=== PATIENT | male | born 1935 | race Caucasian/White ===

== ENCOUNTER → 2017-07-20 | Outpatient (CLI) | payer MEDICARE, BC ==
--- NOTE | 2017-07-20 10:59 | XR ---
EXAMINATION TYPE: XR abdomen 1V DATE OF EXAM: 07/20/2017 COMPARISON: NONE HISTORY: Abdominal pain TECHNIQUE: One view abdominal series FINDINGS: The osseous structures are intact. The bowel gas pattern is nonspecific. Curvature of the spine with degenerative changes noted. Postsurgical change bilateral hip. Calcifications the pelvis likely vasc ular. IMPRESSION: 1. Nonspecific abdomen. Air is seen throughout the colon to level the rectum with retained fecal delmar ris throughout the colon. Correlate for constipation.
== END | disposition home or self-care (01) ==
LOC: RADXRMAIN 09:14
PROVIDERS: ATTEND Family Medicine
DX: R10.9 Unspecified abdominal pain (principal)
CPT/HCPCS: 74000

== ENCOUNTER → 2018-09-10 | Outpatient (CLI) | payer MEDICARE, BC ==
--- NOTE | 2018-09-10 15:53 | NM ---
EXAMINATION TYPE: NM DatScan Brain SPECT DATE OF EXAM: 09/10/2018 COMPARISON: NONE HISTORY: Tremors TECHNIQUE: 10 drops of Lugol's solution was administered 1 hour prior to injection as a thyroid bloc lillian agent. After the administration of 4.81 mCi I-123 Ioflupane DaTscan. Images obtained 3 hours p ost injection. SPECT images of the brain were acquired with axial and coronal reconstructions. FINDINGS: The axial SPECT images demonstrate increased background activity and reduced activity withi n the bilateral striata. IMPRESSION: Abnormal appearance highly suggestive of idiopathic Parkinson's disease or Parkinsonian s yndrome.
== END | disposition home or self-care (01) ==
LOC: RADNMMAIN 10:13
PROVIDERS: ATTEND Nurse Practitioner Acute Care
DX: R94.02 Abnormal brain scan (principal); G25.0 Essential tremor
CPT/HCPCS: 78607; A9584

== ENCOUNTER → 2019-04-04 | Outpatient (CLI) | payer MEDICARE, BC ==
--- NOTE | 2019-04-04 08:08 | US ---
EXAMINATION TYPE: US abd limited kidneys/bladder DATE OF EXAM: 04/04/2019 COMPARISON: CT & US 2011 CLINICAL HISTORY: Q44.6 Cystic Lesions; E27.9 Mass. Liver cysts EXAM MEASUREMENTS: Liver Length: 15.2 cm Gallbladder Wall: 0.2 cm CBD: 1.0 cm Right Kidney: 9.3 x 5.0 x 4.2 cm Left Kidney: 9.9 x 5.5 x 5.0 cm Pancreas: obscured by overlying midline bowel gas Liver: multiple cysts throughout with largest septated cyst measuring 6.1 x 6.1 x 7.1cm Gallbladder: wnl CBD: dilated Right Kidney: 1.2cm cystic area medial mid pole Left Kidney: visualized portions wnl, limited by overlying bowel gas Bladder: irregular posterior wall Bilateral Jets Seen yes IMPRESSION: 1. Multiple large hepatic cysts. No distinct solid mass appreciated. 2. Right renal cystic changes identified. 3. Dilated common bile duct likely on the basis of senescent change.
== END | disposition home or self-care (01) ==
LOC: RADUSWWP 07:04
PROVIDERS: ATTEND Family Medicine
DX: K76.89 Other specified diseases of liver (principal); N28.1 Cyst of kidney, acquired
CPT/HCPCS: 76705; 76770

== ENCOUNTER 2019-11-13 12:40 | Inpatient (IN) | payer MEDICARE, BC ==
[2019-11-13] MEDS ORDERED: SODIUM CHLORIDE 0.9% 500 ML 500 ML IV STA (13:09)
[2019-11-13 13:23] LABS: Basophils % (A) 0 %; Eosinophils # (A) 0.1 k/uL (0-0.7); Eosinophils % (A) 1 %; HCT 42.6 % (39.0-53.0); HGB 14.2 gm/dL (13.0-17.5); Lymphocytes # (A) 0.9 k/uL (1.0-4.8); Lymphocytes % (A) 10 %; MCH 31.2 pg (25.0-35.0); MCHC 33.5 g/dL (31.0-37.0); MCV 93.2 fL (80.0-100.0); Mean Platelet Volume 7.9; Monocytes # (A) 0.4 k/uL (0-1.0); Monocytes % (A) 4 %; Neutrophils # (A) 7.4 k/uL (1.3-7.7); Neutrophils % (A) 83 %; Platelet Count 128 k/uL (150-450); RBC 4.57 m/uL (4.30-5.90); RDW 13.5 % (11.5-15.5); WBC 8.9 k/uL (3.8-10.6)
--- NOTE | 2019-11-13 13:26 | ED ---
General Adult HPI - General Stated complaint: cough/CATARINO Time Seen by Provider: 11/13/19 12:50 Source: EMS, RN notes reviewed, old records reviewed Limitations: altered mental status - History of Present Illness Initial comments: 84-year-old male with history of dementia presenting with cough dyspnea and fever. History is very limited only from EMS and review of medical record. Patient has had cough and dyspnea for the past 24 hours. No known exposure to coronavirus. - Related Data Home Medications Medication Instructions Recorded Confirmed Acetaminophen Tab [Tylenol] 325 mg PO Q4H PRN 11/13/19 11/13/19 Aspirin EC [Ecotrin Low Dose] 81 mg PO DAILY 11/13/19 11/13/19 Carbidopa-Levodopa 25-100 mg 1 tab PO QID@08,12,,11/13/19 11/13/19 [Sinemet 25-100] Cholecalciferol [Vitamin D3 (25 1,000 unit PO DAILY 11/13/19 11/13/19 Mcg = 1000 Iu)] LORazepam [Ativan] 0.5 mg PO DAILY PRN 11/13/19 11/13/19 LORazepam [Ativan] 1 mg PO HS@199911/13/19 11/13/19 Losartan [Cozaar] 25 mg PO DAILY@0800 11/13/19 11/13/19 Melatonin 5 mg PO HS 11/13/19 11/13/19 Menthol [Biofreeze] 1 applic TOPICAL Q8H PRN 11/13/19 11/13/19 Metoprolol Tartrate [Lopressor] 12.5 mg PO BID@0800,1800 11/13/19 11/13/19 Polyethylene Glycol 3350 [Miralax] 17 gm PO DAILY 11/13/19 11/13/19 Polyvinyl Alcohol/Povidone [Clear 1 drop BOTH EYES Q2H PRN 11/13/19 11/13/19 Eyes Natural Tears Drop] Rivastigmine 4.6MG/24Hr Patch 1 patch TRANSDERM DAILY@0800 11/13/19 11/13/19 [Exelon 4.6MG/24Hr Patch] Sennosides [Senna] 8.6 mg PO BID@0800,1800 11/13/19 11/13/19 Tamsulosin [Flomax] 0.4 mg PO DAILY 11/13/19 11/13/19 Vortioxetine Hydrobromide 10 mg PO DAILY 11/13/19 11/13/19 [Trintellix] cloNIDine HCL [Catapres] 0.1 mg PO BID@0800,1800 11/13/19 11/13/19 rOPINIRole HCL [Requip] 0.5 mg PO BID@0800,1800 11/13/19 11/13/19 Allergies Allergy/AdvReac Type Severity Reaction Status Date / Time No Known Allergies Allergy Unverified 11/13/19 13:00 Review of Systems ROS Statement: Those systems with pertinent positive or pertinent negative responses have been documented in the HPI. ROS Other: All systems not noted in ROS Statement are negative. Limitations: ROS unobtainable due to patients medical condition General Exam Limitations: altered mental status, physical limitation General appearance: in no apparent distress, lethargic Head exam: Present: atraumatic, normocephalic Eye exam: Present: normal appearance, PERRL ENT exam: Present: mucous membranes dry Neck exam: Present: normal inspection. Absent: tenderness, meningismus Respiratory exam: Present: respiratory distress (Mild tachypnea), rhonchi, accessory muscle use, decreased breath sounds Cardiovascular Exam: Present: normal rhythm, tachycardia GI/Abdominal exam: Present: soft. Absent: distended, tenderness, guarding Extremities exam: Present: normal inspection, normal capillary refill. Absent: pedal edema, calf tenderness Neurological exam: Present: alert. Absent: oriented X3, motor sensory deficit Skin exam: Present: warm, dry, intact. Absent: cyanosis, diaphoretic Course Vital Signs 11/13/19 11/13/19 11/13/19 13:00 13:50 14:18 Temperature 100.8 F H 103.7 F H Pulse Rate 91 Respiratory 22 14 Rate Blood Pressure 127/82 169/76 O2 Sat by Pulse 91 L 97 Oximetry EKG Findings - EKG Comments: EKG Findings:: EKG: Sinus tachycardia, PVC, rate of 101, TX interval 126, QRS duration 86, QTC 414, no ST segment elevation. Medical Decision Making - Medical Decision Making 84-year-old male presenting with cough dyspnea and fever. Patient currently resides in a retirement. History of dementia unable to contribute to history. He does sound rhonchorous bilaterally with mild respiratory distress. Patient's has a normal CBC, no leukocytosis, mild lactic acidosis of 2.9, his normal electrolytes. Chest x-ray is negative for focal pneumonia, no bilateral interstitial infiltrates. Patient is treated for suspected developing pneumonia with ceftriaxone and azithromycin. Influenza testing is negative. Given the patient's negative flu, and concern for coronavirus this test will be sent. He will be kept in isolation awaiting test results. Case is discussed with Dr. Haider who will admit. - Lab Data Result diagrams: 11/13/19 13:04 11/13/19 13:04 Lab Results 11/13/19 11/13/19 11/13/19 Range/Units 13:04 13:04 13:04 WBC 8.9 (3.8-10.6) k/uL RBC 4.57 (4.30-5.90) m/uL Hgb 14.2 (13.0-17.5) gm/dL Hct 42.6 (39.0-53.0) % MCV 93.2 (80.0-100.0) fL MCH 31.2 (25.0-35.0) pg MCHC 33.5 (31.0-37.0) g/dL RDW 13.5 (11.5-15.5) % Plt Count 128 L (150-450) k/uL Neutrophils % 83 % Lymphocytes % 10 % Monocytes % 4 % Eosinophils % 1 % Basophils % 0 % Neutrophils # 7.4 (1.3-7.7) k/uL Lymphocytes # 0.9 L (1.0-4.8) k/uL Monocytes # 0.4 (0-1.0) k/uL Eosinophils # 0.1 (0-0.7) k/uL Basophils # 0.0 (0-0.2) k/uL PT 10.5 (9.0-12.0) sec INR 1.0 (<1.2) APTT 23.8 (22.0-30.0) sec Sodium 135 L (137-145) mmol/L Potassium 4.2 (3.5-5.1) mmol/L Chloride 100 (98-107) mmol/L Carbon Dioxide 27 (22-30) mmol/L Anion Gap 8 mmol/L BUN 33 H (9-20) mg/dL Creatinine 0.87 (0.66-1.25) mg/dL Est GFR (CKD-EPI)AfAm >90 (>60 ml/min/1.73 sqM) Est GFR (CKD-EPI)NonAf 80 (>60 ml/min/1.73 sqM) Glucose 112 H (74-99) mg/dL Plasma Lactic Acid Gaston (0.7-2.0) mmol/L Calcium 8.9 (8.4-10.2) mg/dL Magnesium 1.8 (1.6-2.3) mg/dL Total Bilirubin 0.7 (0.2-1.3) mg/dL AST 28 (17-59) U/L ALT 14 (4-49) U/L Alkaline Phosphatase 85 (38-126) U/L Total Protein 6.5 (6.3-8.2) g/dL Albumin 4.1 (3.5-5.0) g/dL Urine Color Urine Appearance (Clear) Urine pH (5.0-8.0) Ur Specific Polaris (1.001-1.035) Urine Protein (Negative) Urine Glucose (UA) (Negative) Urine Ketones (Negative) Urine Blood (Negative) Urine Nitrite (Negative) Urine Bilirubin (Negative) Urine Urobilinogen (<2.0) mg/dL Ur Leukocyte Esterase (Negative) Urine RBC (0-5) /hpf Urine WBC (0-5) /hpf Hyaline Casts (0-2) /lpf Urine Mucus (None) /hpf Influenza Type A RNA (Not Detectd) Influenza Type B (PCR) (Not Detectd) 11/13/19 11/13/19 11/13/19 Range/Units 13:04 13:35 13:40 WBC (3.8-10.6) k/uL RBC (4.30-5.90) m/uL Hgb (13.0-17.5) gm/dL Hct (39.0-53.0) % MCV (80.0-100.0) fL MCH (25.0-35.0) pg MCHC (31.0-37.0) g/dL RDW (11.5-15.5) % Plt Count (150-450) k/uL Neutrophils % % Lymphocytes % % Monocytes % % Eosinophils % % Basophils % % Neutrophils # (1.3-7.7) k/uL Lymphocytes # (1.0-4.8) k/uL Monocytes # (0-1.0) k/uL Eosinophils # (0-0.7) k/uL Basophils # (0-0.2) k/uL PT (9.0-12.0) sec INR (<1.2) APTT (22.0-30.0) sec Sodium (137-145) mmol/L Potassium (3.5-5.1) mmol/L Chloride (98-107) mmol/L Carbon Dioxide (22-30) mmol/L Anion Gap mmol/L BUN (9-20) mg/dL Creatinine (0.66-1.25) mg/dL Est GFR (CKD-EPI)AfAm (>60 ml/min/1.73 sqM) Est GFR (CKD-EPI)NonAf (>60 ml/min/1.73 sqM) Glucose (74-99) mg/dL Plasma Lactic Acid Gaston 2.9 H* (0.7-2.0) mmol/L Calcium (8.4-10.2) mg/dL Magnesium (1.6-2.3) mg/dL Total Bilirubin (0.2-1.3) mg/dL AST (17-59) U/L ALT (4-49) U/L Alkaline Phosphatase (38-126) U/L Total Protein (6.3-8.2) g/dL Albumin (3.5-5.0) g/dL Urine Color Yellow Urine Appearance Clear (Clear) Urine pH 5.5 (5.0-8.0) Ur Specific Polaris 1.021 (1.001-1.035) Urine Protein Trace H (Negative) Urine Glucose (UA) Negative (Negative) Urine Ketones 1+ H (Negative) Urine Blood Small H (Negative) Urine Nitrite Negative (Negative) Urine Bilirubin Negative (Negative) Urine Urobilinogen <2.0 (<2.0) mg/dL Ur Leukocyte Esterase Negative (Negative) Urine RBC 5 (0-5) /hpf Urine WBC 4 (0-5) /hpf Hyaline Casts 6 H (0-2) /lpf Urine Mucus Rare H (None) /hpf Influenza Type A RNA Not Detected (Not Detectd) Influenza Type B (PCR) Not Detected (Not Detectd) Disposition Clinical Impression: Pneumonia Disposition: ADMITTED IP TO THIS HOSP Condition: Stable Is patient prescribed a controlled substance at d/c from ED?: No Referrals: Mark Anderson DO [Primary Care Provider] - 1-2 days Decision to Admit Reason: Admit from EC Decision Date: 11/13/19 Decision Time: 14:36
[2019-11-13] MEDS ORDERED: ACETAMINOPHEN SUPPOSITORY 650 MG SUPP RECTAL STA (13:29)
[2019-11-13 13:32] LABS: Partial Thromboplastin Time 23.8 sec (22.0-30.0); Prothrombin Time 10.5 sec (9.0-12.0)
[2019-11-13 13:38] LABS: ALT 14 U/L (4-49); AST 28 U/L (17-59); African American GFR (CKD) >90 (>60 ml/min/1.73 sqM); Albumin 4.1 g/dL (3.5-5.0); Alkaline Phosphatase 85 U/L (38-126); Anion Gap 8 mmol/L; Blood Urea Nitrogen 33 mg/dL (9-20); Calcium 8.9 mg/dL (8.4-10.2); Carbon Dioxide 27 mmol/L (22-30); Chloride 100 mmol/L (98-107); Glucose 112 mg/dL (74-99); Magnesium 1.8 mg/dL (1.6-2.3); Non-African American GFR(CKD) 80 (>60 ml/min/1.73 sqM); Potassium 4.2 mmol/L (3.5-5.1); Sodium 135 mmol/L (137-145); Total Bilirubin 0.7 mg/dL (0.2-1.3); Total Protein 6.5 g/dL (6.3-8.2)
[2019-11-13] MEDS ORDERED: ONDANSETRON 4 MG/2 ML VIAL IVP STA (13:39)
[2019-11-13 14:20] LABS: Appearance,Urine Clear (Clear); Bilirubin,Urine Negative (Negative); Blood,Urine Small (Negative); Color,Urine Yellow; Glucose,Urine (UA) Negative (Negative); Hyaline Casts,Urine 6 /lpf (0-2); Ketones,Urine 1+ (Negative); Leukocyte Esterase,Urine Negative (Negative); Mucus,Urine Rare /hpf; Nitrite,Urine Negative (Negative); PH, Urine 5.5 (5.0-8.0); Protein,Urine Trace (Negative); RBC,Urine 5 /hpf (0-5); Specific Gravity,Urine 1.021 (1.001-1.035); Urobilinogen,Urine <2.0 mg/dL (<2.0); WBC,Urine 4 /hpf (0-5)
--- NOTE | 2019-11-13 14:24 | XR ---
EXAMINATION TYPE: XR chest 1V portable DATE OF EXAM: 11/13/2019 COMPARISON: NONE HISTORY: Fever and cough TECHNIQUE: FINDINGS: Heart is normal. There is mild coarsening of pulmonary interstitial markings. There is poor inspiration. There is no heart failure. There are chest leads. Thoracic aorta is atheromatous. IMPRESSION: Mild pulmonary fibrotic changes. No definite acute lung disease. No heart failure.
[2019-11-13] MEDS ORDERED: AZITHROMYCIN 500 MG in SODIUM CHLORIDE 0.9% 250 ML IVPB STA (14:31)
[2019-11-13] MEDS ORDERED: NALOXONE 0.4 MG/ML 1 ML VIAL IV PRN (14:32)
[2019-11-13] MEDS ORDERED: ACETAMINOPHEN TAB 325 MG TAB PO PRN ×2 (14:32→17:51)
[2019-11-13] MEDS: SODIUM CHLORIDE 0.9% 1,000 ML IV SCH (15:21)
[2019-11-13] MEDS ORDERED: SODIUM CHLORIDE 0.9% 500 ML 500 ML IV ONE (15:28)
[2019-11-13] MEDS ORDERED: NON FORMULARY DRUG (Menthol [Biofreeze] 1 APPLIC) TOPICAL PRN (17:51)
[2019-11-13] MEDS ORDERED: LORazepam 0.5 MG TAB PO PRN (17:51)
[2019-11-13] MEDS ORDERED: ARTIFICIAL TEARS-HYPROMELLOSE DROPS 15 ML BTL BOTH EYES PRN (17:51)
[2019-11-13] MEDS: cloNIDine HCL 0.1 MG TAB PO SCH (18:38)
[2019-11-13] MEDS: METOPROLOL TARTRATE 12.5 MG TAB PO SCH (18:40)
[2019-11-13] MEDS: SENNOSIDES 8.6 MG TAB PO SCH (18:40)
[2019-11-13] MEDS: CARBIDOPA-LEVODOPA 25-100 MG 1 EACH TAB PO SCH ×2 (18:40→20:03)
[2019-11-13] MEDS: LORazepam 1 MG TAB PO SCH (20:03)
[2019-11-13] MEDS: MELATONIN 5 MG TABLET PO SCH (20:03)
[2019-11-14] MEDS: SODIUM CHLORIDE 0.9% 1,000 ML IV SCH ×2 (04:29→16:04)
[2019-11-14] MEDS: CARBIDOPA-LEVODOPA 25-100 MG 1 EACH TAB PO SCH ×4 (08:52→21:24)
[2019-11-14] MEDS: LOSARTAN 25 MG TAB PO SCH (08:52)
[2019-11-14] MEDS: METOPROLOL TARTRATE 12.5 MG TAB PO SCH ×2 (08:52→17:42)
[2019-11-14] MEDS: cloNIDine HCL 0.1 MG TAB PO SCH ×2 (08:52→17:42)
[2019-11-14] MEDS: RIVASTIGMINE 4.6MG/24HR PATCH TRANSDERM SCH (08:52)
[2019-11-14] MEDS: VORTIOXETINE HYDROBROMIDE 10 MG TABLET PO SCH (08:53)
[2019-11-14] MEDS: SENNOSIDES 8.6 MG TAB PO SCH ×2 (08:53→17:44)
[2019-11-14] MEDS: ASPIRIN 81 MG PO SCH (08:53)
[2019-11-14] MEDS: CHOLECALCIFEROL 1,000 UNIT TAB PO SCH (08:53)
[2019-11-14] MEDS: TAMSULOSIN 0.4 MG CAP.ER.24H PO SCH (08:53)
[2019-11-14] MEDS: POLYETHYLENE GLYCOL 3350 17 GM POWD.PACK PO SCH (08:53)
--- NOTE | 2019-11-14 10:56 | P.HPIM ---
History of Present Illness H&P Date: 11/13/19 Chief Complaint: severe dyspnea and shortness of breath, high fever, bilateral pneumonia w 84-year-old male one of Dr. Mendiola's patient with advanced dementia, history of Parkinson disease, chronic depression, BPH and hypertension who [facility] 11[facility]2019 with severe shortness of breath hypoxia and high temperature of 103. Patient apparently has been having symptom for the last 3 days become much worse early t his morning. Symptomatically for bilateral pneumonia with negative chest x-ray at the time. His lactic acid is mildly elevated temperature was 103 at the time and subtle down shortly after his treatment was started. Patient was diagnosed with bilateral pneumonia, COVID 19 testing was order and pending at this point. Patient was started on Rocephin and azithromycin along with updraft treatment and O2 and admitted to the hospital shortly after for the above diagnosis. Review of Systems CONSTITUTIONAL: Well-developed no acute respiratory distress. Looks older than his age. EYES: No icterus sclerae, no conjunctivitis. EARS, NOSE, MOUTH, THROAT, and FACE: No sore throat, lymphadenopathy, carotid bruits or deformity. RESPIRATORY: Positive shortness of breath cough wheezes. CARDIOVASCULAR: No CP, positive Palpitation and PND, positive Orthopnea, no angina. GASTROINTESTINAL: Positive abdominal discomfort nausea no vomiting positive diarrhea no GI bleed. GENITOURINARY: Negative for Hematuria or UTI, no kidney stones. INTEGUMENT/BREAST: Negative for any muscular injury with mild osteoarthritis.. HEMATOLOGIC/LYMPHATIC: Negative for bleed or purpura. MUSCULOSKELTAL: Negative for Myalgia or arthralgia. NEURLOGICAL: Advanced dementia with no focal deficit. BEHAVIORAL/PSYCH: Negative. ENDOCRINE: Negative. Past Medical History Past Medical History: Dementia, Hyperlipidemia, Hypertension Additional Past Medical History / Comment(s): metabolic encephalopathy, parkinsons disease, chronic pain, cerebral infarction, BPH, insomnia History of Any Multi-Drug Resistant Organisms: Unobtainable Past Surgical History: Orthopedic Surgery Past Anesthesia/Blood Transfusion Reactions: Unable to Obtain Past Psychological History: Anxiety, Depression Smoking Status: Former smoker Past Alcohol Use History: None Reported Past Drug Use History: None Reported Medications and Allergies Home Medications Medication Instructions Recorded Confirmed Type Acetaminophen Tab [Tylenol] 325 mg PO Q4H PRN 11/13/19 11/13/19 History Aspirin EC [Ecotrin Low Dose] 81 mg PO DAILY 11/13/19 11/13/19 History Carbidopa-Levodopa 25-100 mg 1 tab PO QID@08,12,,11/13/19 11/13/19 History [Sinemet 25-100] Cholecalciferol [Vitamin D3 (25 1,000 unit PO DAILY 11/13/19 11/13/19 History Mcg = 1000 Iu)] LORazepam [Ativan] 0.5 mg PO DAILY PRN 11/13/19 11/13/19 History LORazepam [Ativan] 1 mg PO HS@199911/13/19 11/13/19 History Losartan [Cozaar] 25 mg PO DAILY@0800 11/13/19 11/13/19 History Melatonin 5 mg PO HS 11/13/19 11/13/19 History Menthol [Biofreeze] 1 applic TOPICAL Q8H PRN 11/13/19 11/13/19 History Metoprolol Tartrate [Lopressor] 12.5 mg PO BID@0800,1800 11/13/19 11/13/19 History Polyethylene Glycol 3350 [Miralax] 17 gm PO DAILY 11/13/19 11/13/19 History Polyvinyl Alcohol/Povidone [Clear 1 drop BOTH EYES Q2H PRN 11/13/19 11/13/19 History Eyes Natural Tears Drop] Rivastigmine 4.6MG/24Hr Patch 1 patch TRANSDERM DAILY@0800 11/13/19 11/13/19 History [Exelon 4.6MG/24Hr Patch] Sennosides [Senna] 8.6 mg PO BID@0800,1800 11/13/19 11/13/19 History Tamsulosin [Flomax] 0.4 mg PO DAILY 11/13/19 11/13/19 History Vortioxetine Hydrobromide 10 mg PO DAILY 11/13/19 11/13/19 History [Trintellix] cloNIDine HCL [Catapres] 0.1 mg PO BID@0800,1800 11/13/19 11/13/19 History rOPINIRole HCL [Requip] 0.5 mg PO BID@0800,1800 11/13/19 11/13/19 History Allergies Allergy/AdvReac Type Severity Reaction Status Date / Time No Known Allergies Allergy Unverified 11/13/19 13:00 Physical Exam Vitals: Vital Signs Temp Pulse Resp BP Pulse Ox 11/13/19 15:31 101.3 F H 85 16 124/93 95 11/13/19 15:15 99.3 F 20 11/13/19 14:18 14 169/76 97 11/13/19 13:50 103.7 F H 11/13/19 13:00 100.8 F H 91 22 127/82 91 L Intake and Output 11/13/19 11/13/19 11/13/19 06:59 14:59 22:59 Other: Voiding Method Diaper Weight 63.503 kg 68.431 kg General Appearance: Alert, cooperative, no distress, appears older than his age. Neck HEENT: Supple, no lymphadenopathy, no thyroid enlargement, no carotid bruits. Mild congestion in the nasopharyngeal area. Lungs: Decrease breast some bilateral fine rhonchi positive crackles in the bases positive mild respiratory expiratory wheezes. Chest Wall: Decrease expansion with deep inspiration no tenderness and no deformity was found on exam, no costochondral pain or discomfort. Heart: Regular rate and rhythm, S1, S2 normal, no murmur, rub or gallop. Back: Symmetric, no curvature, ROM normal, no CVA tenderness. Abdomen: Soft, non-tender, bowel sounds active all four quadrants, no masses, no organomegaly. Extremities: No edema positive mild osteoarthritis with slight discoloration of the lower extremity. Pulses: 2+ and symmetric. Skin: Skin color, texture, tugor normal, no rashes or lesions. Neurologic: Alert oriented with severe confusion moving all his for some to generalized weakness. Positive advanced dementia. Results CBC & Chem 7: 11/13/19 13:04 11/13/19 13:04 Labs: Abnormal Lab Results - Last 24 Hours (Table) 11/13/19 11/13/19 11/13/19 Range/Units 13:04 13:04 13:04 Plt Count 128 L (150-450) k/uL Lymphocytes # 0.9 L (1.0-4.8) k/uL Sodium 135 L (137-145) mmol/L BUN 33 H (9-20) mg/dL Glucose 112 H (74-99) mg/dL Plasma Lactic Acid Gaston 2.9 H* (0.7-2.0) mmol/L Urine Protein (Negative) Urine Ketones (Negative) Urine Blood (Negative) Hyaline Casts (0-2) /lpf Urine Mucus (None) /hpf 11/13/19 Range/Units 13:40 Plt Count (150-450) k/uL Lymphocytes # (1.0-4.8) k/uL Sodium (137-145) mmol/L BUN (9-20) mg/dL Glucose (74-99) mg/dL Plasma Lactic Acid Gaston (0.7-2.0) mmol/L Urine Protein Trace H (Negative) Urine Ketones 1+ H (Negative) Urine Blood Small H (Negative) Hyaline Casts 6 H (0-2) /lpf Urine Mucus Rare H (None) /hpf Thrombosis Risk Factor Assmnt - DVT/VTE Prophylaxis DVT/VTE Prophylaxis: Pharmacologic Prophylaxis ordered, Mechanical Prophylaxis ordered - Choose All That Apply Any of the Below Risk Factors Present?: Yes Each Factor Represents 1 point: Heart failure (<1month) Other Risk Factors: Yes Each Risk Factor Represents 2 Points: Patient confined to bed Each Risk Factor Represents 3 Points: Age 75 years or older Thrombosis Risk Factor Assessment Total Risk Factor Score: 6 Thrombosis Risk Factor Assessment Level: High Risk Assessment and Plan Plan: 1 severe dyspnea and shortness of breath: Combination off bilateral pneumonia along with COPD exacerbation, hypoxia and possible worsening viral infection including not limited to COVID-19. Continue current treatment management continue supportive care isolation and percussion at this point. 2 bilateral pneumonia with severe bronchitis who continue patient on Rocephin and azithromycin pulmonary consultation be done. 3 COPD with mild exacerbation: Patient will continue DuoNeb along with Pulmicort O2 along with pulmonary consultation and if needed smaller dose of steroid can be use. 4 worsening dementia: Has been on Exelon patch daily continue medication. 5 Parkinson disease: Patient has been on Sinemet along with Requip. 6 hypertension: Remain on losartan 25 g a day along with Lopressor 12.5 mg twice a day, and continue clonidine 0.1 mg twice a day. 7 mildly elevated lactic acid: With the severity of infection and fever blood culture to be done repeat lactic acid the next 12 hours. Continue hydration and supportive care as well. 8 thrombocytopenia: Platelet count of 1 28,000 can be secondary to infection to treat underlying and repeat CBC tomorrow. 9 GI prophylaxis: Patient will be on Pepcid 20 mg daily. 10 DVT prophylaxis: With his thrombocytopenia cannot do heparin subcutaneous will be due knee-high RADHA hose and Venodyne boots. CODE STATUS: Full code. Admit patient to inpatient status for more than 2 nights stay.
[2019-11-14] MEDS ORDERED: AZITHROMYCIN 500 MG in SODIUM CHLORIDE 0.9% 250 ML IVPB SCH (11:00)
[2019-11-14] MEDS ORDERED: methylPREDNISolone SOD SUCCI 40 MG/ML 1 ML VIAL IV SCH (11:00)
[2019-11-14] MEDS: FAMOTIDINE 20 MG TAB PO SCH (11:11)
[2019-11-14 11:25] LABS: Glucose,Whole Blood 93 mg/dL (75-99)
[2019-11-14] MEDS ORDERED: INSULIN ASPART (NovoLOG) 100 UNIT/ML VIAL SQ SCH (12:30)
--- NOTE | 2019-11-14 13:31 | P.CNPUL ---
History of Present Illness Consult date: 11/14/19 Reason for consult: dyspnea, cough Chief complaint: Dyspnea, cough and fever History of present illness: 84-year-old male patient of Dr. Anderson with past medical history of advanced dementia, history of Parkinson's disease, chronic depression, BPH, and hypertension, was brought in to the emergency department on 11/13/2019 for evaluation of severe dyspnea, hypoxia, and fever of 103.7F. Patient had onset of symptoms 3 days prior to presentation. Chest x-ray was completed showing mild coarsening of pulmonary interstitial markings, poor inspiratory effort, no definite acute lung disease. Lab work showed white blood cell count of 8.9, hemoglobin of 14.2, platelet count of 128, coagulation profile is within normal limits, sodium of 135, potassium is 4.2, chloride is 100, CO2 27, BUN at 33, creatinine of 0.87, plasma lactic acid was mildly elevated at 2.9 on admission, LFTs were within normal limits, urinalysis showed small amount of blood, but no signs of infection. Patient was hypotensive in the emergency department with the blood pressure of 79/42, patient was given a liter bolus in the emergency d epartment, and currently IV fluids are infusing at a rate of 75 ML per hour. Empiric antibiotics were started in the form of azithromycin and Rocephin. Influenza screen was negative, and patient was swabbed for COVID 19, blood cultures have been sent. Patient is a poor historian, he is lethargic, but arousable, does not appear to be in any distress, is currently on 3 L of oxygen, pulse increased 100%, hemodynamically patient is stable, blood pressures 133/71, fever pattern has improved, temp is 97.4. Review of Systems All systems: negative Constitutional: Denies chills, Denies fever Eyes: denies blurred vision, denies pain Ears, nose, mouth and throat: Denies headache, Denies sore throat Cardiovascular: Denies chest pain, Denies shortness of breath Respiratory: Reports cough, Reports dyspnea Gastrointestinal: Denies abdominal pain, Denies diarrhea, Denies nausea, Denies vomiting Musculoskeletal: Denies myalgias Integumentary: Denies pruritus, Denies rash Neurological: Reports change in mentation, Denies numbness, Denies weakness Psychiatric: Denies anxiety, Denies depression Endocrine: Denies fatigue, Denies weight change Past Medical History Past Medical History: Dementia, Hyperlipidemia, Hypertension Additional Past Medical History / Comment(s): metabolic encephalopathy, parkinsons disease, chronic pain, cerebral infarction, BPH, insomnia History of Any Multi-Drug Resistant Organisms: Unobtainable Past Surgical History: Orthopedic Surgery Past Anesthesia/Blood Transfusion Reactions: Unable to Obtain Past Psychological History: Anxiety, Depression Smoking Status: Former smoker Past Alcohol Use History: None Reported Past Drug Use History: None Reported Medications and Allergies Home Medications Medication Instructions Recorded Confirmed Type Acetaminophen Tab [Tylenol] 325 mg PO Q4H PRN 11/13/19 11/13/19 History Aspirin EC [Ecotrin Low Dose] 81 mg PO DAILY 11/13/19 11/13/19 History Carbidopa-Levodopa 25-100 mg 1 tab PO QID@08,12,,20 11/13/19 11/13/19 History [Sinemet 25-100] Cholecalciferol [Vitamin D3 (25 1,000 unit PO DAILY 11/13/19 11/13/19 History Mcg = 1000 Iu)] LORazepam [Ativan] 0.5 mg PO DAILY PRN 11/13/19 11/13/19 History LORazepam [Ativan] 1 mg PO HS@199911/13/19 11/13/19 History Losartan [Cozaar] 25 mg PO DAILY@0800 11/13/19 11/13/19 History Melatonin 5 mg PO HS 11/13/19 11/13/19 History Menthol [Biofreeze] 1 applic TOPICAL Q8H PRN 11/13/19 11/13/19 History Metoprolol Tartrate [Lopressor] 12.5 mg PO BID@0800,1800 11/13/19 11/13/19 History Polyethylene Glycol 3350 [Miralax] 17 gm PO DAILY 11/13/19 11/13/19 History Polyvinyl Alcohol/Povidone [Clear 1 drop BOTH EYES Q2H PRN 11/13/19 11/13/19 History Eyes Natural Tears Drop] Rivastigmine 4.6MG/24Hr Patch 1 patch TRANSDERM DAILY@0800 11/13/19 11/13/19 History [Exelon 4.6MG/24Hr Patch] Sennosides [Senna] 8.6 mg PO BID@0800,1800 11/13/19 11/13/19 History Tamsulosin [Flomax] 0.4 mg PO DAILY 11/13/19 11/13/19 History Vortioxetine Hydrobromide 10 mg PO DAILY 11/13/19 11/13/19 History [Trintellix] cloNIDine HCL [Catapres] 0.1 mg PO BID@0800,1800 11/13/19 11/13/19 History rOPINIRole HCL [Requip] 0.5 mg PO BID@0800,1800 11/13/19 11/13/19 History Allergies Allergy/AdvReac Type Severity Reaction Status Date / Time No Known Allergies Allergy Unverified 11/13/19 13:00 Physical Exam Vitals: Vital Signs Temp Pulse Pulse Resp BP BP Pulse Ox 11/14/19 11:29 57 L 18 11/14/19 11:25 97.4 F L 57 L 18 133/71 100 11/14/19 08:00 97.4 F L 70 18 153/76 96 11/14/19 04:00 98.4 F 67 18 116/63 97 11/14/19 00:00 98.4 F 67 16 91/53 97 11/13/19 20:00 101.2 F H 97 18 79/42 97 11/13/19 18:31 99.3 F 100 20 108/78 98 11/13/19 15:31 101.3 F H 85 16 124/93 95 11/13/19 15:15 99.3 F 20 11/13/19 14:18 14 169/76 97 11/13/19 13:50 103.7 F H Intake and Output 11/13/19 11/14/19 11/14/19 22:59 06:59 14:59 Intake Total 615 Output Total 300 Balance 615 -300 Intake: Intake, IV Titration 175 Amount Sodium Chloride 0.9% 1, 175 000 ml @ 75 mls/hr IV . [id number] [facility] Rx#:[id number] Oral 440 Output: Urine 300 Other: Voiding Method Diaper Diaper Incontinent Incontinent # Voids 1 # Bowel Movements 1 Weight 68.431 kg 41 kg 41 kg GENERAL EXAM: Lethargic, but arousable, 84-year-old white male on 3 L of oxygen the process of 100%, comfortable in no apparent distress. HEAD: Normocephalic/atraumatic. EYES: Normal reaction of pupils, equal size. Conjunctiva pink, sclera white. NOSE: Clear with pink turbinates. THROAT: No erythema or exudates. NECK: No masses, no JVD, no thyroid enlargement, no adenopathy. CHEST: No chest wall deformity. Symmetrical expansion. LUNGS: Equal air entry with basilar crackles CVS: Regular rate and rhythm, normal S1 and S2, no gallops, no murmurs, no rubs ABDOMEN: Soft, nontender. No hepatosplenomegaly, normal bowel sounds, no guarding or rigidity. EXTREMITIES: No clubbing, no edema, no cyanosis, 2+ pulses and upper and lower extremities. MUSCULOSKELETAL: Muscle strength and tone normal. SPINE: No scoliosis or deformity SKIN: No rashes CENTRAL NERVOUS SYSTEM: Lethargic, but arousable, confused, 84-year-old white male 3 L of oxygen No focal deficits, tone is normal in all 4 extremities. Results - Laboratory Findings CBC and BMP: 11/13/19 13:04 11/13/19 13:04 PT/INR, D-dimer PT 10.5 sec (9.0-12.0) 11/13/19 13:04 INR 1.0 (<1.2) 11/13/19 13:04 Abnormal lab findings: Abnormal Labs 11/13/19 11/13/19 11/13/19 13:04 13:04 13:04 Plt Count 128 L Lymphocytes # 0.9 L Sodium 135 L BUN 33 H Glucose 112 H Plasma Lactic Acid Gaston 2.9 H* Urine Protein Urine Ketones Urine Blood Hyaline Casts Urine Mucus 11/13/19 13:40 Plt Count Lymphocytes # Sodium BUN Glucose Plasma Lactic Acid Gaston Urine Protein Trace H Urine Ketones 1+ H Urine Blood Small H Hyaline Casts 6 H Urine Mucus Rare H - Diagnostic Findings Chest x-ray: report reviewed, image reviewed Assessment and Plan Plan: Assessment: #1. Acute hypoxic respiratory failure related possibility of mild bronchitis, no clear evidence of pneumonia seen on the chest x-ray #2. Acute febrile illness, of unknown etiology, influenza screen was negative, COVID 19 testing was negative #3. Hypotension, tachycardia, rule out infectious etiology, versus dehydration, patient has been fluid resuscitated, and improved #3. Lactic acidosis proved with hydration, blood cultures pending, urinalysis is negative for any sign of infection, chest x-ray negative for any pneumonia, LFTs within normal limits, no abdominal pain #4. History of advanced dementia #5. Parkinson's disorder #6. BPH #7. Hypertention #8. Hyperlipidemia #9. History of CVA #10. Former smoker Plan: No clear evidence of pneumonia seen on the chest x-ray, switched IV antibiotics to empiric oral antibiotic, continue current medical treatment awaiting results of the COVID 19 testing. Lactic acid has improved with hydration. Blood pressure has improved. We'll send a pro-calcitonin. Breathing treatment only as needed, no significant rhonchi or wheezing. We'll continue to follow I performed a history & physical examination of the patient and discussed their management with my nurse practitioner, Gayatri Barnes. I reviewed the nurse practitioner's note and agree with the documented findings and plan of care. Lung sounds are positive for diminished breath sounds with bibasilar crackles The findings and the impression was discussed with the patient. I attest to the documentation by the nurse practitioner. Time with Patient: Greater than 30
--- NOTE | 2019-11-14 13:42 | P.PN ---
Subjective Progress Note Date: 11/14/19 84-year-old male one of Dr. Mendiola's patient with advanced dementia, history of Parkinson disease, chronic depression, BPH and hypertension who brought to demurs department from the skilled nursing by EMS on 11/13/2019 with severe shortness of breath hypoxia and high temperature of 103. Patient alex arently has been having symptom for the last 3 days become much worse early this morning. Symptomatically for bilateral pneumonia with negative chest x-ray at the time. His lactic acid is mildly elevated temperature was 103 at the time and subtle down shortly after his treatment was started. Patient was diagnosed with bilateral pneumonia, COVID 19 testing was order and pending at this point. Patient was started on Rocephin and azithromycin along with updraft treatment and O2 and admitted to the hospital shortly after for the above diagnosis. 11/13: Patient is seen today on the cardiac stepdown unit. Patient continues to have a congested cough, nonproductive with generalized weakness. playground monitor has been a sinus rhythm. Patient is afebrile, heart rate 70, blood pressure 153/76, pulse ox 96% on 3 L. Lactic acid has normalized to 1.5. Patient has been followed by pulmonary medicine and do not see clear evidence of pneumonia. Antibiotics were switched to Augmentin. Covid 19 remains pending and patient is in droplet isolation. A PT and OT in place. Patient will not be able to return home if he is unable to ambulate which she has had previous rehab at [facility]. Objective - Vital Signs Vital signs: Vital Signs Temp 97.4 F L 11/14/19 08:00 Pulse 70 11/14/19 08:00 Resp 18 11/14/19 08:00 BP 153/76 11/14/19 08:00 Pulse Ox 96 11/14/19 08:00 Intake & Output 11/13/19 11/14/19 11/14/19 18:59 06:59 18:59 Intake Total 615 Output Total 300 Balance 615 -300 Weight 68.431 kg 41 kg 41 kg Intake: Intake, IV Titration 175 Amount Sodium Chloride 0.9% 1, 175 000 ml @ 75 mls/hr IV . [id number] [facility] Rx#:[id number] Oral 440 Output: Urine 300 Other: Voiding Method Diaper Diaper Diaper Incontinent Incontinent # Voids 1 # Bowel Movements 1 - Exam Review of Systems CONSTITUTIONAL: Well-developed no acute respiratory distress. Looks older than his age. Frequent congested cough noted. EYES: No icterus sclerae, no conjunctivitis. EARS, NOSE, MOUTH, THROAT, and FACE: No sore throat, lymphadenopathy, carotid bruits or deformity. RESPIRATORY: Positive shortness of breath cough wheezes. CARDIOVASCULAR: No CP, positive Palpitation and PND, positive Orthopnea, no angina. GASTROINTESTINAL: Positive abdominal discomfort nausea no vomiting positive diarrhea no GI bleed. GENITOURINARY: Negative for Hematuria or UTI, no kidney stones. INTEGUMENT/BREAST: Negative for any muscular injury with mild osteoarthritis.. HEMATOLOGIC/LYMPHATIC: Negative for bleed or purpura. MUSCULOSKELTAL: Negative for Myalgia or arthralgia. NEURLOGICAL: Advanced dementia with no focal deficit. BEHAVIORAL/PSYCH: Negative. ENDOCRINE: Negative. Physical examination General Appearance: Alert, cooperative, no distress, appears older than his age. Neck HEENT: Supple, no lymphadenopathy, no thyroid enlargement, no carotid bruits. Mild congestion in the nasopharyngeal area. Lungs: Decrease breath some bilateral, no accessory muscle usage. Chest Wall: Decrease expansion with deep inspiration no tenderness and no deformity was found on exam, no costochondral pain or discomfort. Heart: Regular rate and rhythm, S1, S2 normal, no murmur, rub or gallop. Back: Symmetric, no curvature, ROM normal, no CVA tenderness. Abdomen: Soft, non-tender, bowel sounds active all four quadrants, no masses, no organomegaly. Extremities: No edema positive mild osteoarthritis with slight discoloration of the lower extremity. Pulses: 2+ and symmetric. Skin: Skin color, texture, tugor normal, no rashes or lesions. Neurologic: Alert oriented with severe confusion moving all his for some to generalized weakness. Positive advanced dementia. - Labs CBC & Chem 7: 11/13/19 13:04 11/13/19 13:04 Labs: Abnormal Lab Results - Last 24 Hours (Table) 11/13/19 11/13/19 11/13/19 Range/Units 13:04 13:04 13:04 Plt Count 128 L (150-450) k/uL Lymphocytes # 0.9 L (1.0-4.8) k/uL Sodium 135 L (137-145) mmol/L BUN 33 H (9-20) mg/dL Glucose 112 H (74-99) mg/dL Plasma Lactic Acid Gaston 2.9 H* (0.7-2.0) mmol/L Urine Protein (Negative) Urine Ketones (Negative) Urine Blood (Negative) Hyaline Casts (0-2) /lpf Urine Mucus (None) /hpf 11/13/19 Range/Units 13:40 Plt Count (150-450) k/uL Lymphocytes # (1.0-4.8) k/uL Sodium (137-145) mmol/L BUN (9-20) mg/dL Glucose (74-99) mg/dL Plasma Lactic Acid Gaston (0.7-2.0) mmol/L Urine Protein Trace H (Negative) Urine Ketones 1+ H (Negative) Urine Blood Small H (Negative) Hyaline Casts 6 H (0-2) /lpf Urine Mucus Rare H (None) /hpf Assessment and Plan Plan: 1. Acute hypoxic respiratory failure secondary to bronchitis. No clear pneumonia per pulmonary medicine. Antibiotics changed to Augmentin. 2. Acute febrile illness, rule out COVID-19. 3. COPD with mild exacerbation: Patient will continue DuoNeb along with Pulmicort O2 along with pulmonary consultation and if needed smaller dose of steroid can be use. 4. Worsening dementia: Has been on Exelon patch daily continue medication. 5. Parkinson disease: Patient has been on Sinemet along with Requip. 6. Hypertension: Remain on losartan 25 g a day along with Lopressor 12.5 mg twice a day, and continue clonidine 0.1 mg twice a day. 7. Lactic acidosis, resolved with hydration. 8. Thrombocytopenia: Platelet count of 1 28,000 can be secondary to infection to treat underlying and repeat CBC tomorrow. 9. GI prophylaxis: Patient will be on Pepcid 20 mg daily. 10. DVT prophylaxis: With his thrombocytopenia cannot do heparin subcutaneous will be due knee-high RADHA hose and Venodyne boots. CODE STATUS: Full code. Discharge plan: [facility] in 48 hours Impression and plan of care have been directed as dictated by the signing physician. Aisha Rausch nurse practitioner acting as scribe for signing physician.
[2019-11-14] MEDS: IPRATROPIUM-ALBUTEROL 3 ML NEB INHALATION PRN ×2 (15:27→20:09)
[2019-11-14] MEDS ORDERED: FUROSEMIDE 10 MG/ML 2 ML VIAL IV ONE (15:53)
[2019-11-14] MEDS: BUDESONIDE 0.5 MG/2 ML NEBU INHALATION SCH (20:09)
[2019-11-14] MEDS: MELATONIN 5 MG TABLET PO SCH (21:24)
[2019-11-14] MEDS: LORazepam 1 MG TAB PO SCH (21:24)
[2019-11-14] MEDS: AMOXIC-POT CLAV 875-125MG 1 EACH TAB PO SCH (21:24)
[2019-11-15 06:01] LABS: Basophils % (A) 0 %; Eosinophils # (A) 0.1 k/uL (0-0.7); Eosinophils % (A) 2 %; HCT 35.6 % (39.0-53.0); HGB 11.5 gm/dL (13.0-17.5); Lymphocytes # (A) 0.5 k/uL (1.0-4.8); Lymphocytes % (A) 10 %; MCH 30.5 pg (25.0-35.0); MCHC 32.3 g/dL (31.0-37.0); MCV 94.6 fL (80.0-100.0); Mean Platelet Volume 8.2; Monocytes # (A) 0.3 k/uL (0-1.0); Monocytes % (A) 6 %; Neutrophils # (A) 4.2 k/uL (1.3-7.7); Neutrophils % (A) 81 %; Platelet Count 118 k/uL (150-450); RBC 3.77 m/uL (4.30-5.90); RDW 13.5 % (11.5-15.5); WBC 5.3 k/uL (3.8-10.6)
[2019-11-15 06:10] LABS: ALT <6 U/L (4-49); AST 23 U/L (17-59); African American GFR (CKD) >90 (>60 ml/min/1.73 sqM); Albumin 2.7 g/dL (3.5-5.0); Alkaline Phosphatase 59 U/L (38-126); Anion Gap 3 mmol/L; Blood Urea Nitrogen 28 mg/dL (9-20); Calcium 8.3 mg/dL (8.4-10.2); Carbon Dioxide 32 mmol/L (22-30); Chloride 101 mmol/L (98-107); Glucose 85 mg/dL (74-99); Non-African American GFR(CKD) 83 (>60 ml/min/1.73 sqM); Potassium 3.6 mmol/L (3.5-5.1); Sodium 136 mmol/L (137-145); Total Bilirubin 0.5 mg/dL (0.2-1.3)
[2019-11-15] MEDS: IPRATROPIUM-ALBUTEROL 3 ML NEB INHALATION PRN (07:25)
[2019-11-15] MEDS: BUDESONIDE 0.5 MG/2 ML NEBU INHALATION SCH (07:25)
[2019-11-15] MEDS ORDERED: ALBUTEROL INHALER 60 PUFF/8 GM INHALER (MHU) INHALATION PRN (08:22)
[2019-11-15] MEDS: cloNIDine HCL 0.1 MG TAB PO SCH ×2 (08:54→17:37)
[2019-11-15] MEDS: AMOXIC-POT CLAV 875-125MG 1 EACH TAB PO SCH (08:54)
[2019-11-15] MEDS: FAMOTIDINE 20 MG TAB PO SCH (08:54)
[2019-11-15] MEDS: METOPROLOL TARTRATE 12.5 MG TAB PO SCH ×2 (08:54→17:37)
[2019-11-15] MEDS: CHOLECALCIFEROL 1,000 UNIT TAB PO SCH (08:55)
[2019-11-15] MEDS: TAMSULOSIN 0.4 MG CAP.ER.24H PO SCH (08:55)
[2019-11-15] MEDS: LOSARTAN 25 MG TAB PO SCH (08:55)
[2019-11-15] MEDS: SENNOSIDES 8.6 MG TAB PO SCH ×2 (08:55→17:37)
[2019-11-15] MEDS: CARBIDOPA-LEVODOPA 25-100 MG 1 EACH TAB PO SCH ×4 (08:55→21:08)
[2019-11-15] MEDS: POLYETHYLENE GLYCOL 3350 17 GM POWD.PACK PO SCH (08:55)
[2019-11-15] MEDS: ASPIRIN 81 MG PO SCH (08:55)
[2019-11-15] MEDS: VORTIOXETINE HYDROBROMIDE 10 MG TABLET PO SCH (08:55)
[2019-11-15] MEDS: RIVASTIGMINE 4.6MG/24HR PATCH TRANSDERM SCH (09:00)
--- NOTE | 2019-11-15 10:40 | P.PN ---
Subjective Progress Note Date: 11/15/19 Principal diagnosis: Acute hypoxic respiratory failure related to possibly mild bronchitis no clear evidence of pneumonia 84-year-old male patient of Dr. Anderson with past medical history of advanced dementia, history of Parkinson's disease, chronic depression, BPH, and hyper tension, was brought in to the emergency department on 11/13/2019 for evaluation of severe dyspnea, hypoxia, and fever of 103.7F. Patient had onset of symptoms 3 days prior to presentation. Chest x-ray was completed showing mild coarsening of pulmonary interstitial markings, poor inspiratory effort, no definite acute lung disease. Lab work showed white blood cell count of 8.9, hemoglobin of 14 .2, platelet count of 128, coagulation profile is within normal limits, sodium of 135, potassium is 4.2, chloride is 100, CO2 27, BUN at 33, creatinine of 0.87, plasma lactic acid was mildly elevated at 2.9 on admission, LFTs were within normal limits, urinalysis showed small amount of blood, but no signs of infection. Patient was hypotensive in the emergency department with the blood pressure of 79/42, patient was given a liter bolus in the emergency department, and currently IV fluids are infusing at a rate of 75 ML per hour. Empiric antibiotics were started in the form of azithromycin and Rocephin. Influenza screen was negative, and patient was swabbed for COVID 19, blood cultures have been sent. Patient is a poor historian, he is lethargic, but arousable, does not appear to be in any distress, is currently on 3 L of oxygen, pulse increased 100%, hemodynamically patient is stable, blood pressures 133/71, fever pattern has improved, temp is 97.4. On 11/15/2019 patient seen in follow-up on selective care unit, he is lethargic, he wakes up briefly, but respect to sleep, if left unstimulated, he is currently on 4 L of oxygen with a pulse ox of 96%, he is afebrile, does not appear to be in any respiratory distress, lung sounds are clear, diminished, no rhonchi or wheezing heard on today's physical exam. Today's labs have been reviewed showing white blood cell count of 5.3, hemoglobin of 11.5, platelet is 118, sodium is 136, potassium 3.6, CO2 32, B1 is 28, creatinine 0.79. Vital signs are stable, patient has been afebrile, blood culture showed no growth. Antibiotics were switched to oral Augmentin, breathing treatments as needed, bronchospastic or congested, no crackles auscultated. No complaints of chest pain. Objective - Vital Signs Vital signs: Vital Signs Temp 98.0 F 11/15/19 08:00 Pulse 68 11/15/19 08:00 Resp 22 11/15/19 08:00 BP 166/75 11/15/19 08:00 Pulse Ox 96 11/15/19 08:00 Intake & Output 11/14/19 11/15/19 11/15/19 18:59 06:59 18:59 Intake Total 370 Output Total 300 Balance 70 Weight 41 kg 37.6 kg Intake: Intake, IV Titration 250 Amount Sodium Chloride 0.9% 1, 250 000 ml @ 20 mls/hr IV . Q24H [facility] Rx#:[id number] Oral 120 Output: Urine 300 Other: Voiding Method Diaper Diaper Diaper Incontinent Incontinent Incontinent # Voids 1 - Exam GENERAL EXAM: Lethargic, but arousable, 84-year-old white male on 3 L of oxygen the process of 100%, comfortable in no apparent distress. HEAD: Normocephalic/atraumatic. EYES: Normal reaction of pupils, equal size. Conjunctiva pink, sclera white. NOSE: Clear with pink turbinates. THROAT: No erythema or exudates. NECK: No masses, no JVD, no thyroid enlargement, no adenopathy. CHEST: No chest wall deformity. Symmetrical expansion. LUNGS: Equal air entry with basilar crackles CVS: Regular rate and rhythm, normal S1 and S2, no gallops, no murmurs, no rubs ABDOMEN: Soft, nontender. No hepatosplenomegaly, normal bowel sounds, no guarding or rigidity. EXTREMITIES: No clubbing, no edema, no cyanosis, 2+ pulses and upper and lower extremities. MUSCULOSKELETAL: Muscle strength and tone normal. SPINE: No scoliosis or deformity SKIN: No rashes CENTRAL NERVOUS SYSTEM: Lethargic, but arousable, confused, 84-year-old white male 3 L of oxygen No focal deficits, tone is normal in all 4 extremities. - Labs CBC & Chem 7: 11/15/19 05:40 11/15/19 05:40 Labs: Abnormal Lab Results - Last 24 Hours (Table) 11/15/19 11/15/19 Range/Units 05:40 05:40 RBC 3.77 L (4.30-5.90) m/uL Hgb 11.5 L (13.0-17.5) gm/dL Hct 35.6 L (39.0-53.0) % Plt Count 118 L (150-450) k/uL Lymphocytes # 0.5 L (1.0-4.8) k/uL Sodium 136 L (137-145) mmol/L Carbon Dioxide 32 H (22-30) mmol/L BUN 28 H (9-20) mg/dL Calcium 8.3 L (8.4-10.2) mg/dL Total Protein 5.0 L (6.3-8.2) g/dL Albumin 2.7 L (3.5-5.0) g/dL Microbiology - Last 24 Hours (Table) 11/13/19 13:04 Blood Culture - Preliminary Blood No Growth after 24 hours Assessment and Plan Plan: Assessment: #1. Acute hypoxic respiratory failure related possibility of mild bronchitis, no clear evidence of pneumonia seen on the chest x-ray #2. Acute febrile illness, of unknown etiology, influenza screen was negative, COVID 19 testing was negative #3. Hypotension, tachycardia, rule out infectious etiology, versus dehydration, patient has been fluid resuscitated, and improved #3. Lactic acidosis proved with hydration, blood cultures pending, urinalysis is negative for any sign of infection, chest x-ray negative for any pneumonia, LFTs within normal limits, no abdominal pain #4. History of advanced dementia #5. Parkinson's disorder #6. BPH #7. Hypertention #8. Hyperlipidemia #9. History of CVA #10. Former smoker Plan: Procalcitonin level is negative, we'll stop antibiotics, no significant cough congestion or wheezing, yesterday we stopped the IV steroids. Continue aspiration precautions, patient remains lethargic, but arousable, no acute distress. Increase activity as tolerated. Maintain safety precautions. May need sedation doses adjusted. Code status has been addressed, and patient is DO NOT RESUSCITATE, we will continue supportive treatment. I performed a history & physical examination of the patient and discussed their management with my nurse practitioner, Gayatri Barnes. I reviewed the nurse practitioner's note and agree with the documented findings and plan of care. Lung sounds are positive for diminished breath sounds with bibasilar crackles The findings and the impression was discussed with the patient. I attest to the documentation by the nurse practitioner. Time with Patient: Less than 30
[2019-11-15] MEDS ORDERED: ALBUTEROL INHALER 60 PUFF/8 GM INHALER (MHU) INHALATION SCH (12:00)
--- NOTE | 2019-11-15 13:30 | P.PN ---
Subjective Progress Note Date: 11/15/19 84-year-old male one of Dr. Mendiola's patient with advanced dementia, history of Parkinson disease, chronic depression, BPH and hypertension who brought [facility] on 11/13/2019 with severe shortness of breath hypoxia and high temperature of 103. Patient alex arently has been having symptom for the last 3 days become much worse early this morning. Symptomatically for bilateral pneumonia with negative chest x-ray at the time. His lactic acid is mildly elevated temperature was 103 at the time and subtle down shortly after his treatment was started. Patient was diagnosed with bilateral pneumonia, COVID 19 testing was order and pending at this point. Patient was started on Rocephin and azithromycin along with updraft treatment and O2 and admitted to the hospital shortly after for the above diagnosis. 11/13: Patient is seen today on the cardiac stepdown unit. Patient continues to have a congested cough, nonproductive with generalized weakness. 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 Patient is afebrile, heart rate 70, blood pressure 153/76, pulse ox 96% on 3 L. Lactic acid has normalized to 1.5. Patient has been followed by pulmonary medicine and do not see clear evidence of pneumonia. Antibiotics were switched to Augmentin. Covid 19 remains pending and patient is in droplet isolation. A PT and OT in place. Patient will not be able to return home if he is unable to ambulate which she has had previous rehab at [facility]. 11/14: Covid 19 is negative. Patient has had coughing episodes with taking medication. We have asked for speech therapy to evaluate and will at this time and the patient nothing by mouth and reevaluate tomorrow and provide safest oral option. We will avoid additional testing at this time to maintain patient in his own room. Patient has been afebrile, heart rate 68, blood pressure 166/75, pulse ox 96% on 4 L nasal cannula. Repeat lab work reveals W BC 5.3, hemoglobin 11.5, platelet count 118. Sodium 136, CO2 32, BUN 20 and creatinine 0.79. Pro- calcitonin 0.09. Blood culture no growth at 24 hours. Objective - Vital Signs Vital signs: Vital Signs Temp 98.0 F 11/15/19 08:00 Pulse 68 11/15/19 08:00 Resp 22 11/15/19 08:00 BP 166/75 11/15/19 08:00 Pulse Ox 96 11/15/19 08:00 Intake & Output 11/14/19 11/15/19 11/15/19 18:59 06:59 18:59 Intake Total 370 Output Total 300 Balance 70 Weight 41 kg 37.6 kg Intake: Intake, IV Titration 250 Amount Sodium Chloride 0.9% 1, 250 000 ml @ 20 mls/hr IV . Q24H [facility] Rx#:[id number] Oral 120 Output: Urine 300 Other: Voiding Method Diaper Diaper Diaper Incontinent Incontinent Incontinent # Voids 1 - Exam Review of Systems CONSTITUTIONAL: Well-developed no acute respiratory distress. Denies fever, denies chills Frequent congested cough noted. EYES: No icterus sclerae, no conjunctivitis. EARS, NOSE, MOUTH, THROAT, and FACE: No sore throat, lymphadenopathy, carotid bruits or deformity. RESPIRATORY: Positive shortness of breath cough wheezes. CARDIOVASCULAR: No CP, positive Palpitation and PND, positive Orthopnea, no angina. GASTROINTESTINAL: Positive abdominal discomfort nausea no vomiting positive diarrhea no GI bleed. GENITOURINARY: Negative for Hematuria or UTI, no kidney stones. INTEGUMENT/BREAST: Negative for any muscular injury with mild osteoarthritis.. HEMATOLOGIC/LYMPHATIC: Negative for bleed or purpura. MUSCULOSKELTAL: Negative for Myalgia or arthralgia. NEURLOGICAL: Advanced dementia with no focal deficit. BEHAVIORAL/PSYCH: Negative. ENDOCRINE: Negative. Physical examination General Appearance: Alert, cooperative, no distress, appears older than his age. Thin appearing 84-year-old male. Neck HEENT: Supple, no lymphadenopathy, no thyroid enlargement, no carotid bruits. Mild congestion in the nasopharyngeal area. Lungs: Decrease breath some bilateral, no accessory muscle usage. Chest Wall: Decrease expansion with deep inspiration no tenderness and no deformity was found on exam, no costochondral pain or discomfort. Heart: Regular rate and rhythm, S1, S2 normal, no murmur, rub or gallop. Back: Symmetric, no curvature, ROM normal, no CVA tenderness. Abdomen: Soft, non-tender, bowel sounds active all four quadrants, no masses, no organomegaly. Extremities: No edema positive mild osteoarthritis with slight discoloration of the lower extremity. Pulses: 2+ and symmetric. Skin: Skin color, texture, tugor normal, no rashes or lesions. Neurologic: Alert oriented with severe confusion moving all his for some to gene ralized weakness. Positive advanced dementia. - Labs CBC & Chem 7: 11/15/19 05:40 11/15/19 05:40 Labs: Abnormal Lab Results - Last 24 Hours (Table) 11/15/19 11/15/19 Range/Units 05:40 05:40 RBC 3.77 L (4.30-5.90) m/uL Hgb 11.5 L (13.0-17.5) gm/dL Hct 35.6 L (39.0-53.0) % Plt Count 118 L (150-450) k/uL Lymphocytes # 0.5 L (1.0-4.8) k/uL Sodium 136 L (137-145) mmol/L Carbon Dioxide 32 H (22-30) mmol/L BUN 28 H (9-20) mg/dL Calcium 8.3 L (8.4-10.2) mg/dL Total Protein 5.0 L (6.3-8.2) g/dL Albumin 2.7 L (3.5-5.0) g/dL Microbiology - Last 24 Hours (Table) 11/13/19 13:04 Blood Culture - Preliminary Blood No Growth after 24 hours Assessment and Plan Plan: 1. Acute hypoxic respiratory failure secondary to bronchitis. No clear pneumonia per pulmonary medicine. Antibiotics changed to Augmentin. 2. Acute febrile illness due to bronchitis. COVID-19 ruled out by testing. 3. COPD with mild exacerbation: Patient will continue DuoNeb along with Pulmicort O2 along with pulmonary consultation and if needed smaller dose of steroid can be use. 4. Worsening dementia: Has been on Exelon patch daily continue medication. 5. Parkinson disease: Patient has been on Sinemet along with Requip. 6. Hypertension: Remain on losartan 25 g a day along with Lopressor 12.5 mg twice a day, and continue clonidine 0.1 mg twice a day. 7. Lactic acidosis, resolved with hydration. 8. Thrombocytopenia, has been noted on previous admissions. 9. GI prophylaxis: Patient will be on Pepcid 20 mg daily. 10. DVT prophylaxis: With his thrombocytopenia cannot do heparin subcutaneous will be due knee-high RADHA hose and Venodyne boots. CODE STATUS: Full code. Discharge plan: [facility] in 48 hours Impression and plan of care have been directed as dictated by the signing physician. Aisha Rausch nurse practitioner acting as scribe for signing physician.
[2019-11-15] MEDS: ALBUTEROL NEBULIZED 2.5 MG/3 ML INHALATION SCH ×2 (16:11→19:45)
[2019-11-15] MEDS: SODIUM CHLORIDE 0.9% 1,000 ML IV SCH (17:39)
[2019-11-15] MEDS: SYMBICORT 160-4.5 MCG INHALER INHALATION SCH (19:45)
[2019-11-15] MEDS: MELATONIN 5 MG TABLET PO SCH (21:08)
[2019-11-15] MEDS: LORazepam 1 MG TAB PO SCH (21:08)
[2019-11-16] MEDS: ALBUTEROL NEBULIZED 2.5 MG/3 ML INHALATION SCH ×4 (08:18→19:18)
[2019-11-16] MEDS: SYMBICORT 160-4.5 MCG INHALER INHALATION SCH ×2 (08:18→19:18)
[2019-11-16] MEDS: SENNOSIDES 8.6 MG TAB PO SCH ×2 (09:00→17:57)
[2019-11-16] MEDS: LOSARTAN 25 MG TAB PO SCH (09:00)
[2019-11-16] MEDS: METOPROLOL TARTRATE 12.5 MG TAB PO SCH ×2 (09:00→17:57)
[2019-11-16] MEDS: cloNIDine HCL 0.1 MG TAB PO SCH ×2 (09:00→17:57)
[2019-11-16] MEDS: ASPIRIN 81 MG PO SCH (09:00)
[2019-11-16] MEDS: POLYETHYLENE GLYCOL 3350 17 GM POWD.PACK PO SCH (09:00)
[2019-11-16] MEDS: FAMOTIDINE 20 MG TAB PO SCH (09:00)
[2019-11-16] MEDS: TAMSULOSIN 0.4 MG CAP.ER.24H PO SCH (09:00)
[2019-11-16] MEDS: CHOLECALCIFEROL 1,000 UNIT TAB PO SCH (09:00)
[2019-11-16] MEDS: CARBIDOPA-LEVODOPA 25-100 MG 1 EACH TAB PO SCH ×4 (09:00→19:43)
[2019-11-16] MEDS: RIVASTIGMINE 4.6MG/24HR PATCH TRANSDERM SCH (09:01)
[2019-11-16] MEDS: VORTIOXETINE HYDROBROMIDE 10 MG TABLET PO SCH (09:02)
--- NOTE | 2019-11-16 10:24 | P.PN ---
Subjective Progress Note Date: 11/16/19 Principal diagnosis: Acute hypoxic respiratory failure related to possibly mild bronchitis no clear evidence of pneumonia 84-year-old male patient of Dr. Anderson with past medical history of advanced dementia, history of Parkinson's disease, chronic depression, BPH, and hyper tension, was brought in to the emergency department on 11/13/2019 for evaluation of severe dyspnea, hypoxia, and fever of 103.7F. Patient had onset of symptoms 3 days prior to presentation. Chest x-ray was completed showing mild coarsening of pulmonary interstitial markings, poor inspiratory effort, no definite acute lung disease. Lab work showed white blood cell count of 8.9, hemoglobin of 14 .2, platelet count of 128, coagulation profile is within normal limits, sodium of 135, potassium is 4.2, chloride is 100, CO2 27, BUN at 33, creatinine of 0.87, plasma lactic acid was mildly elevated at 2.9 on admission, LFTs were within normal limits, urinalysis showed small amount of blood, but no signs of infection. Patient was hypotensive in the emergency department with the blood pressure of 79/42, patient was given a liter bolus in the emergency department, and currently IV fluids are infusing at a rate of 75 ML per hour. Empiric antibiotics were started in the form of azithromycin and Rocephin. Influenza screen was negative, and patient was swabbed for COVID 19, blood cultures have been sent. Patient is a poor historian, he is lethargic, but arousable, does not appear to be in any distress, is currently on 3 L of oxygen, pulse increased 100%, hemodynamically patient is stable, blood pressures 133/71, fever pattern has improved, temp is 97.4. On 11/15/2019 patient seen in follow-up on selective care unit, he is lethargic, he wakes up briefly, but respect to sleep, if left unstimulated, he is currently on 4 L of oxygen with a pulse ox of 96%, he is afebrile, does not appear to be in any respiratory distress, lung sounds are clear, diminished, no rhonchi or wheezing heard on today's physical exam. Today's labs have been reviewed showing white blood cell count of 5.3, hemoglobin of 11.5, platelet is 118, sodium is 136, potassium 3.6, CO2 32, B1 is 28, creatinine 0.79. Vital signs are stable, patient has been afebrile, blood culture showed no growth. Antibiotics were switched to oral Augmentin, breathing treatments as needed, bronchospastic or congested, no crackles auscultated. No complaints of chest pain. On 11/16/2019 patient seen in follow-up on general medical floor, he is much more awake on today's exam, he is sitting in bed, in no acute distress, he is currently on 2 L of oxygen and a pulse ox of 97%, he is afebrile, hemodynamically patient is stable, lung sounds are clear to auscultation, patient is being evaluated by the speech therapy for possibility of silent aspiration. Vital signs are stable. No fever or chills, no acute events overn ight, yesterday we stopped patient's antibiotics as a possibility of bacterial pneumonia was low based on procalcitonin level, clinically patient is stable. No new labs a chest x-rays Objective - Vital Signs Vital signs: Vital Signs Temp 97.8 F 11/16/19 05:00 Pulse 68 11/16/19 08:28 Resp 16 11/16/19 05:00 BP 140/74 11/16/19 05:00 Pulse Ox 97 11/16/19 05:00 Intake & Output 11/15/19 11/16/19 11/16/19 18:59 06:59 18:59 Intake Total 720 830 Balance 720 830 Weight 56.2 kg 58.5 kg Intake: Intake, IV Titration 600 240 Amount Sodium Chloride 0.9% 1, 240 000 ml @ 20 mls/hr IV . Q24H [facility] Rx#:[id number] Sodium Chloride 0.9% 1, 600 000 ml @ 75 mls/hr IV . [id number] [facility] Rx#:[id number] Oral 120 590 Other: Voiding Method Diaper Diaper Incontinent Incontinent # Voids 2 - Exam GENERAL EXAM: 84-year-old white male on 2 L of oxygen the process of 97%, comfortable in no apparent distress. HEAD: Normocephalic/atraumatic. EYES: Normal reaction of pupils, equal size. Conjunctiva pink, sclera white. NOSE: Clear with pink turbinates. THROAT: No erythema or exudates. NECK: No masses, no JVD, no thyroid enlargement, no adenopathy. CHEST: No chest wall deformity. Symmetrical expansion. LUNGS: Equal air entry, no crackles, no wheezes, no rhonchi CVS: Regular rate and rhythm, normal S1 and S2, no gallops, no murmurs, no rubs ABDOMEN: Soft, nontender. No hepatosplenomegaly, normal bowel sounds, no guarding or rigidity. EXTREMITIES: No clubbing, no edema, no cyanosis, 2+ pulses and upper and lower extremities. MUSCULOSKELETAL: Muscle strength and tone normal. SPINE: No scoliosis or deformity SKIN: No rashes CENTRAL NERVOUS SYSTEM: Awake and alert, 84-year-old white male with baseline dementia, 2 L of oxygen No focal deficits, tone is normal in all 4 extremities. - Labs CBC & Chem 7: 11/15/19 05:40 11/15/19 05:40 Labs: Microbiology - Last 24 Hours (Table) 11/13/19 13:04 Blood Culture - Preliminary Blood No Growth after 48 hours Assessment and Plan Plan: Assessment: #1. Acute hypoxic respiratory failure related possibility of mild bronchitis, no clear evidence of pneumonia seen on the chest x-ray #2. Acute febrile illness, of unknown etiology, influenza screen was negative, COVID 19 testing was negative #3. Hypotension, tachycardia, rule out infectious etiology, versus dehydration, patient has been fluid resuscitated, and improved #3. Lactic acidosis proved with hydration, blood cultures pending, urinalysis is negative for any sign of infection, chest x-ray negative for any pneumonia, LFTs within normal limits, no abdominal pain #4. History of advanced dementia #5. Parkinson's disorder #6. BPH #7. Hypertention #8. Hyperlipidemia #9. History of CVA #10. Former smoker Plan: Patient is much more awake and responsive on today's exam, he denies any acute distress, he is on 2 L of oxygen, continue weaning FiO2, increase activity as tolerated, he is being evaluated for possibility of silent aspiration by the speech therapy. No acute issues overnight, no rhonchi, no wheezing, no phlegm production. Stable from pulmonary perspective, COVID 19 test is negative. From pulmonary perspective patient can be considered for discharge back to [facility] I performed a history & physical examination of the patient and discussed their management with my nurse practitioner, Gayatri Barnes. I reviewed the nurse kodak botello's note and agree with the documented findings and plan of care. Lung sounds are positive for diminished breath sounds with bibasilar crackles The findings and the impression was discussed with the patient. I attest to the documentation by the nurse practitioner. Time with Patient: Less than 30
[2019-11-16] MEDS ORDERED: LOSARTAN 25 MG TAB PO STA (11:39)
--- NOTE | 2019-11-16 13:04 | P.PN ---
Subjective Progress Note Date: 11/16/19 84-year-old male one of Dr. Mendiola's patient with advanced dementia, history of Parkinson disease, chronic depression, BPH and hypertension who [facility] EMS on 11/13/2019 with severe shortness of breath hypoxia and high temperature of 103. Patient alex arently has been having symptom for the last 3 days become much worse early this morning. Symptomatically for bilateral pneumonia with negative chest x-ray at the time. His lactic acid is mildly elevated temperature was 103 at the time and subtle down shortly after his treatment was started. Patient was diagnosed with bilateral pneumonia, COVID 19 testing was order and pending at this point. Patient was started on Rocephin and azithromycin along with updraft treatment and O2 and admitted to the hospital shortly after for the above diagnosis. 11/13: Patient is seen today on the cardiac stepdown unit. Patient continues to have a congested cough, nonproductive with generalized weakness. 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 Patient is afebrile, heart rate 70, blood pressure 153/76, pulse ox 96% on 3 L. Lactic acid has normalized to 1.5. Patient has been followed by pulmonary medicine and do not see clear evidence of pneumonia. Antibiotics were switched to Augmentin. Covid 19 remains pending and patient is in droplet isolation. A PT and OT in place. Patient will not be able to return home if he is unable to ambulate which she has had previous rehab at [facility]. 11/14: Covid 19 is negative. Patient has had coughing episodes with taking medication. We have asked for speech therapy to evaluate and will at this time and the patient nothing by mouth and reevaluate tomorrow and provide safest oral option. We will avoid additional testing at this time to maintain patient in his own room. Patient has been afebrile, heart rate 68, blood pressure 166/75, pulse ox 96% on 4 L nasal cannula. Repeat lab work reveals W BC 5.3, hemoglobin 11.5, platelet count 118. Sodium 136, CO2 32, BUN 20 and creatinine 0.79. Pro- calcitonin 0.09. Blood culture no growth at 24 hours. 11/15: Patient's blood pressure is elevated as morning and Cozaar will be increased to 50 mg daily. Patient has been cleared for discharge by pulmonary medicine. Patient is complaining of not feeling well today. We will plan to monitor him overnight and plan for discharge tomorrow. Respiratory status appears stable at this time. Patient has been afebrile, heart rate 64, blood pressure 204/92, pulse ox 97% on room air. Objective - Vital Signs Vital signs: Vital Signs Temp 97.8 F 11/16/19 05:00 Pulse 63 11/16/19 05:00 Resp 16 11/16/19 05:00 BP 140/74 11/16/19 05:00 Pulse Ox 97 11/16/19 05:00 Intake & Output 11/15/19 11/16/19 11/16/19 18:59 06:59 18:59 Intake Total 720 830 Balance 720 830 Weight 56.2 kg 58.5 kg Intake: Intake, IV Titration 600 240 Amount Sodium Chloride 0.9% 1, 240 000 ml @ 20 mls/hr IV . Q24H [facility] Rx#:[id number] Sodium Chloride 0.9% 1, 600 000 ml @ 75 mls/hr IV . [id number] [facility] Rx#:[id number] Oral 120 590 Other: Voiding Method Diaper Diaper Incontinent Incontinent # Voids 2 - Exam Review of Systems CONSTITUTIONAL: Well-developed no acute respiratory distress. Denies fever, denies chills. EYES: No icterus sclerae, no conjunctivitis. EARS, NOSE, MOUTH, THROAT, and FACE: No sore throat, lymphadenopathy, carotid bruits or deformity. RESPIRATORY: Denies shortness of breath cough denies wheezes. CARDIOVASCULAR: No CP, positive Palpitation and PND, positive Orthopnea, no angina. GASTROINTESTINAL: Positive abdominal discomfort nausea no vomiting positive diarrhea no GI bleed. GENITOURINARY: Negative for Hematuria or UTI, no kidney stones. INTEGUMENT/BREAST: Negative for any muscular injury with mild osteoarthritis.. HEMATOLOGIC/LYMPHATIC: Negative for bleed or purpura. MUSCULOSKELTAL: Negative for Myalgia or arthralgia. NEURLOGICAL: Advanced dementia with no focal deficit. BEHAVIORAL/PSYCH: Negative. ENDOCRINE: Negative. Physical examination General Appearance: Alert, cooperative, no distress, appears older than his age. Thin appearing 84-year-old male. Neck HEENT: Supple, no lymphadenopathy, no thyroid enlargement, no carotid bruit s. Mild congestion in the nasopharyngeal area. Lungs: Decrease breath some bilateral, no accessory muscle usage. Chest Wall: Decrease expansion with deep inspiration no tenderness and no deformity was found on exam, no costochondral pain or discomfort. Heart: Regular rate and rhythm, S1, S2 normal, no murmur, rub or gallop. Back: Symmetric, no curvature, ROM normal, no CVA tenderness. Abdomen: Soft, non-tender, bowel sounds active all four quadrants, no masses, no organomegaly. Extremities: No edema positive mild osteoarthritis with slight discoloration of the lower extremity. Pulses: 2+ and symmetric. Skin: Skin color, texture, tugor normal, no rashes or lesions. Neurologic: Alert oriented with severe confusion moving all his for some to generalized weakness. Positive advanced dementia. - Labs CBC & Chem 7: 11/15/19 05:40 11/15/19 05:40 Labs: Microbiology - Last 24 Hours (Table) 11/13/19 13:04 Blood Culture - Preliminary Blood No Growth after 48 hours Assessment and Plan Plan: 1. Acute hypoxic respiratory failure secondary to bronchitis. No clear pneumonia per pulmonary medicine. Antibiotics changed to Augmentin and subsequently discontinued. 2. Acute febrile illness due to bronchitis. COVID-19 ruled out by testing. 3. COPD with mild exacerbation: Patient will continue DuoNeb along with Pulmicort O2, pulmonary consult appreciated. 4. Worsening dementia: Has been on Exelon patch daily continue medication. 5. Parkinson disease: Patient has been on Sinemet along with Requip. 6. Hypertension: Remain on losartan 25 g a day along with Lopressor 12.5 mg twice a day, and continue clonidine 0.1 mg twice a day. 7. Lactic acidosis, resolved with hydration. 8. Thrombocytopenia, has been noted on previous admissions. 9. GI prophylaxis: Patient will be on Pepcid 20 mg daily. 10. DVT prophylaxis: With his thrombocytopenia cannot do heparin subcutaneous will be due knee-high RADHA hose and Venodyne boots. CODE STATUS: No code. Discharge plan: [facility] on Impression and plan of care have been directed as dictated by the signing physician. Aisha Rausch nurse practitioner acting as scribe for signing physic
[2019-11-16] MEDS: SODIUM CHLORIDE 0.9% 1,000 ML IV SCH (17:49)
[2019-11-16] MEDS: MELATONIN 5 MG TABLET PO SCH (19:43)
[2019-11-16] MEDS: LORazepam 1 MG TAB PO SCH (19:43)
[2019-11-17 04:48] VITALS: RESP 16
[2019-11-17] MEDS: SYMBICORT 160-4.5 MCG INHALER INHALATION SCH (07:30)
[2019-11-17] MEDS: ALBUTEROL NEBULIZED 2.5 MG/3 ML INHALATION SCH ×2 (07:31→12:01)
[2019-11-17] MEDS: VORTIOXETINE HYDROBROMIDE 10 MG TABLET PO SCH (09:00)
[2019-11-17] MEDS ORDERED: LOSARTAN 50 MG TAB PO SCH ×2 (09:00→09:15)
[2019-11-17] MEDS: TAMSULOSIN 0.4 MG CAP.ER.24H PO SCH (09:02)
[2019-11-17] MEDS: CHOLECALCIFEROL 1,000 UNIT TAB PO SCH (09:02)
[2019-11-17] MEDS: METOPROLOL TARTRATE 12.5 MG TAB PO SCH (09:02)
[2019-11-17] MEDS: FAMOTIDINE 20 MG TAB PO SCH (09:02)
[2019-11-17] MEDS: SENNOSIDES 8.6 MG TAB PO SCH (09:03)
[2019-11-17] MEDS: LOSARTAN 25 MG TAB PO SCH (09:03)
[2019-11-17] MEDS: cloNIDine HCL 0.1 MG TAB PO SCH (09:03)
[2019-11-17] MEDS: ASPIRIN 81 MG PO SCH (09:03)
[2019-11-17] MEDS: RIVASTIGMINE 4.6MG/24HR PATCH TRANSDERM SCH (09:03)
[2019-11-17] MEDS: CARBIDOPA-LEVODOPA 25-100 MG 1 EACH TAB PO SCH ×2 (09:03→14:25)
[2019-11-17] MEDS: POLYETHYLENE GLYCOL 3350 17 GM POWD.PACK PO SCH (09:04)
[2019-11-17] MEDS ORDERED: hydrALAZINE HCL 25 MG TAB PO PRN (09:16)
[2019-11-17] MEDS ORDERED: cloNIDine HCL 0.1 MG TAB PO SCH (09:30)
[2019-11-17 10:56] VITALS: BMI 18.2
--- NOTE | 2019-11-17 11:03 | P.DS ---
Providers Date of admission: 11/13/19 14:32 Expected date of discharge: 11/17/19 Attending physician: Conor Haider Consults: 11/14/19 10:45 Consult Physician Routine Consulting Provider: Alhaji Etienne Consult Reason/Comments: Bilateral Pneumonia with SOB Do you want consulting provider notified?: Yes Primary care physician: Mark Bournewood Hospital Course: 84-year-old male one of Dr. Mendiola's patient with advanced dementia, history of Parkinson disease, chronic depression, BPH and hypertension who brought to demurs department from the residential by EMS on 11/13/2019 with severe shortness of breath hypoxia and high temperature of 103. Patient apparently has been having symptom for the last 3 days become much worse early this morning. Symptomatically for bilateral pneumonia with negative chest x-ray at the time. His lactic acid is mildly elevated temperature was 103 at the time and subtle down shortly after his treatment was started. Patient was diagnosed with bilateral pneumonia, COVID 19 testing was order and pending at this point. Patient was started on Rocephin and azithromycin along with updraft treatment and O2 and admitted to the hospital shortly after for the above diagnosis. 11/13: Patient is seen today on the cardiac stepdown unit. Patient continues to have a congested cough, nonproductive with generalized weakness. hall monitor has been a sinus rhythm. Patient is afebrile, heart rate 70, blood pressure 153/76, pulse ox 96% on 3 L. Lactic acid has normalized to 1.5. Patient has been followed by pulmonary medicine and do not see clear evidence of pneumonia. Antibiotics were switched to Augmentin. Covid 19 remains pending and patient is in droplet isolation. A PT and OT in place. Patient will not be able to return home if he is unable to ambulate which she has had previous rehab at [facility]. 11/14: Covid 19 is negative. Patient has had coughing episodes with taking medication. We have asked for speech therapy to evaluate and will at this time and the patient nothing by mouth and reevaluate tomorrow and provide safest oral option. We will avoid additional testing at this time to maintain patient in h is own room. Patient has been afebrile, heart rate 68, blood pressure 166/75, pulse ox 96% on 4 L nasal cannula. Repeat lab work reveals W BC 5.3, hemoglobin 11.5, platelet count 118. Sodium 136, CO2 32, BUN 20 and creatinine 0.79. Pro- calcitonin 0.09. Blood culture no growth at 24 hours. 11/15: Patient's blood pressure is elevated as morning and Cozaar will be increased to 50 mg daily. Patient has been cleared for discharge by pulmonary medicine. Patient is complaining of not feeling well today. We will plan to monitor him overnight and plan for discharge tomorrow. Respiratory status appears stable at this time. Patient has been afebrile, heart rate 64, blood pressure 204/92, pulse ox 97% on room air. 11/16: Patient is afebrile, heart rate 73, blood pressure 186/78, pulse ox 98% on 3 L nasal cannula. Blood pressure continues to be elevated and changes have been made to clonidine, losartan and also hydralazine has been added as needed with parameters. Patient will be discharged to ECF once all arrangements are completed. Discharge diagnoses: 1. Acute hypoxic respiratory failure secondary to bronchitis. 2. Acute febrile illness due to bronchitis. COVID-19 ruled out by testing. 3. COPD with mild exacerbation. 4. Worsening dementia. 5. Parkinson disease. 6. Hypertension. 7. Lactic acidosis, resolved. 8. Thrombocytopenia, chronic. Discharge plan: [facility] Impression and plan of care have been directed as dictated by the signing physician. Aisha Rausch nurse practitioner acting as scribe for signing physician. Patient Condition at Discharge: Good Plan - Discharge Summary New Discharge Prescriptions: New hydrALAZINE HCL [Apresoline] 25 mg PO QID PRN tab PRN Reason: Blood Pressure - High cloNIDine HCL [Catapres] 0.1 mg PO TID tab Losartan [Cozaar] 100 mg PO DAILY tab Budesonide-Formot 160-4.5 Mcg [Symbicort 160-4.5 Mcg Inhaler] 2 puff INHALATION RT-BID puff Albuterol Inhaler [Ventolin Hfa Inhaler] 2 puff INHALATION RT-QID PRN puff PRN Reason: Shortness Of Breath Or Wheezing Continue rOPINIRole HCL [Requip] 0.5 mg PO BID@0800,1800 Tamsulosin [Flomax] 0.4 mg PO DAILY Sennosides [Senna] 8.6 mg PO BID@0800,1800 Rivastigmine 4.6MG/24Hr Patch [Exelon 4.6MG/24Hr Patch] 1 patch TRANSDERM DAILY@0800 Carbidopa-Levodopa 25-100 mg [Sinemet 25-100 mg] 1 tab PO QID@08,12,18,20 Polyethylene Glycol 3350 [Miralax] 17 gm PO DAILY Metoprolol Tartrate [Lopressor] 12.5 mg PO BID@0800,1800 Melatonin 5 mg PO HS Polyvinyl Alcohol/Povidone [Clear Eyes Natural Tears Drop] 1 drop BOTH EYES Q2H PRN PRN Reason: Dry Eye(S) Menthol [Biofreeze] 1 applic TOPICAL Q8H PRN PRN Reason: Pain Cholecalciferol [Vitamin D3 (25 Mcg = 1000 Iu)] 1,000 unit PO DAILY Aspirin EC [Ecotrin Low Dose] 81 mg PO DAILY Acetaminophen Tab [Tylenol] 325 mg PO Q4H PRN PRN Reason: Pain Vortioxetine Hydrobromide [Trintellix] 10 mg PO DAILY LORazepam [Ativan] 1 mg PO HS@2000 #3 tab LORazepam [Ativan] 0.5 mg PO DAILY PRN #3 tab PRN Reason: Anxiety Discontinued cloNIDine HCL [Catapres] 0.1 mg PO BID@0800,1800 Losartan [Cozaar] 25 mg PO DAILY@0800 Discharge Medication List Acetaminophen Tab [Tylenol] 325 mg PO Q4H PRN 11/13/19 [History] Aspirin EC [Ecotrin Low Dose] 81 mg PO DAILY 11/13/19 [History] Carbidopa-Levodopa 25-100 mg [Sinemet 25-100 mg] 1 tab PO QID@08,12,18,20 11/13/19 [History] Cholecalciferol [Vitamin D3 (25 Mcg = 1000 Iu)] 1,000 unit PO DAILY 11/13/19 [History] Melatonin 5 mg PO HS 11/13/19 [History] Menthol [Biofreeze] 1 applic TOPICAL Q8H PRN 11/13/19 [History] Metoprolol Tartrate [Lopressor] 12.5 mg PO BID@0800,1800 11/13/19 [History] Polyethylene Glycol 3350 [Miralax] 17 gm PO DAILY 11/13/19 [History] Polyvinyl Alcohol/Povidone [Clear Eyes Natural Tears Drop] 1 drop BOTH EYES Q2H PRN 11/13/19 [History] Rivastigmine 4.6MG/24Hr Patch [Exelon 4.6MG/24Hr Patch] 1 patch TRANSDERM DAILY@0800 11/13/19 [History] Sennosides [Senna] 8.6 mg PO BID@0800,1800 11/13/19 [History] Tamsulosin [Flomax] 0.4 mg PO DAILY 11/13/19 [History] Vortioxetine Hydrobromide [Trintellix] 10 mg PO DAILY 11/13/19 [History] rOPINIRole HCL [Requip] 0.5 mg PO BID@0800,1800 11/13/19 [History] Albuterol Inhaler [Ventolin Hfa Inhaler] 2 puff INHALATION RT-QID PRN puff 11/17/19 [Rx] Budesonide-Formot 160-4.5 Mcg [Symbicort 160-4.5 Mcg Inhaler] 2 puff INHALATION RT-BID puff 11/17/19 [Rx] LORazepam [Ativan] 0.5 mg PO DAILY PRN #3 tab 11/17/19 [Rx] LORazepam [Ativan] 1 mg PO HS@2000 #3 tab 11/17/19 [Rx] Losartan [Cozaar] 100 mg PO DAILY tab 11/17/19 [Rx] cloNIDine HCL [Catapres] 0.1 mg PO TID tab 11/17/19 [Rx] hydrALAZINE HCL [Apresoline] 25 mg PO QID PRN tab 11/17/19 [Rx] Follow up Appointment(s)/Referral(s): Priscila Lipscomb, [NON-STAFF] - 1 Week Mark Anderson DO [Primary Care Provider] - 1 Week (after dc from ECF) Discharge Disposition: TRANSFER TO SNF/ECF
[2019-11-17 11:44] VITALS: BP 143/82; TEMP 97.1
[2019-11-17 12:16] VITALS: PULSE 78
== END 2019-11-17 15:45 | DRG 189 ==
LOC: SUPCPDRO 12:40 → EC 12:40 → 6NMEDSUR 14:32 → 3SCARD 15:00 → 5NMEDONC 11-15 13:38
PROVIDERS: ADMIT Internal Medicine Geriatric Medicine; ATTEND Internal Medicine Geriatric Medicine
DX: J96.01 Acute respiratory failure with hypoxia (principal); E87.2 Acidosis; J44.0 Chronic obstructive pulmonary disease with (acute) lower respiratory infection; J44.1 Chronic obstructive pulmonary disease with (acute) exacerbation; D69.6 Thrombocytopenia, unspecified; I95.9 Hypotension, unspecified; F02.80 Dementia in other diseases classified elsewhere, unspecified severity, without behavioral disturbance, psychotic disturbance, mood disturbance, and anxiety; G20 Parkinson's disease; E86.0 Dehydration; Z11.59 Encounter for screening for other viral diseases; J20.9 Acute bronchitis, unspecified; E78.5 Hyperlipidemia, unspecified; F32.9 Major depressive disorder, single episode, unspecified; F41.9 Anxiety disorder, unspecified; I10 Essential (primary) hypertension; N40.0 Benign prostatic hyperplasia without lower urinary tract symptoms; G47.00 Insomnia, unspecified; G89.29 Other chronic pain; R00.0 Tachycardia, unspecified; R32 Unspecified urinary incontinence; M19.90 Unspecified osteoarthritis, unspecified site; Z79.82 Long term (current) use of aspirin; Z79.899 Other long term (current) drug therapy; Z87.891 Personal history of nicotine dependence; Z86.73 Personal history of transient ischemic attack (TIA), and cerebral infarction without residual deficits
CPT/HCPCS: 36415; 71045; 80053; 81001; 83605; 83735; 84145; 85025; 85610; 85730; 87040; 87502; 93005; 94640; 96365; 96366; 96368; 96375; 99285

== ENCOUNTER 2019-12-13 14:04 | Inpatient (IN) | payer MEDICARE, BC ==
[2019-12-13] MEDS ORDERED: SODIUM CHLORIDE 0.9% 1,000 ML IV STA (14:18)
--- NOTE | 2019-12-13 14:24 | ED ---
General Adult HPI - General Source: EMS, RN notes reviewed Mode of arrival: EMS Limitations: altered mental status, physical limitation <Jf Maravilla - Last Filed: 12/13/19 14:20> <Josh Carrero - Last Filed: 12/13/19 17:58> - General Stated complaint: Unresponsive - History of Present Illness Initial comments: Patient is a pleasant 84-year-old male presenting to the emergency department for change in mental status. Patient arrives by EMS. Patient has limited ability to provide information. Patient reportedly has been altered the past 5- 7 days. Patient has had some cough. Patient's [facility]mate at [facility] was diagnosed with Covid- 19. EMS did notice tachycardia and provided adenosine without much improvement. Patient has limited ability to provide further history. Decreased oral intake the past few days (Jf Maravilla) - Related Data Home Medications Medication Instructions Recorded Confirmed Acetaminophen Tab [Tylenol] 325 mg PO Q4H PRN 11/13/19 12/13/19 Aspirin EC [Ecotrin Low Dose] 81 mg PO DAILY 11/13/19 12/13/19 Carbidopa-Levodopa 25-100 mg 1 tab PO QID@08,12,16,20 11/13/19 12/13/19 [Sinemet 25-100 mg] Cholecalciferol [Vitamin D3 (25 1,000 unit PO DAILY 11/13/19 12/13/19 Mcg = 1000 Iu)] Melatonin 5 mg PO HS 11/13/19 12/13/19 Metoprolol Tartrate [Lopressor] 12.5 mg PO BID 11/13/19 12/13/19 Polyethylene Glycol 3350 [Miralax] 17 gm PO DAILY 11/13/19 12/13/19 Rivastigmine 4.6MG/24Hr Patch 1 patch TRANSDERM DAILY@0800 11/13/19 12/13/19 [Exelon 4.6MG/24Hr Patch] Tamsulosin [Flomax] 0.4 mg PO DAILY 11/13/19 12/13/19 Vortioxetine Hydrobromide 10 mg PO HS 11/13/19 12/13/19 [Trintellix] rOPINIRole HCL [Requip] 0.5 mg PO BID 11/13/19 12/13/19 Albuterol Inhaler (Bulk) [Ventolin 2 puff INHALATION RT-QID PRN 12/13/19 12/13/19 Hfa Inhaler (Bulk)] Dextran 70/Hypromellose [Genteal 1 drop BOTH EYES Q2H PRN 12/13/19 12/13/19 Tears 0.1%-0.3% Drop] LORazepam [Ativan] 1 mg PO HS 12/13/19 12/13/19 Losartan Potassium 100 mg PO HS 12/13/19 12/13/19 Magnesium Hydroxide [Milk of 2,400 mg PO DAILY PRN 12/13/19 12/13/19 Magnesia] Sennosides/Docusate Sodium [Senna 1 tab PO BID 12/13/19 12/13/19 Plus 8.6-50 mg Tablet] cloNIDine HCL [Catapres] 0.1 mg PO TID@0500,1300,2100 12/13/19 12/13/19 hydrALAZINE HCL [Apresoline] 25 mg PO Q6H PRN 12/13/19 12/13/19 Previous Rx's Medication Instructions Recorded Budesonide-Formot 160-4.5 Mcg 2 puff INHALATION RT-BID puff 11/17/19 [Symbicort 160-4.5 Mcg Inhaler] Allergies Allergy/AdvReac Type Severity Reaction Status Date / Time No Known Allergies Allergy Verified 12/13/19 15:51 Review of Systems Limitations: ROS unobtainable due to patients medical condition Constitutional: Reports: fever (Patient reportedly has had fevers the past couple of days) Respiratory: Reports: cough Endocrine: Reports: fatigue Gastrointestinal: Reports: as per HPI (Decreased oral intake) <Jf Maravilla - Last Filed: 12/13/19 14:20> ROS Other: All systems not noted in ROS Statement are negative. <Josh Carrero - Last Filed: 12/13/19 17:58> ROS Statement: Those systems with pertinent positive or pertinent negative responses have been documented in the HPI. Past Medical History Past Medical History: Dementia, Hyperlipidemia, Hypertension Additional Past Medical History / Comment(s): metabolic encephalopathy, parkinsons disease, chronic pain, cerebral infarction, BPH, insomnia History of Any Multi-Drug Resistant Organisms: Unobtainable Past Surgical History: Orthopedic Surgery Past Anesthesia/Blood Transfusion Reactions: Unable to Obtain Past Psychological History: Anxiety, Depression Smoking Status: Former smoker Past Alcohol Use History: None Reported Past Drug Use History: None Reported <Jf Maravilla - Last Filed: 12/13/19 14:20> General Exam Limitations: no limitations General appearance: alert Head exam: Present: normocephalic Eye exam: Present: normal appearance, PERRL ENT exam: Present: normal oropharynx Neck exam: Present: normal inspection. Absent: tenderness, meningismus Respiratory exam: Present: rhonchi Cardiovascular Exam: Present: tachycardia GI/Abdominal exam: Present: soft. Absent: tenderness Extremities exam: Present: normal inspection Neurological exam: Present: alert, altered, other (Lack of effort. Does move all extremities.) Expanded Neurological exam: Present: protecting the airway Cranial nerves: EOM's Intact: Normal Motor strength exam: RUE: 4, LUE: 4, RLE: 3, LLE: 3 Eye Response: (4) open spontaneously Motor Response: (6) obeys commands Verbal Response: incomprehensible sounds Psychiatric exam: Present: flat affect Skin exam: Present: normal color <Jf Maravilla - Last Filed: 12/13/19 14:20> Course Vital Signs 12/13/19 12/13/19 12/13/19 14:15 14:34 14:58 Temperature 97.5 F L Pulse Rate 165 H 160 H Respiratory 26 H 20 16 Rate Blood Pressure 128/88 106/82 O2 Sat by Pulse 96 90 L Oximetry 12/13/19 15:37 Temperature Pulse Rate 160 H Respiratory 16 Rate Blood Pressure 132/69 O2 Sat by Pulse 90 L Oximetry EKG Findings - EKG Comments: EKG Findings:: Neuro complex tachycardia with rate of 165. [place] 120. QRS 108. QT 32. QTC 467. Normal axis. Normal QRS. Nonspecific T waves. Suspicion for underlying atrial flutter. <Jf Maravilla - Last Filed: 12/13/19 14:20> Medical Decision Making - Lab Data Result diagrams: 12/13/19 14:17 12/13/19 14:17 <Josh Carrero - Last Filed: 12/13/19 17:58> - Medical Decision Making Patient was in what appeared to be a flutter at a rate about 160 beats a minute. Patient was placed initially on Cardizem and Dr. Osman switched to amiodarone. He got an initial bolus of 150 mg and then put on a drip. After a couple of hours his heart rate remained in the 150s so I gave him another bolus of 150 mg. Chest x-ray showed no acute abnormality. Patient remained any liters nasal cannula with a pulse ox of 92% I spoke with cardiology in the or in agreement with the second bolus of amioda sue. I spoke with Dr. Haider he agreed to admit the patient admitted the patient wrote admitting orders (Josh Carrero) - Lab Data Lab Results 12/13/19 12/13/19 12/13/19 Range/Units 14:12 14:17 14:17 WBC 12.4 H (3.8-10.6) k/uL RBC 5.21 (4.30-5.90) m/uL Hgb 16.3 D (13.0-17.5) gm/dL Hct 50.1 (39.0-53.0) % MCV 96.1 (80.0-100.0) fL MCH 31.3 (25.0-35.0) pg MCHC 32.6 (31.0-37.0) g/dL RDW 14.3 (11.5-15.5) % Plt Count 209 (150-450) k/uL Neutrophils % 92 % Lymphocytes % 4 % Monocytes % 2 % Eosinophils % 0 % Basophils % 0 % Neutrophils # 11.5 H (1.3-7.7) k/uL Lymphocytes # 0.5 L (1.0-4.8) k/uL Monocytes # 0.3 (0-1.0) k/uL Eosinophils # 0.0 (0-0.7) k/uL Basophils # 0.0 (0-0.2) k/uL PT 11.7 (9.0-12.0) sec INR 1.1 (<1.2) APTT 23.4 (22.0-30.0) sec D-Dimer 4.27 H (<0.60) mg/L FEU Sodium (137-145) mmol/L Potassium (3.5-5.1) mmol/L Chloride (98-107) mmol/L Carbon Dioxide (22-30) mmol/L Anion Gap mmol/L BUN (9-20) mg/dL Creatinine (0.66-1.25) mg/dL Est GFR (CKD-EPI)AfAm (>60 ml/min/1.73 sqM) Est GFR (CKD-EPI)NonAf (>60 ml/min/1.73 sqM) Glucose (74-99) mg/dL Plasma Lactic Acid Gaston (0.7-2.0) mmol/L Calcium (8.4-10.2) mg/dL Magnesium (1.6-2.3) mg/dL Total Bilirubin (0.2-1.3) mg/dL AST (17-59) U/L ALT (4-49) U/L Alkaline Phosphatase (38-126) U/L Lactate Dehydrogenase (313-618) U/L Troponin I (0.000-0.034) ng/mL C-Reactive Protein (<10.0) mg/L Total Protein (6.3-8.2) g/dL Albumin (3.5-5.0) g/dL Urine Color Urine Appearance (Clear) Urine pH (5.0-8.0) Ur Specific Wheatley (1.001-1.035) Urine Protein (Negative) Urine Glucose (UA) (Negative) Urine Ketones (Negative) Urine Blood (Negative) Urine Nitrite (Negative) Urine Bilirubin (Negative) Urine Urobilinogen (<2.0) mg/dL Ur Leukocyte Esterase (Negative) Urine RBC (0-5) /hpf Urine WBC (0-5) /hpf Urine WBC Clumps (None) /hpf Ur Squamous Epith Cells (0-4) /hpf Urine Bacteria (None) /hpf Hyaline Casts (0-2) /lpf Urine Mucus (None) /hpf Urine Yeast (Budding) (None) /hpf Coronavirus (PCR) Detected A (Not Detectd) 12/13/19 12/13/19 12/13/19 Range/Units 14:17 14:17 14:17 WBC (3.8-10.6) k/uL RBC (4.30-5.90) m/uL Hgb (13.0-17.5) gm/dL Hct (39.0-53.0) % MCV (80.0-100.0) fL MCH (25.0-35.0) pg MCHC (31.0-37.0) g/dL RDW (11.5-15.5) % Plt Count (150-450) k/uL Neutrophils % % Lymphocytes % % Monocytes % % Eosinophils % % Basophils % % Neutrophils # (1.3-7.7) k/uL Lymphocytes # (1.0-4.8) k/uL Monocytes # (0-1.0) k/uL Eosinophils # (0-0.7) k/uL Basophils # (0-0.2) k/uL PT (9.0-12.0) sec INR (<1.2) APTT (22.0-30.0) sec D-Dimer (<0.60) mg/L FEU Sodium 147 H (137-145) mmol/L Potassium 5.7 H (3.5-5.1) mmol/L Chloride 112 H (98-107) mmol/L Carbon Dioxide 22 (22-30) mmol/L Anion Gap 13 mmol/L BUN 148 H* (9-20) mg/dL Creatinine 4.03 H (0.66-1.25) mg/dL Est GFR (CKD-EPI)AfAm 15 (>60 ml/min/1.73 sqM) Est GFR (CKD-EPI)NonAf 13 (>60 ml/min/1.73 sqM) Glucose 124 H (74-99) mg/dL Plasma Lactic Acid Gaston 3.7 H* (0.7-2.0) mmol/L Calcium 8.0 L (8.4-10.2) mg/dL Magnesium 2.9 H (1.6-2.3) mg/dL Total Bilirubin 1.1 (0.2-1.3) mg/dL AST 83 H (17-59) U/L ALT 34 (4-49) U/L Alkaline Phosphatase 82 (38-126) U/L Lactate Dehydrogenase 1098 H (313-618) U/L Troponin I 0.306 H* (0.000-0.034) ng/mL C-Reactive Protein 65.2 H (<10.0) mg/L Total Protein 6.1 L (6.3-8.2) g/dL Albumin 3.3 L (3.5-5.0) g/dL Urine Color Urine Appearance (Clear) Urine pH (5.0-8.0) Ur Specific Wheatley (1.001-1.035) Urine Protein (Negative) Urine Glucose (UA) (Negative) Urine Ketones (Negative) Urine Blood (Negative) Urine Nitrite (Negative) Urine Bilirubin (Negative) Urine Urobilinogen (<2.0) mg/dL Ur Leukocyte Esterase (Negative) Urine RBC (0-5) /hpf Urine WBC (0-5) /hpf Urine WBC Clumps (None) /hpf Ur Squamous Epith Cells (0-4) /hpf Urine Bacteria (None) /hpf Hyaline Casts (0-2) /lpf Urine Mucus (None) /hpf Urine Yeast (Budding) (None) /hpf Coronavirus (PCR) (Not Detectd) 12/13/19 Range/Units 15:09 WBC (3.8-10.6) k/uL RBC (4.30-5.90) m/uL Hgb (13.0-17.5) gm/dL Hct (39.0-53.0) % MCV (80.0-100.0) fL MCH (25.0-35.0) pg MCHC (31.0-37.0) g/dL RDW (11.5-15.5) % Plt Count (150-450) k/uL Neutrophils % % Lymphocytes % % Monocytes % % Eosinophils % % Basophils % % Neutrophils # (1.3-7.7) k/uL Lymphocytes # (1.0-4.8) k/uL Monocytes # (0-1.0) k/uL Eosinophils # (0-0.7) k/uL Basophils # (0-0.2) k/uL PT (9.0-12.0) sec INR (<1.2) APTT (22.0-30.0) sec D-Dimer (<0.60) mg/L FEU Sodium (137-145) mmol/L Potassium (3.5-5.1) mmol/L Chloride (98-107) mmol/L Carbon Dioxide (22-30) mmol/L Anion Gap mmol/L BUN (9-20) mg/dL Creatinine (0.66-1.25) mg/dL Est GFR (CKD-EPI)AfAm (>60 ml/min/1.73 sqM) Est GFR (CKD-EPI)NonAf (>60 ml/min/1.73 sqM) Glucose (74-99) mg/dL Plasma Lactic Acid Gaston (0.7-2.0) mmol/L Calcium (8.4-10.2) mg/dL Magnesium (1.6-2.3) mg/dL Total Bilirubin (0.2-1.3) mg/dL AST (17-59) U/L ALT (4-49) U/L Alkaline Phosphatase (38-126) U/L Lactate Dehydrogenase (313-618) U/L Troponin I (0.000-0.034) ng/mL C-Reactive Protein (<10.0) mg/L Total Protein (6.3-8.2) g/dL Albumin (3.5-5.0) g/dL Urine Color Yellow Urine Appearance Cloudy (Clear) Urine pH 5.0 (5.0-8.0) Ur Specific Wheatley 1.018 (1.001-1.035) Urine Protein 1+ H (Negative) Urine Glucose (UA) Negative (Negative) Urine Ketones Negative (Negative) Urine Blood Small H (Negative) Urine Nitrite Negative (Negative) Urine Bilirubin Negative (Negative) Urine Urobilinogen 2.0 (<2.0) mg/dL Ur Leukocyte Esterase Negative (Negative) Urine RBC 1 (0-5) /hpf Urine WBC 5 (0-5) /hpf Urine WBC Clumps Few H (None) /hpf Ur Squamous Epith Cells 1 (0-4) /hpf Urine Bacteria Occasional H (None) /hpf Hyaline Casts 16 H (0-2) /lpf Urine Mucus Rare H (None) /hpf Urine Yeast (Budding) Few H (None) /hpf Coronavirus (PCR) (Not Detectd) Critical Care Time Critical Care Time: Yes Total Critical Care Time: 35 <Josh Carrero - Last Filed: 12/13/19 17:58> Disposition <Jf Maravilla - Last Filed: 12/13/19 14:20> Time of Disposition: 17:58 <Josh Carrero - Last Filed: 12/13/19 17:58> Clinical Impression: COVID-19, Atrial flutter with rapid ventricular response, Dehydration, Acute renal failure, Hyperkalemia Disposition: ADMITTED IP TO THIS HOSP Referrals: Kun Mendiola MD [Primary Care Provider] - 1-2 days
[2019-12-13] MEDS ORDERED: DILTIAZEM 125 MG in SODIUM CHLORIDE 0.9% 100 ML IV SCH (14:30)
[2019-12-13 14:46] LABS: Basophils % (A) 0 %; Eosinophils % (A) 0 %; HCT 50.1 % (39.0-53.0); Lymphocytes # (A) 0.5 k/uL (1.0-4.8); Lymphocytes % (A) 4 %; MCH 31.3 pg (25.0-35.0); MCHC 32.6 g/dL (31.0-37.0); MCV 96.1 fL (80.0-100.0); Mean Platelet Volume 9.3; Monocytes # (A) 0.3 k/uL (0-1.0); Monocytes % (A) 2 %; Neutrophils # (A) 11.5 k/uL (1.3-7.7); Neutrophils % (A) 92 %; Platelet Count 209 k/uL (150-450); RBC 5.21 m/uL (4.30-5.90); RDW 14.3 % (11.5-15.5); WBC 12.4 k/uL (3.8-10.6)
[2019-12-13 14:50] LABS: Albumin 3.3 g/dL (3.5-5.0); C Reactive Protein 65.2 mg/L (<10.0); Magnesium 2.9 mg/dL (1.6-2.3); Potassium 5.7 mmol/L (3.5-5.1); Total Bilirubin 1.1 mg/dL (0.2-1.3); Total Protein 6.1 g/dL (6.3-8.2)
[2019-12-13 14:52] LABS: HGB 16.3 gm/dL (13.0-17.5)
--- NOTE | 2019-12-13 14:58 | XR ---
EXAMINATION TYPE: XR chest 1V portable DATE OF EXAM: 12/13/2019 COMPARISON: 11/13/2019 HISTORY: Shortness of breath, fever, unresponsive TECHNIQUE: Single frontal view of the chest is obtained. FINDINGS: Faint airspace disease is seen within the right midlung deep to an external pacer device. Remainder the lungs are clear. Cardiomediastinal silhouette is within normal limits. There is diffuse osseous demineralization. IMPRESSION: Faint right midlung airspace disease partially obscured by an external pacing device. Pn eumonia or atelectasis are possibilities. Remainder the lungs are clear.
[2019-12-13 15:04] LABS: INR 1.1 (<1.2); Partial Thromboplastin Time 23.4 sec (22.0-30.0); Prothrombin Time 11.7 sec (9.0-12.0)
[2019-12-13 15:13] LABS: D-Dimer 4.27 mg/L FEU (<0.60)
[2019-12-13 15:34] LABS: Appearance,Urine Cloudy (Clear); Bacteria,Urine Occasional /hpf; Bilirubin,Urine Negative (Negative); Blood,Urine Small (Negative); Budding Yeast,Urine Few /hpf; Color,Urine Yellow; Glucose,Urine (UA) Negative (Negative); Hyaline Casts,Urine 16 /lpf (0-2); Ketones,Urine Negative (Negative); Leukocyte Esterase,Urine Negative (Negative); Mucus,Urine Rare /hpf; Nitrite,Urine Negative (Negative); Protein,Urine 1+ (Negative); RBC,Urine 1 /hpf (0-5); Specific Gravity,Urine 1.018 (1.001-1.035); Squamous Epithelial Cell,Urine 1 /hpf (0-4); WBC,Urine 5 /hpf (0-5)
--- NOTE | 2019-12-13 15:54 | CT ---
EXAMINATION TYPE: CT brain wo con DATE OF EXAM: 12/13/2019 COMPARISON: None HISTORY: unresponsive, altered mental status CT DLP: 1217.4 mGycm Automated exposure control for dose reduction was used. TECHNIQUE: CT scan of the head is performed without contrast. FINDINGS: There is no acute intracranial hemorrhage or midline shift identified. There is diffuse v entricular and sulcal prominence consistent with diffuse age-related cerebral atrophy. There is low- attenuation in the periventricular white matter most commonly related to chronic small vessel ischemi c change. Old lacunar injuries are seen of the bilateral lentiform nuclei. The globes are intact and the visualized sinuses are clear. Small falcine lipoma is incidentally noted on image 47. IMPRESSION: No acute intracranial hemorrhage or midline shift. There is diffuse age-related cerebra l atrophy and chronic small vessel ischemic change noted. Bilateral old lacunar injuries of the basa l ganglia.
[2019-12-13] MEDS ORDERED: DEXTROSE 5% IN WATER 100 ML with AMIODARONE 150 MG IV ONE ×5 (16:00→17:39)
[2019-12-13] MEDS ORDERED: SODIUM CHLORIDE 0.9% 2,000 ML IV ONE (16:03)
[2019-12-13] MEDS ORDERED: AMIODARONE 360 MG in DEXTROSE 5% IN WATER 200 ML IV ONE ×2 (16:15)
[2019-12-13] MEDS ORDERED: SODIUM CHLORIDE 0.9% 1,000 ML IV ONE ×2 (16:20→20:08)
[2019-12-13] MEDS ORDERED: NALOXONE 0.4 MG/ML 1 ML VIAL IV PRN (17:59)
[2019-12-13 18:58] LABS: Glucose,Whole Blood 136 mg/dL (75-99)
[2019-12-13] MEDS: SODIUM CHLORIDE 0.9% 1,000 ML IV SCH (20:10)
[2019-12-13] MEDS ORDERED: HEPARIN SODIUM,PORCINE 5,000 UNIT/ML 1 ML VIAL IV PRN (20:36)
--- NOTE | 2019-12-13 20:36 | P.CNPUL ---
History of Present Illness Consult date: 12/13/19 Reason for consult: dyspnea, cough, other (acute kidney injury, dehydration) Chief complaint: altered mental status History of present illness: 84-year-old male patient of mine senior care resident with multiple medical problems and comorbidities, resides at the senior care, brought into the emergency department because of altered mental status. The patient was brought via EMS as the patient was having generalized weakness, lethargy, altered mentation and diminished level of consciousness and the same time the patient was having increased cough. Note that the patient's roommate at the senior care diagnosed having a COVID 19 infection and this was obviously concern. At a time of the arrival, the patient was found to be quite tachycardic with a heart rate in the 160 range. SVT was suspected and the patient was given adeno C without any improvement. Subsequent EKG revealed that the patient was in a flu tter rhythm at the rate of 160. Blood work that was done in the emergency department revealed that the patient was in an acute kidney injury. BUN was 148. Creatinine was at 4.03. His sodium level was 147. Chloride was 112. Lactic acid level was at 3.7. Troponin was 0.3. The patient had a white cell count of 12.4. Furthermore he checked positive for Covid 19 infection based on the records nasopharyngeal screen. The LDH was quite elevated at 1098. This was also consistent with Covid 19 infection. D-dimer was at 4.27. The CAT scan of the brain showed no acute intracranial hemorrhage or abnormalities. There was diffuse age-related cerebral atrophy and chronic small vessel ischemic change in addition to bilateral old or corneal injuries involving the basal ganglia. The patient's chest x-ray revealed a faint right midlung airspace disease and this was partially obscured by external pacing devices. The remainder of the lungs were essentially clear. I saw this patient emergency department. He was quite lethargic yet arousable. He was on 8 L of oxygen by nasal cannula and is pulse oxing in the range of 92%. His heart rate was quite rapid ranging between 155 and 165. The patient had a systolic blood pressure as low as 92/72. The patient was given IV fluid bolus sees and the patient received a total of 3 L in the emergency department and a 43 was given in the ICU and the patient was started on a maintenance of 150 mL of normal saline. Keith cath is in place. Urine output is diminished. He did not require any pressors. He was started on amiodarone bolus and maintenance which improved his heart rate and so was becoming more clear that the patient was in and out of A flutter I established a triple-lumen catheter in the right femoral vein. The patient was low quite emaciated cachectic and very weak. Note that this patient was in the hospital around a month ago specifically on 11/10/2018. He was evaluated and treated through our services the patient was having increased dyspnea cough and fever. At that time the Covid 19 evaluation came back negative. Note that the patient also has advanced dementia, Parkinson's disease, depression, BPH, hypertension. He has also had previous cerebral infarct involving the basal ganglia as discussed above. He has BPH as other comorbid conditions. He is a former smoker. He is a senior care resident. Review of Systems ROS unobtainable: due to mental status (this patient is a very poor historian. Looks quite emaciated cachectic and weak and malnourished. He does have impaired memory.HE ALSO HAS COUGH AND CONGESTION AND SOME WORSENING SHORTNESS OF BREATH. Urine output is minimal at this point in time. a complete 14 point review of systems canbe done at th) Past Medical History Past Medical History: Dementia, Hyperlipidemia, Hypertension Additional Past Medical History / Comment(s): parkinsons disease, chronic pain, cerebral infarction, BPH, insomnia , hyperlipidemia, hypertension History of Any Multi-Drug Resistant Organisms: Unobtainable Past Surgical History: Orthopedic Surgery Past Anesthesia/Blood Transfusion Reactions: Unable to Obtain Past Psychological History: Anxiety, Depression Smoking Status: Former smoker Past Alcohol Use History: None Reported Past Drug Use History: None Reported Medications and Allergies Home Medications Medication Instructions Recorded Confirmed Type Acetaminophen Tab [Tylenol] 325 mg PO Q4H PRN 11/13/19 12/13/19 History Aspirin EC [Ecotrin Low Dose] 81 mg PO DAILY 11/13/19 12/13/19 History Carbidopa-Levodopa 25-100 mg 1 tab PO QID@08,12,16,20 11/13/19 12/13/19 History [Sinemet 25-100 mg] Cholecalciferol [Vitamin D3 (25 1,000 unit PO DAILY 11/13/19 12/13/19 History Mcg = 1000 Iu)] Melatonin 5 mg PO HS 11/13/19 12/13/19 History Metoprolol Tartrate [Lopressor] 12.5 mg PO BID 11/13/19 12/13/19 History Polyethylene Glycol 3350 [Miralax] 17 gm PO DAILY 11/13/19 12/13/19 History Rivastigmine 4.6MG/24Hr Patch 1 patch TRANSDERM DAILY@0800 11/13/19 12/13/19 History [Exelon 4.6MG/24Hr Patch] Tamsulosin [Flomax] 0.4 mg PO DAILY 11/13/19 12/13/19 History Vortioxetine Hydrobromide 10 mg PO HS 11/13/19 12/13/19 History [Trintellix] rOPINIRole HCL [Requip] 0.5 mg PO BID 11/13/19 12/13/19 History Budesonide-Formot 160-4.5 Mcg 2 puff INHALATION RT-BID puff 11/17/19 12/13/19 Rx [Symbicort 160-4.5 Mcg Inhaler] Albuterol Inhaler (Bulk) [Ventolin 2 puff INHALATION RT-QID PRN 12/13/19 12/13/19 History Hfa Inhaler (Bulk)] Dextran 70/Hypromellose [Genteal 1 drop BOTH EYES Q2H PRN 12/13/19 12/13/19 History Tears 0.1%-0.3% Drop] LORazepam [Ativan] 1 mg PO HS 12/13/19 12/13/19 History Losartan Potassium 100 mg PO HS 12/13/19 12/13/19 History Magnesium Hydroxide [Milk of 2,400 mg PO DAILY PRN 12/13/19 12/13/19 History Magnesia] Sennosides/Docusate Sodium [Senna 1 tab PO BID 12/13/19 12/13/19 History Plus 8.6-50 mg Tablet] cloNIDine HCL [Catapres] 0.1 mg PO TID@0500,1300,2100 12/13/19 12/13/19 History hydrALAZINE HCL [Apresoline] 25 mg PO Q6H PRN 12/13/19 12/13/19 History Allergies Allergy/AdvReac Type Severity Reaction Status Date / Time No Known Allergies Allergy Verified 12/13/19 15:51 Physical Exam Vitals: Vital Signs Temp Pulse Resp BP Pulse Ox 12/13/19 20:10 105 H 19 127/87 97 12/13/19 20:00 97.6 F 124 H 28 H 92/72 98 12/13/19 19:50 121 H 19 92/72 97 12/13/19 19:40 125 H 32 H 92/72 97 12/13/19 19:30 14 114/70 98 12/13/19 19:20 12 114/70 99 12/13/19 19:10 122 H 17 114/70 100 12/13/19 19:00 130 H 21 121/110 12/13/19 18:54 15 12/13/19 18:30 137 H 16 115/91 90 L 12/13/19 18:13 141 H 12/13/19 18:00 151 H 16 111/90 90 L 12/13/19 17:56 150 H 16 111/90 90 L 12/13/19 16:56 141 H 16 123/93 90 L 12/13/19 15:56 140 H 16 135/101 90 L 12/13/19 15:37 160 H 16 132/69 90 L 12/13/19 14:58 160 H 16 106/82 90 L 12/13/19 14:34 97.5 F L 165 H 20 128/88 96 12/13/19 14:15 26 H Intake and Output 12/13/19 12/13/19 12/13/19 06:59 14:59 22:59 Intake Total 3.667 Output Total 150 Balance -146.333 Intake: Intake, IV Titration 3.667 Amount Diltiazem 125 mg In 3.667 Sodium Chloride 0.9% 100 ml @ 5 MG/HR 5 mls/hr IV .Q24H [facility] Rx#:[id number] Output: Urine 150 Uretheral (Keith) 150 Other: Weight 68.039 kg GENERAL EXAM: Lethargic, somnolent and looks very much cachectic emaciated and lethargic at this point in time but arousable, on 8 L of oxygen by nasal cannula comfortable in no apparent distress.Rayna of excessive muscle breathing. HEAD: Normocephalic/atraumatic.here is temporal wasting EYES: Normal reaction of pupils, equal size. Conjunctiva pink, sclera white. NOSE: Clear with pink turbinates. THROAT: No erythema or exudates.the mucous membranes are extremely dry NECK: No masses, no JVD, no thyroid enlargement, no adenopathy. CHEST: No chest wall deformity. Symmetrical expansion. she will LUNGS: Equal air entry with basilar crackles CVS: Regular rate and rhythm, normal S1 and S2, the patient is consistently tachycardic consistent with atrial flutter rhythm no gallops, no murmurs, no rubs ABDOMEN: Soft, nontender. No hepatosplenomegaly, normal bowel sounds, no guarding or rigidity. EXTREMITIES: No clubbing, no edema, no cyanosis, 1+ pulses and upper and lower extremities.nfected extremities are showing significant muscle atrophy and some contractures in lower extremities bilaterally MUSCULOSKELETAL: Muscle strength and tone is significant diminished and the patient has cogwheel rigidity related to his Parkinson's disease SPINE: No scoliosis or deformity SKIN: No rashes CENTRAL NERVOUS SYSTEM: Lethargic, but arousable, confused, neurologic exam is nonfocal. There is some resting tremors. Results - Laboratory Findings CBC and BMP: 12/13/19 14:17 12/13/19 14:17 PT/INR, D-dimer PT 11.7 sec (9.0-12.0) 12/13/19 14:17 INR 1.1 (<1.2) 12/13/19 14:17 D-Dimer 4.27 mg/L FEU (<0.60) H 12/13/19 14:17 Abnormal lab findings: Abnormal Labs 12/13/19 12/13/19 12/13/19 14:12 14:17 14:17 WBC 12.4 H Neutrophils # 11.5 H Lymphocytes # 0.5 L D-Dimer 4.27 H Sodium Potassium Chloride BUN Creatinine Glucose POC Glucose (mg/dL) Plasma Lactic Acid [place] Calcium Magnesium AST Lactate Dehydrogenase Troponin I C-Reactive Protein Total Protein Albumin Urine Protein Urine Blood Urine WBC Clumps Urine Bacteria Hyaline Casts Urine Mucus Urine Yeast (Budding) Coronavirus (PCR) Detected A 12/13/19 12/13/19 12/13/19 14:17 14:17 14:17 WBC Neutrophils # Lymphocytes # D-Dimer Sodium 147 H Potassium 5.7 H Chloride 112 H BUN 148 H* Creatinine 4.03 H Glucose 124 H POC Glucose (mg/dL) Plasma Lactic Acid [place] 3.7 H* Calcium 8.0 L Magnesium 2.9 H AST 83 H Lactate Dehydrogenase 1098 H Troponin I 0.306 H* C-Reactive Protein 65.2 H Total Protein 6.1 L Albumin 3.3 L Urine Protein Urine Blood Urine WBC Clumps Urine Bacteria Hyaline Casts Urine Mucus Urine Yeast (Budding) Coronavirus (PCR) 12/13/19 12/13/19 12/13/19 15:09 18:57 19:43 WBC Neutrophils # Lymphocytes # D-Dimer Sodium Potassium Chloride BUN Creatinine Glucose POC Glucose (mg/dL) 136 H Plasma Lactic Acid [place] 3.4 H* Calcium Magnesium AST Lactate Dehydrogenase Troponin I C-Reactive Protein Total Protein Albumin Urine Protein 1+ H Urine Blood Small H Urine WBC Clumps Few H Urine Bacteria Occasional H Hyaline Casts 16 H Urine Mucus Rare H Urine Yeast (Budding) Few H Coronavirus (PCR) - Diagnostic Findings Chest x-ray: image reviewed Assessment and Plan Plan: 1 acute Covid 19 pneumonia with secondary acute hypoxic respiratory failure is currently the patient is currently on 8 L of oxygen by nasal cannula Mother the patient wasn't having approximately 4 weeks ago and the patient had a similar Covid evaluation for an acute febrile illness and he tested negative back then. 2. Acute kidney injury secondary to significant intravascular volume depletion/dehydration. BUN and creatinine both elevated and the patient has a component of hyperchloremic hypernatremia 3. new-onset atrial flutter with rapid ventricularresponse and the patient is currently on amiodarone drip for rate control with some improvement in the heart rate. The patient has no significant hypotension the patient responded nicely to IV fluids 4 mild lactic acidosis secondary to dehydration 5 History of advanced dementia 6 Parkinson's disorder 7 BPH 8 Hypertention 9 Hyperlipidemia 10 History of CVA, with obviously lacunar stroke involving the basal ganglia based on the CAT scan findings. 11 altered mental status secondary to metabolic encephalopathy related toacute kidney injury and intravascular volume depletion. Also the patient s history of underlyin memory and cognition. Plan Continue fluid resuscitation. The patient will be receiving a total of 4 L of IV fluids. We'll continue maintenance of IV fluids at the rate of 150 mL an hour normal saline. Repeat electrolytes at around midnight. Monitor lactic acid level Urine analysis and blood cultures Empiric antibiotic coverage with IV Rocephin Start the patient Plaquenil per protocol regarding [place] at 19 related pneumonia Oxygen at 8 L per minute nasal cannula D-dimer is quite elevated and the patient has a flutter. I am inclined and putting this patient on anticoagulation with IV heparin over the next 24 hours IV amiodarone for rate control Echocardiogram in a.m. Cardiology consultation monitor troponins Monitor LDH and C-reactive protein Swallow evaluation in a.m. We'll continue to follow. Condition is critical. Prognosis poor baseline above -mentioned comorbidities. CODE STATUS needs to be established. He is significantly impaired in terms of his baseline performance and functional status and addition to obvious signs of chronic malnutrition. Time with Patient: Greater than 30
[2019-12-13] MEDS ORDERED: ACETAMINOPHEN TAB 325 MG TAB PO PRN (20:39)
--- NOTE | 2019-12-13 20:51 | P.PCN ---
Date of Procedure: 12/13/19 Preoperative Diagnosis: Dehydration, MELISSA Postoperative Diagnosis: Dehydration, MELISSA Procedure(s) Performed: Central line catheter insertion Anesthesia: local Surgeon: Luc Osman Estimated Blood Loss (ml): 0 Pathology: other Condition: critical Disposition: ICU Operative Findings: Indication: Hemodynamic monitoring/Intravenous access. A time-out was completed verifying correct patient, procedure, site, positioning, and implant(s) or special equipment if applicable. The patient was placed in a dependent position appropriate for central line placement based on the vein to be cannulated. The patient's right groin was prepped and draped in sterile fashion. 1% Lidocaine was used to anesthetize the surrounding skin area. A triple lumen 9F Cordis catheter was introduced into the common femoral vein using Seldinger technique. The catheter was threaded smoothly over the guide wire and appropriate blood return was obtained. Each lumen of the catheter was evacuated of air and flushed with sterile saline. The catheter was then sutured in place to the skin and a sterile dressing applied. Perfusion to the extremity distal to the point of catheter insertion was checked and found to be adequate. The patient tolerated the procedure well and there were no complications.
[2019-12-13] MEDS ORDERED: METOPROLOL TARTRATE 12.5 MG TAB PO SCH (21:00)
[2019-12-13] MEDS: methylPREDNISolone SOD SUCCI 40 MG/ML 1 ML VIAL IV SCH (21:14)
[2019-12-13] MEDS: PANTOPRAZOLE 40 MG/10 ML VIAL IVP SCH (21:14)
[2019-12-13] MEDS: HEPARIN SOD,PORK IN 0.45% NACL 25,000 UNIT in 0.45% NACL 1 250ML.BAG IV SCH (21:20)
[2019-12-13 21:24] LABS: Basophils % (A) 0 %; Eosinophils % (A) 0 %; HCT 42.6 % (39.0-53.0); HGB 13.6 gm/dL (13.0-17.5); Hypochromasia Slight; Lymphocytes # (A) 0.3 k/uL (1.0-4.8); Lymphocytes % (A) 2 %; MCH 30.7 pg (25.0-35.0); MCV 96.2 fL (80.0-100.0); Mean Platelet Volume 9.1; Monocytes # (A) 0.3 k/uL (0-1.0); Monocytes % (A) 3 %; Neutrophils # (A) 10.7 k/uL (1.3-7.7); Neutrophils % (A) 94 %; Platelet Count 174 k/uL (150-450); RBC 4.43 m/uL (4.30-5.90); RDW 14.4 % (11.5-15.5); WBC 11.4 k/uL (3.8-10.6)
[2019-12-13 21:33] LABS: INR 1.2 (<1.2); Partial Thromboplastin Time 25.6 sec (22.0-30.0); Prothrombin Time 12.1 sec (9.0-12.0)
[2019-12-13] MEDS: AMIODARONE 300 MG in DEXTROSE 5% IN WATER 250 ML IV SCH ×2 (21:36)
[2019-12-13] MEDS: HYDROXYCHLOROQUINE SULFATE 200 MG TAB PO SCH (21:57)
[2019-12-13] MEDS: VORTIOXETINE HYDROBROMIDE 10 MG TABLET PO SCH (21:57)
[2019-12-14] MEDS ORDERED: HEPARIN SODIUM,PORCINE 5,000 UNIT/ML 1 ML VIAL SQ SCH
[2019-12-14 03:13] LABS: Basophils % (A) 0 %; Eosinophils % (A) 0 %; HCT 43.5 % (39.0-53.0); HGB 14.2 gm/dL (13.0-17.5); Lymphocytes # (A) 0.2 k/uL (1.0-4.8); Lymphocytes % (A) 2 %; MCH 31.2 pg (25.0-35.0); MCHC 32.6 g/dL (31.0-37.0); MCV 95.7 fL (80.0-100.0); Mean Platelet Volume 8.7; Monocytes # (A) 0.2 k/uL (0-1.0); Monocytes % (A) 2 %; Neutrophils # (A) 11.3 k/uL (1.3-7.7); Neutrophils % (A) 96 %; Platelet Count 159 k/uL (150-450); RBC 4.55 m/uL (4.30-5.90); RDW 14.3 % (11.5-15.5); WBC 11.9 k/uL (3.8-10.6)
[2019-12-14] MEDS: SODIUM CHLORIDE 0.9% 1,000 ML IV SCH ×4 (03:16→19:44)
[2019-12-14 03:33] LABS: Albumin 2.5 g/dL (3.5-5.0); C Reactive Protein 66.7 mg/L (<10.0); Potassium 4.2 mmol/L (3.5-5.1); Total Bilirubin 0.8 mg/dL (0.2-1.3); Total Protein 5.1 g/dL (6.3-8.2)
[2019-12-14 03:55] LABS: D-Dimer 5.29 mg/L FEU (<0.60); Partial Thromboplastin Time 56.3 sec (22.0-30.0)
--- NOTE | 2019-12-14 05:04 | P.HPIM ---
History of Present Illness H&P Date: 12/13/19 Chief Complaint: Covid 19 infection, sepsis, a flutter, acute kidney injury and pneumonia 84-year-old male who was in the hospital in November 12 till November 16 for acute bilateral pneumonia and high temperature and chills was seen in the pulmonary and treated at the time with the significant improvement was in acute hypoxic respiratory failure Covid 19 that time was ruled out patient was having more COPD exacerbation with worsening dementia and mild lactic acidosis. He was treated and has done well was sent to [facility] on budesonide and albuterol inhaler along with changing his blood pressure medication for better management of kidney function to be seen by his primary care Dr. House or to see by Dr. Mendiola at the half-way at the time. Patient brought to the emergency department at [facility] today 12/13/2019 because of very high fever or chills tachycardia severe shortness of breath with high suspicion for Covid 19 infection this time because of his roommate was diagnosed with it recently. At the time was seen at the emergency department patient pulse rate was very high he was having low urine output significant hypertension with severely dehydrated with temperature running at 97 or 98 his pulse ox on 8 L was on at 97 percentile only. Patient lactic acid was significantly elevated at 3.7 his C-reactive protein with 65.2 his LDH was 1098. And I suspected Covid 19 was positive this time. Patient was seen by Dr. Osman and pulmonary at the emergency department decided to place central line and start patient on challenge IV hydration of 3 toward the time patient had extremely high risk up being intubated with extreme high mortality at this point with the worsening kidney failure with severe tachycardia with a flutter did not respond to challenge with adenosine patient was to replace on Cardizem drip to bring his pulse rate down and was transferred to the ICU afterward after giving him a bolus of amiodarone and started on amiodarone drip to keep his pulse rates below 90. Patient was started on hydrochloric when 400 mg twice a day with Solu-Medrol 30 mg twice a day was continue on heparin drip for A. fib/A flutter and 1 g of Rocephin was giving. Review of Systems CONSTITUTIONAL: Elderly looks malnourished quite anxious look in mild respiratory distress. EYES: No icterus sclerae, no conjunctivitis. EARS, NOSE, MOUTH, THROAT, and FACE: No sore throat, lymphadenopathy, carotid bruits or deformity. Significant for dry mucosa. RESPIRATORY: Positive shortness of breath cough wheezes. CARDIOVASCULAR: Positive PND orthopnea and palpitation GASTROINTESTINAL: No Abd pain, Nausea or vomiting, no Diarrhea or constipation, No GI Bleed, no distention or masses. GENITOURINARY: BPH with significant decrease urine output. INTEGUMENT/BREAST: Negative for any muscular injury with mild osteoarthritis.. HEMATOLOGIC/LYMPHATIC: Negative for bleed or purpura. MUSCULOSKELTAL: Negative for Myalgia or arthralgia. NEURLOGICAL: Parkinson disease with significant altered mental status with more confusion. BEHAVIORAL/PSYCH: Negative. ENDOCRINE: Negative. Past Medical History Past Medical History: Dementia, Hyperlipidemia, Hypertension Additional Past Medical History / Comment(s): parkinsons disease, chronic pain, cerebral infarction, BPH, insomnia , hyperlipidemia, hypertension History of Any Multi-Drug Resistant Organisms: Unobtainable Past Surgical History: Orthopedic Surgery Past Anesthesia/Blood Transfusion Reactions: Unable to Obtain Past Psychological History: Anxiety, Depression Smoking Status: Former smoker Past Alcohol Use History: None Reported Past Drug Use History: None Reported Medications and Allergies Home Medications Medication Instructions Recorded Confirmed Type Acetaminophen Tab [Tylenol] 325 mg PO Q4H PRN 11/13/19 12/13/19 History Aspirin EC [Ecotrin Low Dose] 81 mg PO DAILY 11/13/19 12/13/19 History Carbidopa-Levodopa 25-100 mg 1 tab PO QID@08,12,16,20 11/13/19 12/13/19 History [Sinemet 25-100 mg] Cholecalciferol [Vitamin D3 (25 1,000 unit PO DAILY 11/13/19 12/13/19 History Mcg = 1000 Iu)] Melatonin 5 mg PO HS 11/13/19 12/13/19 History Metoprolol Tartrate [Lopressor] 12.5 mg PO BID 11/13/19 12/13/19 History Polyethylene Glycol 3350 [Miralax] 17 gm PO DAILY 11/13/19 12/13/19 History Rivastigmine 4.6MG/24Hr Patch 1 patch TRANSDERM DAILY@0800 11/13/19 12/13/19 History [Exelon 4.6MG/24Hr Patch] Tamsulosin [Flomax] 0.4 mg PO DAILY 11/13/19 12/13/19 History Vortioxetine Hydrobromide 10 mg PO HS 11/13/19 12/13/19 History [Trintellix] rOPINIRole HCL [Requip] 0.5 mg PO BID 11/13/19 12/13/19 History Budesonide-Formot 160-4.5 Mcg 2 puff INHALATION RT-BID puff 11/17/19 12/13/19 Rx [Symbicort 160-4.5 Mcg Inhaler] Albuterol Inhaler (Bulk) [Ventolin 2 puff INHALATION RT-QID PRN 12/13/19 12/13/19 History Hfa Inhaler (Bulk)] Dextran 70/Hypromellose [Genteal 1 drop BOTH EYES Q2H PRN 12/13/19 12/13/19 Hist ory Tears 0.1%-0.3% Drop] LORazepam [Ativan] 1 mg PO HS 12/13/19 12/13/19 History Losartan Potassium 100 mg PO HS 12/13/19 12/13/19 History Magnesium Hydroxide [Milk of 2,400 mg PO DAILY PRN 12/13/19 12/13/19 History Magnesia] Sennosides/Docusate Sodium [Senna 1 tab PO BID 12/13/19 12/13/19 History Plus 8.6-50 mg Tablet] cloNIDine HCL [Catapres] 0.1 mg PO TID@0500,1300,2100 12/13/19 12/13/19 History hydrALAZINE HCL [Apresoline] 25 mg PO Q6H PRN 12/13/19 12/13/19 History Allergies Allergy/AdvReac Type Severity Reaction Status Date / Time No Known Allergies Allergy Verified 12/13/19 15:51 Physical Exam Vitals: Vital Signs Temp Pulse Resp BP Pulse Ox 12/13/19 20:10 105 H 19 127/87 97 12/13/19 20:00 97.6 F 124 H 28 H 92/72 98 12/13/19 19:50 121 H 19 92/72 97 12/13/19 19:40 125 H 32 H 92/72 97 12/13/19 19:30 14 114/70 98 12/13/19 19:20 12 114/70 99 12/13/19 19:10 122 H 17 114/70 100 04/21/20 19:00 130 H 21 121/110 12/13/19 18:54 15 12/13/19 18:30 137 H 16 115/91 90 L 12/13/19 18:13 141 H 12/13/19 18:00 151 H 16 111/90 90 L 12/13/19 17:56 150 H 16 111/90 90 L 12/13/19 16:56 141 H 16 123/93 90 L 12/13/19 15:56 140 H 16 135/101 90 L 12/13/19 15:37 160 H 16 132/69 90 L 12/13/19 14:58 160 H 16 106/82 90 L 12/13/19 14:34 97.5 F L 165 H 20 128/88 96 12/13/19 14:15 26 H Intake and Output 12/13/19 12/13/19 12/13/19 06:59 14:59 22:59 Intake Total 3.667 Output Total 150 Balance -146.333 Intake: Intake, IV Titration 3.667 Amount Diltiazem 125 mg In 3.667 Sodium Chloride 0.9% 100 ml @ 5 MG/HR 5 mls/hr IV .Q24H REPLACED BY [facility] Rx#:[id number] Output: Urine 150 Uretheral (Keith) 150 Other: Weight 68.039 kg General Appearance: Severely confuse elderly in mild respiratory distress. Neck HEENT: Supple, no lymphadenopathy, no thyroid enlargement, no carotid bruits. Significant for dry mucosa. Lungs: Decreased breath sound in the bases bilaterally with worsening in the right than the left side with fine crackles mild rhonchi and mild expiratory wheezes. Chest Wall: Decrease expansion with deep inspiration no tenderness and no deformity was found on exam, no costochondral pain or discomfort. Heart: Irregular rate andorma rhythm, S1, S2 positive history positive severe tachycardia with irregularity positive systolic murmur. Back: Symmetric, no curvature, ROM normal, no CVA tenderness. Abdomen: Soft, non-tender, bowel sounds active all four quadrants, no masses, no organomegaly. Extremities: Extremities normal, atraumatic, no cyanosis or edema. Pulses: 2+ and symmetric. Skin: Skin color, texture, tugor normal, no rashes or lesions. Neurologic: Alert severely confuse mild tremor present in of 2-12 intact positive generalized weakness no focal deficit with significant memory loss at this point. Results CBC & Chem 7: 12/13/19 14:17 12/13/19 14:17 Labs: Abnormal Lab Results - Last 24 Hours (Table) 12/13/19 12/13/19 12/13/19 Range/Units 14:12 14:17 14:17 WBC 12.4 H (3.8-10.6) k/uL Neutrophils # 11.5 H (1.3-7.7) k/uL Lymphocytes # 0.5 L (1.0-4.8) k/uL D-Dimer 4.27 H (<0.60) mg/L FEU Sodium (137-145) mmol/L Potassium (3.5-5.1) mmol/L Chloride (98-107) mmol/L BUN (9-20) mg/dL Creatinine (0.66-1.25) mg/dL Glucose (74-99) mg/dL POC Glucose (mg/dL) (75-99) mg/dL Plasma Lactic Acid Gaston (0.7-2.0) mmol/L Calcium (8.4-10.2) mg/dL Magnesium (1.6-2.3) mg/dL AST (17-59) U/L Lactate Dehydrogenase (313-618) U/L Troponin I (0.000-0.034) ng/mL C-Reactive Protein (<10.0) mg/L Total Protein (6.3-8.2) g/dL Albumin (3.5-5.0) g/dL Urine Protein (Negative) Urine Blood (Negative) Urine WBC Clumps (None) /hpf Urine Bacteria (None) /hpf Hyaline Casts (0-2) /lpf Urine Mucus (None) /hpf Urine Yeast (Budding) (None) /hpf Coronavirus (PCR) Detected A (Not Detectd) 12/13/19 12/13/19 12/13/19 Range/Units 14:17 14:17 14:17 WBC (3.8-10.6) k/uL Neutrophils # (1.3-7.7) k/uL Lymphocytes # (1.0-4.8) k/uL D-Dimer (<0.60) mg/L FEU Sodium 147 H (137-145) mmol/L Potassium 5.7 H (3.5-5.1) mmol/L Chloride 112 H (98-107) mmol/L BUN 148 H* (9-20) mg/dL Creatinine 4.03 H (0.66-1.25) mg/dL Glucose 124 H (74-99) mg/dL POC Glucose (mg/dL) (75-99) mg/dL Plasma Lactic Acid Gaston 3.7 H* (0.7-2.0) mmol/L Calcium 8.0 L (8.4-10.2) mg/dL Magnesium 2.9 H (1.6-2.3) mg/dL AST 83 H (17-59) U/L Lactate Dehydrogenase 1098 H (313-618) U/L Troponin I 0.306 H* (0.000-0.034) ng/mL C-Reactive Protein 65.2 H (<10.0) mg/L Total Protein 6.1 L (6.3-8.2) g/dL Albumin 3.3 L (3.5-5.0) g/dL Urine Protein (Negative) Urine Blood (Negative) Urine WBC Clumps (None) /hpf Urine Bacteria (None) /hpf Hyaline Casts (0-2) /lpf Urine Mucus (None) /hpf Urine Yeast (Budding) (None) /hpf Coronavirus (PCR) (Not Detectd) 12/13/19 12/13/19 12/13/19 Range/Units 15:09 18:57 19:43 WBC (3.8-10.6) k/uL Neutrophils # (1.3-7.7) k/uL Lymphocytes # (1.0-4.8) k/uL D-Dimer (<0.60) mg/L FEU Sodium (137-145) mmol/L Potassium (3.5-5.1) mmol/L Chloride (98-107) mmol/L BUN (9-20) mg/dL Creatinine (0.66-1.25) mg/dL Glucose (74-99) mg/dL POC Glucose (mg/dL) 136 H (75-99) mg/dL Plasma Lactic Acid Gaston 3.4 H* (0.7-2.0) mmol/L Calcium (8.4-10.2) mg/dL Magnesium (1.6-2.3) mg/dL AST (17-59) U/L Lactate Dehydrogenase (313-618) U/L Troponin I (0.000-0.034) ng/mL C-Reactive Protein (<10.0) mg/L Total Protein (6.3-8.2) g/dL Albumin (3.5-5.0) g/dL Urine Protein 1+ H (Negative) Urine Blood Small H (Negative) Urine WBC Clumps Few H (None) /hpf Urine Bacteria Occasional H (None) /hpf Hyaline Casts 16 H (0-2) /lpf Urine Mucus Rare H (None) /hpf Urine Yeast (Budding) Few H (None) /hpf Coronavirus (PCR) (Not Detectd) Thrombosis Risk Factor Assmnt - DVT/VTE Prophylaxis DVT/VTE Prophylaxis: Pharmacologic Prophylaxis ordered, Mechanical Prophylaxis ordered Assessment and Plan Assessment: 1 acute respiratory failure: Secondary to acute Covid 19 infection along with gram-negative pneumonia associated with acute A. fib a flutter with acute heart failure as well and acute renal failure. 2 acute Covid 19 pneumonitis: Patient was seen pulmonary was started on hydrochloric when high flow O2 continue precaution and continue management for Covid 19 including anticoagulation at this point adjusted treatment accordingly. 3 acute kidney injury with acute tubular necrosis significantly changed from 2 weeks ago patient is severely dehydrated at this point continue hydration Keith catheter was inserted we will consult nephrology continue to watch kidney function on regular basis. For new-onset of Atrovent flutter with rapid ventricular response: Patient did not respond to adenosine and Cardizem was started on amiodarone drip and still on heparin drip as well we'll consult cardiology. 5 advance Parkinson disease: Still on Requip and carbidopa levodopa at this point. 5 BPH: Was on Flomax continue to watch patient for any urinary retention. 7 hypertension: Patient was on hydralazine losartan and clonidine blood pressure was low we will hold medication at this point. 8 COPD exacerbation: Patient to continue Ventolin and Pulmicort still on Solu- Medrol 30 mg twice a day seen pulmonary. 9 acute lactic acidosis: Secondary to Covid 19 infection and sepsis continue IV hydration and resuscitation along with antibiotics and current management for now 10 elevated troponin: Most likely from hypoperfusion related to the a flutter with a rapid pulse the dehydration and hypotension echocardiogram will be done as well. 11 GI prophylaxis: Patient will be started on pantoprazole. 12 DVT prophylaxis: Patient was started on heparin drip and switch to Lovenox when ready. CODE STATUS: Full code, mortality: Is very high currently with acute respiratory failure and Covid 19 infection with acute renal failure and tachycardia co ntinue current management and will communicate this with the family on regular basis. Admit patient to inpatient status for more than 2 nights.
--- NOTE | 2019-12-14 07:19 | XR ---
EXAMINATION TYPE: XR chest 1V DATE OF EXAM: 12/14/2019 COMPARISON: 12/13/2019 HISTORY: Pneumonia. Follow-up exam. TECHNIQUE: Single frontal view of the chest is obtained. FINDINGS: Similar patchy right midlung peripheral airspace disease. Remainder the lungs are well aer ated. Again there is diffuse osseous demineralization and moderate degenerative changes of the spine and shoulders. Cardiomediastinal silhouette is stable. IMPRESSION: Similar patchy right midlung airspace disease, likely unifocal pneumonia.
[2019-12-14] MEDS: AMIODARONE 300 MG in DEXTROSE 5% IN WATER 250 ML IV SCH ×4 (07:52→16:49)
[2019-12-14] MEDS: RIVASTIGMINE 4.6MG/24HR PATCH TRANSDERM SCH (08:08)
[2019-12-14] MEDS: PANTOPRAZOLE 40 MG/10 ML VIAL IVP SCH (08:08)
[2019-12-14] MEDS: methylPREDNISolone SOD SUCCI 40 MG/ML 1 ML VIAL IV SCH ×2 (08:08→20:42)
[2019-12-14] MEDS: METOPROLOL TARTRATE 25 MG TAB PO SCH ×2 (08:09→20:34)
[2019-12-14] MEDS: ASPIRIN 81 MG PO SCH (08:09)
[2019-12-14] MEDS: CHOLECALCIFEROL 1,000 UNIT TAB PO SCH (08:09)
[2019-12-14] MEDS: CARBIDOPA-LEVODOPA 25-100 MG 1 EACH TAB PO SCH ×4 (08:09→20:34)
[2019-12-14] MEDS: TAMSULOSIN 0.4 MG CAP.ER.24H PO SCH (08:10)
--- NOTE | 2019-12-14 08:10 | CONS ---
CONSULTATION Mr. Rocha is an 84-year-old male who was transferred from the senior living with change in mental status and progressive fatigue was tested positive for coronavirus. The patient was noted to be in atrial flutter with a rapid ventricular response on presentation. He was started on IV amiodarone. He is awake, but not answering questions. He continued to be on IV amiodarone, on no pressors. He was hypotensive in the emergency room and received a large amount of IV fluids. He was in the hospital in October of this year with possible pneumonia and at that time was coronavirus negative. The patient has advanced dementia, Parkinson's and depression as well as a history of CVA. MEDICATION: His medications at the time of presentation included losartan 100 mg daily, clonidine 0.1 mg 3 times a day, hydralazine 25 mg q.6 hours, ropinirole, metoprolol tartrate 12.5 mg twice a day, lorazepam, and aspirin. REVIEW OF SYSTEMS: Could not be obtained. PHYSICAL EXAMINATION: He is an 84-year-old male, alert, confused, not answering questions. Blood pressure 114/70 with the heart rate in the 90s. HEAD: Normocephalic. EYES: Sclerae anicteric. NECK: No bruit. LUNGS: With decreased breath sounds, no wheezes. HEART: Irregular, irregular, S1, S2. No S3 with systolic murmur. No diastolic murmur. No rub. ABDOMEN: Soft, nontender. Positive bowel sounds. No organomegaly. EXTREMITIES: No edema. LAB DATA: On admission, his white blood cells are 12.4, hemoglobin of 16.3, BUN and creatinine 148 and 4.03, which is much worse than his prior admission in October. Potassium 5.7. His LDH was 1098. Troponin 0.306. His C-reactive protein 65.2. This morning, his BUN and creatinine 127 and 2.83. His urine output is good. His D-dimer was 5.29. Troponin of 0.292. His EKG reveals atrial flutter with 2:[address]-T wave changes. His chest x-ray performed today shows a right middle lung patchy infiltrate. IMPRESSION: 1. COVID-19 positive infection with change in mental status and pneumonia with hypoxemia. 2. Worsening renal function with possible intravascular depletion and dehydration, improving. 3. Atrial flutter with rapid ventricular response, new onset. 4. History of dementia. 5. Parkinson disease. 6. Hypertension. 7. History of stroke. RECOMMENDATION: From the cardiac standpoint, will continue on the IV amiodarone at this time. He is on IV heparin. Continue on the beta gerard. I will increase the dose of his beta gerard. We will obtain echocardiogram with Doppler and depending on his progress, further recommendation will be made. The prognosis unfortunately is guarded and code status will be discussed by Dr. Osman with the family. Thank you for this consult. We will follow with you. MMODL / IJN: [id number] /
[2019-12-14] MEDS: POLYETHYLENE GLYCOL 3350 17 GM POWD.PACK PO SCH (10:20)
[2019-12-14] MEDS: HYDROXYCHLOROQUINE SULFATE 200 MG TAB PO SCH ×2 (10:30→20:34)
--- NOTE | 2019-12-14 10:39 | ECHOF ---
Referral Reason:AFLutter MEASUREMENTS -------- HEIGHT: 167.6 cm WEIGHT: 87.1 kg BP: RVIDd: 2.3 cm (< 3.3) IVSd: 1.3 cm (0.6 - 1.1) LVIDd: 3.7 cm (3.9 - 5.3) LVPWd: 1.4 cm (0.6 - 1.1) IVSs: 1.5 cm LVIDs: 3.1 cm LVPWs: 1.4 cm LAESV Index (A-L): 19.76 ml/m Ao Diam: 2.6 cm (2.0 - 3.7) AV Cusp: 1.6 cm (1.5 - 2.6) LA Diam: 2.3 cm (2.7 - 3.8) MV EXCURSION: 19.089 mm (> 18.000) MV EF SLOPE: 127 mm/s (70 - 150) EPSS: 0.3 cm MV E Broderick: 0.74 m/s MV DecT: 135 ms MV A Broderick: 0.29 m/s MV E/A Ratio: 2.53 RAP: 5.00 mmHg RVSP: 29.15 mmHg FINDINGS -------- The rhythm appears to be atrial flutter. This was a technically adequate study. The left ventricular size is normal. There is moderate concentric left ventricular hypertrophy. T here is severe global hypokinesis of LV . Overall left ventricular systolic function is severely im paired with, an EF between 25 - 30 %. The right ventricle is normal in size. The left atrial size is normal. Normal LA size by volume 22+/-6 ml/m2. The right atrial size is normal. The aortic valve is trileaflet and appears structurally normal. The mitral valve is normal. There is trace mitral regurgitation. The tricuspid valve appears structurally normal. Trace tricuspid regurgitation present. Right price tricular systolic pressure is normal at < 35 mmHg. There is no pulmonic regurgitation present. The aortic root size is normal. IVC Not well visulized. There is a small, generalized pericardial effusion present. CONCLUSIONS -------- 1. The rhythm appears to be atrial flutter. 2. This was a technically adequate study. 3. The left ventricular size is normal. 4. There is moderate concentric left ventricular hypertrophy. 5. There is severe global hypokinesis of LV . 6. Overall left ventricular systolic function is severely impaired with, an EF between 25 - 30 %. 7. The right ventricle is normal in size. 8. The left atrial size is normal. 9. Normal LA size by volume 22+/-6 ml/m2. 10. The right atrial size is normal. 11. The aortic valve is trileaflet and appears structurally normal. 12. The mitral valve is normal. 13. There is trace mitral regurgitation. 14. The tricuspid valve appears structurally normal. 15. Trace tricuspid regurgitation present. 16. Right ventricular systolic pressure is normal at < 35 mmHg. 17. There is no pulmonic regurgitation present. 18. The aortic root size is normal. 19. IVC Not well visulized. 20. There is a small, generalized pericardial effusion present. BAND PRESSER: Rozina Vega RDCS
--- NOTE | 2019-12-14 11:53 | P.PN ---
Subjective Progress Note Date: 12/14/19 84-year-old male who was in the hospital in November 12 till November 16 for acute bilateral pneumonia and high temperature and chills was seen in the pulmonary and treated at the time with the significant improvement was in acute hypoxic respiratory failure Covid 19 that time was ruled out patient was having more COPD exacerbation with worsening dementia and mild lactic acidosis. He was treated and has done well was sent to [facility] on budesonide and albuterol inhaler along with changing his blood pressure medication for better management of kidney function to be seen by his primary care Dr. House or to see by [facility] the [facility]. Patient brought to the emergency department at [facility] today 12/13/2019 because of very high fever or chills tachycardia severe shortness of breath with high suspicion for Covid 19 infection this time because of his roommate was diagnosed with it recently. At the time was seen at the emergency department patient pulse rate was very high he was having low urine output significant hypertension with severely dehydrated with temperature running at 97 or 98 his pulse ox on 8 L was on at 97 percentile only. Patient lactic acid was significantly elevated at 3.7 his C-reactive protein with 65.2 his LDH was 1098. And I suspected Covid 19 was positive this time. Patient was seen by Dr. Osman and pulmonary at the emergency department decided to place central line and start patient on challenge IV hydration of 3 toward the time patient had extremely high risk up being intubated with extreme high mortality at this point with the worsening kidney failure with severe tachycardia with a flutter did not respond to challenge with adenosine patient was to replace on Cardizem drip to bring his pulse rate down and was transferred to the ICU afterward after giving him a bolus of amiodarone and started on amiodarone drip to keep his pulse rates below 90. Patient was started on hydrochloric when 400 mg twice a day with Solu-Medrol 30 mg twice a day was continue on heparin drip for A. fib/A flutter and 1 g of Rocephin was giving. 12/13: Patient has not required intubation. He is currently pulse ox 97% on 4 L nasal cannula. He has been afebrile, heart rate 97-114. Patient is now converted to normal sinus rhythm. Repeat blood work reveals WBC 11.9, hemoglobin 14.2, platelet count 159. D-dimer 5.29. Sodium 145, potassium 4.2, chloride 119, CO2 16, BUN 127, creatinine 2.83. Repeat lactic acid 1.8. Tro ponin 0.092. Patient has been seen by Dr. Mancera with recommendations to continue IV amiodarone at the time of his evaluation as well as heparin IV. Lopressor was increased to 25 mg twice daily. Echocardiogram reveals EF of 25- 30%, trace mitral regurgitation, trace tricuspid regurgitation, small generalized pericardial effusion. Repeat chest x-ray reveals similar patchy right mid lung airspace disease likely unifocal pneumonia. Patient is continued in Covid 19 isolation. He is on the Plaquenil protocol as well as Solu-Medrol 30 mg IV every 12 hours and Rocephin. Patient is followed by Dr. Osman and consult in place with nephrology as well. Objective - Vital Signs Vital signs: Vital Signs Temp 97.7 F 12/14/19 04:00 Pulse 97 12/14/19 07:00 Resp 21 12/14/19 07:00 BP 114/79 12/14/19 07:00 Pulse Ox 97 12/14/19 07:00 Intake & Output 12/13/19 12/14/19 12/14/19 18:59 06:59 18:59 Intake Total 3.667 2550 150 Output Total 150 510 50 Balance -552.718 3065 100 Weight 68.039 kg 87.5 kg Intake: IV 1500 150 Sodium Chloride 0.9% 1, 1500 150 000 ml @ 150 mls/hr IV . Q6H40M [facility] Rx#:[id number] Intake, IV Titration 3.667 1050 Amount Diltiazem 125 mg In 3.667 Sodium Chloride 0.9% 100 ml @ 5 MG/HR 5 mls/hr IV .Q24H [facility] Rx#:[id number] Sodium Chloride 0.9% 1, 1000 000 ml @ 999 mls/hr IV . Q1H1M [facility] Rx#:[id number] cefTRIAXone 1 gm In 50 Sodium Chloride 0.9% 50 ml @ 100 mls/hr IVPB HS [facility] Rx#:[id number] Output: Urine 150 510 50 Uretheral (Keith) 150 Other: Voiding Method Indwelling Catheter - Exam Review of Systems CONSTITUTIONAL: Elderly looks malnourished. EYES: No icterus sclerae, no conjunctivitis. EARS, NOSE, MOUTH, THROAT, and FACE: No sore throat, lymphadenopathy, carotid bruits or deformity. Significant for dry mucosa. RESPIRATORY: Positive shortness of breath cough wheezes. CARDIOVASCULAR: Positive PND orthopnea and palpitation GASTROINTESTINAL: No Abd pain, Nausea or vomiting, no Diarrhea or constipation, No GI Bleed, no distention or masses. GENITOURINARY: BPH with significant decrease urine output. INTEGUMENT/BREAST: Negative for any muscular injury with mild osteoarthritis.. HEMATOLOGIC/LYMPHATIC: Negative for bleed or purpura. MUSCULOSKELTAL: Negative for Myalgia or arthralgia. NEURLOGICAL: Parkinson disease with significant altered mental status with more confusion. BEHAVIORAL/PSYCH: Negative. ENDOCRINE: Negative. Physical examination General Appearance: Severely confuse elderly in no respiratory distress. Neck HEENT: Supple, no lymphadenopathy Physical examination has been deferred to intensivists due to COVID-19 isolation. - Labs CBC & Chem 7: 12/14/19 02:46 12/14/19 02:46 Labs: Abnormal Lab Results - Last 24 Hours (Table) 12/13/19 12/13/19 12/13/19 Range/Units 14:12 14:17 14:17 WBC 12.4 H (3.8-10.6) k/uL Neutrophils # 11.5 H (1.3-7.7) k/uL Lymphocytes # 0.5 L (1.0-4.8) k/uL PT (9.0-12.0) sec INR (<1.2) APTT (22.0-30.0) sec D-Dimer 4.27 H (<0.60) mg/L FEU Sodium (137-145) mmol/L Potassium (3.5-5.1) mmol/L Chloride (98-107) mmol/L Carbon Dioxide (22-30) mmol/L BUN (9-20) mg/dL Creatinine (0.66-1.25) mg/dL Glucose (74-99) mg/dL POC Glucose (mg/dL) (75-99) mg/dL Plasma Lactic Acid Gaston (0.7-2.0) mmol/L Calcium (8.4-10.2) mg/dL Magnesium (1.6-2.3) mg/dL AST (17-59) U/L Lactate Dehydrogenase (313-618) U/L Troponin I (0.000-0.034) ng/mL C-Reactive Protein (<10.0) mg/L Total Protein (6.3-8.2) g/dL Albumin (3.5-5.0) g/dL Urine Protein (Negative) Urine Blood (Negative) Urine WBC Clumps (None) /hpf Urine Bacteria (None) /hpf Hyaline Casts (0-2) /lpf Urine Mucus (None) /hpf Urine Yeast (Budding) (None) /hpf Coronavirus (PCR) Detected A (Not Detectd) 12/13/19 12/13/19 12/13/19 Range/Units 14:17 14:17 14:17 WBC (3.8-10.6) k/uL Neutrophils # (1.3-7.7) k/uL Lymphocytes # (1.0-4.8) k/uL PT (9.0-12.0) sec INR (<1.2) APTT (22.0-30.0) sec D-Dimer (<0.60) mg/L FEU Sodium 147 H (137-145) mmol/L Potassium 5.7 H (3.5-5.1) mmol/L Chloride 112 H (98-107) mmol/L Carbon Dioxide (22-30) mmol/L BUN 148 H* (9-20) mg/dL Creatinine 4.03 H (0.66-1.25) mg/dL Glucose 124 H (74-99) mg/dL POC Glucose (mg/dL) (75-99) mg/dL Plasma Lactic Acid Gaston 3.7 H* (0.7-2.0) mmol/L Calcium 8.0 L (8.4-10.2) mg/dL Magnesium 2.9 H (1.6-2.3) mg/dL AST 83 H (17-59) U/L Lactate Dehydrogenase 1098 H (313-618) U/L Troponin I 0.306 H* (0.000-0.034) ng/mL C-Reactive Protein 65.2 H (<10.0) mg/L Total Protein 6.1 L (6.3-8.2) g/dL Albumin 3.3 L (3.5-5.0) g/dL Urine Protein (Negative) Urine Blood (Negative) Urine WBC Clumps (None) /hpf Urine Bacteria (None) /hpf Hyaline Casts (0-2) /lpf Urine Mucus (None) /hpf Urine Yeast (Budding) (None) /hpf Coronavirus (PCR) (Not Detectd) 12/13/19 12/13/19 12/13/19 Range/Units 15:09 18:57 19:43 WBC (3.8-10.6) k/uL Neutrophils # (1.3-7.7) k/uL Lymphocytes # (1.0-4.8) k/uL PT (9.0-12.0) sec INR (<1.2) APTT (22.0-30.0) sec D-Dimer (<0.60) mg/L FEU Sodium (137-145) mmol/L Potassium (3.5-5.1) mmol/L Chloride (98-107) mmol/L Carbon Dioxide (22-30) mmol/L BUN (9-20) mg/dL Creatinine (0.66-1.25) mg/dL Glucose (74-99) mg/dL POC Glucose (mg/dL) 136 H (75-99) mg/dL Plasma Lactic Acid Gaston 3.4 H* (0.7-2.0) mmol/L Calcium (8.4-10.2) mg/dL Magnesium (1.6-2.3) mg/dL AST (17-59) U/L Lactate Dehydrogenase (313-618) U/L Troponin I (0.000-0.034) ng/mL C-Reactive Protein (<10.0) mg/L Total Protein (6.3-8.2) g/dL Albumin (3.5-5.0) g/dL Urine Protein 1+ H (Negative) Urine Blood Small H (Negative) Urine WBC Clumps Few H (None) /hpf Urine Bacteria Occasional H (None) /hpf Hyaline Casts 16 H (0-2) /lpf Urine Mucus Rare H (None) /hpf Urine Yeast (Budding) Few H (None) /hpf Coronavirus (PCR) (Not Detectd) 12/13/19 12/13/19 12/13/19 Range/Units 21:09 21:09 21:09 WBC 11.4 H (3.8-10.6) k/uL Neutrophils # 10.7 H (1.3-7.7) k/uL Lymphocytes # 0.3 L (1.0-4.8) k/uL PT 12.1 H (9.0-12.0) sec INR 1.2 H (<1.2) APTT (22.0-30.0) sec D-Dimer (<0.60) mg/L FEU Sodium (137-145) mmol/L Potassium (3.5-5.1) mmol/L Chloride (98-107) mmol/L Carbon Dioxide (22-30) mmol/L BUN (9-20) mg/dL Creatinine (0.66-1.25) mg/dL Glucose (74-99) mg/dL POC Glucose (mg/dL) (75-99) mg/dL Plasma Lactic Acid Gaston (0.7-2.0) mmol/L Calcium (8.4-10.2) mg/dL Magnesium (1.6-2.3) mg/dL AST (17-59) U/L Lactate Dehydrogenase (313-618) U/L Troponin I 0.292 H* (0.000-0.034) ng/mL C-Reactive Protein (<10.0) mg/L Total Protein (6.3-8.2) g/dL Albumin (3.5-5.0) g/dL Urine Protein (Negative) Urine Blood (Negative) Urine WBC Clumps (None) /hpf Urine Bacteria (None) /hpf Hyaline Casts (0-2) /lpf Urine Mucus (None) /hpf Urine Yeast (Budding) (None) /hpf Coronavirus (PCR) (Not Detectd) 12/14/19 12/14/19 12/14/19 Range/Units 02:46 02:46 02:46 WBC 11.9 H (3.8-10.6) k/uL Neutrophils # 11.3 H (1.3-7.7) k/uL Lymphocytes # 0.2 L (1.0-4.8) k/uL PT (9.0-12.0) sec INR (<1.2) APTT 56.3 H (22.0-30.0) sec D-Dimer 5.29 H (<0.60) mg/L FEU Sodium (137-145) mmol/L Potassium (3.5-5.1) mmol/L Chloride 119 H (98-107) mmol/L Carbon Dioxide 16 L (22-30) mmol/L BUN 127 H* (9-20) mg/dL Creatinine 2.83 H (0.66-1.25) mg/dL Glucose 132 H (74-99) mg/dL POC Glucose (mg/dL) (75-99) mg/dL Plasma Lactic Acid Gaston (0.7-2.0) mmol/L Calcium 7.0 L (8.4-10.2) mg/dL Magnesium (1.6-2.3) mg/dL AST 64 H (17-59) U/L Lactate Dehydrogenase 1168 H (313-618) U/L Troponin I (0.000-0.034) ng/mL C-Reactive Protein 66.7 H (<10.0) mg/L Total Protein 5.1 L (6.3-8.2) g/dL Albumin 2.5 L (3.5-5.0) g/dL Urine Protein (Negative) Urine Blood (Negative) Urine WBC Clumps (None) /hpf Urine Bacteria (None) /hpf Hyaline Casts (0-2) /lpf Urine Mucus (None) /hpf Urine Yeast (Budding) (None) /hpf Coronavirus (PCR) (Not Detectd) Assessment and Plan Plan: 1. Acute hypoxic respiratory failure secondary to acute Covid 19 infection along with gram-negative pneumonia associated with acute A. fib a flutter with acute heart failure as well and acute renal failure. Patient is on Plaquenil protocol. Continue Rocephin IV. Consult with Dr. Dawson greenfield. 2. Acute Covid 19 pneumonitis: Patient was seen pulmonary was started on hydrochloric when high flow O2 continue precaution and continue management for Covid 19 including anticoagulation at this point adjusted treatment accordingly. 3. Acute kidney injury with acute tubular necrosis significantly changed from 2 weeks ago patient is severely dehydrated at this point continue hydration Keith catheter was inserted we will consult nephrology continue to watch kidney function on regular basis. 4. New-onset of atrial flutter with rapid ventricular response, converted to normal sinus rhythm. Patient followed by cardiology. Patient is currently on amiodarone drip and heparin drip. 5. Advance Parkinson disease: Still on Requip and carbidopa levodopa at this point. 6 BPH: Was on Flomax continue to watch patient for any urinary retention. 7 hypertension: Patient was on hydralazine losartan and clonidine blood pressure was low we will hold medication at this point. 8 COPD exacerbation: Patient to continue Ventolin and Pulmicort still on Solu- Medrol 30 mg twice a day seen pulmonary. 9 acute lactic acidosis: Secondary to Covid 19 infection and sepsis continue IV hydration and resuscitation along with antibiotics and current management for now 10 elevated troponin: Most likely from hypoperfusion related to the a flutter with a rapid pulse the dehydration and hypotension echocardiogram will be done as well. 11 GI prophylaxis: Patient will be started on pantoprazole. 12 DVT prophylaxis: Patient was started on heparin drip and switch to Lovenox when ready. CODE STATUS: No code but okay for intubation Discharge plan: Return to [facility]. Impression and plan of care have been directed as dictated by the signing physician. Aisha Rausch nurse practitioner acting as scribe for signing physician.
[2019-12-14 12:20] LABS: Glucose,Whole Blood 146 mg/dL (75-99)
--- NOTE | 2019-12-14 13:56 | P.PN ---
Subjective Progress Note Date: 12/14/19 84-year-old male [facility] with multiple medical problems and comorbidities, resides at the jail, brought into the emergency department because of altered mental status. The patient was brought via EMS as the patient was having generalized weakness, lethargy, altered mentation and diminished level of consciousness and the same time the patient was having increased cough. Note that the patient's roommate at the jail diagnosed having a COVID 19 infection and this was obviously concern. At a time of the arrival, the patient was found to be quite tachycardic with a heart rate in the 160 range. SVT was suspected and the patient was given adeno C without any improvement. Subsequent EKG revealed that the patient was in a flutter rhythm at the rate of 160. Blood work that was done in the emergency department revealed that the patient was in an acute kidney injury. BUN was 148. Creatinine was at 4.03. His sodium level was 147. Chloride was 112. Lactic acid level was at 3.7. Troponin was 0.3. The patient had a white cell count of 12.4. Furthermore he checked positive for Covid 19 infection based on the records nasopharyngeal screen. The LDH was quite elevated at 1098. This was also consistent with Covid 19 infection. D-dimer was at 4.27. The CAT scan of the brain showed no acute intracranial hemorrhage or abnormalities. There was diffuse age-related cerebral atrophy and chronic small vessel ischemic change in addition to bilateral old or corneal injuries involving the basal ganglia. The patient's chest x-ray revealed a faint right midlung airspace disease and this was partially obscured by external pacing devices. The william katina of the lungs were essentially clear. I saw this patient emergency department. He was quite lethargic yet arousable. He was on 8 L of oxygen by nasal cannula and is pulse oxing in the range of 92%. His heart rate was quite rapid ranging between 155 and 165. The patient had a systolic blood pressure as low as 92/72. The patient was given IV fluid bolus sees and the patient received a total of 3 L in the emergency department and a 43 was given in the ICU and the patient was started on a maintenance of 150 mL of normal saline. Keith cath is in place. Urine output is diminished. He did not require any pressors. He was started on amiodarone bolus and maintenance which improved his heart rate and so was becoming more clear that the patient was in and out of A flutter I established a triple-lumen catheter in the right femoral vein. The patient was low quite emaciated cachectic and very weak. Note that this patient was in the hospital around a month ago specifically on 11/10/2018. He was evaluated and treated through our services the patient was having increased dyspnea cough and fever. At that time the Covid 19 evaluation came back negative. Note that the patient also has advanced dementia, Parkinson's disease, depression, BPH, hypertension. He has also had previous cerebral infarct involving the basal ganglia as discussed above. He has BPH as other comorbid conditions. He is a former smoker. He is a jail resident. On today's evaluation of 12/14/2019, the patient remains in intensive care unit and the patient is being resuscitated IV fluids. The patient has already received a total of 47 fluid and currently the patient on normal saline at the r ate of 150 mL an hour. The patient is on 4 L of oxygen by nasal cannula with a pulse of 96%. The patient's heart rate has improved as the patient was given IV amiodarone bolus and maintenance and the patient's rhythm is still A. fib/flutter however on that much better controlled rate. Echo was done and the patient ejection fraction was around 25-30% with mild mitral regurgitation, tricuspid regurgitation and small generalized pericardial effusion. Chest x-ray is showing patchy right mid airspace disease related to Covid 19 related pneumonia. The patient remains on the opposite isolation. The patient remains afebrile. The patient on IV Solu-Medrol 30 mg every 12 hours. The patient is still very weak and debilitated. He failed his swallow evaluation, going to give him another 24 hours. He remains on IV heparin. His hemoglobin is at 14.2. The patient's serum bicarbonate 16. Creatinine is improving is down to 2.3 with a mean of 127. The LDH level is 1168. His C-reactive protein is 66. LEVEL WAS 0.33. The pro calcitonin Level was 0.33. Objective - Vital Signs Vital signs: Vital Signs Temp 98.6 F 12/14/19 12:00 Pulse 64 12/14/19 12:00 Resp 22 12/14/19 12:00 BP 126/92 12/14/19 12:00 Pulse Ox 94 L 12/14/19 12:00 Intake & Output 12/13/19 12/14/19 12/14/19 18:59 06:59 18:59 Intake Total 3.667 2550 1150 Output Total 150 510 420 Balance -499.343 8006 730 Weight 68.039 kg 87.5 kg Intake: IV 1500 900 Sodium Chloride 0.9% 1, 1500 900 000 ml @ 150 mls/hr IV . Q6H40M [facility] Rx#:[id number] Intake, IV Titration 3.667 1050 250 Amount Amiodarone 300 mg In 250 Dextrose 5% in Water 250 ml @ 0.5 MG/MIN 25 mls/hr IV .Q10H [facility] Rx#: [id number] Diltiazem 125 mg In 3.667 Sodium Chloride 0.9% 100 ml @ 5 MG/HR 5 mls/hr IV .Q24H [facility] Rx#:[id number] Sodium Chloride 0.9% 1, 1000 000 ml @ 999 mls/hr IV . Q1H1M [facility] Rx#:[id number] cefTRIAXone 1 gm In 50 Sodium Chloride 0.9% 50 ml @ 100 mls/hr IVPB HS [facility] Rx#:[id number] Output: Urine 150 510 420 Uretheral (Keith) 150 Other: Voiding Method Indwelling Catheter Indwelling Catheter - Exam GENERAL EXAM: Lethargic, somnolent and looks very much cachectic emaciated and lethargic at this point in time but arousable, on 4 L of oxygen by nasal cannula comfortable in no apparent distress.Rayna of excessive muscle breathing. HEAD: Normocephalic/atraumatic.here is temporal wasting EYES: Normal reaction of pupils, equal size. Conjunctiva pink, sclera white. NOSE: Clear with pink turbinates. THROAT: No erythema or exudates.the mucous membranes are extremely dry NECK: No masses, no JVD, no thyroid enlargement, no adenopathy. CHEST: No chest wall deformity. Symmetrical expansion. she will LUNGS: Equal air entry with basilar crackles CVS: Regular rate and rhythm, normal S1 and S2, the patient is consistently tachycardic consistent with atrial flutter rhythm no gallops, no murmurs, no rubs ABDOMEN: Soft, nontender. No hepatosplenomegaly, normal bowel sounds, no guarding or rigidity. EXTREMITIES: No clubbing, no edema, no cyanosis, 1+ pulses and upper and lower extremities.nfected extremities are showing significant muscle atrophy and some contractures in lower extremities bilaterally MUSCULOSKELETAL: Muscle strength and tone is significant diminished and the patient has cogwheel rigidity related to his Parkinson's disease SPINE: No scoliosis or deformity SKIN: No rashes CENTRAL NERVOUS SYSTEM: Lethargic, but arousable, neurologic exam is nonfocal. There is some resting tremors. - Labs CBC & Chem 7: 12/14/19 02:46 12/14/19 02:46 Labs: Abnormal Lab Results - Last 24 Hours (Table) 12/13/19 12/13/19 12/13/19 Range/Units 14:12 14:17 14:17 WBC 12.4 H (3.8-10.6) k/uL Neutrophils # 11.5 H (1.3-7.7) k/uL Lymphocytes # 0.5 L (1.0-4.8) k/uL PT (9.0-12.0) sec INR (<1.2) APTT (22.0-30.0) sec D-Dimer 4.27 H (<0.60) mg/L FEU Sodium (137-145) mmol/L Potassium (3.5-5.1) mmol/L Chloride (98-107) mmol/L Carbon Dioxide (22-30) mmol/L BUN (9-20) mg/dL Creatinine (0.66-1.25) mg/dL Glucose (74-99) mg/dL POC Glucose (mg/dL) (75-99) mg/dL Plasma Lactic Acid Gaston (0.7-2.0) mmol/L Calcium (8.4-10.2) mg/dL Magnesium (1.6-2.3) mg/dL Ferritin (22.0-322.0) ng/mL AST (17-59) U/L Lactate Dehydrogenase (313-618) U/L Troponin I (0.000-0.034) ng/mL C-Reactive Protein (<10.0) mg/L Total Protein (6.3-8.2) g/dL Albumin (3.5-5.0) g/dL Procalcitonin (0.02-0.09) ng/mL Urine Protein (Negative) Urine Blood (Negative) Urine WBC Clumps (None) /hpf Urine Bacteria (None) /hpf Hyaline Casts (0-2) /lpf Urine Mucus (None) /hpf Urine Yeast (Budding) (None) /hpf Coronavirus (PCR) Detected A (Not Detectd) 12/13/19 12/13/19 12/13/19 Range/Units 14:17 14:17 14:17 WBC (3.8-10.6) k/uL Neutrophils # (1.3-7.7) k/uL Lymphocytes # (1.0-4.8) k/uL PT (9.0-12.0) sec INR (<1.2) APTT (22.0-30.0) sec D-Dimer (<0.60) mg/L FEU Sodium 147 H (137-145) mmol/L Potassium 5.7 H (3.5-5.1) mmol/L Chloride 112 H (98-107) mmol/L Carbon Dioxide (22-30) mmol/L BUN 148 H* (9-20) mg/dL Creatinine 4.03 H (0.66-1.25) mg/dL Glucose 124 H (74-99) mg/dL POC Glucose (mg/dL) (75-99) mg/dL Plasma Lactic Acid Gaston 3.7 H* (0.7-2.0) mmol/L Calcium 8.0 L (8.4-10.2) mg/dL Magnesium 2.9 H (1.6-2.3) mg/dL Ferritin (22.0-322.0) ng/mL AST 83 H (17-59) U/L Lactate Dehydrogenase 1098 H (313-618) U/L Troponin I 0.306 H* (0.000-0.034) ng/mL C-Reactive Protein 65.2 H (<10.0) mg/L Total Protein 6.1 L (6.3-8.2) g/dL Albumin 3.3 L (3.5-5.0) g/dL Procalcitonin (0.02-0.09) ng/mL Urine Protein (Negative) Urine Blood (Negative) Urine WBC Clumps (None) /hpf Urine Bacteria (None) /hpf Hyaline Casts (0-2) /lpf Urine Mucus (None) /hpf Urine Yeast (Budding) (None) /hpf Coronavirus (PCR) (Not Detectd) 12/13/19 12/13/19 12/13/19 Range/Units 15:09 18:57 19:43 WBC (3.8-10.6) k/uL Neutrophils # (1.3-7.7) k/uL Lymphocytes # (1.0-4.8) k/uL PT (9.0-12.0) sec INR (<1.2) APTT (22.0-30.0) sec D-Dimer (<0.60) mg/L FEU Sodium (137-145) mmol/L Potassium (3.5-5.1) mmol/L Chloride (98-107) mmol/L Carbon Dioxide (22-30) mmol/L BUN (9-20) mg/dL Creatinine (0.66-1.25) mg/dL Glucose (74-99) mg/dL POC Glucose (mg/dL) 136 H (75-99) mg/dL Plasma Lactic Acid Gaston 3.4 H* (0.7-2.0) mmol/L Calcium (8.4-10.2) mg/dL Magnesium (1.6-2.3) mg/dL Ferritin (22.0-322.0) ng/mL AST (17-59) U/L Lactate Dehydrogenase (313-618) U/L Troponin I (0.000-0.034) ng/mL C-Reactive Protein (<10.0) mg/L Total Protein (6.3-8.2) g/dL Albumin (3.5-5.0) g/dL Procalcitonin (0.02-0.09) ng/mL Urine Protein 1+ H (Negative) Urine Blood Small H (Negative) Urine WBC Clumps Few H (None) /hpf Urine Bacteria Occasional H (None) /hpf Hyaline Casts 16 H (0-2) /lpf Urine Mucus Rare H (None) /hpf Urine Yeast (Budding) Few H (None) /hpf Coronavirus (PCR) (Not Detectd) 12/13/19 12/13/19 12/13/19 Range/Units 21:09 21:09 21:09 WBC 11.4 H (3.8-10.6) k/uL Neutrophils # 10.7 H (1.3-7.7) k/uL Lymphocytes # 0.3 L (1.0-4.8) k/uL PT 12.1 H (9.0-12.0) sec INR 1.2 H (<1.2) APTT (22.0-30.0) sec D-Dimer (<0.60) mg/L FEU Sodium (137-145) mmol/L Potassium (3.5-5.1) mmol/L Chloride (98-107) mmol/L Carbon Dioxide (22-30) mmol/L BUN (9-20) mg/dL Creatinine (0.66-1.25) mg/dL Glucose (74-99) mg/dL POC Glucose (mg/dL) (75-99) mg/dL Plasma Lactic Acid Gaston (0.7-2.0) mmol/L Calcium (8.4-10.2) mg/dL Magnesium (1.6-2.3) mg/dL Ferritin (22.0-322.0) ng/mL AST (17-59) U/L Lactate Dehydrogenase (313-618) U/L Troponin I 0.292 H* (0.000-0.034) ng/mL C-Reactive Protein (<10.0) mg/L Total Protein (6.3-8.2) g/dL Albumin (3.5-5.0) g/dL Procalcitonin (0.02-0.09) ng/mL Urine Protein (Negative) Urine Blood (Negative) Urine WBC Clumps (None) /hpf Urine Bacteria (None) /hpf Hyaline Casts (0-2) /lpf Urine Mucus (None) /hpf Urine Yeast (Budding) (None) /hpf Coronavirus (PCR) (Not Detectd) 12/14/19 12/14/19 12/14/19 Range/Units 02:46 02:46 02:46 WBC 11.9 H (3.8-10.6) k/uL Neutrophils # 11.3 H (1.3-7.7) k/uL Lymphocytes # 0.2 L (1.0-4.8) k/uL PT (9.0-12.0) sec INR (<1.2) APTT 56.3 H (22.0-30.0) sec D-Dimer 5.29 H (<0.60) mg/L FEU Sodium (137-145) mmol/L Potassium (3.5-5.1) mmol/L Chloride 119 H (98-107) mmol/L Carbon Dioxide 16 L (22-30) mmol/L BUN 127 H* (9-20) mg/dL Creatinine 2.83 H (0.66-1.25) mg/dL Glucose 132 H (74-99) mg/dL POC Glucose (mg/dL) (75-99) mg/dL Plasma Lactic Acid Gaston (0.7-2.0) mmol/L Calcium 7.0 L (8.4-10.2) mg/dL Magnesium (1.6-2.3) mg/dL Ferritin (22.0-322.0) ng/mL AST 64 H (17-59) U/L Lactate Dehydrogenase 1168 H (313-618) U/L Troponin I (0.000-0.034) ng/mL C-Reactive Protein 66.7 H (<10.0) mg/L Total Protein 5.1 L (6.3-8.2) g/dL Albumin 2.5 L (3.5-5.0) g/dL Procalcitonin (0.02-0.09) ng/mL Urine Protein (Negative) Urine Blood (Negative) Urine WBC Clumps (None) /hpf Urine Bacteria (None) /hpf Hyaline Casts (0-2) /lpf Urine Mucus (None) /hpf Urine Yeast (Budding) (None) /hpf Coronavirus (PCR) (Not Detectd) 12/14/19 12/14/19 12/14/19 Range/Units 02:46 02:46 12:19 WBC (3.8-10.6) k/uL Neutrophils # (1.3-7.7) k/uL Lymphocytes # (1.0-4.8) k/uL PT (9.0-12.0) sec INR (<1.2) APTT (22.0-30.0) sec D-Dimer (<0.60) mg/L FEU Sodium (137-145) mmol/L Potassium (3.5-5.1) mmol/L Chloride (98-107) mmol/L Carbon Dioxide (22-30) mmol/L BUN (9-20) mg/dL Creatinine (0.66-1.25) mg/dL Glucose (74-99) mg/dL POC Glucose (mg/dL) 146 H (75-99) mg/dL Plasma Lactic Acid Gaston (0.7-2.0) mmol/L Calcium (8.4-10.2) mg/dL Magnesium (1.6-2.3) mg/dL Ferritin 911.2 H (22.0-322.0) ng/mL AST (17-59) U/L Lactate Dehydrogenase (313-618) U/L Troponin I (0.000-0.034) ng/mL C-Reactive Protein (<10.0) mg/L Total Protein (6.3-8.2) g/dL Albumin (3.5-5.0) g/dL Procalcitonin 0.33 H (0.02-0.09) ng/mL Urine Protein (Negative) Urine Blood (Negative) Urine WBC Clumps (None) /hpf Urine Bacteria (None) /hpf Hyaline Casts (0-2) /lpf Urine Mucus (None) /hpf Urine Yeast (Budding) (None) /hpf Coronavirus (PCR) (Not Detectd) Assessment and Plan Plan: 1 acute Covid 19 pneumonia with secondary acute hypoxic respiratory failure is currently the patient is currently on 4 L of oxygen by nasal cannula . The patient's condition is stable for now. FiO2 has been weaned down from 8 L on 4 L and he has no signs of any respiratory distress for now. 2. Acute kidney injury secondary to significant intravascular volume depletion/dehydration. BUN and creatinine both elevated and the patient has a component of hyperchloremic hypernatremia, resuscitated with IV fluids and the patient's renal function continues to improve in the creatinine is down to 2.8 3. new-onset atrial flutter with rapid ventricularresponse , improved with amiodarone and the patient remains in a flutter/fibrillation with IV heparin 4 mild lactic acidosis secondary to dehydration, improved 5 History of advanced dementia 6 Parkinson's disorder 7 BPH 8 Hypertention 9 Hyperlipidemia 10 History of CVA, with obviously lacunar stroke involving the basal ganglia based on the CAT scan findings. 11 altered mental status secondary to metabolic encephalopathy related toacute kidney injury and intravascular volume depletion. Also the patient s history of underlyin memory and cognition., Improving 12 CHF with an ejection fraction of 25% and small generalized pericardial effusion Plan Continue IV fluids at the rate of 150 mL an hour Continue Plaquenil Continue IV heparin Echocardiogram was noted Monitor inflammatory markers including LDH and C-reactive protein Failed swallow evaluation this will be repeated in a.m. keep the patient nothing by mouth for now Awaiting final cultures and this continued IV Rocephin of the cultures come back negative. Noted the focus of the liver is not elevated We'll continue to follow. Condition is critical. Prognosis poor baseline above-mentioned comorbidities. CODE STATUS needs to be established. He is significantly impaired in terms of his baseline performance and functional status and addition to obvious signs of chronic malnutrition. Time with Patient: Greater than 30
--- NOTE | 2019-12-14 14:46 | CONS ---
CONSULTATION REASON FOR CONSULTATION: Renal failure. HISTORY OF PRESENT ILLNESS: Patient is an 84-year-old male who was admitted from long term with complaints of shortness of breath. He did rule in positive for COVID-19. The patient has underlying history of Parkinson's and dementia. He was noted to have a serum creatinine of 4.0. It is now down to 2.83. Patient is maintained on IV fluids. His previous creatinine was 0.79 on 11/15/2019. Patient was not significantly hypotensive. Blood pressures have been around 108-120 mmHg systolic. patient was maintained on angiotensin receptor blockers in the form of losartan prior to admission. PAST MEDICAL HISTORY: Dementia Parkinson disease, hypertension, hyperlipidemia, history of CVA, BPH. PAST SURGICAL HISTORY: Not available. SOCIAL HISTORY: Patient is a former smoker. No history of drug abuse, alcohol abuse. MEDICATIONS: Prior to admission included Tylenol, aspirin, Sinemet, vitamin D, Lopressor, MiraLAX, Flomax, Requip, Ativan, losartan, clonidine, hydralazine. ALLERGIES: None. PHYSICAL EXAMINATION: Patient is comfortable, awake. He is not in any acute distress. He is not able to communicate much. Blood pressure was 108/91, heart rate 65 per minute, patient is afebrile. However, he had a temp of 97.5 on initial admission oral. There is no evidence of edema in the lower extremities. Abdomen is soft. Lung sounds are not heard, but discussed with nursing staff. His lungs have been fairly clear. 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 He does have underlying dementia, is not able to communicate much. LABS: Show sodium of 145, potassium 4.2, chloride 119, CO2 is 16, BUN 127, serum creatinine 2.83, hemoglobin 14.2 g/dL. ASSESSMENT: 1. Acute kidney injury, ATN associated with underlying COVID-19 infection and possibly component of hypovolemia as well, currently improving nicely with IV fluids. Continue to maintain off angiotensin receptor blockers. UA is quite benign. Some hyaline casts are noted. Small blood and 1+ protein. 2. Metabolic acidosis, non anion gap associated with renal failure and IV fluids. Again, I will add oral sodium bicarb. If the patient is able to swallow and if it is worse tomorrow, I will change IV fluids to IV bicarb. 3. Atrial fibrillation, maintained on amiodarone drip. 4. COVID-19 infection, currently maintained on hydroxychloroquine and steroids. PLAN: Continue IV fluids. Add oral sodium bicarb. Continue to hold off on angiotensin receptor blockers and avoid nephrotoxic medications. Thank you for this consultation. Will continue to follow the patient with you during his hospitalization. MMODL / IJN: [id number] /
[2019-12-14 17:52] LABS: Glucose,Whole Blood 132 mg/dL (75-99)
[2019-12-14] MEDS: SODIUM BICARBONATE TAB 650 MG TAB PO SCH (20:35)
[2019-12-14] MEDS: VORTIOXETINE HYDROBROMIDE 10 MG TABLET PO SCH (20:35)
[2019-12-14] MEDS: HEPARIN SOD,PORK IN 0.45% NACL 25,000 UNIT in 0.45% NACL 1 250ML.BAG IV SCH (20:41)
[2019-12-15 00:15] LABS: Glucose,Whole Blood 115 mg/dL (75-99)
[2019-12-15] MEDS: AMIODARONE 300 MG in DEXTROSE 5% IN WATER 250 ML IV SCH ×6 (02:04→20:19)
[2019-12-15] MEDS: SODIUM CHLORIDE 0.9% 1,000 ML IV SCH ×3 (02:04→20:22)
[2019-12-15 05:13] LABS: Basophils % (A) 0 %; Eosinophils % (A) 0 %; HCT 40.2 % (39.0-53.0); HGB 12.9 gm/dL (13.0-17.5); Lymphocytes # (A) 0.2 k/uL (1.0-4.8); Lymphocytes % (A) 2 %; MCH 30.1 pg (25.0-35.0); MCV 94.3 fL (80.0-100.0); Mean Platelet Volume 9.2; Monocytes # (A) 0.2 k/uL (0-1.0); Monocytes % (A) 2 %; Neutrophils # (A) 8.7 k/uL (1.3-7.7); Neutrophils % (A) 95 %; Platelet Count 147 k/uL (150-450); RBC 4.26 m/uL (4.30-5.90); RDW 14.3 % (11.5-15.5); WBC 9.2 k/uL (3.8-10.6)
[2019-12-15 05:44] LABS: D-Dimer 4.16 mg/L FEU (<0.60)
[2019-12-15 05:47] LABS: Partial Thromboplastin Time 117.6 sec (22.0-30.0)
[2019-12-15 05:49] LABS: Albumin 2.7 g/dL (3.5-5.0); C Reactive Protein 62.3 mg/L (<10.0); Calcium 7.5 mg/dL (8.4-10.2); Total Bilirubin 0.5 mg/dL (0.2-1.3); Total Protein 5.3 g/dL (6.3-8.2)
--- NOTE | 2019-12-15 06:58 | XR ---
EXAMINATION TYPE: XR chest 1V portable DATE OF EXAM: 12/15/2019 CLINICAL HISTORY: Difficulty breathing progress study. COVID pneumonia. TECHNIQUE: Single AP portable upright view of the chest is obtained. COMPARISON: Chest x-ray from one day earlier and older studies. FINDINGS: Osseous structures remain demineralized. Cardiac silhouette size stable and within normal limits with atherosclerotic and ectatic thoracic aorta. Chronic reticular interstitial changes bilate rally with patchy lateral right mid lung opacity and slightly more prominent left basilar opacity. IMPRESSION: Chronic parenchymal changes with persistent lateral right mid lung acute infiltrate and s lightly more prominent left basal atelectasis and/or infiltrate noted.
[2019-12-15] MEDS ORDERED: cloNIDine 0.1 MG/24HR PATCH TRANSDERM SCH (08:00)
[2019-12-15] MEDS: RIVASTIGMINE 4.6MG/24HR PATCH TRANSDERM SCH (08:16)
[2019-12-15] MEDS: methylPREDNISolone SOD SUCCI 40 MG/ML 1 ML VIAL IV SCH ×2 (08:16→20:21)
[2019-12-15] MEDS: NITROGLYCERIN OINT 1 INCH/GM PACKET TOPICAL SCH ×2 (08:16→16:51)
[2019-12-15] MEDS: PANTOPRAZOLE 40 MG/10 ML VIAL IVP SCH (08:17)
--- NOTE | 2019-12-15 09:27 | PN ---
PROGRESS NOTE Mr. Rocha is an 84-year-old male who was admitted from the longterm with change in mental status and progressive fatigue was diagnosed with COVID-19. He was in atrial flutter with rapid ventricular response. He converted back to sinus mechanism. Hemodynamically, he is stable. He has a known history of dementia, Parkinson's and a depression as well history of CVA. Hemodynamically, he has been stable and he has continued to be on amiodarone IV, aspirin 81 mg daily, IV heparin, methylprednisolone, metoprolol 25 mg twice a day, and Plaquenil. PHYSICAL EXAMINATION: Blood pressure running in the 160s with a heart in the 70s. IMPRESSION: 1. COVID-19 infraction. 2. Atrial flutter back in sinus mechanism. 3. History of dementia with prior history of stroke. 4. Renal failure. 5. History of hypertension. 6. Hyperlipidemia. 7. Severe cardiomyopathy by echocardiography with an ejection fraction of 25% to 30%. RECOMMENDATION: I will switch him to oral amiodarone. I will start him on a chronic clonidine patch that he was on orally. I will add hydralazine to his regimen to optimize his blood pressure control. The prognosis remains guarded. MMODL / IJN: [id number] /
[2019-12-15] MEDS: CARBIDOPA-LEVODOPA 25-100 MG 1 EACH TAB PO SCH ×5 (10:30→20:16)
[2019-12-15] MEDS: POLYETHYLENE GLYCOL 3350 17 GM POWD.PACK PO SCH (10:30)
[2019-12-15] MEDS: TAMSULOSIN 0.4 MG CAP.ER.24H PO SCH ×2 (10:57→11:12)
[2019-12-15] MEDS: METOPROLOL TARTRATE 25 MG TAB PO SCH ×3 (10:57→20:17)
[2019-12-15] MEDS: SODIUM BICARBONATE TAB 650 MG TAB PO SCH ×3 (10:57→20:19)
[2019-12-15] MEDS: HYDROXYCHLOROQUINE SULFATE 200 MG TAB PO SCH ×3 (10:58→20:17)
[2019-12-15] MEDS: ASPIRIN 81 MG PO SCH ×2 (10:58→11:11)
[2019-12-15] MEDS: CHOLECALCIFEROL 1,000 UNIT TAB PO SCH ×2 (10:59→11:11)
[2019-12-15] MEDS: hydrALAZINE HCL 25 MG TAB PO SCH ×3 (11:00→20:17)
[2019-12-15] MEDS: AMIODARONE 200 MG TAB PO SCH ×2 (11:10→20:16)
[2019-12-15 11:45] LABS: Glucose,Whole Blood 111 mg/dL (75-99)
--- NOTE | 2019-12-15 12:32 | P.PN ---
Subjective Progress Note Date: 12/15/19 84-year-old male who was in the hospital in November 12 till November 16 for acute bilateral pneumonia and high temperature and chills was seen in the pulmonary and treated at the time with the significant improvement was in acute hypoxic respiratory failure Covid 19 that time was ruled out patient was having more COPD exacerbation with worsening dementia and mild lactic acidosis. He was treated and has done well was sent to [facility] on budesonide and albuterol inhaler along with changing his blood pressure medication for better management of kidney function to be seen by his primary care Dr. House or to see by Dr. Mnediola at the half-way at the time. Patient brought to the emergency department at [facility] today 12/13/2019 because of very high fever or chills tachycardia severe shortness of breath with high suspicion for Covid 19 infection this time because of his roommate was diagnosed with it recently. At the time was seen at the emergency department patient pulse rate was very high he was having low urine output significant hypertension with severely dehydrated with temperature running at 97 or 98 his pulse ox on 8 L was on at 97 percentile only. Patient lactic acid was significantly elevated at 3.7 his C-reactive protein with 65.2 his LDH was 1098. And I suspected Covid 19 was positive this time. Patient was seen by Dr. Osman and pulmonary at the emergency department decided to place central line and start patient on challenge IV hydration of 3 toward the time patient had extremely high risk up being intubated with extreme high mortality at this point with the worsening kidney failure with severe tachycardia with a flutter did not respond to challenge with adenosine patient was to replace on Cardizem drip to bring his pulse rate down and was transferred to the ICU afterward after giving him a bolus of amiodarone and started on amiodarone drip to keep his pulse rates below 90. Patient was started on hydrochloric when 400 mg twice a day with Solu-Medrol 30 mg twice a day was continue on heparin drip for A. fib/A flutter and 1 g of Rocephin was giving. 12/13: Patient has not required intubation. He is currently pulse ox 97% on 4 L nasal cannula. He has been afebrile, heart rate 97-114. Patient is now converted to normal sinus rhythm. Repeat blood work reveals WBC 11.9, hemoglobin 14.2, platelet count 159. D-dimer 5.29. Sodium 145, potassium 4.2, chloride 119, CO2 16, BUN 127, creatinine 2.83. Repeat lactic acid 1.8. Tro ponin 0.092. Patient has been seen by Dr. Mancera with recommendations to continue IV amiodarone at the time of his evaluation as well as heparin IV. Lopressor was increased to 25 mg twice daily. Echocardiogram reveals EF of 25- 30%, trace mitral regurgitation, trace tricuspid regurgitation, small generalized pericardial effusion. Repeat chest x-ray reveals similar patchy right mid lung airspace disease likely unifocal pneumonia. Patient is continued in [address] He is on the Plaquenil protocol as well as Solu-Medrol 30 mg IV every 12 hours and Rocephin. Patient is followed by Dr. Osman and consult in place with nephrology as well. 12/14: Patient remains in the intensive care unit in [facility]. Cardiology has switched him to oral amiodarone at 400 mg twice daily. Patient Patient is still on a heparin drip which is going to be continued for now. Patient was alvina luated by speech therapy this morning and found to have worsening swallow and made strict nothing by mouth. Patient is afebrile, heart rate in the 60s and 70s, blood pressure 137/80, pulse ox 94% on 3 L nasal cannula. Repeat blood work reveals a CBC of 9.2, hemoglobin 12.9, platelet count 147. D-dimer 4.16, ferritin 944.7, LDH 1107, CK 536, C reactive protein 62.3. A BUN 103 and creatinine 2.16. Repeat chest x-ray reveals chronic principal changes with persistent lateral right mid lung acute infiltrate and slightly more prominent left basal atelectasis and/or infiltrate. Objective - Vital Signs Vital signs: Vital Signs Temp 97.9 F 12/15/19 04:00 Pulse 73 12/15/19 07:00 Resp 22 12/15/19 07:00 BP 162/97 12/15/19 07:00 Pulse Ox 98 12/15/19 07:00 Intake & Output 12/14/19 12/15/19 12/15/19 18:59 06:59 18:59 Intake Total 2050 2376.885 150 Output Total 765 630 50 Balance 1285 1746.885 100 Weight 60.2 kg Intake: IV 1800 1800 150 Sodium Chloride 0.9% 1, 1800 1800 150 000 ml @ 150 mls/hr IV . Q6H40M [facility] Rx#:[id number] Intake, IV Titration 250 546.885 0 Amount Amiodarone 300 mg In 250 Dextrose 5% in Water 250 ml @ 0.5 MG/MIN 25 mls/hr IV .Q10H [facility] Rx#: [id number] Amiodarone 300 mg In 231.25 Dextrose 5% in Water 250 ml @ 0.5 MG/MIN 25 mls/hr IV .Q10H [facility] Rx#: [id number] Heparin Sod,Pork in 0.45% 265.635 0 NaCl 25,000 unit In 0.45 % NaCl 1 250ml.bag @ 12 UNITS/KG/HR 8.165 mls/hr IV .Q24H [facility] Rx#: [id number] cefTRIAXone 1 gm In 50 Sodium Chloride 0.9% 50 ml @ 100 mls/hr IVPB HS [facility] Rx#:[id number] Tube Feeding 30 Output: Urine 765 630 50 Other: Voiding Method Indwelling Catheter Indwelling Catheter - Exam Review of Systems CONSTITUTIONAL: Elderly looks malnourished. EYES: No icterus sclerae, no conjunctivitis. EARS, NOSE, MOUTH, THROAT, and FACE: No sore throat, lymphadenopathy, carotid bruits or deformity. Significant for dry mucosa. RESPIRATORY: Positive shortness of breath positive cough wheezes. CARDIOVASCULAR: Positive PND orthopnea and palpitation GASTROINTESTINAL: No Abd pain, Nausea or vomiting, no Diarrhea or constipation, No GI Bleed, no distention or masses. GENITOURINARY: BPH with significant decrease urine output. INTEGUMENT/BREAST: Negative for any muscular injury with mild osteoarthritis.. HEMATOLOGIC/LYMPHATIC: Negative for bleed or purpura. MUSCULOSKELTAL: Negative for Myalgia or arthralgia. NEURLOGICAL: Parkinson disease with significant altered mental status with more confusion. BEHAVIORAL/PSYCH: Negative. ENDOCRINE: Negative. Physical examination General Appearance: Severely confuse elderly in no respiratory distress. Neck HEENT: Supple, no lymphadenopathy Physical examination has been deferred to intensivists due to COVID-19 isolation. - Labs CBC & Chem 7: 12/15/19 04:59 12/15/19 04:59 Labs: Abnormal Lab Results - Last 24 Hours (Table) 12/14/19 12/14/19 12/14/19 Range/Units 02:46 02:46 12:19 RBC (4.30-5.90) m/uL Hgb (13.0-17.5) gm/dL Plt Count (150-450) k/uL Neutrophils # (1.3-7.7) k/uL Lymphocytes # (1.0-4.8) k/uL APTT (22.0-30.0) sec D-Dimer (<0.60) mg/L FEU Chloride (98-107) mmol/L Carbon Dioxide (22-30) mmol/L BUN (9-20) mg/dL Creatinine (0.66-1.25) mg/dL Glucose (74-99) mg/dL POC Glucose (mg/dL) 146 H (75-99) mg/dL Calcium (8.4-10.2) mg/dL Ferritin 911.2 H (22.0-322.0) ng/mL Lactate Dehydrogenase (313-618) U/L Creatine Kinase (55-170) U/L C-Reactive Protein (<10.0) mg/L Total Protein (6.3-8.2) g/dL Albumin (3.5-5.0) g/dL Procalcitonin 0.33 H (0.02-0.09) ng/mL 12/14/19 12/15/19 12/15/19 Range/Units 17:51 00:13 04:59 RBC 4.26 L (4.30-5.90) m/uL Hgb 12.9 L (13.0-17.5) gm/dL Plt Count 147 L (150-450) k/uL Neutrophils # 8.7 H (1.3-7.7) k/uL Lymphocytes # 0.2 L (1.0-4.8) k/uL APTT (22.0-30.0) sec D-Dimer (<0.60) mg/L FEU Chloride (98-107) mmol/L Carbon Dioxide (22-30) mmol/L BUN (9-20) mg/dL Creatinine (0.66-1.25) mg/dL Glucose (74-99) mg/dL POC Glucose (mg/dL) 132 H 115 H (75-99) mg/dL Calcium (8.4-10.2) mg/dL Ferritin (22.0-322.0) ng/mL Lactate Dehydrogenase (313-618) U/L Creatine Kinase (55-170) U/L C-Reactive Protein (<10.0) mg/L Total Protein (6.3-8.2) g/dL Albumin (3.5-5.0) g/dL Procalcitonin (0.02-0.09) ng/mL 12/15/19 12/15/19 Range/Units 04:59 04:59 RBC (4.30-5.90) m/uL Hgb (13.0-17.5) gm/dL Plt Count (150-450) k/uL Neutrophils # (1.3-7.7) k/uL Lymphocytes # (1.0-4.8) k/uL APTT 117.6 H* (22.0-30.0) sec D-Dimer 4.16 H (<0.60) mg/L FEU Chloride 124 H (98-107) mmol/L Carbon Dioxide 17 L (22-30) mmol/L BUN 103 H* (9-20) mg/dL Creatinine 2.16 H (0.66-1.25) mg/dL Glucose 127 H (74-99) mg/dL POC Glucose (mg/dL) (75-99) mg/dL Calcium 7.5 L (8.4-10.2) mg/dL Ferritin (22.0-322.0) ng/mL Lactate Dehydrogenase 1107 H (313-618) U/L Creatine Kinase 536 H (55-170) U/L C-Reactive Protein 62.3 H (<10.0) mg/L Total Protein 5.3 L (6.3-8.2) g/dL Albumin 2.7 L (3.5-5.0) g/dL Procalcitonin (0.02-0.09) ng/mL Microbiology - Last 24 Hours (Table) 12/13/19 14:17 Blood Culture - Preliminary Blood No Growth after 24 hours Assessment and Plan Plan: 1. Acute hypoxic respiratory failure secondary to acute Covid 19 infection along with gram-negative pneumonia associated with acute A. fib a flutter with acute heart failure as well and acute renal failure. Patient is on Plaquenil protocol. Continue Rocephin IV. Consult with Dr. Osman appreciated. 2. Acute Covid 19 pneumonitis. Continue as in #1. 3. Acute kidney injury with acute tubular necrosis. Nephrology consult appreciated. Patient was started on sodium bicarb and recommends continuing to hold Wilfrid/ARB and avoid nephrotoxic medications. 4. New-onset of atrial flutter with rapid ventricular response, converted to normal sinus rhythm. Patient followed by cardiology. Patient is currently on amiodarone drip and heparin drip. Cardiology is transitioned to oral amiodarone. 5. Advance Parkinson disease. Continue Requip 0.5 mg twice daily, Exelon patch daily, Sinemet 4 times a day. 6. BPH. Patient is on Keith catheter. 7. Hypertension. Continue hydralazine 25 mg twice daily, Lopressor 25 mg twice daily. Hold losartan 8. COPD without exacerbation.. 9. Acute lactic acidosis secondary to COVID-19 infection and sepsis, present on admission. 10. Elevated troponin: Most likely from hypoperfusion related to the a flutter with a rapid pulse the dehydration and hypotension echocardiogram will be done as well. 11. GI prophylaxis: Patient will be started on pantoprazole. 12. DVT prophylaxis: Patient was started on heparin drip and switch to Lovenox when ready. CODE STATUS: No code but okay for intubation Discharge plan: Return to [facility]. Impression and plan of care have been directed as dictated by the signing physician. Aisha Rausch nurse practitioner acting as scribe for signing physician.
--- NOTE | 2019-12-15 14:22 | P.PN ---
Subjective Progress Note Date: 12/15/19 84-year-old male patient of mine [facility] resident with multiple medical problems and comorbidities, resides at the [facility], brought into the emergency department because of altered mental status. The patient was brought via EMS as the patient was having generalized weakness, lethargy, altered mentation and diminished level of consciousness and the same time the patient was having increased cough. Note that the patient's roommate at the [facility] diagnosed having a COVID 19 infection and this was obviously concern. At a time of the arrival, the patient was found to be quite tachycardic with a heart rate in the 160 range. SVT was suspected and the patient was given adeno C without any improvement. Subsequent EKG revealed that the patient was in a flutter rhythm at the rate of 160. Blood work that was done in the emergency department revealed that the patient was in an acute kidney injury. BUN was 148. Creatinine was at 4.03. His sodium level was 147. Chloride was 112. Lactic acid level was at 3.7. Troponin was 0.3. The patient had a white cell count of 12.4. Furthermore he checked positive for Covid 19 infection based on the records nasopharyngeal screen. The LDH was quite elevated at 1098. This was also consistent with Covid 19 infection. D-dimer was at 4.27. The CAT scan of the brain showed no acute intracranial hemorrhage or abnormalities. There was diffuse age-related cerebral atrophy and chronic small vessel ischemic change in addition to bilateral old or corneal injuries involving the basal ganglia. The patient's chest x-ray revealed a faint right midlung airspace disease and this was partially obscured by external pacing devices. The william katina of the lungs were essentially clear. I saw this patient emergency department. He was quite lethargic yet arousable. He was on 8 L of oxygen by nasal cannula and is pulse oxing in the range of 92%. His heart rate was quite rapid ranging between 155 and 165. The patient had a systolic blood pressure as low as 92/72. The patient was given IV fluid bolus sees and the patient received a total of 3 L in the emergency department and a 43 was given in the ICU and the patient was started on a maintenance of 150 mL of normal saline. Keith cath is in place. Urine output is diminished. He did not require any pressors. He was started on amiodarone bolus and maintenance which improved his heart rate and so was becoming more clear that the patient was in and out of A flutter I established a triple-lumen catheter in the right femoral vein. The patient was low quite emaciated cachectic and very weak. Note that this patient was in the hospital around a month ago specifically on 11/10/2018. He was evaluated and treated through our services the patient was having increased dyspnea cough and fever. At that time the Covid 19 evaluation came back negative. Note that the patient also has advanced dementia, Parkinson's disease, depression, BPH, hypertension. He has also had previous cerebral infarct involving the basal ganglia as discussed above. He has BPH as other comorbid conditions. He is a former smoker. He is a [facility] resident. On today's evaluation of 12/14/2019, the patient remains in intensive care unit and the patient is being resuscitated IV fluids. The patient has already received a total of 47 fluid and currently the patient on normal saline at the r ate of 150 mL an hour. The patient is on 4 L of oxygen by nasal cannula with a pulse of 96%. The patient's heart rate has improved as the patient was given IV amiodarone bolus and maintenance and the patient's rhythm is still A. fib/flutter however on that much better controlled rate. Echo was done and the patient ejection fraction was around 25-30% with mild mitral regurgitation, tricuspid regurgitation and small generalized pericardial effusion. Chest x-ray is showing patchy right mid airspace disease related to Covid 19 related pneumonia. The patient remains on the opposite isolation. The patient remains afebrile. The patient on IV Solu-Medrol 30 mg every 12 hours. The patient is still very weak and debilitated. He failed his swallow evaluation, going to give him another 24 hours. He remains on IV heparin. His hemoglobin is at 14.2. The patient's serum bicarbonate 16. Creatinine is improving is down to 2.3 with a mean of 127. The LDH level is 1168. His C-reactive protein is 66. LEVEL WAS 0.33. The pro calcitonin Level was 0.33. On 12/15/2019, the patient seems to be more alert and awake and he is communicating in talking to us back. A swallow evaluation was done and the patient did not pass the swallow evaluation. The speech pathologist actually said that the patient's swallow was worse compared to yesterday. Based on that, no oral medications or diet will be given to this patient today. Overall, the patient is doing well. The patient is receiving IV fluids and the patient's function continues to improve slowly. The patient's BUN is down to 103 and the creatinine is down to 2.16 and both of these numbers are improving. The sodium level is at 144. The serum bicarbonate 17 and the patient continues to receive normal saline for a total of 150 mL an hour. The patient remains in atrial fibrillation. Rate is controlled and the patient was on amiodarone at 0.5 mg an hour for A. fib/flutter with RVR which is essentially controlled rate. The p atient is also taking Plaquenil for Covid 19 related pneumonia. The patient has no worsening shortness of breath. No significant cough or sputum production. The patient's pulse ox is 95% liters of oxygen by nasal cannula. The patient is afebrile for now. Also, the patient has no nausea vomiting diarrhea abdominal pain. The patient remains on IV heparin regarding atrial fibrillation. LDH lev el is at 1107 and C-reactive protein is at 536 and both of these values are remaining quite elevated without any significant improvement compared to yesterday. The lactic acid level is down to 1.8. Objective - Vital Signs Vital signs: Vital Signs Temp 97.8 F 12/15/19 12:00 Pulse 71 12/15/19 14:00 Resp 20 12/15/19 14:00 BP 152/99 12/15/19 14:00 Pulse Ox 95 12/15/19 14:00 Intake & Output 12/14/19 12/15/19 12/15/19 18:59 06:59 18:59 Intake Total 2050 2376.885 900 Output Total 765 630 290 Balance 1285 1746.885 610 Weight 60.2 kg Intake: IV 1800 1800 900 Sodium Chloride 0.9% 1, 1800 1800 900 000 ml @ 150 mls/hr IV . Q6H40M [facility]IN Rx#:[id number] Intake, IV Titration 250 546.885 0 Amount Amiodarone 300 mg In 250 Dextrose 5% in Water 250 ml @ 0.5 MG/MIN 25 mls/hr IV .Q10H SIN Rx#: [id number] Amiodarone 300 mg In 231.25 Dextrose 5% in Water 250 ml @ 0.5 MG/MIN 25 mls/hr IV .Q10H SIN Rx#: [id number] Heparin Sod,Pork in 0.45% 265.635 0 NaCl 25,000 unit In 0.45 % NaCl 1 250ml.bag @ 12 UNITS/KG/HR 8.165 mls/hr IV .Q24H SIN Rx#: [id number] cefTRIAXone 1 gm In 50 Sodium Chloride 0.9% 50 ml @ 100 mls/hr IVPB HS SIN Rx#:[id number] Tube Feeding 30 Output: Urine 765 630 290 Other: Voiding Method Indwelling Catheter Indwelling Catheter - Exam GENERAL EXAM: Lethargic, somnolent and looks very much cachectic emaciated and lethargic at this point in time but arousable, on 3 L of oxygen by nasal cannula comfortable in no apparent distress.Rayna of excessive muscle breathing. HEAD: Normocephalic/atraumatic.here is temporal wasting EYES: Normal reaction of pupils, equal size. Conjunctiva pink, sclera white. NOSE: Clear with pink turbinates. THROAT: No erythema or exudates.the mucous membranes are extremely dry NECK: No masses, no JVD, no thyroid enlargement, no adenopathy. CHEST: No chest wall deformity. Symmetrical expansion. she will LUNGS: Equal air entry with basilar crackles CVS: Regular rate and rhythm, normal S1 and S2, the patient is consistently tachycardic consistent with atrial flutter rhythm no gallops, no murmurs, no rubs ABDOMEN: Soft, nontender. No hepatosplenomegaly, normal bowel sounds, no guarding or rigidity. EXTREMITIES: No clubbing, no edema, no cyanosis, 1+ pulses and upper and lower extremities.nfected extremities are showing significant muscle atrophy and some contractures in lower extremities bilaterally MUSCULOSKELETAL: Muscle strength and tone is significant diminished and the patient has cogwheel rigidity related to his Parkinson's disease SPINE: No scoliosis or deformity SKIN: No rashes CENTRAL NERVOUS SYSTEM: arousable, neurologic exam is nonfocal. There is some resting tremors. - Labs CBC & Chem 7: 12/15/19 04:59 12/15/19 04:59 Labs: Abnormal Lab Results - Last 24 Hours (Table) 12/14/19 12/15/19 12/15/19 Range/Units 17:51 00:13 04:59 RBC 4.26 L (4.30-5.90) m/uL Hgb 12.9 L (13.0-17.5) gm/dL Plt Count 147 L (150-450) k/uL Neutrophils # 8.7 H (1.3-7.7) k/uL Lymphocytes # 0.2 L (1.0-4.8) k/uL APTT (22.0-30.0) sec D-Dimer (<0.60) mg/L FEU Chloride (98-107) mmol/L Carbon Dioxide (22-30) mmol/L BUN (9-20) mg/dL Creatinine (0.66-1.25) mg/dL Glucose (74-99) mg/dL POC Glucose (mg/dL) 132 H 115 H (75-99) mg/dL Calcium (8.4-10.2) mg/dL Ferritin (22.0-322.0) ng/mL Lactate Dehydrogenase (313-618) U/L Creatine Kinase (55-170) U/L C-Reactive Protein (<10.0) mg/L Total Protein (6.3-8.2) g/dL Albumin (3.5-5.0) g/dL 12/15/19 12/15/19 12/15/19 Range/Units 04:59 04:59 07:15 RBC (4.30-5.90) m/uL Hgb (13.0-17.5) gm/dL Plt Count (150-450) k/uL Neutrophils # (1.3-7.7) k/uL Lymphocytes # (1.0-4.8) k/uL APTT 117.6 H* (22.0-30.0) sec D-Dimer 4.16 H (<0.60) mg/L FEU Chloride 124 H (98-107) mmol/L Carbon Dioxide 17 L (22-30) mmol/L BUN 103 H* (9-20) mg/dL Creatinine 2.16 H (0.66-1.25) mg/dL Glucose 127 H (74-99) mg/dL POC Glucose (mg/dL) (75-99) mg/dL Calcium 7.5 L (8.4-10.2) mg/dL Ferritin 944.7 H (22.0-322.0) ng/mL Lactate Dehydrogenase 1107 H (313-618) U/L Creatine Kinase 536 H (55-170) U/L C-Reactive Protein 62.3 H (<10.0) mg/L Total Protein 5.3 L (6.3-8.2) g/dL Albumin 2.7 L (3.5-5.0) g/dL 12/15/19 12/15/19 Range/Units 11:43 13:03 RBC (4.30-5.90) m/uL Hgb (13.0-17.5) gm/dL Plt Count (150-450) k/uL Neutrophils # (1.3-7.7) k/uL Lymphocytes # (1.0-4.8) k/uL APTT 56.2 H (22.0-30.0) sec D-Dimer (<0.60) mg/L FEU Chloride (98-107) mmol/L Carbon Dioxide (22-30) mmol/L BUN (9-20) mg/dL Creatinine (0.66-1.25) mg/dL Glucose (74-99) mg/dL POC Glucose (mg/dL) 111 H (75-99) mg/dL Calcium (8.4-10.2) mg/dL Ferritin (22.0-322.0) ng/mL Lactate Dehydrogenase (313-618) U/L Creatine Kinase (55-170) U/L C-Reactive Protein (<10.0) mg/L Total Protein (6.3-8.2) g/dL Albumin (3.5-5.0) g/dL Microbiology - Last 24 Hours (Table) 12/13/19 14:17 Blood Culture - Preliminary Blood No Growth after 24 hours Assessment and Plan Plan: 1 acute Covid 19 pneumonia with secondary acute hypoxic respiratory failure is currently the patient is currently on 3 L of oxygen by nasal cannula . The patient's condition is stable for now. FiO2 has been weaned down to 3 L and he has no signs of any respiratory distress for now. The chest x-ray findings are also stable. The patient has chronic parenchymal changes and persistent left or right midlung infiltrate and slightly more prominent left basilar infiltrate. Oxygenation is remaining stable. The patient on Plaquenil. The patient on steroids. 2. Acute kidney injury secondary to significant intravascular volume depletion/dehydration. BUN and creatinine both elevated but they're steadily improving as the patient is receiving IV fluids. 3. new-onset atrial flutter with rapid ventricular response , improved with amiodarone and the patient remains in a flutter/fibrillation with IV heparin, and the patient was admitted on amiodarone drip for now as the patient is unable to take any oral medications as the patient failed a swallow evaluation. 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 11 altered mental status secondary to metabolic encephalopathy related toacute kidney injury and intravascular volume depletion. Also the patient s history of underlyin memory and cognition., Improving 12 CHF with an ejection fraction of 25% and small generalized pericardial effusion Plan Continue IV fluids at the rate of 150 mL an hour Continue Plaquenil Continue IV heparin The patient failed swallow evaluation and we are unable to switching to oral medications for now. We'll continue the IV amiodarone for another 24 hours. Monitor inflammatory markers including LDH and C-reactive protein Failed swallow evaluation yesterday and today and the patient will be kept still nothing by mouth until he passes swallow evaluation. Blood cultures of been negative and the patient has been receiving IV Rocephin as an empiric antibiotic coverage We'll continue to follow. Condition is critical. Prognosis poor baseline above-mentioned comorbidities. CODE STATUS needs to be established. He is significantly impaired in terms of his baseline performance and functional status and addition to obvious signs of chronic malnutrition. We'll keep the patient ICU protocol 24 hours. We'll continue to follow.
--- NOTE | 2019-12-15 15:33 | PN ---
PROGRESS NOTE Patient is seen for followup for acute kidney injury associated with underlying COVID- 19 infection. Patient's renal function has improved. Serum creatinine is down to 2.1 from 4.0 on initial admission. His urine output is fair, maintained at about 60 to 50 mL/hour. Patient is maintained on IV fluids. Swallow evaluation is scheduled for today. Patient is also currently on amiodarone drip. On examination today, as discussed with nursing staff, blood pressure was 144/79, heart rate of 70 per minute. Patient is afebrile. He does not have any significant edema. Abdomen is soft. According to nursing staff, lungs are clear. Labs show sodium 144, potassium 4.0, chloride 124, CO2 17, BUN 103, serum creatinine 2.16. ASSESSMENT: 1. Acute kidney injury, acute tubular necrosis, nonoliguric, associated with underlying COVID-19 infection, currently improving. Continue IV fluids. 2. Volume depletion, slowly improving. 3. Mental status changes, somewhat improved. 4. Underlying dementia. 5. Metabolic acidosis associated with renal failure, maintained on oral sodium bicarb. 6. History of benign prostatic hypertrophy. 7. Atrial fibrillation, maintained on amiodarone drip. Rate is controlled. PLAN: Continue IV fluids. Continue oral sodium bicarb. Repeat labs in a.m. MMODL / IJN: [id number] /
--- NOTE | 2019-12-15 17:22 | CDI ---
Documentation Clarification Form Date: 12/15/2019 04:45:49 PM From: Laura Torres RN, CCDS Admit Date: 12/13/2019 05:59:00 PM Patient Name: Andre Rocha Visit Number: [id number] Discharge Date: ATTENTION: The Clinical Documentation Specialists (CDI) and [facility] Coding Staff appreciate your assistance in clarifying documentation. Please respond to the clarification below the line at the bottom and electronically sign. The CDI & [facility] Coding staff will review the response and follow-up if needed. Please note: Queries are made part of the Legal Health Record. If you have any questions, please contact the author of this message via ITS. Dr. Conor Haider Malnutrition has been documented in your progress note on 12/13 "Elderly looks malnourished" and further clarification is requested. History/Risk Factors: Dementia, Hypertension, Cerberal Infarction, Parkinsons disease, Covid-19 Positive, Sepsis, Pneumonia Clinical Indicators: 84-year old male present with altered mental status, diminished level of consciousness and having increased cough. 12/13 Pulmonary assessment: patient was quite emaciated cachectic and very weak. Extremities are showing significant muscle atrophy and some contractures in lower extremities bilateral. Labs: 12/12: WBC 12.4, Na 147, bun 148, Cr 148, Total Protein 6.1 Albumin 3.3 12/13 Total protein 5.1, Albumin 2.5 Current BMI: 21.4 Insufficient energy intake: Yes, 12/13 failed swallow evaluation Loss of subcutaneous fat: Yes Loss of muscle mass: Yes Treatment: NPO Daily Lab monitoring: CBC, BUN, Cr, LDH Rocephin 1 gm IV q hs .9 saline @ 150 mls hr In your professional opinion, can you please clarify if these findings signify one of the following conditions? Mild Protein-Calorie Malnutrition XX Moderate Protein-Calorie Malnutrition Severe Protein-Calorie Malnutrition Other condition, please specify Unable to determine (Last Revision: February 2019) MTDD
[2019-12-15] MEDS ORDERED: DILTIAZEM 125 MG in SODIUM CHLORIDE 0.9% 100 ML IV SCH (17:30)
[2019-12-15 17:55] LABS: Glucose,Whole Blood 129 mg/dL (75-99)
[2019-12-15] MEDS: VORTIOXETINE HYDROBROMIDE 10 MG TABLET PO SCH (20:19)
[2019-12-15] MEDS: HEPARIN SOD,PORK IN 0.45% NACL 25,000 UNIT in 0.45% NACL 1 250ML.BAG IV SCH (20:23)
[2019-12-16 00:08] LABS: Glucose,Whole Blood 128 mg/dL (75-99)
[2019-12-16] MEDS: NITROGLYCERIN OINT 1 INCH/GM PACKET TOPICAL SCH ×4 (01:39→23:00)
[2019-12-16 04:53] LABS: Basophils % (A) 0 %; Eosinophils % (A) 0 %; HCT 38.5 % (39.0-53.0); HGB 12.5 gm/dL (13.0-17.5); Hypochromasia Slight; Lymphocytes # (A) 0.1 k/uL (1.0-4.8); Lymphocytes % (A) 2 %; MCH 31.4 pg (25.0-35.0); MCHC 32.4 g/dL (31.0-37.0); Mean Platelet Volume 8.9; Monocytes # (A) 0.2 k/uL (0-1.0); Monocytes % (A) 2 %; Neutrophils # (A) 9.3 k/uL (1.3-7.7); Neutrophils % (A) 96 %; Platelet Count 177 k/uL (150-450); RBC 3.97 m/uL (4.30-5.90); RDW 14.4 % (11.5-15.5); WBC 9.7 k/uL (3.8-10.6)
[2019-12-16 05:09] LABS: D-Dimer 3.85 mg/L FEU (<0.60); Partial Thromboplastin Time 68.1 sec (22.0-30.0)
[2019-12-16 05:14] LABS: Calcium 7.6 mg/dL (8.4-10.2); Potassium 3.6 mmol/L (3.5-5.1)
[2019-12-16 06:04] LABS: Glucose,Whole Blood 113 mg/dL (75-99)
[2019-12-16] MEDS ORDERED: DEXTROSE 5% IN WATER 1,000 ML in EMPTY BAG 1 BAG IV SCH (07:30)
[2019-12-16] MEDS: SODIUM CHLORIDE 0.9% 1,000 ML IV SCH (08:29)
[2019-12-16] MEDS: HEPARIN SOD,PORK IN 0.45% NACL 25,000 UNIT in 0.45% NACL 1 250ML.BAG IV SCH (08:33)
[2019-12-16] MEDS: DEXTROSE 5% IN WATER 1,000 ML IV SCH ×2 (08:34→13:40)
[2019-12-16] MEDS: CARBIDOPA-LEVODOPA 25-100 MG 1 EACH TAB PO SCH ×4 (08:36→21:12)
[2019-12-16] MEDS: ASPIRIN 81 MG PO SCH (08:37)
[2019-12-16] MEDS: POLYETHYLENE GLYCOL 3350 17 GM POWD.PACK PO SCH (08:37)
[2019-12-16] MEDS: CHOLECALCIFEROL 1,000 UNIT TAB PO SCH (08:37)
[2019-12-16] MEDS: AMIODARONE 200 MG TAB PO SCH ×2 (08:37→21:11)
[2019-12-16] MEDS: METOPROLOL TARTRATE 25 MG TAB PO SCH ×2 (08:37→21:12)
[2019-12-16] MEDS: PANTOPRAZOLE 40 MG/10 ML VIAL IVP SCH (08:37)
[2019-12-16] MEDS: hydrALAZINE HCL 25 MG TAB PO SCH ×2 (08:37→21:12)
[2019-12-16] MEDS: HYDROXYCHLOROQUINE SULFATE 200 MG TAB PO SCH ×2 (08:37→21:12)
[2019-12-16] MEDS: methylPREDNISolone SOD SUCCI 40 MG/ML 1 ML VIAL IV SCH ×2 (08:37→21:12)
[2019-12-16] MEDS: SODIUM BICARBONATE TAB 650 MG TAB PO SCH ×2 (08:38→21:11)
[2019-12-16] MEDS: TAMSULOSIN 0.4 MG CAP.ER.24H PO SCH (08:38)
--- NOTE | 2019-12-16 08:47 | CDI ---
Documentation Clarification Form Date: 12/16/2019 08:21:49 AM From: Laura Torres RN, CCDS Admit Date: 12/13/2019 05:59:00 PM Patient Name: Andre Rocha Visit Number: [id number] Discharge Date: ATTENTION: The Clinical Documentation Specialists (CDI) and [facility] Coding Staff appreciate your assistance in clarifying documentation. Please respond to the clarification below the line at the bottom and electronically sign. The CDI & [facility] Coding staff will review the response and follow-up if needed. Please note: Queries are made part of the Legal Health Record. If you have any questions, please contact the author of this message via ITS. Dr. Jadiel Mancera Atrial Flutter is documented in the ER, H&P impression on 12/12, and in your consult on 12/13. Please provide further specificity for the atrial flutter. History/Risk factors: Hypertension, Parkinsons disease, Former smoker Clinical Indicators: 84-year-old male to ER on 12/12 with via EMS with reports of mental status changes. EMS notice tachycardia and provided adenosine without much improvement. EKG in ER found patient to be in atrial flutter with heart rate about 160 beats a minute. Treatment: Telemetry monitoring 12/12 Cardizem IV 125 mg @ 5 mls/hr (DC) 12/12 Amiodarone initial bolus of 150 mg x2 followed by Amiodarone drip @25 mls/hr IV (titrate) 12/12 .9 saline 1000 cc, IV bolus X2 12/13 Echocardiogram: the rhythm appears to be atrial flutter. There is a small, generalized pericardial effusion present.Overall left ventricular systolic function is severely impaired with, an EF between 25-30 % 12/13 Cardiology Consults: Atrial flutter with rapid ventricular response, new onset In your professional opinion, in order to capture the severity of condition; can you please clarify the type of Atrial Flutter if known? XXXX Typical/Type I Atypical/Type II Other, please specify Unable to determine (Last Revision: November 2017) MTDD
--- NOTE | 2019-12-16 10:08 | CDI ---
Documentation Clarification Form Date: 12/16/2019 08:50:00 AM From: Laura Torres RN, CCDS Admit Date: 12/13/2019 05:59:00 PM Patient Name: Andre Rocha Visit Number: [id number] Discharge Date: ATTENTION: The Clinical Documentation Specialists (CDI) and [facility] Coding Staff appreciate your assistance in clarifying documentation. Please respond to the clarification below the line at the bottom and electronically sign. The CDI & [facility] Coding staff will review the response and follow-up if needed. Please note: Queries are made part of the Legal Health Record. If you have any questions, please contact the author of this message via ITS. Dr. Conor Haider Acute heart failure is documented in the H&P and subsequent progress notes and further specificity is requested History/Risk Factors: Dementia, Hypertension, Former smoker Clinical Indicators: 84-year-old male to ER with severe shortness of breath with Covid-19 positive infection. He was tachycardic with EKG showing atrial flutter with a heart rate of 150. He was treated with 4 liters IV fluid bolus on 12/12. In the H&P and subsequent progress notes acute heart failure is documented. VS/Pulse OX: 12/12 at 14:34: 128/88 165 20 97.5 (ax), 96 % 4/L NC 12/13 Chest x-ray: patchy right mid airspace disease related to Covid 19 related pneumonia (per pulmonary assessment). 12/13 Lungs: equal air entry with basilar crackles BNP: not noted Echocardiogram Results: Atrial Flutter EF 25-30 % with mild mitral regurgitation, tricuspid regurgitation and small generalized pericardial effusion. Treatment: Lopressor 25 mg po bid Monitor I/O In your professional opinion, can you please clarify the acuity and type of CHF if known? Systolic Heart Failure: Acute Chronic Acute on Chronic Diastolic Heart Failure: Acute Chronic Acute on Chronic Systolic & Diastolic Heart Failure: Acute Chronic XX Acute on Chronic Heart Failure Unable to Determine Other, please specify (Last Revision: November 2017) MTDD
[2019-12-16] MEDS: RIVASTIGMINE 4.6MG/24HR PATCH TRANSDERM SCH (10:41)
[2019-12-16 11:56] LABS: Glucose,Whole Blood 156 mg/dL (75-99)
--- NOTE | 2019-12-16 12:27 | PN ---
PROGRESS NOTE Patient is seen for followup for acute kidney injury. He has been transferred out of the ICU. Patient has COVID pneumonia. His renal function has been improving. Patient is maintained on IV fluids. Creatinine down to 1.67 from 4.03 on initial admission. Patient failed his swallow evaluation yesterday. He is maintained on IV fluids. He has had good urine output. Discussed with nursing staff. PHYSICAL EXAMINATION: On examination, blood pressure is 140/80, heart rate 59 per minute, patient is afebrile. No edema noted. He has underlying dementia. He does open his eyes and wakes up but does not communicate much. Patient is not in any acute respiratory distress. He is comfortable. LABS: Show sodium 149, potassium 3.6, chloride 126, CO2 17, BUN 79, creatinine 1.67, hemoglobin 12.5 g/dL. ASSESSMENT: 1. Acute kidney injury associated with underlying COVID infection, ATN nonoliguric currently improving. 2. Hypovolemia, maintained on IV fluids. 3. Hypernatremia associated with free water deficit. Start free water in the IV as patient is not able to eat as he failed his swallow evaluation. 4. Non-gap metabolic acidosis. Maintained on oral sodium bicarb. PLAN: Continue the sodium bicarb. Change IV fluids to D5 W and repeat labs in a.m. MMODL / IJN: [id number] /
--- NOTE | 2019-12-16 14:22 | P.PN ---
Subjective Progress Note Date: 12/16/19 Principal diagnosis: Acute hypoxic respiratory failure secondary to an acute CoVID 19 pneumonia 84-year-old male patient of mine half-way resident with multiple medical problems and comorbidities, resides at the half-way, brought into the emergency department because of altered mental status. The patient was brought via EMS as the patient was having generalized weakness, lethargy, altered mentation and diminished level of consciousness and the same time the patient was having increased cough. Note that the patient's roommate at the half-way diagnosed having a COVID 19 infection and this was obviously concern. At a time of the arrival, the patient was found to be quite tachycardic with a heart rate in the 160 range. SVT was suspected and the patient was given adeno C without any improvement. Subsequent EKG revealed that the patient was in a flutter rhythm at the rate of 160. Blood work that was done in the emergency department revealed that the patient was in an acute kidney injury. BUN was 148. Creatinine was at 4.03. His sodium level was 147. Chloride was 112. Lactic acid level was at 3.7. Troponin was 0.3. The patient had a white cell count of 12.4. Furthermore he checked positive for Covid 19 infection based on the records nasopharyngeal screen. The LDH was quite elevated at 1098. This was also consistent with Covid 19 infection. D-dimer was at 4.27. The CAT scan of the brain showed no acute intracranial hemorrhage or abnormalities. There was diffuse age-related cerebral atrophy and chronic small vessel ischemic change in addition to bilateral old or corneal injuries involving the basal ganglia. The patient's chest x-ray revealed a faint right midlung airspace disease and this was partially obscured by external pacing devices. The remainder of the lungs were essentially clear. I saw this patient emergency department. He was quite lethargic yet arousable. He was on 8 L of oxygen by nasal cannula and is pulse oxing in the range of 92%. His heart rate was quite rapid ranging between 155 and 165. The patient had a systolic blood pressure as low as 92/72. The patient was given IV fluid bolus sees and the patient received a total of 3 L in the emergency department and a 43 was given in the ICU and the patient was started on a maintenance of 150 mL of normal saline. Keith cath is in place. Urine output is diminished. He did not require any pressors. He was started on amiodarone bolus and maintenance which improved his heart rate and so was becoming more clear that the patient was in and out of A flutter I established a triple-lumen catheter in the right femoral vein. The patient was low quite emaciated cachectic and very weak. Note that this patient was in the hospital around a month ago specifically on 11/10/2018. He was evaluated and treated through our services the patient was having increased dyspnea cough and fever. At that time the Covid 19 evaluation came back negative. Note that the patient also has advanced dementia, Parkinson's disease, depression, BPH, hypertension. He has also had previous cerebral infarct involving the basal ganglia as discussed above. He has BPH as other comorbid conditions. He is a former smoker. He is a half-way resident. On today's evaluation of 12/14/2019, the patient remains in intensive care unit and the patient is being resuscitated IV fluids. The patient has already received a total of 47 fluid and currently the patient on normal saline at the rate of 150 mL an hour. The patient is on 4 L of oxygen by nasal cannula with a pulse of 96%. The patient's heart rate has improved as the patient was given IV amiodarone bolus and maintenance and the patient's rhythm is still A. fib/flutter however on that much better controlled rate. Echo was done and the patient ejection fraction was around 25-30% with mild mitral regurgitation, tricuspid regurgitation and small generalized pericardial effusion. Chest x-ray is showing patchy right mid airspace disease related to Covid 19 related pneumonia. The patient remains on the opposite isolation. The patient remains afebrile. The patient on IV Solu-Medrol 30 mg every 12 hours. The patient is still very weak and debilitated. He failed his swallow evaluation, going to g harvey him another 24 hours. He remains on IV heparin. His hemoglobin is at 14.2. The patient's serum bicarbonate 16. Creatinine is improving is down to 2.3 with a mean of 127. The LDH level is 1168. His C-reactive protein is 66. LEVEL WAS 0.33. The pro calcitonin Level was 0.33. On 12/15/2019, the patient seems to be more alert and awake and he is communicating in talking to us back. A swallow evaluation was done and the patient did not pass the swallow evaluation. The speech pathologist actually said that the patient's swallow was worse compared to yesterday. Based on that, no oral medications or diet will be given to this patient today. Overall, the patient is doing well. The patient is receiving IV fluids and the patient's function continues to improve slowly. The patient's BUN is down to 103 and the creatinine is down to 2.16 and both of these numbers are improving. The sodium level is at 144. The serum bicarbonate 17 and the patient continues to receive normal saline for a total of 150 mL an hour. The patient remains in atrial fibrillation. Rate is controlled and the patient was on amiodarone at 0.5 mg an hour for A. fib/flutter with RVR which is essentially controlled rate. The patient is also taking Plaquenil for Covid 19 related pneumonia. The patient h as no worsening shortness of breath. No significant cough or sputum production. The patient's pulse ox is 95% liters of oxygen by nasal cannula. The patient is afebrile for now. Also, the patient has no nausea vomiting diarrhea abdominal pain. The patient remains on IV heparin regarding atrial fibrillation. LDH level is at 1107 and C-reactive protein is at 536 and both of these values are remaining quite elevated without any significant improvement compared to yesterday. The lactic acid level is down to 1.8. The patient is seen today 12/16/2019 in follow-up on the selective care unit. He is currently resting in bed. Awake and alert. Answering a few questions. Currently maintaining O2 saturations in the mid 90s on room air. He's been afebrile. Hemodynamically stable. Still having issues with swallowing. The patient does have advanced dementia. He had been seen and evaluated by speech therapy. The patient has been placed on nothing by mouth. White count 9.7. Hemoglobin 12.5. D-dimer 3.85. Sodium 149. Bicarb 17. Creatinine 1.67. LDH 944. C-reactive protein 42. Objective - Vital Signs Vital signs: Vital Signs Temp 97.6 F 12/16/19 11:00 Pulse 76 12/16/19 11:00 Resp 16 12/16/19 11:00 BP 139/90 12/16/19 11:00 Pulse Ox 95 12/16/19 11:00 Intake & Output 12/15/19 12/16/19 12/16/19 18:59 06:59 18:59 Intake Total 1964.166 881.427 612.761 Output Total 605 575 Balance 1359.166 306.427 612.761 Weight 60.2 kg 60.2 kg Intake: IV 1800 600 250 Dextrose 5% in Water 1, 200 000 ml @ 200 mls/hr IV . Q5H [facility] Rx#:[id number] Invasive Line 2 40 Invasive Line 3 10 Sodium Chloride 0.9% 1, 1800 600 000 ml @ 150 mls/hr IV . Q6H40M [facility] Rx#:[id number] Intake, IV Titration 164.166 281.427 362.761 Amount Amiodarone 300 mg In 164.166 85.834 250 Dextrose 5% in Water 250 ml @ 0.5 MG/MIN 25 mls/hr IV .Q10H [facility] Rx#: [id number] Diltiazem 125 mg In 4.333 101.25 Sodium Chloride 0.9% 100 ml @ Per Protocol IV .Q0M [facility] Rx#:[id number] Heparin Sod,Pork in 0.45% 0 141.260 11.511 NaCl 25,000 unit In 0.45 % NaCl 1 250ml.bag @ 12 UNITS/KG/HR 8.165 mls/hr IV .Q24H [facility] Rx#: [id number] cefTRIAXone 1 gm In 50 Sodium Chloride 0.9% 50 ml @ 100 mls/hr IVPB HS [facility] Rx#:[id number] Oral 0 Output: Urine 605 575 Other: Voiding Method Indwelling Catheter Indwelling Catheter Indwelling Catheter - Exam GENERAL EXAM: Somnolent and looks very much cachectic emaciated and lethargic at this point in time but arousable, on room air, comfortable in no apparent distress.Rayna of excessive muscle breathing. HEAD: Normocephalic/atraumatic.here is temporal wasting EYES: Normal reaction of pupils, equal size. Conjunctiva pink, sclera white. NOSE: Clear with pink turbinates. THROAT: No erythema or exudates.the mucous membranes are extremely dry NECK: No masses, no JVD, no thyroid enlargement, no adenopathy. CHEST: No chest wall deformity. Symmetrical expansion. she will LUNGS: Equal air entry with basilar crackles CVS: Regular rate and rhythm, normal S1 and S2, the patient is consistently tachycardic consistent with atrial flutter rhythm no gallops, no murmurs, no rubs ABDOMEN: Soft, nontender. No hepatosplenomegaly, normal bowel sounds, no guarding or rigidity. EXTREMITIES: No clubbing, no edema, no cyanosis, 1+ pulses and upper and lower extremities.nfected extremities are showing significant muscle atrophy and some contractures in lower extremities bilaterally MUSCULOSKELETAL: Muscle strength and tone is significant diminished and the patient has cogwheel rigidity related to his Parkinson's disease SPINE: No scoliosis or deformity SKIN: No rashes CENTRAL NERVOUS SYSTEM: arousable, neurologic exam is nonfocal. There is some resting tremors. - Labs CBC & Chem 7: 12/16/19 04:45 12/16/19 04:45 Labs: Abnormal Lab Results - Last 24 Hours (Table) 12/15/19 12/16/19 12/16/19 Range/Units 17:53 00:06 04:45 RBC 3.97 L (4.30-5.90) m/uL Hgb 12.5 L (13.0-17.5) gm/dL Hct 38.5 L (39.0-53.0) % Neutrophils # 9.3 H (1.3-7.7) k/uL Lymphocytes # 0.1 L (1.0-4.8) k/uL APTT (22.0-30.0) sec D-Dimer (<0.60) mg/L FEU Sodium (137-145) mmol/L Chloride (98-107) mmol/L Carbon Dioxide (22-30) mmol/L BUN (9-20) mg/dL Creatinine (0.66-1.25) mg/dL Glucose (74-99) mg/dL POC Glucose (mg/dL) 129 H 128 H (75-99) mg/dL Calcium (8.4-10.2) mg/dL Lactate Dehydrogenase (313-618) U/L C-Reactive Protein (<10.0) mg/L 12/16/19 12/16/19 12/16/19 Range/Units 04:45 04:45 06:01 RBC (4.30-5.90) m/uL Hgb (13.0-17.5) gm/dL Hct (39.0-53.0) % Neutrophils # (1.3-7.7) k/uL Lymphocytes # (1.0-4.8) k/uL APTT 68.1 H (22.0-30.0) sec D-Dimer 3.85 H (<0.60) mg/L FEU Sodium 149 H (137-145) mmol/L Chloride 126 H (98-107) mmol/L Carbon Dioxide 17 L (22-30) mmol/L BUN 79 H (9-20) mg/dL Creatinine 1.67 H (0.66-1.25) mg/dL Glucose 142 H (74-99) mg/dL POC Glucose (mg/dL) 113 H (75-99) mg/dL Calcium 7.6 L (8.4-10.2) mg/dL Lactate Dehydrogenase 944 H (313-618) U/L C-Reactive Protein 42.0 H (<10.0) mg/L 12/16/19 Range/Units 11:53 RBC (4.30-5.90) m/uL Hgb (13.0-17.5) gm/dL Hct (39.0-53.0) % Neutrophils # (1.3-7.7) k/uL Lymphocytes # (1.0-4.8) k/uL APTT (22.0-30.0) sec D-Dimer (<0.60) mg/L FEU Sodium (137-145) mmol/L Chloride (98-107) mmol/L Carbon Dioxide (22-30) mmol/L BUN (9-20) mg/dL Creatinine (0.66-1.25) mg/dL Glucose (74-99) mg/dL POC Glucose (mg/dL) 156 H (75-99) mg/dL Calcium (8.4-10.2) mg/dL Lactate Dehydrogenase (313-618) U/L C-Reactive Protein (<10.0) mg/L Microbiology - Last 24 Hours (Table) 12/13/19 14:17 Blood Culture - Preliminary Blood No Growth after 48 hours Assessment and Plan Assessment: 1. Acute Covid 19 pneumonia with secondary acute hypoxic respiratory failure is currently the patient is recovering and on room air. The patient's pulmonary status is stable for now. 2. Acute kidney injury secondary to significant intravascular volume depletion/dehydration. BUN and creatinine both elevated but they're steadily improving as the patient is receiving IV fluids. 3. New-onset atrial flutter with rapid ventricular response , improved with amiodarone and the patient remains in a flutter/fibrillation with IV heparin, and the patient was admitted on amiodarone drip for now as the patient is unable to take any oral medications as the patient failed a swallow evaluation. 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 11 altered mental status secondary to metabolic encephalopathy related toacute kidney injury and intravascular volume depletion. Also the patient s history of underlyin memory and cognition., Improving 12 CHF with an ejection fraction of 25% and small generalized pericardial effusion Plan The patient was seen and evaluated by Dr. Osman Currently stable from the pulmonary standpoint, on room air Continuing on Plaquenil and steroids. Antibiotics in the form of ceftriaxone Maintained on heparin drip Did not pass swallow evaluation, currently nothing by mouth I, the cosigning physician, performed a history & physical examination of the patient. Lungs sounds with crackles in the bilateral posterior bases. Maint aining good O2 saturations in the 90s on room air. I discussed the assessment and plan of care with my nurse practitioner, Romi Cee. I attest to the above note as dictated by her.
--- NOTE | 2019-12-16 14:44 | P.PN ---
Subjective Progress Note Date: 12/16/19 84-year-old male who was in the hospital in November 12 till November 16 for acute bilateral pneumonia and high temperature and chills was seen in the pulmonary and treated at the time with the significant improvement was in acute hypoxic respiratory failure Covid 19 that time was ruled out patient was having more COPD exacerbation with worsening dementia and mild lactic acidosis. He was treated and has done well was sent to [facility] on budesonide and albuterol inhaler along with changing his blood pressure medication for better management of kidney function to be seen by his primary care Dr. House or to see by Dr. Mendiola at the [facility] at the time. Patient brought to the emergency department at [facility] today 12/13/2019 because of very high fever or chills tachycardia severe shortness of breath with high suspicion for Covid 19 infection this time because of his roommate was diagnosed with it recently. At the time was seen at the emergency department patient pulse rate was very high he was having low urine output significant hypertension with severely dehydrated with temperature running at 97 or 98 his pulse ox on 8 L was on at 97 percentile only. Patient lactic acid was significantly elevated at 3.7 his C-reactive protein with 65.2 his LDH was 1098. And I suspected Covid 19 was positive this time. Patient was seen by Dr. Osman and pulmonary at the emergency department decided to place central line and start patient on challenge IV hydration of 3 toward the time patient had extremely high risk up being intubated with extreme high mortality at this point with the worsening kidney failure with severe tachycardia with a flutter did not respond to challenge with adenosine patient was to replace on Cardizem drip to bring his pulse rate down and was transferred to the ICU afterward after giving him a bolus of amiodarone and started on amiodarone drip to keep his pulse rates below 90. Patient was started on hydrochloric when 400 mg twice a day with Solu-Medrol 30 mg twice a day was continue on heparin drip for A. fib/A flutter and 1 g of Rocephin was giving. 12/13: Patient has not required intubation. He is currently pulse ox 97% on 4 L nasal cannula. He has been afebrile, heart rate 97-114. Patient is now converted to normal sinus rhythm. Repeat blood work reveals WBC 11.9, hemoglobin 14.2, platelet count 159. D-dimer 5.29. Sodium 145, potassium 4.2, chloride 119, CO2 16, BUN 127, creatinine 2.83. Repeat lactic acid 1.8. Tro ponin 0.092. Patient has been seen by Dr. Mancera with recommendations to continue IV amiodarone at the time of his evaluation as well as heparin IV. Lopressor was increased to 25 mg twice daily. Echocardiogram reveals EF of 25- 30%, trace mitral regurgitation, trace tricuspid regurgitation, small generalized pericardial effusion. Repeat chest x-ray reveals similar patchy right mid lung airspace disease likely unifocal pneumonia. Patient is continued in [address] He is on the Plaquenil protocol as well as Solu-Medrol 30 mg IV every 12 hours and Rocephin. Patient is followed by Dr. Osman and consult in place with nephrology as well. 12/14: Patient remains in the intensive care unit in [facility]. Cardiology has switched him to oral amiodarone at 400 mg twice daily. Patient Patient is still on a heparin drip which is going to be continued for now. Patient was alvina luated by speech therapy this morning and found to have worsening swallow and made strict nothing by mouth. Patient is afebrile, heart rate in the 60s and 70s, blood pressure 137/80, pulse ox 94% on 3 L nasal cannula. Repeat blood work reveals a CBC of 9.2, hemoglobin 12.9, platelet count 147. D-dimer 4.16, ferritin 944.7, LDH 1107, CK 536, C reactive protein 62.3. A BUN 103 and creatinine 2.16. Repeat chest x-ray reveals chronic principal changes with persistent lateral right mid lung acute infiltrate and slightly more prominent left basal atelectasis and/or infiltrate. 12/15: Patient has been transferred to the cardiac stepdown unit. He is currently off oxygen and pulse oxing 95-97%. He has been afebrile, heart rate 76, blood pressure 139/90. Repeat blood work reveals WBC 9.7, hemoglobin 12.5, platelet count 177. D-dimer 3.85, LDH 944, C-reactive protein 42. Sodium 149 and IV fluids changed to D5W. Potassium 3.6, chloride 126, CO2 17, BUN 70 and creatinine 1.67. Blood sugars running between 128 and 142. Patient has good urine output. We will plan to remove triple-lumen from the right groin area patient has other IV access. Anticipate discharge back to [facility] on Thursday. Objective - Vital Signs Vital signs: Vital Signs Temp 97.1 F L 12/16/19 08:26 Pulse 59 L 12/16/19 08:26 Resp 16 12/16/19 08:40 BP 140/80 12/16/19 08:26 Pulse Ox 97 12/16/19 08:40 Intake & Output 12/15/19 12/16/19 12/16/19 18:59 06:59 18:59 Intake Total 1964.166 881.427 612.761 Output Total 605 575 Balance 1359.166 306.427 612.761 Weight 60.2 kg Intake: IV 1800 600 250 Dextrose 5% in Water 1, 200 000 ml @ 200 mls/hr IV . Q5H SIN Rx#:[id number] Invasive Line 2 40 Invasive Line 3 10 Sodium Chloride 0.9% 1, 1800 600 000 ml @ 150 mls/hr IV . Q6H40M SIN Rx#:[id number] Intake, IV Titration 164.166 281.427 362.761 Amount Amiodarone 300 mg In 164.166 85.834 250 Dextrose 5% in Water 250 ml @ 0.5 MG/MIN 25 mls/hr IV .Q10H SIN Rx#: [id number] Diltiazem 125 mg In 4.333 101.25 Sodium Chloride 0.9% 100 ml @ Per Protocol IV .Q0M SIN Rx#:[id number] Heparin Sod,Pork in 0.45% 0 141.260 11.511 NaCl 25,000 unit In 0.45 % NaCl 1 250ml.bag @ 12 UNITS/KG/HR 8.165 mls/hr IV .Q24H SIN Rx#: [id number] cefTRIAXone 1 gm In 50 Sodium Chloride 0.9% 50 ml @ 100 mls/hr IVPB HS SIN Rx#:[id number] Oral 0 Output: Urine 605 575 Other: Voiding Method Indwelling Catheter Indwelling Catheter - Exam Review of Systems CONSTITUTIONAL: Elderly looks malnourished. Patient resting in bed. No respiratory distress noted. EYES: No icterus sclerae, no conjunctivitis. EARS, NOSE, MOUTH, THROAT, and FACE: No sore throat, lymphadenopathy, carotid bruits or deformity. Significant for dry mucosa. RESPIRATORY: Positive shortness of breath positive cough wheezes. CARDIOVASCULAR: Positive PND orthopnea and palpitation GASTROINTESTINAL: No Abd pain, Nausea or vomiting, no Diarrhea or constipation, No GI Bleed, no distention or masses. GENITOURINARY: BPH with significant decrease urine output. INTEGUMENT/BREAST: Negative for any muscular injury with mild osteoarthritis.. HEMATOLOGIC/LYMPHATIC: Negative for bleed or purpura. MUSCULOSKELTAL: Negative for Myalgia or arthralgia. NEURLOGICAL: Parkinson disease with significant altered mental status with more confusion. BEHAVIORAL/PSYCH: Negative. ENDOCRINE: Negative. Physical examination General Appearance: This is an 84-year-old male. He is resting in bed. No respiratory distress noted. Neck HEENT: Supple, no lymphadenopathy, no thyroid enlargement, no carotid bruits. Significant for dry mucosa. Lungs: Decreased breath sound in the bases bilaterally. No accessory muscle usage. Chest Wall: Decrease expansion with deep inspiration no tenderness and no deformity was found on exam, no costochondral pain or discomfort. Heart: Irregular rate and rhythm, S1, S2, positive systolic murmur. Back: Symmetric, no curvature, ROM normal, no CVA tenderness. Abdomen: Soft, non-tender, bowel sounds active all four quadrants, no masses, no organomegaly. Extremities: Extremities normal, atraumatic, no cyanosis or edema. Pulses: 2+ and symmetric. Skin: Skin color, texture, tugor normal, no rashes or lesions. Neurologic: Alert, mild tremor present, cranial nerves 2-12 intact, positive generalized weakness, no focal deficit with significant memory loss. - Labs CBC & Chem 7: 12/16/19 04:45 12/16/19 04:45 Labs: Abnormal Lab Results - Last 24 Hours (Table) 12/15/19 12/15/19 12/15/19 Range/Units 07:15 11:43 13:03 RBC (4.30-5.90) m/uL Hgb (13.0-17.5) gm/dL Hct (39.0-53.0) % Neutrophils # (1.3-7.7) k/uL Lymphocytes # (1.0-4.8) k/uL APTT 56.2 H (22.0-30.0) sec D-Dimer (<0.60) mg/L FEU Sodium (137-145) mmol/L Chloride (98-107) mmol/L Carbon Dioxide (22-30) mmol/L BUN (9-20) mg/dL Creatinine (0.66-1.25) mg/dL Glucose (74-99) mg/dL POC Glucose (mg/dL) 111 H (75-99) mg/dL Calcium (8.4-10.2) mg/dL Ferritin 944.7 H (22.0-322.0) ng/mL Lactate Dehydrogenase (313-618) U/L C-Reactive Protein (<10.0) mg/L 12/15/19 12/16/19 12/16/19 Range/Units 17:53 00:06 04:45 RBC 3.97 L (4.30-5.90) m/uL Hgb 12.5 L (13.0-17.5) gm/dL Hct 38.5 L (39.0-53.0) % Neutrophils # 9.3 H (1.3-7.7) k/uL Lymphocytes # 0.1 L (1.0-4.8) k/uL APTT (22.0-30.0) sec D-Dimer (<0.60) mg/L FEU Sodium (137-145) mmol/L Chloride (98-107) mmol/L Carbon Dioxide (22-30) mmol/L BUN (9-20) mg/dL Creatinine (0.66-1.25) mg/dL Glucose (74-99) mg/dL POC Glucose (mg/dL) 129 H 128 H (75-99) mg/dL Calcium (8.4-10.2) mg/dL Ferritin (22.0-322.0) ng/mL Lactate Dehydrogenase (313-618) U/L C-Reactive Protein (<10.0) mg/L 12/16/19 12/16/19 12/16/19 Range/Units 04:45 04:45 06:01 RBC (4.30-5.90) m/uL Hgb (13.0-17.5) gm/dL Hct (39.0-53.0) % Neutrophils # (1.3-7.7) k/uL Lymphocytes # (1.0-4.8) k/uL APTT 68.1 H (22.0-30.0) sec D-Dimer 3.85 H (<0.60) mg/L FEU Sodium 149 H (137-145) mmol/L Chloride 126 H (98-107) mmol/L Carbon Dioxide 17 L (22-30) mmol/L BUN 79 H (9-20) mg/dL Creatinine 1.67 H (0.66-1.25) mg/dL Glucose 142 H (74-99) mg/dL POC Glucose (mg/dL) 113 H (75-99) mg/dL Calcium 7.6 L (8.4-10.2) mg/dL Ferritin (22.0-322.0) ng/mL Lactate Dehydrogenase 944 H (313-618) U/L C-Reactive Protein 42.0 H (<10.0) mg/L Microbiology - Last 24 Hours (Table) 12/13/19 14:17 Blood Culture - Preliminary Blood No Growth after 48 hours Assessment and Plan Plan: 1. Acute hypoxic respiratory failure secondary to acute Covid 19 infection along with gram-negative pneumonia associated with acute A. fib a flutter with acute heart failure as well and acute renal failure. Patient is on Plaquenil protocol. Continue Rocephin IV. Consult with Dr. Osman appreciated. 2. Acute Covid 19 pneumonitis. Continue as in #1. 3. Acute kidney injury with acute tubular necrosis and non-gap metabolic acidosis. Nephrology consult appreciated. Patient was started on sodium bicarb and recommends continuing to hold Wilfrid/ARB and avoid nephrotoxic medications. 4. New-onset of atrial flutter with rapid ventricular response, converted to normal sinus rhythm. Patient followed by cardiology. Patient is currently on amiodarone 400 mg twice daily oral and heparin drip. 5. Hypernatremia. IV fluids changed to D5W. 6. Acute lactic acidosis secondary to COVID-19 infection and sepsis, present on admission. 7. Elevated troponin: Most likely from hypoperfusion related to atrial flutter. 8. Severe protein calorie malnutrition with poor oral intake and complicated by NPO status. Magic cups ordered 3 times daily. 9. Dysphagia. Speech therapy evaluation appreciated. Patient cleared for pured and honey thick liquids. Patient not candidate for PEG placement. Continue aspiration precautions. 10. 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 Hold ACEI/ARB secondary to acute kidney injury. 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 Continue Requip 0.5 mg twice daily, Exelon patch daily, Sinemet 4 times a day. 12. BPH. Patient is on Keith catheter. 13. Hypertension. Continue hydralazine 25 mg twice daily, Lopressor 25 mg twice daily. Hold losartan 14. COPD without exacerbation.. 15. GI prophylaxis: continue pantoprazole. 16. DVT prophylaxis. Heparin drip. CODE STATUS: No code but okay for intubation Discharge plan: Return to [facility]. Impression and plan of care have been directed as dictated by the signing physician. Aisha Rausch nurse practitioner acting as scribe for signing physician.
[2019-12-16] MEDS ORDERED: ALTEPLASE 2 MG VIAL (CATHFLO) IV STA (15:46)
[2019-12-16 16:55] LABS: Glucose,Whole Blood 153 mg/dL (75-99)
[2019-12-16 20:26] LABS: Glucose,Whole Blood 163 mg/dL (75-99)
[2019-12-16] MEDS: VORTIOXETINE HYDROBROMIDE 10 MG TABLET PO SCH (21:59)
[2019-12-17 06:29] LABS: Glucose,Whole Blood 136 mg/dL (75-99)
[2019-12-17] MEDS: INSULIN ASPART (NovoLOG) 100 UNIT/ML VIAL SQ SCH ×5 (06:40→21:51)
[2019-12-17] MEDS: DEXTROSE 5% IN WATER 1,000 ML IV SCH ×2 (06:40→12:27)
[2019-12-17 07:45] LABS: Albumin 2.1 g/dL (3.5-5.0); Calcium 7.5 mg/dL (8.4-10.2); Potassium 3.7 mmol/L (3.5-5.1); Total Protein 4.2 g/dL (6.3-8.2)
[2019-12-17 07:47] LABS: Total Bilirubin 0.3 mg/dL (0.2-1.3)
[2019-12-17] MEDS: hydrALAZINE HCL 25 MG TAB PO SCH ×2 (08:59→21:51)
[2019-12-17] MEDS: METOPROLOL TARTRATE 25 MG TAB PO SCH ×2 (09:00→21:50)
[2019-12-17] MEDS: AMIODARONE 200 MG TAB PO SCH ×2 (09:00→11:39)
[2019-12-17] MEDS: ASPIRIN 81 MG PO SCH (09:00)
[2019-12-17] MEDS: SODIUM BICARBONATE TAB 650 MG TAB PO SCH ×2 (09:01→21:50)
[2019-12-17] MEDS: CARBIDOPA-LEVODOPA 25-100 MG 1 EACH TAB PO SCH ×4 (09:01→21:51)
[2019-12-17] MEDS: TAMSULOSIN 0.4 MG CAP.ER.24H PO SCH (09:01)
[2019-12-17] MEDS: CHOLECALCIFEROL 1,000 UNIT TAB PO SCH (09:01)
[2019-12-17] MEDS: PANTOPRAZOLE 40 MG/10 ML VIAL IVP SCH (09:01)
[2019-12-17] MEDS: methylPREDNISolone SOD SUCCI 40 MG/ML 1 ML VIAL IV SCH ×2 (09:01→21:58)
[2019-12-17] MEDS: POLYETHYLENE GLYCOL 3350 17 GM POWD.PACK PO SCH (09:02)
[2019-12-17] MEDS: RIVASTIGMINE 4.6MG/24HR PATCH TRANSDERM SCH (09:03)
[2019-12-17] MEDS: NITROGLYCERIN OINT 1 INCH/GM PACKET TOPICAL SCH (09:04)
--- NOTE | 2019-12-17 10:08 | P.PN ---
Subjective Progress Note Date: 12/17/19 84-year-old male who was in the hospital in November 12 till November 16 for acute bilateral pneumonia and high temperature and chills was seen in the pulmonary and treated at the time with the significant improvement was in acute hypoxic respiratory failure Covid 19 that time was ruled out patient was having more COPD exacerbation with worsening dementia and mild lactic acidosis. He was treated and has done well was sent to [facility] on budesonide and albuterol inhaler along with changing his blood pressure medication for better management of kidney function to be seen by his primary care Dr. House or to see by [facility] at the time. Patient brought to the emergency department at [facility] today 12/13/2019 because of very high fever or chills tachycardia severe shortness of breath with high suspicion for Covid 19 infection this time because of his roommate was diagnosed with it recently. At the time was seen at the emergency department patient pulse rate was very high he was having low urine output significant hypertension with severely dehydrated with temperature running at 97 or 98 his pulse ox on 8 L was on at 97 percentile only. Patient lactic acid was significantly elevated at 3.7 his C-reactive protein with 65.2 his LDH was 1098. And I suspected Covid 19 was positive this time. Patient was seen by Dr. Osman and pulmonary at the emergency department decided to place central line and start patient on challenge IV hydration of 3 toward the time patient had extremely high risk up being intubated with extreme high mortality at this point with the worsening kidney failure with severe tachycardia with a flutter did not respond to challenge with adenosine patient was to replace on Cardizem drip to bring his pulse rate down and was transferred to the ICU afterward after giving him a bolus of amiodarone and started on amiodarone drip to keep his pulse rates below 90. Patient was started on hydrochloric when 400 mg twice a day with Solu-Medrol 30 mg twice a day was continue on heparin drip for A. fib/A flutter and 1 g of Rocephin was giving. 12/13: Patient has not required intubation. He is currently pulse ox 97% on 4 L nasal cannula. He has been afebrile, heart rate 97-114. Patient is now converted to normal sinus rhythm. Repeat blood work reveals WBC 11.9, hemoglobin 14.2, platelet count 159. D-dimer 5.29. Sodium 145, potassium 4.2, chloride 119, CO2 16, BUN 127, creatinine 2.83. Repeat lactic acid 1.8. Tro ponin 0.092. Patient has been seen by Dr. Mancera with recommendations to continue IV amiodarone at the time of his evaluation as well as heparin IV. Lopressor was increased to 25 mg twice daily. Echocardiogram reveals EF of 25- 30%, trace mitral regurgitation, trace tricuspid regurgitation, small generalized pericardial effusion. Repeat chest x-ray reveals similar patchy right mid lung airspace disease likely unifocal pneumonia. Patient is continued in [address] He is on the Plaquenil protocol as well as Solu-Medrol 30 mg IV every 12 hours and Rocephin. Patient is followed by Dr. Osman and consult in place with nephrology as well. 12/14: Patient remains in the intensive care unit in [facility]. Cardiology has switched him to oral amiodarone at 400 mg twice daily. Patient Patient is still on a heparin drip which is going to be continued for now. Patient was alvina luated by speech therapy this morning and found to have worsening swallow and made strict nothing by mouth. Patient is afebrile, heart rate in the 60s and 70s, blood pressure 137/80, pulse ox 94% on 3 L nasal cannula. Repeat blood work reveals a CBC of 9.2, hemoglobin 12.9, platelet count 147. D-dimer 4.16, ferritin 944.7, LDH 1107, CK 536, C reactive protein 62.3. A BUN 103 and creatinine 2.16. Repeat chest x-ray reveals chronic principal changes with persistent lateral right mid lung acute infiltrate and slightly more prominent left basal atelectasis and/or infiltrate 12/15: Patient has been transferred to the cardiac stepdown unit. He is currently off oxygen and pulse oxing 95-97%. He has been afebrile, heart rate 76, blood pressure 139/90. Repeat blood work reveals WBC 9.7, hemoglobin 12.5, platelet count 177. D-dimer 3.85, LDH 944, C-reactive protein 42. Sodium 149 and IV fluids changed to D5W. Potassium 3.6, chloride 126, CO2 17, BUN 70 and creatinine 1.67. Blood sugars running between 128 and 142. Patient has good urine output. We will plan to remove triple-lumen from the right groin area patient has other IV access. Anticipate discharge back to [facility] on Thursday. 12/15: Patient remains on cardiac stepdown unit, vital signs are stable. Pulse ox 96% on room air, he is afebrile heart rate 54, blood pressure 103/57. Heart rate was 54 this morning spoke with cardiology decreased amiodarone 200 mg daily. Labs were reviewed, BUN 75 creatinine 1.63. IV fluids remain in place. Blood sugars are stable. Remains on modified diet. Anticipated discharge to [facility]CF on Thursday. Objective - Vital Signs Vital signs: Vital Signs Temp 97.5 F L 12/17/19 03:20 Pulse 61 12/17/19 03:20 Resp 18 12/17/19 03:20 BP 103/57 12/17/19 03:20 Pulse Ox 96 12/17/19 03:20 Intake & Output 12/16/19 12/17/19 12/17/19 18:59 06:59 18:59 Intake Total 1902.761 270 Output Total 650 Balance 1252.761 270 Weight 60.2 kg 69.5 kg Intake: IV 1270 30 Dextrose 5% in Water 1, 1160 000 ml @ 80 mls/hr IV . [id number] SIN Rx#:[id number] Invasive Line 2 80 Invasive Line 3 30 30 Intake, IV Titration 362.761 Amount Amiodarone 300 mg In 250 Dextrose 5% in Water 250 ml @ 0.5 MG/MIN 25 mls/hr IV .Q10H SIN Rx#: [id number] Diltiazem 125 mg In 101.25 Sodium Chloride 0.9% 100 ml @ Per Protocol IV .Q0M SIN Rx#:[id number] Heparin Sod,Pork in 0.45% 11.511 NaCl 25,000 unit In 0.45 % NaCl 1 250ml.bag @ 12 UNITS/KG/HR 8.165 mls/hr IV .Q24H SIN Rx#: [id number] Oral 270 240 Output: Urine 650 Other: Voiding Method Indwelling Catheter Indwelling Catheter - Exam Review of Systems CONSTITUTIONAL: Elderly looks man appears malnourished. Patient resting in bed. No respiratory distress noted. EYES: No icterus sclerae, no conjunctivitis. EARS, NOSE, MOUTH, THROAT, and FACE: No sore throat, lymphadenopathy, carotid bruits or deformity. Significant for dry mucosa. RESPIRATORY: Positive shortness of breath with exertion, positive cough wheezes. CARDIOVASCULAR: Positive PND orthopnea and palpitation GASTROINTESTINAL: No Abd pain, Nausea or vomiting, no Diarrhea or constipation, No GI Bleed, no distention or masses. GENITOURINARY: BPH with decrease urine output. INTEGUMENT/BREAST: Negative for any muscular injury with mild osteoarthritis.. HEMATOLOGIC/LYMPHATIC: Negative for bleed or purpura. MUSCULOSKELTAL: Negative for Myalgia or arthralgia. NEURLOGICAL: Parkinson disease with significant altered mental status with more confusion. BEHAVIORAL/PSYCH: Negative. ENDOCRINE: Negative. Physical examination General Appearance: This is an 84-year-old male. He is resting in bed. No respiratory distress noted. Neck HEENT: Supple, no lymphadenopathy, no thyroid enlargement, no carotid bruits. Significant for dry mucosa. Lungs: Decreased breath sound in the bases bilaterally. No accessory muscle usage. Chest Wall: Decrease expansion with deep inspiration no tenderness and no defor mity was found on exam, no costochondral pain or discomfort. Heart: Irregular rate and rhythm, S1, S2, positive systolic murmur. Back: Symmetric, no curvature, ROM normal, no CVA tenderness. Abdomen: Soft, non-tender, bowel sounds active all four quadrants, no masses, no organomegaly. Extremities: Extremities normal, atraumatic, no cyanosis or edema. Pulses: 2+ and symmetric. Skin: Skin color, texture, tugor normal, no rashes or lesions. Neurologic: Alert, mild tremor present, cranial nerves 2-12 intact, positive generalized weakness, no focal deficit with significant memory loss. - Labs CBC & Chem 7: 12/16/19 04:45 12/17/19 06:30 Labs: Abnormal Lab Results - Last 24 Hours (Table) 12/16/19 12/16/19 12/16/19 Range/Units 11:53 13:44 16:54 APTT 56.1 H (22.0-30.0) sec Sodium (137-145) mmol/L Chloride (98-107) mmol/L Carbon Dioxide (22-30) mmol/L BUN (9-20) mg/dL Creatinine (0.66-1.25) mg/dL Glucose (74-99) mg/dL POC Glucose (mg/dL) 156 H 153 H (75-99) mg/dL Calcium (8.4-10.2) mg/dL Total Protein (6.3-8.2) g/dL Albumin (3.5-5.0) g/dL 12/16/19 12/17/19 12/17/19 Range/Units 20:24 06:27 06:30 APTT 54.4 H (22.0-30.0) sec Sodium (137-145) mmol/L Chloride (98-107) mmol/L Carbon Dioxide (22-30) mmol/L BUN (9-20) mg/dL Creatinine (0.66-1.25) mg/dL Glucose (74-99) mg/dL POC Glucose (mg/dL) 163 H 136 H (75-99) mg/dL Calcium (8.4-10.2) mg/dL Total Protein (6.3-8.2) g/dL Albumin (3.5-5.0) g/dL 12/17/19 Range/Units 06:30 APTT (22.0-30.0) sec Sodium 148 H (137-145) mmol/L Chloride 122 H (98-107) mmol/L Carbon Dioxide 18 L (22-30) mmol/L BUN 75 H (9-20) mg/dL Creatinine 1.63 H (0.66-1.25) mg/dL Glucose 129 H (74-99) mg/dL POC Glucose (mg/dL) (75-99) mg/dL Calcium 7.5 L (8.4-10.2) mg/dL Total Protein 4.2 L (6.3-8.2) g/dL Albumin 2.1 L (3.5-5.0) g/dL Microbiology - Last 24 Hours (Table) 12/13/19 14:17 Blood Culture - Preliminary Blood No Growth after 72 hours Assessment and Plan Plan: 1. Acute hypoxic respiratory failure secondary to acute Covid 19 infection along with gram-negative pneumonia associated with acute A. fib a flutter with acute heart failure as well and acute renal failure. Patient is on Plaquenil protocol. Continue Rocephin IV. Consult with Dr. Osman appreciated. 2. Acute Covid 19 pneumonitis. Continue as in #1. 3. Acute kidney injury with acute tubular necrosis and non-gap metabolic acidosis. Nephrology consult appreciated. Patient was started on sodium bicarb and recommends continuing to hold Wilfrid/ARB and avoid nephrotoxic medications. 4. New-onset of atrial flutter with rapid ventricular response, converted to normal sinus rhythm. Patient followed by cardiology. Amiodarone decreased to 200 mg daily 5. Hypernatremia. IV fluids changed to D5W. 6. Acute lactic acidosis secondary to COVID-19 infection and sepsis, present on admission. 7. Elevated troponin: Most likely from hypoperfusion related to atrial flutter. 8. Severe protein calorie malnutrition with poor oral intake and complicated by NPO status. Magic cups ordered 3 times daily. 9. Dysphagia. Speech therapy evaluation appreciated. Patient cleared for pured and honey thick liquids. Patient not candidate for PEG placement. Continue aspiration precautions. 10. 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 Hold ACEI/ARB secondary to acute kidney injury. 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 Continue Requip 0.5 mg twice daily, Exelon patch daily, Sinemet 4 times a day. 12. BPH. Patient is on Keith catheter. 13. Hypertension. Continue hydralazine 25 mg twice daily, Lopressor 25 mg twice daily. Hold losartan 14. COPD without exacerbation.. 15. GI prophylaxis: continue pantoprazole. 16. DVT prophylaxis. Heparin drip. CODE STATUS: No code but okay for intubation Discharge plan: Return to [facility]. Impression and plan of care have been directed as dictated by the signing physician. Delia Salgado nurse practitioner acting as scribe for signing physician.
[2019-12-17 12:11] LABS: Glucose,Whole Blood 137 mg/dL (75-99)
[2019-12-17] MEDS: HYDROXYCHLOROQUINE SULFATE 200 MG TAB PO SCH ×2 (12:27→21:51)
--- NOTE | 2019-12-17 12:55 | PN ---
PROGRESS NOTE Patient is seen for followup for acute kidney injury associated with underlying COVID infection. Patient's renal function has been improving. He was started on D5W yesterday as his sodium was 149, today it is down to 148. The patient does respond to simple questions. Mentation appears to be somewhat improved. He continues to have good urine output and renal function continues to improve with creatinine at about 1.6. It is the same as yesterday at 1.67 mg/dL. Previous creatinine was 0.79 on 11/15/2019. PHYSICAL EXAMINATION: On examination today, blood pressure was 116/74, heart rate 54 per minute, patient is afebrile. Examination of the the lower extremities shows no evidence of edema. Abdomen is soft, nontender. [employer]OCI[employer] PROFESSOR OF PSYCHOLOGY exam, the patient had been moving all 4 extremities. LABS: Show sodium 148, potassium 3.7, chloride 122, CO2 is 18, BUN 75, creatinine 1.63. ASSESSMENT: 1. Acute kidney injury associated with COVID-19 infection, acute tubular necrosis, currently improving, nonoliguric, maintained on IV fluids. 2. Hypernatremia associated with free water deficit, maintained on D5W. 3. COVID-19 pneumonia, maintained on hydroxychloroquine and steroids. 4. Metabolic acidosis, currently on sodium bicarb. PLAN: Continue to encourage increased oral intake, continue D5W for now. Repeat labs in a.m. MMODL / IJN: [id number] /
--- NOTE | 2019-12-17 13:24 | P.PN ---
Subjective Progress Note Date: 12/17/19 Principal diagnosis: Acute hypoxic respiratory failure secondary to an acute CoVID 19 pneumonia 84-year-old male patient of mine senior care resident with multiple medical problems and comorbidities, resides at the senior care, brought into the emergency department because of altered mental status. The patient was brought via EMS as the patient was having generalized weakness, lethargy, altered mentation and diminished level of consciousness and the same time the patient was having increased cough. Note that the patient's roommate at the senior care diagnosed having a COVID 19 infection and this was obviously concern. At a time of the arrival, the patient was found to be quite tachycardic with a heart rate in the 160 range. SVT was suspected and the patient was given adeno C without any improvement. Subsequent EKG revealed that the patient was in a flutter rhythm at the rate of 160. Blood work that was done in the emergency department revealed that the patient was in an acute kidney injury. BUN was 148. Creatinine was at 4.03. His sodium level was 147. Chloride was 112. Lactic acid level was at 3.7. Troponin was 0.3. The patient had a white cell count of 12.4. Furthermore he checked positive for Covid 19 infection based on the records nasopharyngeal screen. The LDH was quite elevated at 1098. This was also consistent with Covid 19 infection. D-dimer was at 4.27. The CAT scan of the brain showed no acute intracranial hemorrhage or abnormalities. There was diffuse age-related cerebral atrophy and chronic small vessel ischemic change in addition to bilateral old or corneal injuries involving the basal ganglia. The patient's chest x-ray revealed a faint right midlung airspace disease and this was partially obscured by external pacing devices. The remainder of the lungs were essentially clear. I saw this patient emergency department. He was quite lethargic yet arousable. He was on 8 L of oxygen by nasal cannula and is pulse oxing in the range of 92%. His heart rate was quite rapid ranging between 155 and 165. The patient had a systolic blood pressure as low as 92/72. The patient was given IV fluid bolus sees and the patient received a total of 3 L in the emergency department and a 43 was given in the ICU and the patient was started on a maintenance of 150 mL of normal saline. Keith cath is in place. Urine output is diminished. He did not require any pressors. He was started on amiodarone bolus and maintenance which improved his heart rate and so was becoming more clear that the patient was in and out of A flutter I established a triple-lumen catheter in the right femoral vein. The patient was low quite emaciated cachectic and very weak. Note that this patient was in the hospital around a month ago specifically on 11/10/2018. He was evaluated and treated through our services the patient was having increased dyspnea cough and fever. At that time the Covid 19 evaluation came back negative. Note that the patient also has advanced dementia, Parkinson's disease, depression, BPH, hypertension. He has also had previous cerebral infarct involving the basal ganglia as discussed above. He has BPH as other comorbid conditions. He is a former smoker. He is a senior care resident. On today's evaluation of 12/14/2019, the patient remains in intensive care unit and the patient is being resuscitated IV fluids. The patient has already received a total of 47 fluid and currently the patient on normal saline at the rate of 150 mL an hour. The patient is on 4 L of oxygen by nasal cannula with a pulse of 96%. The patient's heart rate has improved as the patient was given IV amiodarone bolus and maintenance and the patient's rhythm is still A. fib/flutter however on that much better controlled rate. Echo was done and the patient ejection fraction was around 25-30% with mild mitral regurgitation, tricuspid regurgitation and small generalized pericardial effusion. Chest x-ray is showing patchy right mid airspace disease related to Covid 19 related pneumonia. The patient remains on the opposite isolation. The patient remains afebrile. The patient on IV Solu-Medrol 30 mg every 12 hours. The patient is still very weak and debilitated. He failed his swallow evaluation, going to g harvey him another 24 hours. He remains on IV heparin. His hemoglobin is at 14.2. The patient's serum bicarbonate 16. Creatinine is improving is down to 2.3 with a mean of 127. The LDH level is 1168. His C-reactive protein is 66. LEVEL WAS 0.33. The pro calcitonin Level was 0.33. On 12/15/2019, the patient seems to be more alert and awake and he is communicating in talking to us back. A swallow evaluation was done and the patient did not pass the swallow evaluation. The speech pathologist actually said that the patient's swallow was worse compared to yesterday. Based on that, no oral medications or diet will be given to this patient today. Overall, the patient is doing well. The patient is receiving IV fluids and the patient's function continues to improve slowly. The patient's BUN is down to 103 and the creatinine is down to 2.16 and both of these numbers are improving. The sodium level is at 144. The serum bicarbonate 17 and the patient continues to receive normal saline for a total of 150 mL an hour. The patient remains in atrial fibrillation. Rate is controlled and the patient was on amiodarone at 0.5 mg an hour for A. fib/flutter with RVR which is essentially controlled rate. The patient is also taking Plaquenil for Covid 19 related pneumonia. The patient h as no worsening shortness of breath. No significant cough or sputum production. The patient's pulse ox is 95% liters of oxygen by nasal cannula. The patient is afebrile for now. Also, the patient has no nausea vomiting diarrhea abdominal pain. The patient remains on IV heparin regarding atrial fibrillation. LDH level is at 1107 and C-reactive protein is at 536 and both of these values are remaining quite elevated without any significant improvement compared to yesterday. The lactic acid level is down to 1.8. The patient is seen today 12/16/2019 in follow-up on the selective care unit. He is currently resting in bed. Awake and alert. Answering a few questions. Currently maintaining O2 saturations in the mid 90s on room air. He's been afebrile. Hemodynamically stable. Still having issues with swallowing. The patient does have advanced dementia. He had been seen and evaluated by speech therapy. The patient has been placed on nothing by mouth. White count 9.7. Hemoglobin 12.5. D-dimer 3.85. Sodium 149. Bicarb 17. Creatinine 1.67. LDH 944. C-reactive protein 42. The patient is seen today 12/17/2019 in follow-up on the selective care unit. He is currently resting comfortably in bed. Awake and more alert today. Continues to maintain good O2 saturations in the mid 90s on room air. He's afebrile. Hemodynamically stable. Blood culture reveals no growth. Sodium 148. Potassium 3.7. Bicarb 18. Creatinine 1.63. He is continued on sodium bicarb tablets. Continued on Plaquenil. Remains on antibiotics in the form of ceftriaxone. Remains on IV Solu-Medrol. Anticoagulated with Eliquis. Objective - Vital Signs Vital signs: Vital Signs Temp 97.7 F 12/17/19 08:57 Pulse 54 L 12/17/19 08:57 Resp 18 12/17/19 09:00 BP 116/74 12/17/19 08:57 Pulse Ox 97 12/17/19 08:57 Intake & Output 12/16/19 12/17/19 12/17/19 18:59 06:59 18:59 Intake Total 1902.761 270 20 Output Total 650 500 Balance 1252.761 270 -480 Weight 60.2 kg 69.5 kg Intake: IV 1270 30 20 Dextrose 5% in Water 1, 1160 000 ml @ 80 mls/hr IV . [id number] [facility] Rx#:[id number] Invasive Line 2 80 Invasive Line 3 30 30 20 Intake, IV Titration 362.761 Amount Amiodarone 300 mg In 250 Dextrose 5% in Water 250 ml @ 0.5 MG/MIN 25 mls/hr IV .Q10H [facility] Rx#: [id number] Diltiazem 125 mg In 101.25 Sodium Chloride 0.9% 100 ml @ Per Protocol IV .Q0M [facility] Rx#:[id number] Heparin Sod,Pork in 0.45% 11.511 NaCl 25,000 unit In 0.45 % NaCl 1 250ml.bag @ 12 UNITS/KG/HR 8.165 mls/hr IV .Q24H [facility] Rx#: [id number] Oral 270 240 Output: Urine 650 500 Other: Voiding Method Indwelling Catheter Indwelling Catheter Indwelling Catheter - Exam GENERAL EXAM: More awake and alert today, cachectic, emaciated 84-year-old gentleman, maintaining good O2 saturations in the 90s on room air, comfortable in no apparent distress. HEAD: Normocephalic/atraumatic. There is temporal wasting EYES: Normal reaction of pupils, equal size. Conjunctiva pink, sclera white. NOSE: Clear with pink turbinates. THROAT: No erythema or exudates.the mucous membranes are extremely dry NECK: No masses, no JVD, no thyroid enlargement, no adenopathy. CHEST: No chest wall deformity. Symmetrical expansion. LUNGS: Equal air entry with basilar crackles CVS: Regular rate and rhythm, normal S1 and S2, the patient is consistently tachycardic consistent with atrial flutter rhythm no gallops, no murmurs, no r ubs ABDOMEN: Soft, nontender. No hepatosplenomegaly, normal bowel sounds, no guarding or rigidity. EXTREMITIES: No clubbing, no edema, no cyanosis, 1+ pulses and upper and lower extremities.nfected extremities are showing significant muscle atrophy and some contractures in lower extremities bilaterally MUSCULOSKELETAL: Muscle strength and tone is significant diminished and the patient has cogwheel rigidity related to his Parkinson's disease SPINE: No scoliosis or deformity SKIN: No rashes CENTRAL NERVOUS SYSTEM: Awake, neurologic exam is nonfocal. There is some resting tremors. - Labs CBC & Chem 7: 12/16/19 04:45 12/17/19 06:30 Labs: Abnormal Lab Results - Last 24 Hours (Table) 12/16/19 12/16/19 12/16/19 Range/Units 13:44 16:54 20:24 APTT 56.1 H (22.0-30.0) sec Sodium (137-145) mmol/L Chloride (98-107) mmol/L Carbon Dioxide (22-30) mmol/L BUN (9-20) mg/dL Creatinine (0.66-1.25) mg/dL Glucose (74-99) mg/dL POC Glucose (mg/dL) 153 H 163 H (75-99) mg/dL Calcium (8.4-10.2) mg/dL Total Protein (6.3-8.2) g/dL Albumin (3.5-5.0) g/dL 12/17/19 12/17/19 12/17/19 Range/Units 06:27 06:30 06:30 APTT 54.4 H (22.0-30.0) sec Sodium 148 H (137-145) mmol/L Chloride 122 H (98-107) mmol/L Carbon Dioxide 18 L (22-30) mmol/L BUN 75 H (9-20) mg/dL Creatinine 1.63 H (0.66-1.25) mg/dL Glucose 129 H (74-99) mg/dL POC Glucose (mg/dL) 136 H (75-99) mg/dL Calcium 7.5 L (8.4-10.2) mg/dL Total Protein 4.2 L (6.3-8.2) g/dL Albumin 2.1 L (3.5-5.0) g/dL 12/17/19 Range/Units 12:06 APTT (22.0-30.0) sec Sodium (137-145) mmol/L Chloride (98-107) mmol/L Carbon Dioxide (22-30) mmol/L BUN (9-20) mg/dL Creatinine (0.66-1.25) mg/dL Glucose (74-99) mg/dL POC Glucose (mg/dL) 137 H (75-99) mg/dL Calcium (8.4-10.2) mg/dL Total Protein (6.3-8.2) g/dL Albumin (3.5-5.0) g/dL Microbiology - Last 24 Hours (Table) 12/13/19 14:17 Blood Culture - Preliminary Blood No Growth after 72 hours Assessment and Plan Assessment: 1. Acute Covid 19 pneumonia with secondary acute hypoxic respiratory failure is currently the patient is recovering and on room air. The patient's pulmonary status is stable for now. 2. Acute kidney injury secondary to significant intravascular volume depletion/dehydration. BUN and creatinine both elevated but they're steadily improving as the patient is receiving IV fluids. 3. New-onset atrial flutter with rapid ventricular response , improved with amiodarone and the patient remains in a flutter/fibrillation. 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 11 altered mental status secondary to metabolic encephalopathy related toacute kidney injury and intravascular volume depletion. Also the patient s history of underlyin memory and cognition., Improving 12 CHF with an ejection fraction of 25% and small generalized pericardial effusion Plan The patient was seen and evaluated by Dr. Dawson Blake from the pulmonary standpoint, on room air Continuing on Plaquenil and steroids. Antibiotics in the form of ceftriaxone Anticoagulated with Eliquis Prognosis guarded Continue to follow I, the cosigning physician, performed a history & physical examination of the patient. Lungs sounds with crackles in the bilateral posterior bases. Maintaining good O2 saturations in the 90s on room air. I discussed the assessment and plan of care with my nurse practitioner, Romi Cee. I attest to the above note as dictated by her.
[2019-12-17] MEDS: APIXABAN 2.5 MG TABLET PO SCH ×2 (13:32→21:52)
--- NOTE | 2019-12-17 15:01 | P.PN ---
Subjective Patient is resting in bed. Mildly short of breath. Looks very frail and weak He remains in atrial flutter with a controlled ventricular response Denies any discomfort in the chest. He is mildly short of breath at rest on examination Afebrile 97.7F pulse rate in the 50s Respirations 16-18, blood pressure 160 ms from his mercury Reduce breath sounds bilaterally scattered rhonchi Heart sounds irregular. Abdomen soft Is warm \ Labs were reviewed Sodium 140 potassium 3.7 BUN 75 creatinine 1.63 Impression From now with controlled ventricular response I spoke to Dr. rivero. He will be reduce the dose of amiodarone to 200 mg by mouth daily Hypnology switched to APIXABAN 2.5 mg twice daily Nitropaste is been discontinued He is heading to the [facility] on Thursday Will follow Objective - Vital Signs Vital signs: Vital Signs Temp 97.7 F 12/17/19 08:57 Pulse 54 L 12/17/19 08:57 Resp 18 12/17/19 09:00 BP 116/74 12/17/19 08:57 Pulse Ox 97 12/17/19 08:57 Intake & Output 12/16/19 12/17/19 12/17/19 18:59 06:59 18:59 Intake Total 1902.761 270 20 Output Total 650 500 Balance 1252.761 270 -480 Weight 60.2 kg 69.5 kg Intake: IV 1270 30 20 Dextrose 5% in Water 1, 1160 000 ml @ 80 mls/hr IV . [id number] [facility] Rx#:[id number] Invasive Line 2 80 Invasive Line 3 30 30 20 Intake, IV Titration 362.761 Amount Amiodarone 300 mg In 250 Dextrose 5% in Water 250 ml @ 0.5 MG/MIN 25 mls/hr IV .Q10H [facility] Rx#: [id number] Diltiazem 125 mg In 101.25 Sodium Chloride 0.9% 100 ml @ Per Protocol IV .Q0M [facility] Rx#:[id number] Heparin Sod,Pork in 0.45% 11.511 NaCl 25,000 unit In 0.45 % NaCl 1 250ml.bag @ 12 UNITS/KG/HR 8.165 mls/hr IV .Q24H [facility] Rx#: [id number] Oral 270 240 Output: Urine 650 500 Other: Voiding Method Indwelling Catheter Indwelling Catheter Indwelling Catheter - Labs CBC & Chem 7: 12/16/19 04:45 12/17/19 06:30 Labs: Abnormal Lab Results - Last 24 Hours (Table) 12/16/19 12/16/19 12/17/19 Range/Units 16:54 20:24 06:27 APTT (22.0-30.0) sec Sodium (137-145) mmol/L Chloride (98-107) mmol/L Carbon Dioxide (22-30) mmol/L BUN (9-20) mg/dL Creatinine (0.66-1.25) mg/dL Glucose (74-99) mg/dL POC Glucose (mg/dL) 153 H 163 H 136 H (75-99) mg/dL Calcium (8.4-10.2) mg/dL Total Protein (6.3-8.2) g/dL Albumin (3.5-5.0) g/dL 12/17/19 12/17/19 12/17/19 Range/Units 06:30 06:30 12:06 APTT 54.4 H (22.0-30.0) sec Sodium 148 H (137-145) mmol/L Chloride 122 H (98-107) mmol/L Carbon Dioxide 18 L (22-30) mmol/L BUN 75 H (9-20) mg/dL Creatinine 1.63 H (0.66-1.25) mg/dL Glucose 129 H (74-99) mg/dL POC Glucose (mg/dL) 137 H (75-99) mg/dL Calcium 7.5 L (8.4-10.2) mg/dL Total Protein 4.2 L (6.3-8.2) g/dL Albumin 2.1 L (3.5-5.0) g/dL Microbiology - Last 24 Hours (Table) 12/13/19 14:17 Blood Culture - Preliminary Blood No Growth after 72 hours
[2019-12-17 17:37] LABS: Glucose,Whole Blood 113 mg/dL (75-99)
[2019-12-17 18:01] LABS: Glucose,Whole Blood 104 mg/dL (75-99)
[2019-12-17 20:25] LABS: Glucose,Whole Blood 119 mg/dL (75-99)
[2019-12-17] MEDS: VORTIOXETINE HYDROBROMIDE 10 MG TABLET PO SCH (21:53)
[2019-12-18] MEDS: DEXTROSE 5% IN WATER 1,000 ML IV SCH ×2 (04:29→13:39)
[2019-12-18 06:09] LABS: Glucose,Whole Blood 128 mg/dL (75-99)
[2019-12-18] MEDS: INSULIN ASPART (NovoLOG) 100 UNIT/ML VIAL SQ SCH ×4 (06:45→21:07)
[2019-12-18 08:34] LABS: Calcium 7.5 mg/dL (8.4-10.2); Potassium 3.9 mmol/L (3.5-5.1)
--- NOTE | 2019-12-18 09:50 | P.PN ---
Subjective Progress Note Date: 12/18/19 84-year-old male who was in the hospital in November 12 till November 16 for acute bilateral pneumonia and high temperature and chills was seen in the pulmonary and treated at the time with the significant improvement was in acute hypoxic respiratory failure Covid 19 that time was ruled out patient was having more COPD exacerbation with worsening dementia and mild lactic acidosis. He was treated and has done well was sent to [facility] on budesonide and albuterol inhaler along with changing his blood pressure medication for better management of kidney function to be seen by his primary care Dr. House or to see by Dr. Mendiola at the [facility] at the time. Patient brought to the emergency department at [facility] today 12/13/2019 because of very high fever or chills tachycardia severe shortness of breath with high suspicion for Covid 19 infection this time because of his roommate was diagnosed with it recently. At the time was seen at the emergency department patient pulse rate was very high he was having low urine output significant hypertension with severely dehydrated with temperature running at 97 or 98 his pulse ox on 8 L was on at 97 percentile only. Patient lactic acid was significantly elevated at 3.7 his C-reactive protein with 65.2 his LDH was 1098. And I suspected Covid 19 was positive this time. Patient was seen by Dr. Osman and pulmonary at the emergency department decided to place central line and start patient on challenge IV hydration of 3 toward the time patient had extremely high risk up being intubated with extreme high mortality at this point with the worsening kidney failure with severe tachycardia with a flutter did not respond to challenge with adenosine patient was to replace on Cardizem drip to bring his pulse rate down and was transferred to the ICU afterward after giving him a bolus of amiodarone and started on amiodarone drip to keep his pulse rates below 90. Patient was started on hydrochloric when 400 mg twice a day with Solu-Medrol 30 mg twice a day was continue on heparin drip for A. fib/A flutter and 1 g of Rocephin was giving. 12/13: Patient has not required intubation. He is currently pulse ox 97% on 4 L nasal cannula. He has been afebrile, heart rate 97-114. Patient is now converted to normal sinus rhythm. Repeat blood work reveals WBC 11.9, hemoglobin 14.2, platelet count 159. D-dimer 5.29. Sodium 145, potassium 4.2, chloride 119, CO2 16, BUN 127, creatinine 2.83. Repeat lactic acid 1.8. Tro ponin 0.092. Patient has been seen by Dr. Mancera with recommendations to continue IV amiodarone at the time of his evaluation as well as heparin IV. Lopressor was increased to 25 mg twice daily. Echocardiogram reveals EF of 25- 30%, trace mitral regurgitation, trace tricuspid regurgitation, small generalized pericardial effusion. Repeat chest x-ray reveals similar patchy right mid lung airspace disease likely unifocal pneumonia. Patient is continued in [address] He is on the Plaquenil protocol as well as Solu-Medrol 30 mg IV every 12 hours and Rocephin. Patient is followed by Dr. Osman and consult in place with nephrology as well. 12/14: Patient remains in the intensive care unit in [facility]. Cardiology has switched him to oral amiodarone at 400 mg twice daily. Patient Patient is still on a heparin drip which is going to be continued for now. Patient was alvina luated by speech therapy this morning and found to have worsening swallow and made strict nothing by mouth. Patient is afebrile, heart rate in the 60s and 70s, blood pressure 137/80, pulse ox 94% on 3 L nasal cannula. Repeat blood work reveals a CBC of 9.2, hemoglobin 12.9, platelet count 147. D-dimer 4.16, ferritin 944.7, LDH 1107, CK 536, C reactive protein 62.3. A BUN 103 and creatinine 2.16. Repeat chest x-ray reveals chronic principal changes with persistent lateral right mid lung acute infiltrate and slightly more prominent left basal atelectasis and/or infiltrate 12/15: Patient has been transferred to the cardiac stepdown unit. He is currently off oxygen and pulse oxing 95-97%. He has been afebrile, heart rate 76, blood pressure 139/90. Repeat blood work reveals WBC 9.7, hemoglobin 12.5, platelet count 177. D-dimer 3.85, LDH 944, C-reactive protein 42. Sodium 149 and IV fluids changed to D5W. Potassium 3.6, chloride 126, CO2 17, BUN 70 and creatinine 1.67. Blood sugars running between 128 and 142. Patient has good urine output. We will plan to remove triple-lumen from the right groin area patient has other IV access. Anticipate discharge back to [facility]CF on Thursday. 12/16: Patient remains on cardiac stepdown unit, vital signs are stable. Pulse ox 96% on room air, he is afebrile heart rate 54, blood pressure 103/57. Heart rate was 54 this morning spoke with cardiology decreased amiodarone 200 mg daily. Labs were reviewed, BUN 75 creatinine 1.63. IV fluids remain in place. Blood sugars are stable. Remains on modified diet. Anticipated discharge to ECF on Thursday. 12/17: Patient seen and examined this morning. Awaiting anticipated discharge to ECF on Thursday. Patient denies any major complaints this morning. He is afebrile heart rate 58, blood pressure 147/72, pulse ox 98% on 2 L via nasal cannula. Blood sugars have been stable. Labs were reviewed, BUN 67 creatinine 1.39. PT, OT, and speech remain on the case. Objective - Vital Signs Vital signs: Vital Signs Temp 98.2 F 12/18/19 03:20 Pulse 58 L 12/18/19 03:20 Resp 22 12/18/19 03:20 BP 147/72 12/18/19 03:20 Pulse Ox 98 12/18/19 03:20 Intake & Output 12/17/19 12/18/19 12/18/19 18:59 06:59 18:59 Intake Total 1050 20 90 Output Total 500 Balance 550 20 90 Weight 71 kg Intake: IV 990 20 Dextrose 5% in Water 1, 960 000 ml @ 80 mls/hr IV . [id number] Rx#:[id number] Invasive Line 3 30 20 Oral 60 90 Output: Urine 500 Other: Voiding Method Indwelling Catheter Indwelling Catheter # Voids 0 - Exam Review of Systems CONSTITUTIONAL: Elderly looks man appears malnourished. Patient resting in bed. No respiratory distress noted. EYES: No icterus sclerae, no conjunctivitis. EARS, NOSE, MOUTH, THROAT, and FACE: No sore throat, lymphadenopathy, carotid bruits or deformity. Significant for dry mucosa. RESPIRATORY: Positive shortness of breath with exertion, positive cough wheezes. CARDIOVASCULAR: Positive PND orthopnea and palpitation GASTROINTESTINAL: No Abd pain, Nausea or vomiting, no Diarrhea or constipation, No GI Bleed, no distention or masses. GENITOURINARY: BPH. INTEGUMENT/BREAST: Negative for any muscular injury with mild osteoarthritis.. HEMATOLOGIC/LYMPHATIC: Negative for bleed or purpura. MUSCULOSKELTAL: Negative for Myalgia or arthralgia. NEURLOGICAL: Parkinson disease with significant altered mental status with some confusion. BEHAVIORAL/PSYCH: Negative. ENDOCRINE: Negative. Physical examination General Appearance: This is an 84-year-old male. He is resting comfortably in bed. No respiratory distress noted. Neck HEENT: Supple, no lymphadenopathy, no thyroid enlargement, no carotid bruits. Significant for dry mucosa. Lungs: Decreased breath sound in the bases bilaterally. No accessory muscle usage. Chest Wall: Decrease expansion with deep inspiration no tenderness and no deformity was found on exam, no costochondral pain or discomfort. Heart: Irregular rate and rhythm, S1, S2, positive systolic murmur. Back: Symmetric, no curvature, ROM normal, no CVA tenderness. Abdomen: Soft, non-tender, bowel sounds active all four quadrants, no masses, no organomegaly. Extremities: Extremities normal, atraumatic, no cyanosis or edema. Pulses: 2+ and symmetric. Skin: Skin color, texture, tugor normal, no rashes or lesions. Neurologic: Alert, mild tremor present, cranial nerves 2-12 intact, positive generalized weakness, no focal deficit with significant memory loss. - Labs CBC & Chem 7: 12/16/19 04:45 12/18/19 07:58 Labs: Abnormal Lab Results - Last 24 Hours (Table) 12/17/19 12/17/19 12/17/19 Range/Units 12:06 17:35 17:59 Chloride (98-107) mmol/L Carbon Dioxide (22-30) mmol/L BUN (9-20) mg/dL Creatinine (0.66-1.25) mg/dL Glucose (74-99) mg/dL POC Glucose (mg/dL) 137 H 113 H 104 H (75-99) mg/dL Calcium (8.4-10.2) mg/dL 12/17/19 12/18/19 12/18/19 Range/Units 20:24 06:07 07:58 Chloride 118 H (98-107) mmol/L Carbon Dioxide 20 L (22-30) mmol/L BUN 67 H (9-20) mg/dL Creatinine 1.39 H (0.66-1.25) mg/dL Glucose 126 H (74-99) mg/dL POC Glucose (mg/dL) 119 H 128 H (75-99) mg/dL Calcium 7.5 L (8.4-10.2) mg/dL Microbiology - Last 24 Hours (Table) 12/13/19 14:17 Blood Culture - Preliminary Blood No Growth after 96 hours Assessment and Plan Plan: 1. Acute hypoxic respiratory failure secondary to acute Covid 19 infection along with gram-negative pneumonia associated with acute A. fib a flutter with acute heart failure as well and acute renal failure. Patient is on Plaquenil protocol. Continue Rocephin IV. Consult with Dr. Osman appreciated. 2. Acute Covid 19 pneumonitis. Continue as in #1. 3. Acute kidney injury with acute tubular necrosis and non-gap metabolic acid osis. Nephrology consult appreciated. Patient was started on sodium bicarb and recommends continuing to hold Wilfrid/ARB and avoid nephrotoxic medications. 4. New-onset of atrial flutter with rapid ventricular response, converted to normal sinus rhythm. Patient followed by cardiology. Amiodarone decreased to 200 mg daily, anticoagulated with Eliquis 2.5 mg twice a day 5. Hypernatremia. IV fluids changed to D5W. 6. Acute lactic acidosis secondary to COVID-19 infection and sepsis, present on admission. 7. Elevated troponin: Most likely from hypoperfusion related to atrial flutter. 8. Severe protein calorie malnutrition with poor oral intake and complicated by NPO status. Magic cups ordered 3 times daily. 9. Dysphagia. Speech therapy evaluation appreciated. Patient cleared for pured and honey thick liquids. Patient not candidate for PEG placement. Continue aspiration precautions. 10. 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 Hold ACEI/ARB secondary to acute kidney injury. 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 Continue Requip 0.5 mg twice daily, Exelon patch daily, Sinemet 4 times a day. 12. BPH. Patient is on Keith catheter. 13. Hypertension. Continue hydralazine 25 mg twice daily, Lopressor 25 mg twice daily. Hold losartan 14. COPD without exacerbation.. 15. GI prophylaxis: continue pantoprazole. 16. DVT prophylaxis. on Eliquis CODE STATUS: No code but okay for intubation Discharge plan: Return to [facility] on Thursday. Impression and plan of care have been directed as dictated by the signing physician. Delia Salgado nurse practitioner acting as scribe for signing physician.
[2019-12-18] MEDS: APIXABAN 2.5 MG TABLET PO SCH ×2 (10:27→21:12)
[2019-12-18] MEDS: AMIODARONE 200 MG TAB PO SCH (10:27)
[2019-12-18] MEDS: CARBIDOPA-LEVODOPA 25-100 MG 1 EACH TAB PO SCH ×4 (10:27→21:12)
[2019-12-18] MEDS: hydrALAZINE HCL 25 MG TAB PO SCH ×2 (10:28→21:12)
[2019-12-18] MEDS: CHOLECALCIFEROL 1,000 UNIT TAB PO SCH (10:28)
[2019-12-18] MEDS: ASPIRIN 81 MG PO SCH (10:28)
[2019-12-18] MEDS: METOPROLOL TARTRATE 25 MG TAB PO SCH ×2 (10:29→21:12)
[2019-12-18] MEDS: TAMSULOSIN 0.4 MG CAP.ER.24H PO SCH (10:29)
[2019-12-18] MEDS: HYDROXYCHLOROQUINE SULFATE 200 MG TAB PO SCH (10:29)
[2019-12-18] MEDS: SODIUM BICARBONATE TAB 650 MG TAB PO SCH ×2 (10:29→21:12)
[2019-12-18] MEDS: POLYETHYLENE GLYCOL 3350 17 GM POWD.PACK PO SCH (10:30)
[2019-12-18] MEDS: PANTOPRAZOLE 40 MG/10 ML VIAL IVP SCH (10:40)
[2019-12-18] MEDS: methylPREDNISolone SOD SUCCI 40 MG/ML 1 ML VIAL IV SCH ×2 (10:40→21:13)
--- NOTE | 2019-12-18 11:43 | PN ---
PROGRESS NOTE Patient is seen for followup for acute kidney injury associated with underlying Covid infection and hypovolemia. Renal function has improved with creatinine now down to 1.39 from 4.0 on initial admission. Patient however, has developed hypernatremia for which he was started on D5W and his sodium has also improved today to 143. PHYSICAL EXAMINATION: On examination, the patient is comfortable. His mentation has improved. Blood pressure this morning 147/72, heart rate 58 per minute. He is euvolemic, with no evidence of edema in his lower extremities. LABS SHOW: Today sodium 143, potassium 3.9, chloride 118, CO2 is 20, BUN 67 serum creatinine 1.39, calcium 7.5 mg/dL. ASSESSMENT: 1. Acute kidney injury associated with underlying COVID infection and hypovolemia currently resolved. The currently significantly improved. 2. Hypernatremia associated with free water deficit, improved. Continue D5W for now changed to half-normal saline tomorrow. 3. History of Parkinson disease. 4. Mental status changes on admission, currently improved. 5. History of baseline dementia. 6. Covid-19 pneumonia status post hydroxychloroquine and steroids. 7. Metabolic acidosis maintained on sodium bicarb, currently improving. PLAN: Continue with sodium bicarb. Continue with D5W. Continue to encourage increased oral intake repeat labs in a.m. Avoid nephrotoxic agents. MMODL / IJN: [id number] /
[2019-12-18 11:49] LABS: Glucose,Whole Blood 115 mg/dL (75-99)
--- NOTE | 2019-12-18 12:55 | P.PN ---
Subjective Progress Note Date: 12/18/19 Principal diagnosis: Acute hypoxic respiratory failure secondary to an acute CoVID 19 pneumonia 84-year-old male patient of [facility] detention resident with multiple medical problems and comorbidities, resides at the detention, brought into the emergency department because of altered mental status. The patient was brought via EMS as the patient was having generalized weakness, lethargy, altered mentation and diminished level of consciousness and the same time the patient was having increased cough. Note that the patient's roommate at the detention diagnosed having a COVID 19 infection and this was obviously concern. At a time of the arrival, the patient was found to be quite tachycardic with a heart rate in the 160 range. SVT was suspected and the patient was given adeno C without any improvement. Subsequent EKG revealed that the patient was in a flutter rhythm at the rate of 160. Blood work that was done in the emergency department revealed that the patient was in an acute kidney injury. BUN was 148. Creatinine was at 4.03. His sodium level was 147. Chloride was 112. Lactic acid level was at 3.7. Troponin was 0.3. The patient had a white cell count of 12.4. Furthermore he checked positive for Covid 19 infection based on the records nasopharyngeal screen. The LDH was quite elevated at 1098. This was also consistent with Covid 19 infection. D-dimer was at 4.27. The CAT scan of the brain showed no acute intracranial hemorrhage or abnormalities. There was diffuse age-related cerebral atrophy and chronic small vessel ischemic change in addition to bilateral old or corneal injuries involving the basal ganglia. The patient's chest x-ray revealed a faint right midlung airspace disease and this was partially obscured by external pacing devices. The remainder of the lungs were essentially clear. I saw this patient emergency department. He was quite lethargic yet arousable. He was on 8 L of oxygen by nasal cannula and is pulse oxing in the range of 92%. His heart rate was quite rapid ranging between 155 and 165. The patient had a systolic blood pressure as low as 92/72. The patient was given IV fluid bolus sees and the patient received a total of 3 L in the emergency department and a 43 was given in the ICU and the patient was started on a maintenance of 150 mL of normal saline. Keith cath is in place. Urine output is diminished. He did not require any pressors. He was started on amiodarone bolus and maintenance which improved his heart rate and so was becoming more clear that the patient was in and out of A flutter I established a triple-lumen catheter in the right femoral vein. The patient was low quite emaciated cachectic and very weak. Note that this patient was in the hospital around a month ago specifically on 11/10/2018. He was evaluated and treated through our services the patient was having increased dyspnea cough and fever. At that time the Covid 19 evaluation came back negative. Note that the patient also has advanced dementia, Parkinson's disease, depression, BPH, hypertension. He has also had previous cerebral infarct involving the basal ganglia as discussed above. He has BPH as other comorbid conditions. He is a former smoker. He is a detention resident. On today's evaluation of 12/14/2019, the patient remains in intensive care unit and the patient is being resuscitated IV fluids. The patient has already received a total of 47 fluid and currently the patient on normal saline at the rate of 150 mL an hour. The patient is on 4 L of oxygen by nasal cannula with a pulse of 96%. The patient's heart rate has improved as the patient was given IV amiodarone bolus and maintenance and the patient's rhythm is still A. fib/flutter however on that much better controlled rate. Echo was done and the patient ejection fraction was around 25-30% with mild mitral regurgitation, tricuspid regurgitation and small generalized pericardial effusion. Chest x-ray is showing patchy right mid airspace disease related to Covid 19 related pneumonia. The patient remains on the opposite isolation. The patient remains afebrile. The patient on IV Solu-Medrol 30 mg every 12 hours. The patient is still very weak and debilitated. He failed his swallow evaluation, going to g harvey him another 24 hours. He remains on IV heparin. His hemoglobin is at 14.2. The patient's serum bicarbonate 16. Creatinine is improving is down to 2.3 with a mean of 127. The LDH level is 1168. His C-reactive protein is 66. LEVEL WAS 0.33. The pro calcitonin Level was 0.33. On 12/15/2019, the patient seems to be more alert and awake and he is communicating in talking to us back. A swallow evaluation was done and the patient did not pass the swallow evaluation. The speech pathologist actually said that the patient's swallow was worse compared to yesterday. Based on that, no oral medications or diet will be given to this patient today. Overall, the patient is doing well. The patient is receiving IV fluids and the patient's function continues to improve slowly. The patient's BUN is down to 103 and the creatinine is down to 2.16 and both of these numbers are improving. The sodium level is at 144. The serum bicarbonate 17 and the patient continues to receive normal saline for a total of 150 mL an hour. The patient remains in atrial fibrillation. Rate is controlled and the patient was on amiodarone at 0.5 mg an hour for A. fib/flutter with RVR which is essentially controlled rate. The patient is also taking Plaquenil for Covid 19 related pneumonia. The patient h as no worsening shortness of breath. No significant cough or sputum production. The patient's pulse ox is 95% liters of oxygen by nasal cannula. The patient is afebrile for now. Also, the patient has no nausea vomiting diarrhea abdominal pain. The patient remains on IV heparin regarding atrial fibrillation. LDH level is at 1107 and C-reactive protein is at 536 and both of these values are remaining quite elevated without any significant improvement compared to yesterday. The lactic acid level is down to 1.8. The patient is seen today 12/16/2019 in follow-up on the selective care unit. He is currently resting in bed. Awake and alert. Answering a few questions. Currently maintaining O2 saturations in the mid 90s on room air. He's been afebrile. Hemodynamically stable. Still having issues with swallowing. The patient does have advanced dementia. He had been seen and evaluated by speech therapy. The patient has been placed on nothing by mouth. White count 9.7. Hemoglobin 12.5. D-dimer 3.85. Sodium 149. Bicarb 17. Creatinine 1.67. LDH 944. C-reactive protein 42. The patient is seen today 12/17/2019 in follow-up on the selective care unit. He is currently resting comfortably in bed. Awake and more alert today. Continues to maintain good O2 saturations in the mid 90s on room air. He's afebrile. Hemodynamically stable. Blood culture reveals no growth. Sodium 148. Potassium 3.7. Bicarb 18. Creatinine 1.63. He is continued on sodium bicarb tablets. Continued on Plaquenil. Remains on antibiotics in the form of ceftriaxone. Remains on IV Solu-Medrol. Anticoagulated with Eliquis. The patient is seen today 12/18/2019 in follow-up on the selective care unit. He is awake and alert in no acute distress. Denies any worsening shortness of breath, cough or congestion. Maintaining good O2 saturations in the mid 90s on room air. He's afebrile. Hemodynamically stable. Blood culture reveals no growth. Sodium 143. Potassium 3.9. Bicarb 20. Creatinine 1.39. Glucose 126. Objective - Vital Signs Vital signs: Vital Signs Temp 98.2 F 12/18/19 03:20 Pulse 58 L 12/18/19 03:20 Resp 22 12/18/19 03:20 BP 147/72 12/18/19 03:20 Pulse Ox 98 12/18/19 03:20 Intake & Output 12/17/19 12/18/19 12/18/19 18:59 06:59 18:59 Intake Total 1050 20 90 Output Total 500 Balance 550 20 90 Weight 71 kg Intake: IV 990 20 Dextrose 5% in Water 1, 960 000 ml @ 80 mls/hr IV . [id number] [facility] Rx#:[id number] Invasive Line 3 30 20 Oral 60 90 Output: Urine 500 Other: Voiding Method Indwelling Catheter Indwelling Catheter # Voids 0 - Exam GENERAL EXAM: More awake and alert today, cachectic, emaciated 84-year-old gentleman, maintaining good O2 saturations in the 90s on room air, comfortable in no apparent distress. HEAD: Normocephalic/atraumatic. There is temporal wasting EYES: Normal reaction of pupils, equal size. Conjunctiva pink, sclera white. NOSE: Clear with pink turbinates. THROAT: No erythema or exudates.the mucous membranes are extremely dry NECK: No masses, no JVD, no thyroid enlargement, no adenopathy. CHEST: No chest wall deformity. Symmetrical expansion. LUNGS: Equal air entry with basilar crackles CVS: Regular rate and rhythm, normal S1 and S2, the patient is consistently tachycardic consistent with atrial flutter rhythm no gallops, no murmurs, no rubs ABDOMEN: Soft, nontender. No hepatosplenomegaly, normal bowel sounds, no guarding or rigidity. EXTREMITIES: No clubbing, no edema, no cyanosis, 1+ pulses and upper and lower extremities.nfected extremities are showing significant muscle atrophy and some contractures in lower extremities bilaterally MUSCULOSKELETAL: Muscle strength and tone is significant diminished and the patient has cogwheel rigidity related to his Parkinson's disease SPINE: No scoliosis or deformity SKIN: No rashes CENTRAL NERVOUS SYSTEM: Awake, neurologic exam is nonfocal. There is some re sting tremors. - Labs CBC & Chem 7: 12/16/19 04:45 12/18/19 07:58 Labs: Abnormal Lab Results - Last 24 Hours (Table) 12/17/19 12/17/19 12/17/19 Range/Units 17:35 17:59 20:24 Chloride (98-107) mmol/L Carbon Dioxide (22-30) mmol/L BUN (9-20) mg/dL Creatinine (0.66-1.25) mg/dL Glucose (74-99) mg/dL POC Glucose (mg/dL) 113 H 104 H 119 H (75-99) mg/dL Calcium (8.4-10.2) mg/dL 12/18/19 12/18/19 12/18/19 Range/Units 06:07 07:58 11:45 Chloride 118 H (98-107) mmol/L Carbon Dioxide 20 L (22-30) mmol/L BUN 67 H (9-20) mg/dL Creatinine 1.39 H (0.66-1.25) mg/dL Glucose 126 H (74-99) mg/dL POC Glucose (mg/dL) 128 H 115 H (75-99) mg/dL Calcium 7.5 L (8.4-10.2) mg/dL Microbiology - Last 24 Hours (Table) 12/13/19 14:17 Blood Culture - Preliminary Blood No Growth after 96 hours Assessment and Plan Assessment: 1. Acute Covid 19 pneumonia with secondary acute hypoxic respiratory failure is currently the patient is recovering and on room air. The patient's pulmonary status is stable for now. 2. Acute kidney injury secondary to significant intravascular volume depletion/dehydration. BUN and creatinine both elevated but they're steadily improving as the patient is receiving IV fluids. 3. New-onset atrial flutter with rapid ventricular response , improved with amiodarone and the patient remains in a flutter/fibrillation. 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 11 altered mental status secondary to metabolic encephalopathy related toacute kidney injury and intravascular volume depletion. Also the patient s history of underlyin memory and cognition., Improving 12 CHF with an ejection fraction of 25% and small generalized pericardial effusi on Plan The patient was seen and evaluated by Dr. Dawson Blake from the pulmonary standpoint, on room air Discharge planning. We will continue to follow I, the cosigning physician, performed a history & physical examination of the patient. Lungs sounds with crackles in the bilateral posterior bases. Maintaining good O2 saturations in the 90s on room air. I discussed the a ssessment and plan of care with my nurse practitioner, Romi Cee. I attest to the above note as dictated by her.
[2019-12-18] MEDS: RIVASTIGMINE 4.6MG/24HR PATCH TRANSDERM SCH (13:37)
--- NOTE | 2019-12-18 16:06 | P.PN ---
Subjective Patient is resting in bed. He started to eat at this time but he coughs regularly while he is being fed. He remains in sinus rhythm His breath sounds are reduced bilaterally no crackles Heart sounds are soft Abdomen is soft Labs reviewed sodium 143, potassium 3.9, BUN 67, creatinine 1.4 Blood pressure 129/79 mmHg, afebrile at 7.9F Pulse rate in the 50s sinus rhythm Suggest Continue current medications without any changes Objective - Vital Signs Vital signs: Vital Signs Temp 98.2 F 12/18/19 03:20 Pulse 58 L 12/18/19 03:20 Resp 22 12/18/19 03:20 BP 147/72 12/18/19 03:20 Pulse Ox 98 12/18/19 03:20 Intake & Output 12/17/19 12/18/19 12/18/19 18:59 06:59 18:59 Intake Total 1050 20 330 Output Total 500 900 Balance 550 20 -570 Weight 71 kg Intake: IV 990 20 Dextrose 5% in Water 1, 960 000 ml @ 80 mls/hr IV . [id number] [facility] Rx#:[id number] Invasive Line 3 30 20 Oral 60 330 Output: Urine 500 900 Other: Voiding Method Indwelling Catheter Indwelling Catheter # Voids 0 - Labs CBC & Chem 7: 12/16/19 04:45 12/18/19 07:58 Labs: Abnormal Lab Results - Last 24 Hours (Table) 12/17/19 12/17/19 12/17/19 Range/Units 17:35 17:59 20:24 Chloride (98-107) mmol/L Carbon Dioxide (22-30) mmol/L BUN (9-20) mg/dL Creatinine (0.66-1.25) mg/dL Glucose (74-99) mg/dL POC Glucose (mg/dL) 113 H 104 H 119 H (75-99) mg/dL Calcium (8.4-10.2) mg/dL 12/18/19 12/18/19 12/18/19 Range/Units 06:07 07:58 11:45 Chloride 118 H (98-107) mmol/L Carbon Dioxide 20 L (22-30) mmol/L BUN 67 H (9-20) mg/dL Creatinine 1.39 H (0.66-1.25) mg/dL Glucose 126 H (74-99) mg/dL POC Glucose (mg/dL) 128 H 115 H (75-99) mg/dL Calcium 7.5 L (8.4-10.2) mg/dL Microbiology - Last 24 Hours (Table) 12/13/19 14:17 Blood Culture - Preliminary Blood No Growth after 96 hours
[2019-12-18 16:44] LABS: Glucose,Whole Blood 150 mg/dL (75-99)
[2019-12-18 16:56] LABS: Glucose,Whole Blood 174 mg/dL (75-99)
[2019-12-18 20:37] LABS: Glucose,Whole Blood 156 mg/dL (75-99)
[2019-12-18] MEDS: VORTIOXETINE HYDROBROMIDE 10 MG TABLET PO SCH (21:13)
[2019-12-19] MEDS: DEXTROSE 5% IN WATER 1,000 ML IV SCH (03:29)
[2019-12-19 06:30] LABS: Glucose,Whole Blood 111 mg/dL (75-99)
[2019-12-19] MEDS: INSULIN ASPART (NovoLOG) 100 UNIT/ML VIAL SQ SCH ×4 (06:42→21:09)
[2019-12-19 09:56] VITALS: BMI 25.4
[2019-12-19] MEDS: CARBIDOPA-LEVODOPA 25-100 MG 1 EACH TAB PO SCH ×4 (10:08→21:14)
[2019-12-19] MEDS: RIVASTIGMINE 4.6MG/24HR PATCH TRANSDERM SCH (10:08)
[2019-12-19] MEDS: ASPIRIN 81 MG PO SCH (10:08)
[2019-12-19] MEDS: AMIODARONE 200 MG TAB PO SCH (10:08)
[2019-12-19] MEDS: CHOLECALCIFEROL 1,000 UNIT TAB PO SCH (10:08)
[2019-12-19] MEDS: APIXABAN 2.5 MG TABLET PO SCH ×2 (10:08→21:14)
[2019-12-19] MEDS: hydrALAZINE HCL 25 MG TAB PO SCH ×2 (10:09→21:15)
[2019-12-19] MEDS: methylPREDNISolone SOD SUCCI 40 MG/ML 1 ML VIAL IV SCH (10:09)
[2019-12-19] MEDS: PANTOPRAZOLE 40 MG TABLET PO SCH (10:09)
[2019-12-19] MEDS: POLYETHYLENE GLYCOL 3350 17 GM POWD.PACK PO SCH (10:09)
[2019-12-19] MEDS: SODIUM BICARBONATE TAB 650 MG TAB PO SCH ×2 (10:10→21:15)
[2019-12-19] MEDS: TAMSULOSIN 0.4 MG CAP.ER.24H PO SCH (10:10)
[2019-12-19 10:14] LABS: Calcium 7.4 mg/dL (8.4-10.2); Magnesium 2.2 mg/dL (1.6-2.3); Potassium 3.9 mmol/L (3.5-5.1)
[2019-12-19] MEDS: METOPROLOL TARTRATE 25 MG TAB PO SCH (10:36)
--- NOTE | 2019-12-19 10:46 | P.PN ---
Subjective Patient is seen in follow-up for acute kidney injury and hypernatremia. Sodium level is 138 today. Renal function is also slightly better. Patient is currently sleeping. Oral intake has been fair. He is nonoliguric. Vital signs are stable. General: The patient appeared well nourished and normally developed. HEENT: Head exam is unremarkable. Neck is without jugular venous distension. LUNGS: Lungs are clear to auscultation and percussion. Breath sounds decreased. HEART: Rate and Rhythm are regular. ABDOMEN: No distention noted. EXTREMITITES: Edema in the feet noted. Objective - Vital Signs Vital signs: Vital Signs Temp 97.7 F 12/19/19 04:00 Pulse 58 L 12/19/19 04:00 Resp 20 12/19/19 04:00 BP 130/70 12/19/19 04:00 Pulse Ox 98 12/19/19 04:00 Intake & Output 12/18/19 12/19/19 12/19/19 18:59 06:59 18:59 Intake Total 450 40 Output Total 1200 775 Balance -750 -775 40 Weight 71.5 kg 71.5 kg Intake: Oral 450 40 Output: Urine 1200 775 Other: Voiding Method Indwelling Catheter Indwelling Catheter # Voids 0 - Labs CBC & Chem 7: 12/16/19 04:45 12/19/19 09:46 Labs: Abnormal Lab Results - Last 24 Hours (Table) 12/18/19 12/18/19 12/18/19 Range/Units 11:45 16:38 16:55 Chloride (98-107) mmol/L Carbon Dioxide (22-30) mmol/L BUN (9-20) mg/dL Creatinine (0.66-1.25) mg/dL Glucose (74-99) mg/dL POC Glucose (mg/dL) 115 H 150 H 174 H (75-99) mg/dL Calcium (8.4-10.2) mg/dL 12/18/19 12/19/19 12/19/19 Range/Units 20:35 06:29 09:46 Chloride 114 H (98-107) mmol/L Carbon Dioxide 20 L (22-30) mmol/L BUN 59 H (9-20) mg/dL Creatinine 1.27 H (0.66-1.25) mg/dL Glucose 103 H (74-99) mg/dL POC Glucose (mg/dL) 156 H 111 H (75-99) mg/dL Calcium 7.4 L (8.4-10.2) mg/dL Microbiology - Last 24 Hours (Table) 12/13/19 14:17 Blood Culture - Preliminary Blood No Growth after 120 hours Assessment and Plan Plan: Assessment: 1. Acute kidney injury mostly prerenal improved with IV hydration. Creatinine was 4.03 on admission and is down to 1.27 today. 2. Hypernatremia secondary to lack of oral water intake. Resolved. 3. Covid-19 pneumonia status post Plaquenil and steroids. 4. Metabolic acidosis secondary to acute kidney injury maintained on oral bicarb. 5. A. fib maintained on amiodarone and Lopressor. Also on anticoagulation. 6. Benign hypertension. Controlled. Plan: Hep-Lock IV fluids. Encouraged oral intake. Repeat electrolytes in the morning.
--- NOTE | 2019-12-19 11:01 | CDI ---
Documentation Clarification Form Date: 12/19/2019 10:11:16 AM From: Laura Torres Phone: Admit Date: 12/13/2019 05:59:00 PM Patient Name: Andre Rocha Visit Number: [id number] Discharge Date: ATTENTION: The Clinical Documentation Specialists (CDI) and [facility] Coding Staff appreciate your assistance in clarifying documentation. Please respond to the clarification below the line at the bottom and electronically sign. The CDI & [facility] Coding staff will review the response and follow-up if needed. Please note: Queries are made part of the Legal Health Record. If you have any questions, please contact the author of this message via ITS. Dr. Luc Osman Atrial Fibrillation/Flutter is documented in the progress note starting on 12/14/19 and further clarification is needed to specify the atrial fibrillation. History/Risk Factors: Hypertension, Parkinsons disease, Former smoker Clinical Indicators: 84-year-old male presented on 12/12 with decreased oral intake, mental status change. The patient was ruled in for positive Covid 19 related pneumonia. EKG: narrow complete tachycardia with rate of 165. Suspicion for underlying atrial flutter. 12/15 Cardiology (Dr. Mancera) Atrial Flutter typical, type 1 Treatment: Telemetry monitoring Aspirin 81 po bid Cardizem IV 125 mg 12/12 change to Amiodarone 150 mg IV, Change to 200 mg po daily Heparin IV @8.165 mls/hr 12/12-12/16 Change to Eliquis 2.5 mg po BID Monitor PT/INR Lopressor 12.5 mg po bid In your professional opinion, can you please clarify the type of Atrial Fibrillation, if known? Chronic/Permanent Paroxysmal Persistent Other, please specify Unable to determine (Last Revision: November 2017) Paroxysmal MTDD
--- NOTE | 2019-12-19 11:04 | XR ---
EXAMINATION TYPE: XR chest 1V portable DATE OF EXAM: 12/19/2019 COMPARISON: 12/15/2019 HISTORY: Pneumonia. Follow-up exam. TECHNIQUE: Single frontal view of the chest is obtained. FINDINGS: There is a mildly enlarged cardiomediastinal silhouette to the left secondary to patient r otation. Dextroscoliosis of the thoracic spine may be positional. There is retrocardiac airspace dise ase obscuring the medial hemidiaphragm border. Patient's chin obscures the left lung apex and cannot be evaluated. No additional focal consolidation of the lungs. Diffuse osseous demineralization. IMPRESSION: Increasing retrocardiac opacity that may represent atelectasis or pneumonia.
[2019-12-19 11:10] LABS: Glucose,Whole Blood 100 mg/dL (75-99)
--- NOTE | 2019-12-19 12:07 | P.PN ---
Subjective Progress Note Date: 12/19/19 This is an 84-year-old male patient of mine long-term resident with multiple medical problems and comorbidities, resides at the long-term, brought into the emergency department because of altered mental status. The patient was brought via EMS as the patient was having generalized weakness, lethargy, altered mentation and diminished level of consciousness and the same time the patient was having increased cough. Note that the patient's roommate at the long-term diagnosed having a COVID 19 infection and this was obviously concern. At a time of the arrival, the patient was found to be quite tachycardic with a heart rate in the 160 range. SVT was suspected and the patient was given adeno C without any improvement. Subsequent EKG revealed that the patient was in a flutter rhythm at the rate of 160. Blood work that was done in the emergency department revealed that the patient was in an acute kidney injury. BUN was 148. Creatinine was at 4.03. His sodium level was 147. Chloride was 112. Lactic acid level was at 3.7. Troponin was 0.3. The patient had a white cell count of 12.4. Furthermore he checked positive for Covid 19 infection based on the records nasopharyngeal screen. The LDH was quite elevated at 1098. This was also consistent with Covid 19 infection. D-dimer was at 4.27. The CAT scan of the brain showed no acute intracranial hemorrhage or abnormalities. There was diffuse age-related cerebral atrophy and chronic small vessel ischemic change in addition to bilateral old or corneal injuries involving the basal ganglia. The patient's chest x-ray revealed a faint right midlung airspace disease and this was partially obscured by external pacing devices. Patient was started initially on IV amiodarone. He is on oral amiodarone this time. Anticoagulated with Eliquis 2-1/2 mg one tablet by mouth twice a day. He is also on 12-1/2 mg of metoprolol twice a day. That dose was decreased this morning because patient's heart rate was running around 50. Let pressure 108/60. 97% on room air. Sodium 138, potassium 3.9, BUN 59, creatinine 1.2. Objective - Vital Signs Vital signs: Vital Signs Temp 98.1 F 12/19/19 08:00 Pulse 57 L 12/19/19 08:00 Resp 16 04/27/20 08:00 BP 136/76 12/19/19 08:00 Pulse Ox 96 12/19/19 08:00 Intake & Output 12/18/19 12/19/19 12/19/19 18:59 06:59 18:59 Intake Total 450 40 Output Total 1200 775 400 Balance -307 -817 -847 Weight 71.5 kg 71.5 kg Intake: Oral 450 40 Output: Urine 1200 775 400 Other: Voiding Method Indwelling Catheter Indwelling Catheter Indwelling Catheter # Voids 0 - Exam 84-year-old gentleman in no acute distress at the time of my examination HEAD: Normocephalic/atraumatic. There is temporal wasting EYES: Normal reaction of pupils, equal size. Conjunctiva pink, sclera white. NOSE: Clear with pink turbinates. THROAT: No erythema or exudates.the mucous membranes are extremely dry NECK: No masses, no JVD, no thyroid enlargement, no adenopathy. CHEST: No chest wall deformity. Symmetrical expansion. LUNGS: Equal air entry with basilar crackles CVS: Regular rate and rhythm, normal S1 and S2, the patient is consistently tachycardic consistent with atrial flutter rhythm no gallops, no murmurs, no rubs ABDOMEN: Soft, nontender. No hepatosplenomegaly, normal bowel sounds, no guarding or rigidity. EXTREMITIES: No clubbing, no edema, no cyanosis, 1+ pulses and upper and lower extremities.nfected extremities are showing significant muscle atrophy and some contractures in lower extremities bilaterally MUSCULOSKELETAL: Muscle strength and tone is significant diminished and the patient has cogwheel rigidity related to his Parkinson's disease SPINE: No scoliosis or deformity SKIN: No rashes CENTRAL NERVOUS SYSTEM: Awake, neurologic exam is nonfocal. There is some resting tremors. - Labs CBC & Chem 7: 12/16/19 04:45 12/19/19 09:46 Labs: Abnormal Lab Results - Last 24 Hours (Table) 12/18/19 12/18/19 12/18/19 Range/Units 16:38 16:55 20:35 Chloride (98-107) mmol/L Carbon Dioxide (22-30) mmol/L BUN (9-20) mg/dL Creatinine (0.66-1.25) mg/dL Glucose (74-99) mg/dL POC Glucose (mg/dL) 150 H 174 H 156 H (75-99) mg/dL Calcium (8.4-10.2) mg/dL 12/19/19 12/19/19 12/19/19 Range/Units 06:29 09:46 11:09 Chloride 114 H (98-107) mmol/L Carbon Dioxide 20 L (22-30) mmol/L BUN 59 H (9-20) mg/dL Creatinine 1.27 H (0.66-1.25) mg/dL Glucose 103 H (74-99) mg/dL POC Glucose (mg/dL) 111 H 100 H (75-99) mg/dL Calcium 7.4 L (8.4-10.2) mg/dL Microbiology - Last 24 Hours (Table) 12/13/19 14:17 Blood Culture - Preliminary Blood No Growth after 120 hours Assessment and Plan Plan: Assessment and Plan: #1. Acute Covid 19 pneumonia with secondary acute hypoxic respiratory failure is currently the patient is recovering and on room air. The patient's pulmonary status is stable for now. #2. Acute kidney injury secondary to significant intravascular volume depletion/dehydration. BUN and creatinine both elevated but they're steadily improving as the patient is receiving IV fluids. #3. New-onset atrial flutter with rapid ventricular response , improved with amiodarone and the patient remains in a flutter/fibrillation. 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 #11 altered mental status secondary to metabolic encephalopathy related toacute kidney injury and intravascular volume depletion. Also the patient s history of underlyin memory and cognition., Improving #12 CHF with an ejection fraction of 25%systolic acute on chronic and small generalized pericardial effusion Plan The dose of metoprolol will be decreased to 12.5mg PO BID, because of bradycardia. We will continue to follow. DNP note has been reviewed, I agree with a documented findings and plan of care. Patient was seen and examined.
--- NOTE | 2019-12-19 12:12 | P.PN ---
Subjective Progress Note Date: 12/19/19 Principal diagnosis: Acute hypoxic respiratory failure secondary to an acute CoVID 19 pneumonia 84-year-old male patient of mine [facility] resident with multiple medical problems and comorbidities, resides at the sn[facility], brought into the emergency department because of altered mental status. The patient was brought via EMS as the patient was having generalized weakness, lethargy, altered mentation and diminished level of consciousness and the same time the patient was having increased cough. Note that the patient's roommate at the snf diagnosed having a COVID 19 infection and this was obviously concern. At a time of the arrival, the patient was found to be quite tachycardic with a heart rate in the 160 range. SVT was suspected and the patient was given adeno C without any improvement. Subsequent EKG revealed that the patient was in a flutter rhythm at the rate of 160. Blood work that was done in the emergency department revealed that the patient was in an acute kidney injury. BUN was 148. Creatinine was at 4.03. His sodium level was 147. Chloride was 112. Lactic acid level was at 3.7. Troponin was 0.3. The patient had a white cell count of 12.4. Furthermore he checked positive for Covid 19 infection based on the records nasopharyngeal screen. The LDH was quite elevated at 1098. This was also consistent with Covid 19 infection. D-dimer was at 4.27. The CAT scan of the brain showed no acute intracranial hemorrhage or abnormalities. There was diffuse age-related cerebral atrophy and chronic small vessel ischemic change in addition to bilateral old or corneal injuries involving the basal ganglia. The patient's chest x-ray revealed a faint right midlung airspace disease and this was partially obscured by external pacing devices. The remainder of the lungs were essentially clear. I saw this patient emergency department. He was quite lethargic yet arousable. He was on 8 L of oxygen by nasal cannula and is pulse oxing in the range of 92%. His heart rate was quite rapid ranging between 155 and 165. The patient had a systolic blood pressure as low as 92/72. The patient was given IV fluid bolus sees and the patient received a total of 3 L in the emergency department and a 43 was given in the ICU and the patient was started on a maintenance of 150 mL of normal saline. Keith cath is in place. Urine output is diminished. He did not require any pressors. He was started on amiodarone bolus and maintenance which improved his heart rate and so was becoming more clear that the patient was in and out of A flutter I established a triple-lumen catheter in the right femoral vein. The patient was low quite emaciated cachectic and very weak. Note that this patient was in the hospital around a month ago specifically on 11/10/2018. He was evaluated and treated through our services the patient was having increased dyspnea cough and fever. At that time the Covid 19 evaluation came back negative. Note that the patient also has advanced dementia, Parkinson's disease, depression, BPH, hypertension. He has also had previous cerebral infarct involving the basal ganglia as discussed above. He has BPH as other comorbid conditions. He is a former smoker. He is a sn[facility] resident. On today's evaluation of 12/14/2019, the patient remains in intensive care unit and the patient is being resuscitated IV fluids. The patient has already received a total of 47 fluid and currently the patient on normal saline at the rate of 150 mL an hour. The patient is on 4 L of oxygen by nasal cannula with a pulse of 96%. The patient's heart rate has improved as the patient was given IV amiodarone bolus and maintenance and the patient's rhythm is still A. fib/flutter however on that much better controlled rate. Echo was done and the patient ejection fraction was around 25-30% with mild mitral regurgitation, tricuspid regurgitation and small generalized pericardial effusion. Chest x-ray is showing patchy right mid airspace disease related to Covid 19 related pneumonia. The patient remains on the opposite isolation. The patient remains afebrile. The patient on IV Solu-Medrol 30 mg every 12 hours. The patient is still very weak and debilitated. He failed his swallow evaluation, going to g harvey him another 24 hours. He remains on IV heparin. His hemoglobin is at 14.2. The patient's serum bicarbonate 16. Creatinine is improving is down to 2.3 with a mean of 127. The LDH level is 1168. His C-reactive protein is 66. LEVEL WAS 0.33. The pro calcitonin Level was 0.33. On 12/15/2019, the patient seems to be more alert and awake and he is communicating in talking to us back. A swallow evaluation was done and the patient did not pass the swallow evaluation. The speech pathologist actually said that the patient's swallow was worse compared to yesterday. Based on that, no oral medications or diet will be given to this patient today. Overall, the patient is doing well. The patient is receiving IV fluids and the patient's function continues to improve slowly. The patient's BUN is down to 103 and the creatinine is down to 2.16 and both of these numbers are improving. The sodium level is at 144. The serum bicarbonate 17 and the patient continues to receive normal saline for a total of 150 mL an hour. The patient remains in atrial fibrillation. Rate is controlled and the patient was on amiodarone at 0.5 mg an hour for A. fib/flutter with RVR which is essentially controlled rate. The patient is also taking Plaquenil for Covid 19 related pneumonia. The patient h as no worsening shortness of breath. No significant cough or sputum production. The patient's pulse ox is 95% liters of oxygen by nasal cannula. The patient is afebrile for now. Also, the patient has no nausea vomiting diarrhea abdominal pain. The patient remains on IV heparin regarding atrial fibrillation. LDH level is at 1107 and C-reactive protein is at 536 and both of these values are remaining quite elevated without any significant improvement compared to yesterday. The lactic acid level is down to 1.8. The patient is seen today 12/16/2019 in follow-up on the selective care unit. He is currently resting in bed. Awake and alert. Answering a few questions. Currently maintaining O2 saturations in the mid 90s on room air. He's been afebrile. Hemodynamically stable. Still having issues with swallowing. The patient does have advanced dementia. He had been seen and evaluated by speech therapy. The patient has been placed on nothing by mouth. White count 9.7. Hemoglobin 12.5. D-dimer 3.85. Sodium 149. Bicarb 17. Creatinine 1.67. LDH 944. C-reactive protein 42. The patient is seen today 12/17/2019 in follow-up on the selective care unit. He is currently resting comfortably in bed. Awake and more alert today. Continues to maintain good O2 saturations in the mid 90s on room air. He's afebrile. Hemodynamically stable. Blood culture reveals no growth. Sodium 148. Potassium 3.7. Bicarb 18. Creatinine 1.63. He is continued on sodium bicarb tablets. Continued on Plaquenil. Remains on antibiotics in the form of ceftriaxone. Remains on IV Solu-Medrol. Anticoagulated with Eliquis. The patient is seen today 12/18/2019 in follow-up on the selective care unit. He is awake and alert in no acute distress. Denies any worsening shortness of breath, cough or congestion. Maintaining good O2 saturations in the mid 90s on room air. He's afebrile. Hemodynamically stable. Blood culture reveals no growth. Sodium 143. Potassium 3.9. Bicarb 20. Creatinine 1.39. Glucose 126. The patient is seen today 12/19/2019 in follow-up on the selective care unit. His breathing is improved today. He continues to maintain good O2 saturation the upper 90s on room air. He remains afebrile. Hemodynamically stable. Blood cultures revealed no growth. Sodium 128. Potassium 3.9. Bicarb 20. Creatinine 1.27. He remains on ceftriaxone. On a prednisone taper. He remains on a pured dysphagia 1 diet. Objective - Vital Signs Vital signs: Vital Signs Temp 98.0 F 12/19/19 11:47 Pulse 60 12/19/19 11:47 Resp 16 12/19/19 11:47 BP 108/61 12/19/19 11:47 Pulse Ox 97 12/19/19 11:47 Intake & Output 12/18/19 12/19/19 12/19/19 18:59 06:59 18:59 Intake Total 450 40 Output Total 1200 775 400 Balance -836 -763 -460 Weight 71.5 kg 71.5 kg Intake: Oral 450 40 Output: Urine 1200 775 400 Other: Voiding Method Indwelling Catheter Indwelling Catheter Indwelling Catheter # Voids 0 - Exam GENERAL EXAM: More awake and alert today, cachectic, emaciated 84-year-old gentleman, maintaining good O2 saturations in the 90s on room air, comfortable in no apparent distress. HEAD: Normocephalic/atraumatic. There is temporal wasting EYES: Normal reaction of pupils, equal size. Conjunctiva pink, sclera white. NOSE: Clear with pink turbinates. THROAT: No erythema or exudates.the mucous membranes are extremely dry NECK: No masses, no JVD, no thyroid enlargement, no adenopathy. CHEST: No chest wall deformity. Symmetrical expansion. LUNGS: Equal air entry with basilar crackles CVS: Regular rate and rhythm, normal S1 and S2, the patient is consistently tachycardic consistent with atrial flutter rhythm no gallops, no murmurs, no rubs ABDOMEN: Soft, nontender. No hepatosplenomegaly, normal bowel sounds, no guarding or rigidity. EXTREMITIES: No clubbing, no edema, no cyanosis, 1+ pulses and upper and lower extremities.nfected extremities are showing significant muscle atrophy and some contractures in lower extremities bilaterally MUSCULOSKELETAL: Muscle strength and tone is significant diminished and the patient has cogwheel rigidity related to his Parkinson's disease SPINE: No scoliosis or deformity SKIN: No rashes CENTRAL NERVOUS SYSTEM: Awake, neurologic exam is nonfocal. There is some resting tremors. - Labs CBC & Chem 7: 12/16/19 04:45 12/19/19 09:46 Labs: Abnormal Lab Results - Last 24 Hours (Table) 12/18/19 12/18/19 12/18/19 Range/Units 16:38 16:55 20:35 Chloride (98-107) mmol/L Carbon Dioxide (22-30) mmol/L BUN (9-20) mg/dL Creatinine (0.66-1.25) mg/dL Glucose (74-99) mg/dL POC Glucose (mg/dL) 150 H 174 H 156 H (75-99) mg/dL Calcium (8.4-10.2) mg/dL 12/19/19 12/19/19 12/19/19 Range/Units 06:29 09:46 11:09 Chloride 114 H (98-107) mmol/L Carbon Dioxide 20 L (22-30) mmol/L BUN 59 H (9-20) mg/dL Creatinine 1.27 H (0.66-1.25) mg/dL Glucose 103 H (74-99) mg/dL POC Glucose (mg/dL) 111 H 100 H (75-99) mg/dL Calcium 7.4 L (8.4-10.2) mg/dL Microbiology - Last 24 Hours (Table) 12/13/19 14:17 Blood Culture - Preliminary Blood No Growth after 120 hours Assessment and Plan Assessment: 1. Acute Covid 19 pneumonia with secondary acute hypoxic respiratory failure is currently the patient is recovering and on room air. The patient's pulmonary status is stable for now. 2. Acute kidney injury secondary to significant intravascular volume depletion/dehydration. BUN and creatinine both elevated but they're steadily improving as the patient is receiving IV fluids. 3. New-onset atrial flutter with rapid ventricular response , improved with amiodarone and the patient remains in a flutter/fibrillation. anticoagulated with Eliquis, oral amiodarone 4 Mild lactic acidosis secondary to dehydration, improved 5 History of advanced dementia 6 Parkinson's disorder 7 BPH 8 Hypertention 9 Hyperlipidemia 10 History of CVA, with obviously lacunar stroke involving the basal ganglia based on the CAT scan findings. 11 altered mental status secondary to metabolic encephalopathy related toacute kidney injury and intravascular volume depletion. Also the patient s history of underlyin memory and cognition., Improving 12 CHF with an ejection fraction of 25% and small generalized pericardial effusion Plan The patient was seen and evaluated by Dr. Ariel Blake from the pulmonary standpoint, on room air Transitioned to oral prednisone Complete a course of antibiotics Discharge planning in place We will continue to follow I, the cosigning physician, performed a history & physical examination of the patient. Lungs sounds with crackles in the bilateral posterior bases. Maintaining good O2 saturations in the 90s on room air. I discussed the assessment and plan of care with my nurse practitioner, Romi Cee. I attest to the above note as dictated by her.
--- NOTE | 2019-12-19 12:39 | P.PN ---
Subjective Progress Note Date: 12/19/19 84-year-old male who was in the hospital in November 12 till November 16 for acute bilateral pneumonia and high temperature and chills was seen in the pulmonary and treated at the time with the significant improvement was in acute hypoxic respiratory failure Covid 19 that time was ruled out patient was having more COPD exacerbation with worsening dementia and mild lactic acidosis. He was treated and has done well was sent to [facility] on budesonide and albuterol inhaler along with changing his blood pressure medication for better management of kidney function to be seen by his primary care Dr. House or to see by Dr. Mendiola at the correction at the time. Patient brought to the emergency department at [facility] today 12/13/2019 because of very high fever or chills tachycardia severe shortness of breath with high suspicion for Covid 19 infection this time because of his roommate was diagnosed with it recently. At the time was seen at the emergency department patient pulse rate was very high he was having low urine output significant hypertension with severely dehydrated with temperature running at 97 or 98 his pulse ox on 8 L was on at 97 percentile only. Patient lactic acid was significantly elevated at 3.7 his C-reactive protein with 65.2 his LDH was 1098. And I suspected Covid 19 was positive this time. Patient was seen by Dr. Osman and pulmonary at the emergency department decided to place central line and start patient on challenge IV hydration of 3 toward the time patient had extremely high risk up being intubated with extreme high mortality at this point with the worsening kidney failure with severe tachycardia with a flutter did not respond to challenge with adenosine patient was to replace on Cardizem drip to bring his pulse rate down and was transferred to the ICU afterward after giving him a bolus of amiodarone and started on amiodarone drip to keep his pulse rates below 90. Patient was started on hydrochloric when 400 mg twice a day with Solu-Medrol 30 mg twice a day was continue on heparin drip for A. fib/A flutter and 1 g of Rocephin was giving. 12/13: Patient has not required intubation. He is currently pulse ox 97% on 4 L nasal cannula. He has been afebrile, heart rate 97-114. Patient is now converted to normal sinus rhythm. Repeat blood work reveals WBC 11.9, hemoglobin 14.2, platelet count 159. D-dimer 5.29. Sodium 145, potassium 4.2, chloride 119, CO2 16, BUN 127, creatinine 2.83. Repeat lactic acid 1.8. Tro ponin 0.092. Patient has been seen by Dr. Mancera with recommendations to continue IV amiodarone at the time of his evaluation as well as heparin IV. Lopressor was increased to 25 mg twice daily. Echocardiogram reveals EF of 25- 30%, trace mitral regurgitation, trace tricuspid regurgitation, small generalized pericardial effusion. Repeat chest x-ray reveals similar patchy right mid lung airspace disease likely unifocal pneumonia. Patient is continued in [address] He is on the Plaquenil protocol as well as Solu-Medrol 30 mg IV every 12 hours and Rocephin. Patient is followed by Dr. Osman and consult in place with nephrology as well. 12/14: Patient remains in the intensive care unit in [facility]. Cardiology has switched him to oral amiodarone at 400 mg twice daily. Patient Patient is still on a heparin drip which is going to be continued for now. Patient was alvina luated by speech therapy this morning and found to have worsening swallow and made strict nothing by mouth. Patient is afebrile, heart rate in the 60s and 70s, blood pressure 137/80, pulse ox 94% on 3 L nasal cannula. Repeat blood work reveals a CBC of 9.2, hemoglobin 12.9, platelet count 147. D-dimer 4.16, ferritin 944.7, LDH 1107, CK 536, C reactive protein 62.3. A BUN 103 and creatinine 2.16. Repeat chest x-ray reveals chronic principal changes with persistent lateral right mid lung acute infiltrate and slightly more prominent left basal atelectasis and/or infiltrate 12/15: Patient has been transferred to the cardiac stepdown unit. He is currently off oxygen and pulse oxing 95-97%. He has been afebrile, heart rate 76, blood pressure 139/90. Repeat blood work reveals WBC 9.7, hemoglobin 12.5, platelet count 177. D-dimer 3.85, LDH 944, C-reactive protein 42. Sodium 149 and IV fluids changed to D5W. Potassium 3.6, chloride 126, CO2 17, BUN 70 and creatinine 1.67. Blood sugars running between 128 and 142. Patient has good urine output. We will plan to remove triple-lumen from the right groin area patient has other IV access. Anticipate discharge back to ECF on Thursday. 12/16: Patient remains on cardiac stepdown unit, vital signs are stable. Pulse ox 96% on room air, he is afebrile heart rate 54, blood pressure 103/57. Heart rate was 54 this morning spoke with cardiology decreased amiodarone 200 mg daily. Labs were reviewed, BUN 75 creatinine 1.63. IV fluids remain in place. Blood sugars are stable. Remains on modified diet. Anticipated discharge to ECF on Thursday. 12/17: Patient seen and examined this morning. Awaiting anticipated discharge to ECF on Thursday. Patient denies any major complaints this morning. He is afebrile heart rate 58, blood pressure 147/72, pulse ox 98% on 2 L via nasal cannula. Blood sugars have been stable. Labs were reviewed, BUN 67 creatinine 1.39. PT, OT, and speech remain on the case. 12/18: Patient is sitting up in bed. He appears to be more awake today and more alert he continues to have some issues with swallowing however he needed some assistance with the his food, he continues to be somewhat swollen in both upper extremities and lower extremities, we will try to discontinue Keith catheter tomorrow morning, we will monitor the patient for another 24 hours when he is able to eat and drink he can be transferred back to [facility]. Objective - Vital Signs Vital signs: Vital Signs Temp 97.7 F 12/19/19 04:00 Pulse 58 L 12/19/19 04:00 Resp 20 12/19/19 04:00 BP 130/70 12/19/19 04:00 Pulse Ox 98 12/19/19 04:00 Intake & Output 12/18/19 12/18/19 12/19/19 06:59 18:59 06:59 Intake Total 20 450 Output Total 1200 775 Balance 26 -525 -285 Weight 71 kg 71.5 kg Intake: IV 20 Invasive Line 3 20 Oral 450 Output: Urine 1200 775 Other: Voiding Method Indwelling Catheter Indwelling Catheter Indwelling Catheter # Voids 0 - Exam - Exam Review of Systems CONSTITUTIONAL: Elderly looks man appears malnourished. Patient resting in bed. No respiratory distress noted. EYES: No icterus sclerae, no conjunctivitis. EARS, NOSE, MOUTH, THROAT, and FACE: No sore throat, lymphadenopathy, carotid bruits or deformity. Significant for dry mucosa. RESPIRATORY: Positive shortness of breath with exertion, positive cough wheezes. CARDIOVASCULAR: Positive PND orthopnea and palpitation GASTROINTESTINAL: No Abd pain, Nausea or vomiting, no Diarrhea or constipation, No GI Bleed, no distention or masses. GENITOURINARY: BPH. INTEGUMENT/BREAST: Negative for any muscular injury with mild osteoarthritis.. HEMATOLOGIC/LYMPHATIC: Negative for bleed or purpura. MUSCULOSKELTAL: Negative for Myalgia or arthralgia. NEURLOGICAL: Parkinson disease with significant altered mental status with some confusion. BEHAVIORAL/PSYCH: Negative. ENDOCRINE: Negative. Physical examination General Appearance: This is an 84-year-old male. He is resting comfortably in bed. No respiratory distress noted. Neck HEENT: Supple, no lymphadenopathy, no thyroid enlargement, no carotid bruits. Significant for dry mucosa. Lungs: Decreased breath sound in the bases bilaterally. No accessory muscle usage. Chest Wall: Decrease expansion with deep inspiration no tenderness and no deformity was found on exam, no costochondral pain or discomfort. Heart: Irregular rate and rhythm, S1, S2, positive systolic murmur. Back: Symmetric, no curvature, ROM normal, no CVA tenderness. Abdomen: Soft, non-tender, bowel sounds active all four quadrants, no masses, no organomegaly. Extremities: Extremities normal, atraumatic, no cyanosis or edema. Pulses: 2+ and symmetric. Skin: Skin color, texture, tugor normal, no rashes or lesions. Neurologic: Alert, mild tremor present, cranial nerves 2-12 intact, positive generalized weakness, no focal deficit with significant memory loss. - Labs CBC & Chem 7: 12/16/19 04:45 12/19/19 09:46 Labs: Abnormal Lab Results - Last 24 Hours (Table) 12/18/19 12/18/19 12/18/19 Range/Units 07:58 11:45 16:38 Chloride 118 H (98-107) mmol/L Carbon Dioxide 20 L (22-30) mmol/L BUN 67 H (9-20) mg/dL Creatinine 1.39 H (0.66-1.25) mg/dL Glucose 126 H (74-99) mg/dL POC Glucose (mg/dL) 115 H 150 H (75-99) mg/dL Calcium 7.5 L (8.4-10.2) mg/dL 12/18/19 12/18/19 12/19/19 Range/Units 16:55 20:35 06:29 Chloride (98-107) mmol/L Carbon Dioxide (22-30) mmol/L BUN (9-20) mg/dL Creatinine (0.66-1.25) mg/dL Glucose (74-99) mg/dL POC Glucose (mg/dL) 174 H 156 H 111 H (75-99) mg/dL Calcium (8.4-10.2) mg/dL Microbiology - Last 24 Hours (Table) 12/13/19 14:17 Blood Culture - Preliminary Blood No Growth after 120 hours Assessment and Plan Assessment: Assessment and Plan Plan: 1. Acute hypoxic respiratory failure secondary to acute Covid 19 infection along with gram-negative pneumonia associated with acute A. fib a flutter with acute heart failure as well and acute renal failure. Patient has recovered. 2. Acute Covid 19 pneumonitis. 3. Acute kidnpatient has recovered perey injury with acute tubular necrosis and non-gap metabolic acidosis. labs are improving continue to monitor the patient CMP. 4. New-onset of atrial flutter with rapid ventricular response, converted to normal sinus rhythm. Patient followed by cardiology. Amiodarone decreased to 200 mg daily, anticoagulated with Eliquis 2.5 mg twice a day 5. Hypernatremia. Resolved. Discontinue IV fluid 6. Acute lactic acidosis secondary to COVID-19 infection and sepsis, present on admission. resolved. 7. Elevated troponin: Most likely from hypoperfusion related to atrial flutter. 8. Severe protein calorie malnutrition with poor oral intake and complicated by NPO status. Magic cups ordered 3 times daily. 9. Dysphagia. Speech therapy evaluation appreciated. Patient cleared for pured and honey thick liquids. Patient not candidate for PEG placement. Continue aspiration precautions. 10. 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 Hold ACEI/ARB secondary to acute kidney injury. 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 Continue Requip 0.5 mg twice daily, Exelon patch daily, Sinemet 4 times a day. 12. BPH. Patient is on Keith catheter. 13. Hypertension. Continue hydralazine 25 mg twice daily, Lopressor 25 mg twice daily. Hold losartan 14. COPD without exacerbation.. 15. GI prophylaxis: continue pantoprazole. 16. DVT prophylaxis. on Eliquis CODE STATUS: No code but okay for intubation
--- NOTE | 2019-12-19 13:26 | P.PN ---
Subjective Progress Note Date: 12/19/19 84-year-old male who was in the hospital in November 12 till November 16 for acute bilateral pneumonia and high temperature and chills was seen in the pulmonary and treated at the time with the significant improvement was in acute hypoxic respiratory failure Covid 19 that time was ruled out patient was having more COPD exacerbation with worsening dementia and mild lactic acidosis. He was treated and has done well was sent to [facility] on budesonide and albuterol inhaler along with changing his blood pressure medication for better management of kidney function to be seen by his primary care Dr. House or to see by Dr. Mendiola at the [facility] at the time. Patient brought to the emergency department at [facility] today 12/13/2019 because of very high fever or chills tachycardia severe shortness of breath with high suspicion for Covid 19 infection this time because of his roommate was diagnosed with it recently. At the time was seen at the emergency department patient pulse rate was very high he was having low urine output significant hypertension with severely dehydrated with temperature running at 97 or 98 his pulse ox on 8 L was on at 97 percentile only. Patient lactic acid was significantly elevated at 3.7 his C-reactive protein with 65.2 his LDH was 1098. And I suspected Covid 19 was positive this time. Patient was seen by Dr. Osman and pulmonary at the emergency department decided to place central line and start patient on challenge IV hydration of 3 toward the time patient had extremely high risk up being intubated with extreme high mortality at this point with the worsening kidney failure with severe tachycardia with a flutter did not respond to challenge with adenosine patient was to replace on Cardizem drip to bring his pulse rate down and was transferred to the ICU afterward after giving him a bolus of amiodarone and started on amiodarone drip to keep his pulse rates below 90. Patient was started on hydrochloric when 400 mg twice a day with Solu-Medrol 30 mg twice a day was continue on heparin drip for A. fib/A flutter and 1 g of Rocephin was giving. 12/13: Patient has not required intubation. He is currently pulse ox 97% on 4 L nasal cannula. He has been afebrile, heart rate 97-114. Patient is now converted to normal sinus rhythm. Repeat blood work reveals WBC 11.9, hemoglobin 14.2, platelet count 159. D-dimer 5.29. Sodium 145, potassium 4.2, chloride 119, CO2 16, BUN 127, creatinine 2.83. Repeat lactic acid 1.8. Tro ponin 0.092. Patient has been seen by Dr. Mancera with recommendations to continue IV amiodarone at the time of his evaluation as well as heparin IV. Lopressor was increased to 25 mg twice daily. Echocardiogram reveals EF of 25- 30%, trace mitral regurgitation, trace tricuspid regurgitation, small generalized pericardial effusion. Repeat chest x-ray reveals similar patchy right mid lung airspace disease likely unifocal pneumonia. Patient is continued in [address] He is on the Plaquenil protocol as well as Solu-Medrol 30 mg IV every 12 hours and Rocephin. Patient is followed by Dr. Osman and consult in place with nephrology as well. 12/14: Patient remains in the intensive care unit in [facility]. Cardiology has switched him to oral amiodarone at 400 mg twice daily. Patient Patient is still on a heparin drip which is going to be continued for now. Patient was alvina luated by speech therapy this morning and found to have worsening swallow and made strict nothing by mouth. Patient is afebrile, heart rate in the 60s and 70s, blood pressure 137/80, pulse ox 94% on 3 L nasal cannula. Repeat blood work reveals a CBC of 9.2, hemoglobin 12.9, platelet count 147. D-dimer 4.16, ferritin 944.7, LDH 1107, CK 536, C reactive protein 62.3. A BUN 103 and creatinine 2.16. Repeat chest x-ray reveals chronic principal changes with persistent lateral right mid lung acute infiltrate and slightly more prominent left basal atelectasis and/or infiltrate. 12/15: Patient has been transferred to the cardiac stepdown unit. He is currently off oxygen and pulse oxing 95-97%. He has been afebrile, heart rate 76, blood pressure 139/90. Repeat blood work reveals WBC 9.7, hemoglobin 12.5, platelet count 177. D-dimer 3.85, LDH 944, C-reactive protein 42. Sodium 149 and IV fluids changed to D5W. Potassium 3.6, chloride 126, CO2 17, BUN 70 and creatinine 1.67. Blood sugars running between 128 and 142. Patient has good urine output. We will plan to remove triple-lumen from the right groin area patient has other IV access. Anticipate discharge back to ECF on Thursday. 12/16: Patient remains on cardiac stepdown unit, vital signs are stable. Pulse ox 96% on room air, he is afebrile heart rate 54, blood pressure 103/57. Heart rate was 54 this morning spoke with cardiology decreased amiodarone 200 mg daily. Labs were reviewed, BUN 75 creatinine 1.63. IV fluids remain in place. Blood sugars are stable. Remains on modified diet. Anticipated discharge to ECF on Thursday. 12/17: Patient seen and examined this morning. Awaiting anticipated discharge to ECF on Thursday. Patient denies any major complaints this morning. He is afebrile heart rate 58, blood pressure 147/72, pulse ox 98% on 2 L via nasal cannula. Blood sugars have been stable. Labs were reviewed, BUN 67 creatinine 1.39. PT, OT, and speech remain on the case. 12/18: Patient is sitting up in bed. He appears to be more awake today and more alert he continues to have some issues with swallowing however he needed some assistance with the his food, he continues to be somewhat swollen in both upper extremities and lower extremities, we will try to discontinue Keith catheter tomorrow morning, we will monitor the patient for another 24 hours when he is able to eat and drink he can be transferred back to [facility].patient will be transferred to [facility] floor. Patient has been afebrile, heart rate 60, blood pressure 108/61, pulse ox 97% on room air. Heart rate has been running in the 50s and cardiology decreased metoprolol. repeat blood work reveals chloride 114, CO2 20, BUN 59 creatinine 1.27. Blood sugars run between 103 and 156. Repeat chest x-ray reveals increasing retrocardiac opacities may represent atelectasis or pneumonia. IV Solu-Medrol transitioned to oral prednisone. Objective - Vital Signs Vital signs: Vital Signs Temp 98.0 F 12/19/19 11:47 Pulse 60 12/19/19 11:47 Resp 16 12/19/19 11:47 BP 108/61 12/19/19 11:47 Pulse Ox 97 12/19/19 11:47 Intake & Output 12/18/19 12/19/19 12/19/19 18:59 06:59 18:59 Intake Total 450 40 Output Total 1200 775 400 Balance -505 -294 -744 Weight 71.5 kg 71.5 kg Intake: Oral 450 40 Output: Urine 1200 775 400 Other: Voiding Method Indwelling Catheter Indwelling Catheter Indwelling Catheter # Voids 0 - Exam Review of Systems CONSTITUTIONAL: Elderly looks malnourished. Patient resting in bed. No respiratory distress noted.no fever. No chills. EYES: No icterus sclerae, no conjunctivitis. EARS, NOSE, MOUTH, THROAT, and FACE: No sore throat, lymphadenopathy, carotid bruits or deformity. Significant for dry mucosa. RESPIRATORY: Positive shortness of breath positive cough wheezes. CARDIOVASCULAR: Positive PND orthopnea and palpitation GASTROINTESTINAL: No Abd pain, Nausea or vomiting, no Diarrhea or constipation, No GI Bleed, no distention or masses. GENITOURINARY: BPH with significant decrease urine output. INTEGUMENT/BREAST: Negative for any muscular injury with mild osteoarthritis.. HEMATOLOGIC/LYMPHATIC: Negative for bleed or purpura. MUSCULOSKELTAL: Negative for Myalgia or arthralgia. NEURLOGICAL: Parkinson disease with significant altered mental status with more confusion. BEHAVIORAL/PSYCH: Negative. ENDOCRINE: Negative. Physical examination General Appearance: This is an 84-year-old male. He is resting in bed. No respiratory distress noted. Neck HEENT: Supple, no lymphadenopathy, no thyroid enlargement, no carotid bruits. Significant for dry mucosa. Lungs: Decreased breath sound in the bases bilaterally. No accessory muscle usage. Chest Wall: Decrease expansion with deep inspiration no tenderness and no deformity was found on exam, no costochondral pain or discomfort. Heart: Irregular rate and rhythm, S1, S2, positive systolic murmur. Back: Symmetric, no curvature, ROM normal, no CVA tenderness. Abdomen: Soft, non-tender, bowel sounds active all four quadrants, no masses, no organomegaly. Extremities: Extremities normal, atraumatic, no cyanosis or edema. Pulses: 2+ and symmetric. Skin: Skin color, texture, tugor normal, no rashes or lesions. Neurologic: Alert, mild tremor present, cranial nerves 2-12 intact, positive generalized weakness, no focal deficit with memory loss. - Labs CBC & Chem 7: 12/16/19 04:45 12/19/19 09:46 Labs: Abnormal Lab Results - Last 24 Hours (Table) 12/18/19 12/18/19 12/18/19 Range/Units 16:38 16:55 20:35 Chloride (98-107) mmol/L Carbon Dioxide (22-30) mmol/L BUN (9-20) mg/dL Creatinine (0.66-1.25) mg/dL Glucose (74-99) mg/dL POC Glucose (mg/dL) 150 H 174 H 156 H (75-99) mg/dL Calcium (8.4-10.2) mg/dL 12/19/19 12/19/19 12/19/19 Range/Units 06:29 09:46 11:09 Chloride 114 H (98-107) mmol/L Carbon Dioxide 20 L (22-30) mmol/L BUN 59 H (9-20) mg/dL Creatinine 1.27 H (0.66-1.25) mg/dL Glucose 103 H (74-99) mg/dL POC Glucose (mg/dL) 111 H 100 H (75-99) mg/dL Calcium 7.4 L (8.4-10.2) mg/dL Microbiology - Last 24 Hours (Table) 12/13/19 14:17 Blood Culture - Preliminary Blood No Growth after 120 hours Assessment and Plan Plan: 1. Acute hypoxic respiratory failure secondary to acute Covid 19 infection along with gram-negative pneumonia associated with acute A. fib a flutter with acute heart failure as well and acute renal failure. Patient is on Plaquenil protocol. Continue Rocephin IV. Consult with pulmonary medicine and cardiology appreciated. 2. Acute Covid 19 pneumonitis. Continue as in #1. 3. Acute kidney injury with acute tubular necrosis and non-gap metabolic acidosis. Nephrology consult appreciated. Patient was started on sodium bicarb and recommends continuing to hold Wilfrid/ARB and avoid nephrotoxic medications. 4. New-onset of atrial flutter with rapid ventricular response, converted to normal sinus rhythm. Patient followed by cardiology. continue Lopressor decreased to 12.5 mg twice daily and amiodarone 200 mg daily oral and eliquis. 5. Hypernatremia. IV fluids completed. 6. Acute lactic acidosis secondary to COVID-19 infection and sepsis, present on admission. 7. Elevated troponin: Most likely from hypoperfusion related to atrial flutter. 8. Severe protein calorie malnutrition with poor oral intake and complicated by NPO status. Magic cups ordered 3 times daily. 9. Dysphagia. Speech therapy evaluation appreciated. Patient cleared for pured and honey thick liquids. Patient not candidate for PEG placement. Continue aspiration precautions. 10. 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 Hold ACEI/ARB secondary to acute kidney injury. 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 Continue Requip 0.5 mg twice daily, Exelon pa tch daily, Sinemet 4 times a day. 12. BPH. Patient is on Keith catheter. Keith to be discontinued today. 13. Hypertension. Continue hydralazine 25 mg twice daily, Lopressor 12.5 mg twice daily. Hold losartan 14. COPD without exacerbation.. 15. GI prophylaxis: continue pantoprazole. 16. DVT prophylaxis. continue eliquis. CODE STATUS: No code but okay for intubation Discharge plan: Return to [facility] on Thursday. Impression and plan of care have been directed as dictated by the signing physician. Aisha Rausch nurse practitioner acting as scribe for signing physician.
[2019-12-19 16:20] LABS: Glucose,Whole Blood 109 mg/dL (75-99)
[2019-12-19 20:43] LABS: Glucose,Whole Blood 129 mg/dL (75-99)
[2019-12-19] MEDS: METOPROLOL TARTRATE 12.5 MG TAB PO SCH (21:15)
[2019-12-20] MEDS: VORTIOXETINE HYDROBROMIDE 10 MG TABLET PO SCH (01:04)
[2019-12-20 07:10] VITALS: RESP 16
[2019-12-20 07:16] LABS: Glucose,Whole Blood 122 mg/dL (75-99)
[2019-12-20 07:27] LABS: Calcium 7.6 mg/dL (8.4-10.2); Magnesium 2.2 mg/dL (1.6-2.3); Potassium 4.6 mmol/L (3.5-5.1)
[2019-12-20] MEDS: INSULIN ASPART (NovoLOG) 100 UNIT/ML VIAL SQ SCH ×2 (07:43→12:53)
[2019-12-20] MEDS: ASPIRIN 81 MG PO SCH (08:10)
[2019-12-20] MEDS: CARBIDOPA-LEVODOPA 25-100 MG 1 EACH TAB PO SCH ×2 (08:10→12:55)
[2019-12-20] MEDS: METOPROLOL TARTRATE 12.5 MG TAB PO SCH (08:10)
[2019-12-20] MEDS: AMIODARONE 200 MG TAB PO SCH (08:10)
[2019-12-20] MEDS: hydrALAZINE HCL 25 MG TAB PO SCH (08:10)
[2019-12-20] MEDS: CHOLECALCIFEROL 1,000 UNIT TAB PO SCH (08:10)
[2019-12-20] MEDS: POLYETHYLENE GLYCOL 3350 17 GM POWD.PACK PO SCH (08:10)
[2019-12-20] MEDS: TAMSULOSIN 0.4 MG CAP.ER.24H PO SCH (08:11)
[2019-12-20] MEDS: PANTOPRAZOLE 40 MG TABLET PO SCH (08:11)
[2019-12-20] MEDS: APIXABAN 2.5 MG TABLET PO SCH (08:11)
[2019-12-20] MEDS: RIVASTIGMINE 4.6MG/24HR PATCH TRANSDERM SCH (08:12)
[2019-12-20] MEDS: SODIUM BICARBONATE TAB 650 MG TAB PO SCH (08:14)
--- NOTE | 2019-12-20 08:19 | XR ---
EXAMINATION TYPE: XR chest 1V portable DATE OF EXAM: 12/20/2019 Comparison: 12/19/2019 Clinical History: 84-year-old male follow up pneumonia Findings: Heart normal size. Mild patchy opacity periphery of the right midlung and left base/retrocardiac shay on. Possible trace right effusion now present. Impression: Retrocardiac infiltrate and mild patchy opacity in the periphery of the right midlung persists. A tra ce right effusion may be new.
[2019-12-20] MEDS ORDERED: predniSONE 20 MG TAB PO SCH (09:00)
--- NOTE | 2019-12-20 09:16 | P.PN ---
Subjective Patient is seen in follow-up for acute kidney injury and hypernatremia. Sodium level is 139 today. Renal function is also improved. Oral intake has been gradually improving. He is off IV fluids. Vital signs are stable. General: The patient appeared well nourished and normally developed. HEENT: Head exam is unremarkable. Neck is without jugular venous distension. LUNGS: Lungs are clear to auscultation and percussion. Breath sounds decreased. HEART: Rate and Rhythm are regular. ABDOMEN: No distention noted. EXTREMITITES: Edema in the feet noted. Objective - Vital Signs Vital signs: Vital Signs Temp 98.1 F 12/20/19 07:03 Pulse 60 12/20/19 07:03 Resp 16 12/20/19 07:03 BP 149/68 12/20/19 07:03 Pulse Ox 93 L 12/20/19 07:03 Intake & Output 12/19/19 12/20/19 12/20/19 18:59 06:59 18:59 Intake Total 220 Output Total 750 Balance -530 Weight 71.5 kg Intake: Oral 220 Output: Urine 750 Other: Voiding Method Indwelling Catheter Urinal Diaper # Voids 1 - Labs CBC & Chem 7: 12/16/19 04:45 12/20/19 06:26 Labs: Abnormal Lab Results - Last 24 Hours (Table) 12/19/19 12/19/19 12/19/19 Range/Units 09:46 11:09 16:19 Chloride 114 H (98-107) mmol/L Carbon Dioxide 20 L (22-30) mmol/L BUN 59 H (9-20) mg/dL Creatinine 1.27 H (0.66-1.25) mg/dL Glucose 103 H (74-99) mg/dL POC Glucose (mg/dL) 100 H 109 H (75-99) mg/dL Calcium 7.4 L (8.4-10.2) mg/dL 12/19/19 12/20/19 12/20/19 Range/Units 20:41 06:26 07:15 Chloride 117 H (98-107) mmol/L Carbon Dioxide 18 L (22-30) mmol/L BUN 56 H (9-20) mg/dL Creatinine (0.66-1.25) mg/dL Glucose (74-99) mg/dL POC Glucose (mg/dL) 129 H 122 H (75-99) mg/dL Calcium 7.6 L (8.4-10.2) mg/dL Microbiology - Last 24 Hours (Table) 12/13/19 14:17 Blood Culture - Final Blood No Growth after 144 hours Assessment and Plan Plan: Assessment: 1. Acute kidney injury mostly prerenal improved with IV hydration. Creatinine was 4.03 on admission and is down to 1.06 today. 2. Hypernatremia secondary to lack of oral water intake. Resolved. 3. Covid-19 pneumonia status post Plaquenil and steroids. 4. Metabolic acidosis secondary to acute kidney injury maintained on oral bicarb. 5. A. fib maintained on amiodarone and Lopressor. Also on anticoagulation. 6. Benign hypertension. Controlled. Plan: Encouraged oral intake. Repeat electrolytes in the morning. Monitor bicarb.
--- NOTE | 2019-12-20 11:07 | P.PN ---
Subjective Progress Note Date: 12/20/19 Principal diagnosis: Acute hypoxic respiratory failure secondary to an acute COVID19 pneumonia 84-year-old male patient [facility] with multiple medical problems and comorbidities, resides [facility] the [facility], brought into the emergency department because of altered mental status. The patient was brought via EMS as the patient was having generalized weakness, lethargy, altered mentation and diminished level of consciousness and the same time the patient w as having increased cough. Note that the patient's roommate at the [facility] diagnosed having a COVID 19 infection and this was obviously concern. At a time of the arrival, the patient was found to be quite tachycardic with a heart rate in the 160 range. SVT was suspected and the patient was given adeno C without any improvement. Subsequent EKG revealed that the patient was in a flutter rhy thm at the rate of 160. Blood work that was done in the emergency department revealed that the patient was in an acute kidney injury. BUN was 148. Creatinine was at 4.03. His sodium level was 147. Chloride was 112. Lactic acid level was at 3.7. Troponin was 0.3. The patient had a white cell count of 12.4. Furthermore he checked positive for Covid 19 infection based on the records nasopharyngeal screen. The LDH was quite elevated at 1098. This was also consistent with Covid 19 infection. D-dimer was at 4.27. The CAT scan of the brain showed no acute intracranial hemorrhage or abnormalities. There was diffuse age-related cerebral atrophy and chronic small vessel ischemic change in addition to bilateral old or corneal injuries involving the basal ganglia. The patient's chest x-ray revealed a faint right midlung airspace disease and this was partially obscured by external pacing devices. The remainder of the lungs were essentially clear. I saw this patient emergency department. He was quite lethargic yet arousable. He was on 8 L of oxygen by nasal cannula and is pulse oxing in the range of 92%. His heart rate was quite rapid ranging between 155 and 165. The patient had a systolic blood pressure as low as 92/72. The patient was given IV fluid bolus sees and the patient received a total of 3 L in the emergency department and a 43 was given in the ICU and the patient was started on a maintenance of 150 mL of normal saline. Keith cath is in place. Urine output is diminished. He did not require any pressors. He was started on amiodarone bolus and maintenance which improved his heart rate and so was becoming more clear that the patient was in and out of A flutter I established a triple-lumen catheter in the right femoral vein. The patient was low quite emaciated cachectic and very weak. Note that this patient was in the hospital around a month ago specifically on 11/10/2018. He was evaluated and treated through our services the patient was having increased dyspnea cough and fever. At that time the Covid 19 evaluation came back negative. Note that the patient also has advanced dementia, Parkinson's disease, depression, BPH, hypertension. He has also had previous cerebral infarct involving the basal ganglia as discussed above. He has BPH as other comorbid conditions. He is a former smoker. He is a [facility]it[facility]iary resident. On today's evaluation of 12/14/2019, the patient remains in intensive care unit and the patient is being resuscitated IV fluids. The patient has already received a total of 47 fluid and currently the patient on normal saline at the rate of 150 mL an hour. The patient is on 4 L of oxygen by nasal cannula with a pulse of 96%. The patient's heart rate has improved as the patient was given IV amiodarone bolus and maintenance and the patient's rhythm is still A. fib/flutter however on that much better controlled rate. Echo was done and the patient ejection fraction was around 25-30% with mild mitral regurgitation, tricuspid regurgitation and small generalized pericardial effusion. Chest x-ray is showing patchy right mid airspace disease related to Covid 19 related pneumonia. The patient remains on the opposite isolation. The patient remains afebrile. The patient on IV Solu-Medrol 30 mg every 12 hours. The patient is still very weak and debilitated. He failed his swallow evaluation, going to gi ve him another 24 hours. He remains on IV heparin. His hemoglobin is at 14.2. The patient's serum bicarbonate 16. Creatinine is improving is down to 2.3 with a mean of 127. The LDH level is 1168. His C-reactive protein is 66. LEVEL WAS 0.33. The pro calcitonin Level was 0.33. On 12/15/2019, the patient seems to be more alert and awake and he is communicating in talking to us back. A swallow evaluation was done and the patient did not pass the swallow evaluation. The speech pathologist actually said that the patient's swallow was worse compared to yesterday. Based on that, no oral medications or diet will be given to this patient today. Overall, the patient is doing well. The patient is receiving IV fluids and the patient's function continues to improve slowly. The patient's BUN is down to 103 and the creatinine is down to 2.16 and both of these numbers are improving. The sodium level is at 144. The serum bicarbonate 17 and the patient continues to receive normal saline for a total of 150 mL an hour. The patient remains in atrial fibrillation. Rate is controlled and the patient was on amiodarone at 0.5 mg an hour for A. fib/flutter with RVR which is essentially controlled rate. The patient is also taking Plaquenil for Covid 19 related pneumonia. The patient null s no worsening shortness of breath. No significant cough or sputum production. The patient's pulse ox is 95% liters of oxygen by nasal cannula. The patient is afebrile for now. Also, the patient has no nausea vomiting diarrhea abdominal pain. The patient remains on IV heparin regarding atrial fibrillation. LDH level is at 1107 and C-reactive protein is at 536 and both of these values are remaining quite elevated without any significant improvement compared to yesterday. The lactic acid level is down to 1.8. The patient is seen today 12/16/2019 in follow-up on the selective care unit. He is currently resting in bed. Awake and alert. Answering a few questions. Currently maintaining O2 saturations in the mid 90s on room air. He's been afebrile. Hemodynamically stable. Still having issues with swallowing. The patient does have advanced dementia. He had been seen and evaluated by speech therapy. The patient has been placed on nothing by mouth. White count 9.7. Hemoglobin 12.5. D-dimer 3.85. Sodium 149. Bicarb 17. Creatinine 1.67. LDH 944. C-reactive protein 42. The patient is seen today 12/17/2019 in follow-up on the selective care unit. He is currently resting comfortably in bed. Awake and more alert today. Continues to maintain good O2 saturations in the mid 90s on room air. He's afebrile. Hemodynamically stable. Blood culture reveals no growth. Sodium 148. Potassium 3.7. Bicarb 18. Creatinine 1.63. He is continued on sodium bicarb tablets. Continued on Plaquenil. Remains on antibiotics in the form of ceftriaxone. Remains on IV Solu-Medrol. Anticoagulated with Eliquis. The patient is seen today 12/18/2019 in follow-up on the selective care unit. He is awake and alert in no acute distress. Denies any worsening shortness of breath, cough or congestion. Maintaining good O2 saturations in the mid 90s on room air. He's afebrile. Hemodynamically stable. Blood culture reveals no growth. Sodium 143. Potassium 3.9. Bicarb 20. Creatinine 1.39. Glucose 126. The patient is seen today 12/19/2019 in follow-up on the selective care unit. His breathing is improved today. He continues to maintain good O2 saturation the upper 90s on room air. He remains afebrile. Hemodynamically stable. Blood cultures revealed no growth. Sodium 128. Potassium 3.9. Bicarb 20. Creatinine 1.27. He remains on ceftriaxone. On a prednisone taper. He remains on a pured dysphagia 1 diet. On 12/20/2019 patient seen in follow-up on her general medical floor, he is resting in bed, room air pulse ox is 93%, he denies any shortness of breath, no cough or congestion, no sign of any respiratory difficulty, he's been afebrile, hemodynamically stable. Remains on Rocephin for empiric antibiotic coverage, oral prednisone, he has completed a course of Plaquenil. Vital signs are stable, today's labs have been reviewed, showing sodium of 139, potassium is 4.6, chloride is 117, CO2 is 18, B1 of 56, and creatinine 0.16. Patient was ree valuated by speech therapy yesterday and was able to tolerate varying consistencies with no overt signs and symptoms of aspiration. Recommended diet was pured with honey thick liquids. No acute issues overnight. Today's chest x-ray has been reviewed showing retrocardiac infiltrate and mild patchy opacity in the periphery of the right midlung and trace right pleural effusion Objective - Vital Signs Vital signs: Vital Signs Temp 98.1 F 12/20/19 07:03 Pulse 60 12/20/19 07:03 Resp 16 12/20/19 07:03 BP 149/68 12/20/19 07:03 Pulse Ox 93 L 12/20/19 07:03 Intake & Output 12/19/19 12/20/19 12/20/19 18:59 06:59 18:59 Intake Total 220 Output Total 750 Balance -530 Weight 71.5 kg Intake: Oral 220 Output: Urine 750 Other: Voiding Method Indwelling Catheter Urinal Diaper # Voids 1 - Exam GENERAL EXAM: More awake and alert today, cachectic, emaciated 84-year-old gentleman, with room air pulse ox of 93% comfortable in no apparent distress. HEAD: Normocephalic/atraumatic. There is temporal wasting EYES: Normal reaction of pupils, equal size. Conjunctiva pink, sclera white. NOSE: Clear with pink turbinates. THROAT: No erythema or exudates.the mucous membranes are extremely dry NECK: No masses, no JVD, no thyroid enlargement, no adenopathy. CHEST: No chest wall deformity. Symmetrical expansion. LUNGS: Equal air entry with basilar crackles CVS: Regular rate and rhythm, normal S1 and S2, no gallops, no murmurs, no rubs ABDOMEN: Soft, nontender. No hepatosplenomegaly, normal bowel sounds, no guardi ng or rigidity. EXTREMITIES: No clubbing, no edema, no cyanosis, 1+ pulses and upper and lower extremities.nfected extremities are showing significant muscle atrophy and some contractures in lower extremities bilaterally MUSCULOSKELETAL: Muscle strength and tone is significant diminished and the pat ient has cogwheel rigidity related to his Parkinson's disease SPINE: No scoliosis or deformity SKIN: No rashes CENTRAL NERVOUS SYSTEM: Awake, neurologic exam is nonfocal. There is some resting tremors - Labs CBC & Chem 7: 12/16/19 04:45 12/20/19 06:26 Labs: Abnormal Lab Results - Last 24 Hours (Table) 12/19/19 12/19/19 12/19/19 Range/Units 11:09 16:19 20:41 Chloride (98-107) mmol/L Carbon Dioxide (22-30) mmol/L BUN (9-20) mg/dL POC Glucose (mg/dL) 100 H 109 H 129 H (75-99) mg/dL Calcium (8.4-10.2) mg/dL 12/20/19 12/20/19 Range/Units 06:26 07:15 Chloride 117 H (98-107) mmol/L Carbon Dioxide 18 L (22-30) mmol/L BUN 56 H (9-20) mg/dL POC Glucose (mg/dL) 122 H (75-99) mg/dL Calcium 7.6 L (8.4-10.2) mg/dL Microbiology - Last 24 Hours (Table) 12/13/19 14:17 Blood Culture - Final Blood No Growth after 144 hours Assessment and Plan Plan: Assessment: 1. Acute Covid 19 pneumonia with secondary acute hypoxic respiratory failure is currently the patient is recovering and on room air. The patient's pulmonary status is stable for now. 2. Acute kidney injury secondary to significant intravascular volume depletion/dehydration. Recovered with IV hydration 3. New-onset atrial flutter with rapid ventricular response , improved with amiodarone and the patient remains in a flutter/fibrillation. anticoagulated with Eliquis, oral amiodarone 4 Mild lactic acidosis secondary to dehydration, improved 5 History of advanced dementia 6 Parkinson's disorder 7 BPH 8 Hypertention 9 Hyperlipidemia 10 History of CVA, with obviously lacunar stroke involving the basal ganglia based on the CAT scan findings. 11 altered mental status secondary to metabolic encephalopathy related toacute kidney injury and intravascular volume depletion. Also the patient s history of underlyin memory and cognition., Improving Plan: Stable, maintaining stable O2 saturations on room air, no worsening dyspnea, today's chest x-ray has been reviewed showing retrocardiac and mild patchy opacity in the periphery of the right midlung. Clinically improved, no fever or chills, vital signs are stable, remains on Zosyn for antibiotic coverage. Renal function has recovered patient is tolerating oral feedings, patient is on modified diet with honey thick liquids. Discharge planning is in progress for transfer to the [facility] possibly today I performed a history & physical examination of the patient and discussed their management with my nurse practitioner, Gayatri Barnes. I reviewed the nurse practitioner's note and agree with the documented findings and plan of care. Lung sounds are positive for diminished breath sounds. The findings and the impression was discussed with the patient. I attest to the documentation by the nurse practitioner. Time with Patient: Less than 30
[2019-12-20 11:16] VITALS: BP 105/57; PULSE 58; TEMP 97.4
[2019-12-20 11:32] LABS: Glucose,Whole Blood 108 mg/dL (75-99)
--- NOTE | 2019-12-20 13:16 | P.PN ---
Subjective This is a pleasant 84-year-old male currently being treated for Covid 19. He also developed new onset atrial flutter on this admission. He has converted to sinus mechanism and initiated on anticoagulation. Due to his current diagnosis no physical exam was performed however information was obtained from the nursing staff and medical record. Currently maintained on amiodarone 200 mg daily, Eliquis 2.5 mg twice a day, aspirin 81 mg daily, clonidine 0.1 mg patch every 7 days, hydralazine 25 mg twice a day and Lopressor 12.5 mg twice a day. Blood pressure 105/57 heart rate 58 afebrile maintaining oxygen saturation on room air. Telemetry tracings reveal sinus mechanism with frequent PACs. Laboratory data reviewed, sodium 139, potassium 4.6, creatinine 1.06 and magnesium 2.2. ASSESSMENT Acute Covid 19 pneumonia Acute hypoxic respiratory failure Acute on chronic systolic heart failure, improved. Losartan on hold secondary t o renal failure. Altered mental status secondary to metabolic encephalopathy Acute kidney injury New-onset atrial flutter with rapid ventricular response converted to sinus mechanism with amiodarone Lactic acidosis Dementia Hypertension Dyslipidemia History of CVA PLAN Continue current medical regimen. We will continue to follow as needed, please free to call with further questions or concerns. Nurse Practitioner note has been reviewed, I agree with a documented findings and plan of care. Patient was no examined, information obtained from medical record and nursing staff secondary to active COVID 19. Objective - Vital Signs Vital signs: Vital Signs Temp 97.4 F L 12/20/19 11:15 Pulse 58 L 12/20/19 11:15 Resp 16 12/20/19 11:15 BP 105/57 12/20/19 11:15 Pulse Ox 93 L 12/20/19 07:03 Intake & Output 12/19/19 12/20/19 12/20/19 18:59 06:59 18:59 Intake Total 220 Output Total 750 Balance -530 Weight 71.5 kg Intake: Oral 220 Output: Urine 750 Other: Voiding Method Indwelling Catheter Urinal Diaper # Voids 1 - Labs CBC & Chem 7: 12/16/19 04:45 12/20/19 06:26 Labs: Abnormal Lab Results - Last 24 Hours (Table) 12/19/19 12/19/19 12/20/19 Range/Units 16:19 20:41 06:26 Chloride 117 H (98-107) mmol/L Carbon Dioxide 18 L (22-30) mmol/L BUN 56 H (9-20) mg/dL POC Glucose (mg/dL) 109 H 129 H (75-99) mg/dL Calcium 7.6 L (8.4-10.2) mg/dL 12/20/19 12/20/19 Range/Units 07:15 11:31 Chloride (98-107) mmol/L Carbon Dioxide (22-30) mmol/L BUN (9-20) mg/dL POC Glucose (mg/dL) 122 H 108 H (75-99) mg/dL Calcium (8.4-10.2) mg/dL Microbiology - Last 24 Hours (Table) 12/13/19 14:17 Blood Culture - Final Blood No Growth after 144 hours
--- NOTE | 2019-12-20 14:26 | P.DS ---
Providers Date of admission: 12/13/19 17:59 Expected date of discharge: 12/20/19 Attending physician: Kun Mendiola Consults: 12/13/19 17:59 Consult Physician Stat Consulting Provider: Luc Osman Consult Reason/Comments: COVID 19, hypoxia Do you want consulting provider notified?: Yes 12/13/19 18:05 Consult Physician Stat Consulting Provider: Talon Dalton Consult Reason/Comments: Atrial flutter with rapid ventricular response Do you want consulting provider notified?: Yes 12/13/19 21:30 Consult Physician Routine Consulting Provider: Fina Tan Consult Reason/Comments: AKF Do you want consulting provider notified?: Yes Primary care physician: Kun Mendiola Hospital Course: 84-year-old male who was in the hospital in November 12 till November 16 for acute bilateral pneumonia and high temperature and chills was seen in the pulmonary and treated at the time with the significant improvement was in acute hypoxic respiratory failure Covid 19 that time was ruled out patient was having more COPD exacerbation with worsening dementia and mild lactic acidosis. He was treated and has done well was sent to [facility] on budesonide and albuterol inhaler along with changing his blood pressure medication for better management of kidney function to be seen by his primary care Dr. House or to see by Dr. Mendiola at the shelter at the time. Patient brought to the emergency department at [facility] today 12/13/2019 because of very high fever or chills tachycardia severe shortness of breath with high suspicion for Covid 19 infection this time because of his roommate was diagnosed with it recently. At the time was seen at the emergency department patient pulse rate was very high he was having low urine output significant hypertension with severely dehydrated with temperature running at 97 or 98 his pulse ox on 8 L was on at 97 percentile only. Patient lactic acid was significantly elevated at 3.7 his C-reactive protein with 65.2 his LDH was 1098. And I suspected Covid 19 was positive this time. Patient was seen by Dr. Osman and pulmonary at the emergency department decided to place central line and start patient on challenge IV hydration of 3 toward the time patient had extremely high risk up being intubated with extreme high mortality at this point with the worsening kidney failure with severe tachycardia with a flutter did not respond to challenge with adenosine patient was to replace on Cardizem drip to bring his pulse rate down and was transferred to the ICU afterward after giving him a bolus of amiodarone and started on amiodarone drip to keep his pulse rates below 90. Patient was started on hydrochloric when 400 mg twice a day with Solu-Medrol 30 mg twice a day was continue on heparin drip for A. fib/A flutter and 1 g of Rocephin was giving. 12/13: Patient has not required intubation. He is currently pulse ox 97% on 4 L nasal cannula. He has been afebrile, heart rate 97-114. Patient is now converted to normal sinus rhythm. Repeat blood work reveals WBC 11.9, hemoglobin 14.2, platelet count 159. D-dimer 5.29. Sodium 145, potassium 4.2, chloride 119, CO2 16, BUN 127, creatinine 2.83. Repeat lactic acid 1.8. Troponin 0.092. Patient has been seen by Dr. Mancera with recommendations to continue IV amiodarone at the time of his evaluation as well as heparin IV. Lopressor was increased to 25 mg twice daily. Echocardiogram reveals EF of 25- 30%, trace mitral regurgitation, trace tricuspid regurgitation, small generalized pericardial effusion. Repeat chest x-ray reveals similar patchy right mid lung airspace disease likely unifocal pneumonia. Patient is continued in [address] He is on the Plaquenil protocol as well as Solu-Medrol 30 mg IV every 12 hours and Rocephin. Patient is followed by Dr. Osman and consult in place with nephrology as well. 12/14: Patient remains in the intensive care unit in [facility]. Cardiology has switched him to oral amiodarone at 400 mg twice daily. Patient Patient is still on a heparin drip which is going to be continued for now. Patient was evaluated by speech therapy this morning and found to have worsening swallow and made strict nothing by mouth. Patient is afebrile, heart rate in the 60s and 70s, blood pressure 137/80, pulse ox 94% on 3 L nasal cannula. Repeat blood work reveals a CBC of 9.2, hemoglobin 12.9, platelet count 147. D-dimer 4.16, ferritin 944.7, LDH 1107, CK 536, C reactive protein 62.3. A BUN 103 and creatinine 2.16. Repeat chest x-ray reveals chronic principal changes with persistent lateral right mid lung acute infiltrate and slightly more prominent left basal atelectasis and/or infiltrate. 12/15: Patient has been transferred to the cardiac stepdown unit. He is currently off oxygen and pulse oxing 95-97%. He has been afebrile, heart rate 76, blood pressure 139/90. Repeat blood work reveals WBC 9.7, hemoglobin 12.5, platelet count 177. D-dimer 3.85, LDH 944, C-reactive protein 42. Sodium 149 and IV fluids changed to D5W. Potassium 3.6, chloride 126, CO2 17, BUN 70 and creatinine 1.67. Blood sugars running between 128 and 142. Patient has good urine output. We will plan to remove triple-lumen from the right groin area patient has other IV access. Anticipate discharge back to ECF on Thursday. 12/16: Patient remains on cardiac stepdown unit, vital signs are stable. Pulse ox 96% on room air, he is afebrile heart rate 54, blood pressure 103/57. Heart rate was 54 this morning spoke with cardiology decreased amiodarone 200 mg daily. Labs were reviewed, BUN 75 creatinine 1.63. IV fluids remain in place. Blood sugars are stable. Remains on modified diet. Anticipated discharge to ECF on Thursday. 12/17: Patient seen and examined this morning. Awaiting anticipated discharge to ECF on Thursday. Patient denies any major complaints this morning. He is afebrile heart rate 58, blood pressure 147/72, pulse ox 98% on 2 L via nasal cannula. Blood sugars have been stable. Labs were reviewed, BUN 67 creatinine 1.39. PT, OT, and speech remain on the case. 12/18: Patient is sitting up in bed. He appears to be more awake today and more alert he continues to have some issues with swallowing however he needed some assistance with the his food, he continues to be somewhat swollen in both upper extremities and lower extremities, we will try to discontinue Keith catheter tomorrow morning, we will monitor the patient for another 24 hours when he is able to eat and drink he can be transferred back to [facility].patient will be transferred to [facility] floor. Patient has been afebrile, heart rate 60, blood pressure 108/61, pulse ox 97% on room air. Heart rate has been running in the 50s and cardiology decreased metoprolol. repeat blood work reveals chloride 114, CO2 20, BUN 59 creatinine 1.27. Blood sugars run between 103 and 156. Repeat chest x-ray reveals increasing retrocardiac opacities may represent atelectasis or pneumonia. IV Solu-Medrol transitioned to oral prednisone. 12/19: Discussed case with speech therapy today and there is concern the patient is silently aspirating. This morning, patient is a 25% of his meal and has not been eating more than that since admission. Patient continues to have a congested cough. He is afebrile, heart rate 58, blood pressure 105/57, pulse ox 93% on room air. Repeat blood work reveals BUN of 56, creatinine 1.06, CO2 18. Nephrology has recommended continuing bicarb. Discussed current circumstances with the patient's and she would like the patient to be made hospice. [facility] has been contacted per patient's family wishes and he will be transferred to [facility] once arrangements are completed. Discharge diagnoses: 1. Acute hypoxic respiratory failure secondary to acute Covid 19 infection along with gram-negative pneumonia associated with acute A. fib a flutter with acute heart failure as well and acute renal failure. 2. Acute Covid 19 pneumonitis. 3. Acute kidney injury with acute tubular necrosis and non-gap metabolic acidosis. 4. New-onset of atrial flutter with rapid ventricular response, converted to normal sinus rhythm. 5. Hypernatremia. 6. Acute lactic acidosis secondary to COVID-19 infection and sepsis, present on admission. 7. Elevated troponin, acute coronary syndrome ruled out. 8. Severe protein calorie malnutrition with poor oral intake. 9. Dysphagia with suspected silent aspiration. 10. 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 12. BPH. 13. Hypertension. 14. COPD without exacerbation.. Discharge plan: [facility] Impression and plan of care have been directed as dictated by the signing physic ian. Aisha Rausch nurse practitioner acting as scribe for signing physician. Patient Condition at Discharge: Good Plan - Discharge Summary Discharge Rx Participant: No New Discharge Prescriptions: New hydrALAZINE HCL [Apresoline] 25 mg PO BID tab LORazepam ORAL CONC [Ativan Intensol] 2 mg PO Q4HR PRN #30 ml PRN Reason: Anxiety cloNIDine 0.1 MG/24HR PATCH [Catapres-TTS] 1 patch TRANSDERM Q7D patch Atropine Ophth Soln 1% 5Ml [Isopto Atropine 1% 5Ml] 2 drops PO Q4HR PRN #1 bottle PRN Reason: Secretions MORPHINE ORAL ISABEL CONC 20mg/mL [Roxanol Oral Soln Conc 20MG/ML] 5 mg PO Q4H PRN #30 ml PRN Reason: Pain Continue rOPINIRole HCL [Requip] 0.5 mg PO BID Rivastigmine 4.6MG/24Hr Patch [Exelon 4.6MG/24Hr Patch] 1 patch TRANSDERM DAILY@0800 Carbidopa-Levodopa 25-100 mg [Sinemet 25-100 mg] 1 tab PO QID@08,12,16,20 Polyethylene Glycol 3350 [Miralax] 17 gm PO DAILY Metoprolol Tartrate [Lopressor] 12.5 mg PO BID Acetaminophen Tab [Tylenol] 325 mg PO Q4H PRN PRN Reason: Pain Vortioxetine Hydrobromide [Trintellix] 10 mg PO HS Dextran 70/Hypromellose [Genteal Tears 0.1%-0.3% Drop] 1 drop BOTH EYES Q2H PRN PRN Reason: DRY EYES Magnesium Hydroxide [Milk of Magnesia] 2,400 mg PO DAILY PRN PRN Reason: Constipation Sennosides/Docusate Sodium [Senna Plus 8.6-50 mg Tablet] 1 tab PO BID Discontinued Tamsulosin [Flomax] 0.4 mg PO DAILY Melatonin 5 mg PO HS Cholecalciferol [Vitamin D3 (25 Mcg = 1000 Iu)] 1,000 unit PO DAILY Aspirin EC [Ecotrin Low Dose] 81 mg PO DAILY Budesonide-Formot 160-4.5 Mcg [Symbicort 160-4.5 Mcg Inhaler] 2 puff INHALATION RT-BID puff cloNIDine HCL [Catapres] 0.1 mg PO TID@0500,1300,2100 LORazepam [Ativan] 1 mg PO HS Albuterol Inhaler (Mhu) [Ventolin Hfa Inhaler (Mhu)] 2 puff INHALATION RT-QID PRN PRN Reason: Shortness Of Breath hydrALAZINE HCL [Apresoline] 25 mg PO Q6H PRN PRN Reason: Hypertension Losartan Potassium 100 mg PO HS Discharge Medication List Acetaminophen Tab [Tylenol] 325 mg PO Q4H PRN 11/13/19 [History] Carbidopa-Levodopa 25-100 mg [Sinemet 25-100 mg] 1 tab PO QID@08,12,16,20 11/13/19 [History] Metoprolol Tartrate [Lopressor] 12.5 mg PO BID 11/13/19 [History] Polyethylene Glycol 3350 [Miralax] 17 gm PO DAILY 11/13/19 [History] Rivastigmine 4.6MG/24Hr Patch [Exelon 4.6MG/24Hr Patch] 1 patch TRANSDERM DAILY@0800 11/13/19 [History] Vortioxetine Hydrobromide [Trintellix] 10 mg PO HS 11/13/19 [History] rOPINIRole HCL [Requip] 0.5 mg PO BID 11/13/19 [History] Dextran 70/Hypromellose [Genteal Tears 0.1%-0.3% Drop] 1 drop BOTH EYES Q2H PRN 12/13/19 [History] Magnesium Hydroxide [Milk of Magnesia] 2,400 mg PO DAILY PRN 12/13/19 [History] Sennosides/Docusate Sodium [Senna Plus 8.6-50 mg Tablet] 1 tab PO BID 12/13/19 [History] Atropine Ophth Soln 1% 5Ml [Isopto Atropine 1% 5Ml] 2 drops PO Q4HR PRN #1 bottle 12/20/19 [Rx] LORazepam ORAL CONC [Ativan Intensol] 2 mg PO Q4HR PRN #30 ml 12/20/19 [Rx] MORPHINE ORAL ISABEL CONC 20mg/mL [Roxanol Oral Soln Conc 20MG/ML] 5 mg PO Q4H PRN #30 ml 12/20/19 [Rx] cloNIDine 0.1 MG/24HR PATCH [Catapres-TTS] 1 patch TRANSDERM Q7D patch 12/20/19 [Rx] hydrALAZINE HCL [Apresoline] 25 mg PO BID tab 12/20/19 [Rx] Follow up Appointment(s)/Referral(s): Kun Mendiola MD [Primary Care Provider] - 1-2 days Activity/Diet/Wound Care/Special Instructions: caitlin hudson Discharge Disposition: HOME WITH HOSPICE
--- NOTE | 2019-12-21 12:31 | CDI ---
Documentation Clarification Form Date: 12/21/19 From: Debra Coon Phone: If you have a question about this query, please contact Haydee Zaragoza, Corrective Therapy Aide Teacher at [phone] between 8am and 5pm. Admit Date: 12/13/19 Discharge Date: 12/20/19 Patient Name: RENETTA ZURITA Visit Number: [id number] ATTENTION: The Clinical Documentation Specialists (CDI) and [facility] Coding Staff appreciate your assistance in clarifying documentation. Please respond to the clarification below the line at the bottom and electronically sign. The CDI & [facility] Coding staff will review the response and follow-up if needed. Please note: Queries are made part of the Legal Health Record. If you have any questions, please contact the author of this message via ITS. Dear Dr. Kun Mendiola, Patient presented with troponin of: 0.306, 0.292 Patient history/risk factors: COVID pneumonia, acute hypoxic respiratory failure, gram-negative pneumonia, ATN, typical atrial flutter, paroxysmal atrial fibrillation,severe PCM Clinical indicators: Elevated troponin most likely from hypoperfusion related to the a flutter with a rapid pulse the dehydraton and hypotension. Treatment: monitor In your professional opinion, can you please specify the diagnosis, if any, indicated by the above clinical indicators and treatment? Type II WA Non Q Wave WA Other, please specify Unable to determine Type II MI MTDD
== END 2019-12-20 18:04 | disposition hospice, home (50) | DRG 871 ==
LOC: EC 14:04 → 2SICU 17:59 → 3SCARD 12-15 22:08 → 4SSUR 12-19 21:55
PROVIDERS: ADMIT Internal Medicine; ATTEND Internal Medicine
PROC: 06HM33Z Insertion of Infusion Device into Right Femoral Vein, Percutaneous Approach (ICD-10-PCS; principal; 2019-12-13)
DX: A41.89 Other specified sepsis (principal); U07.1 COVID-19; J96.21 Acute and chronic respiratory failure with hypoxia; N17.0 Acute kidney failure with tubular necrosis; I50.23 Acute on chronic systolic (congestive) heart failure; E43 Unspecified severe protein-calorie malnutrition; J15.6 Pneumonia due to other Gram-negative bacteria; G93.41 Metabolic encephalopathy; I21.A1 Myocardial infarction type 2; J12.89 Other viral pneumonia; R64 Cachexia; E87.2 Acidosis; E87.0 Hyperosmolality and hypernatremia; I31.3 Pericardial effusion (noninflammatory); I42.9 Cardiomyopathy, unspecified; I48.3 Typical atrial flutter; J44.0 Chronic obstructive pulmonary disease with (acute) lower respiratory infection; J44.1 Chronic obstructive pulmonary disease with (acute) exacerbation; I47.1 Supraventricular tachycardia; I11.0 Hypertensive heart disease with heart failure; F02.80 Dementia in other diseases classified elsewhere, unspecified severity, without behavioral disturbance, psychotic disturbance, mood disturbance, and anxiety; G20 Parkinson's disease; I48.0 Paroxysmal atrial fibrillation; Z66 Do not resuscitate; Z51.5 Encounter for palliative care; E87.8 Other disorders of electrolyte and fluid balance, not elsewhere classified; R54 Age-related physical debility; E87.5 Hyperkalemia; E86.1 Hypovolemia; E86.0 Dehydration; I08.1 Rheumatic disorders of both mitral and tricuspid valves; R13.10 Dysphagia, unspecified; E78.5 Hyperlipidemia, unspecified; F32.9 Major depressive disorder, single episode, unspecified; F41.9 Anxiety disorder, unspecified; G47.00 Insomnia, unspecified; G89.29 Other chronic pain; N40.0 Benign prostatic hyperplasia without lower urinary tract symptoms; M19.90 Unspecified osteoarthritis, unspecified site; Z79.82 Long term (current) use of aspirin; Z79.51 Long term (current) use of inhaled steroids; Z79.899 Other long term (current) drug therapy; Z87.891 Personal history of nicotine dependence; Z86.73 Personal history of transient ischemic attack (TIA), and cerebral infarction without residual deficits
CPT/HCPCS: 36415; 70450; 71045; 80048; 80053; 81001; 82550; 82728; 83605; 83615; 83735; 84145; 84443; 84484; 85025; 85379; 85610; 85730; 86140; 87040; 87635; 93005; 93306; 96365; 96366; 96367; 96376; 99291